=== PATIENT | male | born 1955 | race Caucasian/White ===

== ENCOUNTER 2018-08-08 17:01 | Observation (INO) | payer OTHER, SELFPAY ==
[2018-08-08] VITALS (7 sets, daily range): BP systolic 133–162; BP diastolic 75–85; PULSE 50–75; RESP 16–18; TEMP 36.5–36.9; O2SAT 93–97; BMI 33.0; BMI 33.1
--- NOTE | 2018-08-08 18:27 | EKG12_ITS ---
Test Reason : ADMIT Blood Pressure : / mmHG Vent. Rate : 061 BPM Atrial Rate : 061 BPM P-R Int : 194 ms QRS Dur : 114 ms QT Int : 412 ms P-R-T Axes : 021 -29 010 degrees QTc Int : 414 ms Normal sinus rhythm Incomplete right bundle branch block Minimal voltage criteria for LVH, may be normal variant Inferior infarct , age undetermined Abnormal ECG When compared with ECG of 10-FEB-2008 11:15, MANUAL COMPARISON REQUIRED, DATA IS UNCONFIRMED Confirmed by BENNY MADRID, MARIO ([id number]), primer expeditor and drier ANISA STREETER ([id number]) on 08/12/2018 1:18:59 PM Referred By: Confirmed By:MARIO ZAPATA MD
--- NOTE | 2018-08-08 18:43 | ECHOD_ITS ---
Reason For Study: ARRHYTHMIA Procedure This was a 2D Doppler, Color Flow transthoracic echocardiogram. Exam performed portable in patient room. Left Ventricle Moderately dilated left ventricle. The estimated ejection fraction is 45-50 %. Stage 1 diastolic dysfunction. Posterior-Basal: Akinetic. Right Ventricle Moderately dilated right ventricle. ICD or pacer leads identified within the right ventricle. Normal systolic function. Atria The left atrium is mildly enlarged. Normal right atrium. Normal atrial septum. Mitral Valve The mitral valve is structurally normal. No prolapse or stenosis seen. Tricuspid Valve Normal tricuspid valve. Trivial tricuspid valve insufficiency. Right ventricular systolic pressure estimated to be 29 mmHg. Aortic Valve Trisinus/trileaflet aortic valve. Normal aortic valve. Pulmonic Valve Normal pulmonic valve. Trivial pulmonic valve insufficiency. Great Vessels Normal aortic root. Mild atherosclerosis of the aortic arch. Normal inferior vena cava. Inferior vena cava collapse with sniff. Pericardium/Pleural No pericardial effusion. MMode/2D Measurements & Calculations LVIDd: 5.7 cm IVSd: 1.2 cm Ao root diam: 3.4 cm LVIDs: 4.1 cm LVPWd: 1.3 cm RVDd: 4.4 cm FS: 29.1 % LAV(MOD-bp): 53.7 ml LVAd ap4: 36.4 cm2 SV(MOD-sp4): 56.1 ml LAV(MOD-bp) Indexed: 23.7 ml/m2 EDV(MOD-sp4): 126.4 ml LAV(MOD-sp2): 46.3 ml EDV(sp4-el): 125.5 ml LAV(MOD-sp4): 61.7 ml LVAs ap4: 24.7 cm2 ESV(MOD-sp4): 70.3 ml ESV(sp4-el): 69.4 ml EF(MOD-sp4): 44.4 % EF(sp4-el): 44.7 % SV(sp4-el): 56.0 ml LA A4 area: 21.4 cm2 LA dimension(2D): 4.5 cm RA A4 area: 19.1 cm2 Time Measurements MV dec time: 0.20 sec Doppler Measurements & Calculations MV E max nathan: 67.9 cm/sec Lat Peak E' Nathan: 12.2 cm/sec Med Peak E' Nathan: 6.3 cm/sec MV A max nathan: 92.0 cm/sec E/E' lat: 5.6 E/E' med: 10.7 MV E/A: 0.74 Ao V2 max: 148.1 cm/sec LV V1 max: 99.9 cm/sec PA V2 max: 140.5 cm/sec Ao max P.8 mmHg LV V1 max P.0 mmHg TR max nathan: 244.6 cm/sec TR max P.9 mmHg Interpretation Summary Moderately dilated left ventricle. The estimated ejection fraction is 45-50 %. Stage 1 diastolic dysfunction. Posterior-Basal: Akinetic. Moderately dilated right ventricle. Trivial tricuspid valve insufficiency. Right ventricular systolic pressure estimated to be 29 mmHg. Compared to echo report dated 06/06/2014, LV function and RVSP has remained the same. RV is now moderately enlarged. Ordering Physician: Samson^Jeronimo^^^ Referring Physician: CHONG WARD Performed By: Summer Casas RDCS
--- NOTE | 2018-08-08 18:46 | PCM.HP.STD ---
Problem List (1) Syncope Status: Acute (2) AICD discharge Status: Acute (3) History of myocardial infarction Status: Chronic (4) Essential hypertension Status: Chronic (5) Carotid bruit Status: Chronic (6) Hyperlipemia Status: Chronic Qualifiers: (7) H/O coronary artery bypass surgery Status: Chronic Comment: CABG x3- COLLADO to LAD, SVG to Lt CX, SVG to PDA (8) Atherosclerosis of coronary artery of [place] heart without angina pectoris Status: Chronic Qualifiers: (9) Paroxysmal ventricular tachycardia Status: Chronic (10) Ischemic cardiomyopathy Status: Chronic (11) Presence of implantable cardioverter-defibrillator (ICD) Status: Chronic Comment: Implantation 02/2008; ICD gen change 07/04/16 History of Present Illness Date of Admission: 08/08/18 Chief Complaint: Syncope and collapse with AICD firing The patient is a 63 year old M with history of coronary artery disease status post CABG and AICD in 2007 after massive [place] was admitted from October the [place] [facility] for syncope and collapse. Last night patient AICD went off. After that patient felt dizzy, lightheaded confused and mild short of breath and then suddenly passed out. Then patient was life flighted to [place] [facility]. Exact duration of syncope is not clear because no one was eyewitness probably with a short duration. Patient denies chest pain. [] Work up regarding [facility] troponin normal. EKG normal sinus rhythm with old inferior infarct with no significant change from May 2014 EKG. Basic blood work CBC, CMP are within normal limit. K3.8. BNP 103. Magnesium 1.9. Patient is back to the baseline when seen in PCU. Past Medical History Past Medical History (Chronic Problems): Chronic Problems (Last Reviewed 03/18/18 @ 16:24 by Adali Smith) History of myocardial infarction (Chronic) Essential hypertension (Chronic) Carotid bruit (Chronic) Hyperlipemia (Chronic) H/O coronary artery bypass surgery (Chronic ~12/26/07) CABG x3- COLLADO to LAD, SVG to Lt CX, SVG to PDA Atherosclerosis of coronary artery of [place] heart without angina pectoris (Chronic) Paroxysmal ventricular tachycardia (Chronic) Ischemic cardiomyopathy (Chronic) Presence of implantable cardioverter-defibrillator (ICD) (Chronic) Implantation 02/2008; ICD gen change 07/04/16 Medical History: Medical History (Last Reviewed 03/18/18 @ 16:24 by Adali Smith) History of myocardial infarction (Acute) I25.2 Essential hypertension (Chronic) I10 Carotid bruit (Acute) R09.89 Hyperlipemia (Chronic) E78.5 Atherosclerosis of coronary artery of [place] heart without angina pectoris (Chronic) I25.10 Paroxysmal ventricular tachycardia (Chronic) I47.2 Ischemic cardiomyopathy (Chronic) I25.5 Allergies iodine Allergy (Verified 03/18/18 16:22) Unknown latex Allergy (Verified 03/18/18 16:22) Unknown Home Medications: Ambulatory Orders Medication Instructions Recorded Aspirin 325 mg PO QHS 07/03/16 Cetirizine HCl [Zyrtec] 10 mg PO DAILY 07/03/16 Hydrochlorothiazide [Hctz] 25 mg PO DAILY 07/03/16 Lisinopril [Zestril] 20 mg PO BID 07/03/16 Metoprolol Tartrate [Lopressor 100 mg PO BID 07/03/16 (Beta Janki)] Multivitamin [Daily Multiple 1 ea PO DAILY 07/03/16 Vitamin] Nitroglycerin [Nitrostat] 0.4 mg SUBLINGUAL Q5M PRN 07/03/16 atorvastatin 40 mg tablet 40 mg PO DAILY 03/18/18 diphenhydramine 25 mg capsule 25 mg PO QHS PRN 03/18/18 potassium chloride ER 10 mEq 10 meq PO DAILY 03/18/18 capsule,extended release Surgical History: Surgical History (Last Reviewed 03/18/18 @ 16:24 by Adali Smith) H/O coronary artery bypass surgery (Chronic) Onset Date: ~12/26/07 Z95.1 CABG x3- COLL[place] to LAD, SVG to Lt CX, SVG to PDA Presence of implantable cardioverter-defibrillator (ICD) (Chronic) Z95.810 Implantation 02/2008; ICD gen change 07/04/16 History of tonsillectomy Z90.89 Postsurgical percutaneous transluminal coronary angioplasty (PTCA) status Onset Date: ~12/2007 Z98.61 PTCA of the CFX & RCA 12/2007 Smoking Status: Never smoker - *Family History Paternal History Items: Heart Disease - [place] Review of Systems Constitutional: Denies: Chills, Fever, Weight Change HEENT: Reports: Head Aches. Denies: Sinus Congestion, Sinus Drainage Cardiovascular: Reports: Light Headedness, Syncope. Denies: Chest Pain, Palpitations Respiratory: Reports: Shortness of Breath. Denies: Cough, Shortness of breath at rest, Sputum production Gastrointestinal: Denies: Abdominal Pain, Nausea, Vomiting Genitourinary: Denies: Dysuria Musculoskeletal: Denies: Joint Pain, Joint Tenderness Skin: Denies: Rash, Wounds Neurological: Denies: Numbness, Tingling, Focal weakness Psychiatric: Denies: Anxiety, Depression, Homicidal Ideations, Suicidal Ideations Hematologic/ Lymphatic: Denies: Easy Bruising, Easy Bleeding VTE Information - Inpt Only VTE Present on Admission: No VTE Mechan Device Prophylaxis: None VTE Pharm Prophylaxis ordered?: Yes Patient Problems: Active and Suspected Problems (Last Reviewed 03/18/18 @ 16:24 by Adali Smith) Syncope (Acute) AICD discharge (Acute) - Physical Exam General: Alert, Oriented x3, Cooperative HEENT: Atraumatic, PERRLA, EOMI, Normocephalic Oral: No Gingival or Mucosal Lesions/ Ulcerations Neck: Supple, No JVD, Negative Carotid Bruits Lungs: Clear to auscultation, Normal air movement, No rhonchi, No wheeze, No rales Cardiovascular: Regular rate, Regular Rhythm, Normal S1, Normal S2, No murmurs, - - AICD present over left subclavicular region Abdomen: Bowel Sounds Present, Soft, Non Tender, Non-Distended Extremities: No edema, Capillary Refill Less than 3 Seconds Skin: No rashes, No breakdown Musculoskeletal: No Tenderness to Palpation of Joints or Extremities, Arthritic Changes Lymphatic: No Cervical, Supraclavicular, or Inguinal Adenopathy Neurological: Cranial nerves II-XII grossly intact, Deep Tendon Reflexes 2+/4 and Symmetrical, Neuro grossly intact, Motor Exam 5/5 strength throughout Psych/Mental Status: Normal Affect, Appropriate Vital Signs Temp Pulse Resp BP Pulse Ox 98.4 F 69 18 133/85 H 97 08/08/18 17:14 08/08/18 17:44 08/08/18 17:14 08/08/18 17:14 08/08/18 17:14 Oxygen Delivery Method Room Air Weight: 236 lb 15.951 oz Body Mass Index (BMI) 33.0 Intake and Output for Last 24 Hours 08/06/18 08/07/18 08/08/18 23:59 23:59 23:59 Intake Total 0 / 0 Balance 0 / 0 Assessment/Plan All Active Problems (Last Reviewed 03/18/18 @ 16:24 by Adali mSith) Syncope (Acute) AICD discharge (Acute) The patient is a 63 year old M with history of coronary artery disease status post CABG and AICD in 2007 after massive [place] was admitted from October the [place] [facility] for syncope and collapse. Last night patient AICD went off. After that patient felt dizzy, lightheaded confused and mild short of breath and then suddenly passed out. Then patient was life flighted to [place] [facility]. Exact duration of syncope is not clear because no one was eyewitness probably with a short duration. Patient denies chest pain. [] Work up regarding [facility] troponin normal. EKG normal sinus rhythm with old inferior infarct with no significant change from May 2014 EKG. Basic blood work CBC, CMP are within normal limit. K3.8. BNP 103. Magnesium 1.9. Digital Strategy Manager was consulted and patient directly transferred to PCU. Patient is back to the baseline when seen in PCU. 1. Syncope and collapse mostly secondary to arrhythmia probably A. fib: Patient is being admitted in PCU. Cycle cardiac enzymes. Dr. Camarena has been consulted. IV fluid normal saline 75 mill per hour for 1 L. Patient had last cardiac cath in [facility] in November 2014 and grafts were patent. EF 50%. Last echo in May 2014 reported as EF 40-45% with akinesis of inferior myocardium. Grade 1 diastolic dysfunction. RVSP 26 mmHg. Left atrium moderately enlarged. It was reported as difficult study secondary to patient's body habitus. Repeat 2D echo. AICD interrogation. Repeat EKG done in PCU shows normal sinus rhythm with incomplete right bundle branch block, QRS 114 ms but no significant change from previous EKG. 2. Coronary artery disease status post CABG with ischemic cardiomyopathy: Patient is on aspirin, atorvastatin, lisinopril and metoprolol and continued. 3. Chronic systolic and diastolic heart failure: Echo report as mentioned above. Patient does not have significant ankle edema or lung crepitations. Patient had a chest x-ray in ED there but report is not available. 4. Other comorbidities include hypertension, dyslipidemia, possible prediabetes: Glucose is 112 reported in BMP. DVT prophylaxis: On Lovenox 40 minutes subcu daily Code Visit OBSV E&M: 94505 Initial observation care L3
--- NOTE | 2018-08-08 18:52 | HP.PCM_ITS ---
Problem List (1) Syncope Status: Acute (2) AICD discharge Status: Acute (3) History of myocardial infarction Status: Chronic (4) Essential hypertension Status: Chronic (5) Carotid bruit Status: Chronic (6) Hyperlipemia Status: Chronic Qualifiers: (7) H/O coronary artery bypass surgery Status: Chronic Comment: CABG x3- COLLADO to LAD, SVG to Lt CX, SVG to PDA (8) Atherosclerosis of coronary artery of [place] heart without angina pectoris Status: Chronic Qualifiers: (9) Paroxysmal ventricular tachycardia Status: Chronic (10) Ischemic cardiomyopathy Status: Chronic (11) Presence of implantable cardioverter-defibrillator (ICD) Status: Chronic Comment: Implantation 02/2008; ICD gen change 07/04/16 History of Present Illness Date of Admission: 08/08/18 Chief Complaint: Syncope and collapse with AICD firing The patient is a 63 year old M with history of coronary artery disease status post CABG and AICD in 2007 after massive [place] was admitted from October the [place] ER for syncope and collapse. Last night patient AICD went off. After that patient felt dizzy, lightheaded confused and mild short of breath and then suddenly passed out. Then patient was life flighted to [place] ER. Exact duration of syncope is not clear because no one was eyewitness probably with a short duration. Patient denies chest pain. [] Work up regarding [facility] troponin normal. EKG normal sinus rhythm with old inferior infarct with no significant change from May 2014 EKG. Basic blood work CBC, CMP are within normal limit. K3.8. BNP 103. Magnesium 1.9. Patient is back to the baseline when seen in PCU. Past Medical History Past Medical History (Chronic Problems): Chronic Problems (Last Reviewed 03/18/18 @ 16:24 by Adali Smith) History of myocardial infarction (Chronic) Essential hypertension (Chronic) Carotid bruit (Chronic) Hyperlipemia (Chronic) H/O coronary artery bypass surgery (Chronic ~12/26/07) CABG x3- COLLADO to LAD, SVG to Lt CX, SVG to PDA Atherosclerosis of coronary artery of [place] heart without angina pectoris (Chronic) Paroxysmal ventricular tachycardia (Chronic) Ischemic cardiomyopathy (Chronic) Presence of implantable cardioverter-defibrillator (ICD) (Chronic) Implantation 02/2008; ICD gen change 07/04/16 Medical History: Medical History (Last Reviewed 03/18/18 @ 16:24 by Adali Smith) History of myocardial infarction (Acute) I25.2 Essential hypertension (Chronic) I10 Carotid bruit (Acute) R09.89 Hyperlipemia (Chronic) E78.5 Atherosclerosis of coronary artery of [place] heart without angina pectoris (Chronic) I25.10 Paroxysmal ventricular tachycardia (Chronic) I47.2 Ischemic cardiomyopathy (Chronic) I25.5 Allergies iodine Allergy (Verified 03/18/18 16:22) Unknown latex Allergy (Verified 03/18/18 16:22) Unknown Home Medications: Ambulatory Orders Medication Instructions Recorded Aspirin 325 mg PO QHS 07/03/16 Cetirizine HCl [Zyrtec] 10 mg PO DAILY 07/03/16 Hydrochlorothiazide [Hctz] 25 mg PO DAILY 07/03/16 Lisinopril [Zestril] 20 mg PO BID 07/03/16 Metoprolol Tartrate [Lopressor 100 mg PO BID 07/03/16 (Beta Janki)] Multivitamin [Daily Multiple 1 ea PO DAILY 07/03/16 Vitamin] Nitroglycerin [Nitrostat] 0.4 mg SUBLINGUAL Q5M PRN 07/03/16 atorvastatin 40 mg tablet 40 mg PO DAILY 03/18/18 diphenhydramine 25 mg capsule 25 mg PO QHS PRN 03/18/18 potassium chloride ER 10 mEq 10 meq PO DAILY 03/18/18 capsule,extended release Surgical History: Surgical History (Last Reviewed 03/18/18 @ 16:24 by Adali Smith) H/O coronary artery bypass surgery (Chronic) Onset Date: ~12/26/07 Z95.1 CABG x3- COLLADO to LAD, SVG to Lt CX, SVG to PDA Presence of implantable cardioverter-defibrillator (ICD) (Chronic) Z95.810 Implantation 02/2008; ICD gen change 07/04/16 History of tonsillectomy Z90.89 Postsurgical percutaneous transluminal coronary angioplasty (PTCA) status Onset Date: ~12/2007 Z98.61 PTCA of the CFX & RCA 12/2007 Smoking Status: Never smoker - *Family History Paternal History Items: Heart Disease - [place] Review of Systems Constitutional: Denies: Chills, Fever, Weight Change HEENT: Reports: Head Aches. Denies: Sinus Congestion, Sinus Drainage Cardiovascular: Reports: Light Headedness, Syncope. Denies: Chest Pain, Palpitations Respiratory: Reports: Shortness of Breath. Denies: Cough, Shortness of breath at rest, Sputum production Gastrointestinal: Denies: Abdominal Pain, Nausea, Vomiting Genitourinary: Denies: Dysuria Musculoskeletal: Denies: Joint Pain, Joint Tenderness Skin: Denies: Rash, Wounds Neurological: Denies: Numbness, Tingling, Focal weakness Psychiatric: Denies: Anxiety, Depression, Homicidal Ideations, Suicidal Ideations Hematologic/ Lymphatic: Denies: Easy Bruising, Easy Bleeding VTE Information - Inpt Only VTE Present on Admission: No VTE Mechan Device Prophylaxis: None VTE Pharm Prophylaxis ordered?: Yes Patient Problems: Active and Suspected Problems (Last Reviewed 03/18/18 @ 16:24 by Adali Smith) Syncope (Acute) AICD discharge (Acute) - Physical Exam General: Alert, Oriented x3, Cooperative HEENT: Atraumatic, PERRLA, EOMI, Normocephalic Oral: No Gingival or Mucosal Lesions/ Ulcerations Neck: Supple, No JVD, Negative Carotid Bruits Lungs: Clear to auscultation, Normal air movement, No rhonchi, No wheeze, No rales Cardiovascular: Regular rate, Regular Rhythm, Normal S1, Normal S2, No murmurs, - - AICD present over left subclavicular region Abdomen: Bowel Sounds Present, Soft, Non Tender, Non-Distended Extremities: No edema, Capillary Refill Less than 3 Seconds Skin: No rashes, No breakdown Musculoskeletal: No Tenderness to Palpation of Joints or Extremities, Arthritic Changes Lymphatic: No Cervical, Supraclavicular, or Inguinal Adenopathy Neurological: Cranial nerves II-XII grossly intact, Deep Tendon Reflexes 2+/4 and Symmetrical, Neuro grossly intact, Motor Exam 5/5 strength throughout Psych/Mental Status: Normal Affect, Appropriate Vital Signs Temp Pulse Resp BP Pulse Ox 98.4 F 69 18 133/85 H 97 08/08/18 17:14 08/08/18 17:44 08/08/18 17:14 08/08/18 17:14 08/08/18 17:14 Oxygen Delivery Method Room Air Weight: 236 lb 15.951 oz Body Mass Index (BMI) 33.0 Intake and Output for Last 24 Hours 08/06/18 08/07/18 08/08/18 23:59 23:59 23:59 Intake Total 0 / 0 Balance 0 / 0 Assessment/Plan All Active Problems (Last Reviewed 03/18/18 @ 16:24 by Adali Smith) Syncope (Acute) AICD discharge (Acute) The patient is a 63 year old M with history of coronary artery disease status post CABG and AICD in 2007 after massive [place] was admitted from October the [place] ER for syncope and collapse. Last night patient AICD went off. After that patient felt dizzy, lightheaded confused and mild short of breath and then suddenly passed out. Then patient was life flighted to [place] ER. Exact duration of syncope is not clear because no one was eyewitness probably with a short duration. Patient denies chest pain. [] Work up regarding [facility] troponin normal. EKG normal sinus rhythm with old inferior infarct with no significant change from May 2014 EKG. Basic blood work CBC, CMP are within normal limit. K3.8. BNP 103. Magnesium 1.9. Psychologist Counseling was consulted and patient directly transferred to PCU. Patient is back to the baseline when seen in PCU. 1. Syncope and collapse mostly secondary to arrhythmia probably A. fib: Patient is being admitted in PCU. Cycle cardiac enzymes. Dr. Camarena has been consulted. IV fluid normal saline 75 mill per hour for 1 L. Patient had last cardiac cath in [facility] in November 2014 and grafts were patent. EF 50%. Last echo in May 2014 reported as EF 40-45% with akinesis of inferior myocardium. Grade 1 diastolic dysfunction. RVSP 26 mmHg. Left atrium moderately enlarged. It was reported as difficult study secondary to patient's body habitus. Repeat 2D echo. AICD interrogation. Repeat EKG done in PCU shows normal sinus rhythm with incomplete right bundle branch block, QRS 114 ms but no significant change from previous EKG. 2. Coronary artery disease status post CABG with ischemic cardiomyopathy: Patient is on aspirin, atorvastatin, lisinopril and metoprolol and continued. 3. Chronic systolic and diastolic heart failure: Echo report as mentioned above. Patient does not have significant ankle edema or lung crepitations. Patient had a chest x-ray in ED there but report is not available. 4. Other comorbidities include hypertension, dyslipidemia, possible prediabetes: Glucose is 112 reported in BMP. DVT prophylaxis: On Lovenox 40 minutes subcu daily Code Visit OBSV E&M: 65859 Initial observation care L3
[2018-08-08] MEDS: 0.9% NaCl Peripheral Flush Adult/Peds IV (18:54)
[2018-08-08] MEDS: 0.9% Normal Saline 1,000 ML 75 ML IV (18:54)
[2018-08-08 19:05] LABS: Bedside Glucose 109 mg/dL (70-110)
[2018-08-08 19:52] LABS: Magnesium 1.9 mg/dL (1.6-2.6)
[2018-08-08] MEDS: Lisinopril 20 MG Tablet PO (22:00)
[2018-08-08] MEDS: Aspirin 325 MG Tablet PO (22:00)
[2018-08-08] MEDS: Famotidine 20 MG Tablet PO (22:00)
[2018-08-08] MEDS: Metoprolol Tartrate 100 MG Tablet PO (22:00)
[2018-08-08 22:51] LABS: Bedside Glucose 107 mg/dL (70-110)
[2018-08-09] VITALS (13 sets, daily range): BP systolic 122–144; BP diastolic 55–91; PULSE 52–78; RESP 14–18; TEMP 36.5–36.8; O2SAT 93–97
[2018-08-09 06:56] LABS: Bedside Glucose 123 mg/dL (70-110)
[2018-08-09 07:20] LABS: Absolute Neutrophil Count 2.7 X10^3/uL (2.0-7.7); Basophil# 0.02 X10^3/uL; Basophil% 0.4 % (0-1); Eosinophil# 0.11 X10^3/uL; Eosinophils% 2.3 % (0-5); Hematocrit 40.7 % (40-54); Hemoglobin 13.6 g/dl (13.0-16.5); Lymphocyte % 29.8 % (19-41); Mean Corp Hgb Conc 33.4 g/gl (32-36); Mean Corpuscular Hgb 31.1 pg (27.0-32.0); Mean Corpuscular Volume 93.1 fL (80-94); Mean Platelet Vol. 11.4 fl (6.2-12.0); Monocyte# 0.47 X10^3/uL; Neutrophil % 57.5 % (47-70); Platelet Count 171 K/mm3 (150-450); RBC Distribution Width CV 12.7 % (11.6-14.6); RBC Distribution Width SD 42.7 fl (35.1-43.9); Red Blood Count 4.37 M/mm3 (4.6-6.2); White Blood Count 4.7 K/mm3 (4.4-11.0)
[2018-08-09 07:24] LABS: POSITIVE COUNT NO; POSITIVE DIFFERENTIAL NO; POSITIVE MORPHOLOGY NO
[2018-08-09 07:44] LABS: Anion Gap 5 (5-15); BUN 16 mg/dL (7-18); BUN/Creat Ratio 19.1 RATIO (10-20); Calcium,Total 8.2 mg/dL (8.5-10.1); Chloride 111 mmol/L (98-107); Creatinine, Serum 0.84 mg/dL (0.70-1.30); EST Glomerular Filtration Rate 99 mL/min (>60); Est Glom Filt Rate - Afr Amer 120 mL/min (>60); Estimated Creatinine Clearance 97.11 ml/min; Glucose 131 mg/dL (74-106); Potassium 3.7 mmol/L (3.5-5.1); Sodium Level 142 mmol/L (136-145); Thyroid Stim Hormone (TSH) 0.68 uIU/mL (0.358-3.74)
[2018-08-09] MEDS: Metoprolol Tartrate 100 MG Tablet PO ×2 (09:36→22:09)
[2018-08-09] MEDS: hydroCHLOROthiazide 25 MG Tablet PO (09:36)
[2018-08-09] MEDS: Enoxaparin 40 MG/0.4 ML Syringe SC (09:36)
[2018-08-09] MEDS: Lisinopril 20 MG Tablet PO ×2 (09:37→22:09)
[2018-08-09] MEDS: Famotidine 20 MG Tablet PO ×2 (09:42→22:09)
--- NOTE | 2018-08-09 09:50 | PCM.CONS.C ---
Problem List (1) Syncope Status: Acute (2) AICD discharge Status: Acute (3) History of myocardial infarction Status: Chronic (4) Essential hypertension Status: Chronic (5) Hyperlipemia Status: Chronic Qualifiers: (6) H/O coronary artery bypass surgery Status: Chronic Comment: CABG x3- COLLADO to LAD, SVG to Lt CX, SVG to PDA (7) Atherosclerosis of coronary artery of [place] heart without angina pectoris Status: Chronic Qualifiers: (8) Paroxysmal ventricular tachycardia Status: Chronic (9) Ischemic cardiomyopathy Status: Chronic Reason for Consult Date of Consultation: 08/09/18 Reason for Consultation: AICD discharge, for V. fib, ischemic cardia myopathy, hypertension, hypercholesterolemia, coronary artery disease, LV dysfunction History of Present Illness: The patient is a 63 year old M, patient of Dr. Falcon with a history of hypertension, hypercholesterolemia, non-smoker, nondiabetic, with a history of coronary artery disease status post myocardial infarction in 2007. At that time he underwent urgent multivessel bypass surgery receiving a COLLADO to the LAD, saphenous vein graft to the PDA, and a saphenous vein graft to the obtuse marginal. His most recent catheterization took place at [facility] on 02/16/08 which showed patent grafts, EF of 50%, occluded right coronary artery and nonobstructive disease of his remaining coronaries. Apparently the patient underwent EP evaluation at [facility] and was found to require a defibrillator which was placed in 2007 and generator change in 2016. The patient has been doing very well and has had no chest pain, angina, or shortness of breath, change in his exercise capacity, or decreased energy level. Patient noted that [employer] helicopter was landing in his neighborhood and the patient went to go lend assistance and try to do up a hill to get to the landing site. Upon arrival at the top of the hill the patient became profoundly dizzy and lightheaded requiring him to stabilize himself on a stack of logs and finally turned and passed out. When the patient woke up he was on the ground, and went back to his home. He had his defibrillator interrogated remotely and was found that he went into V. fib arrest requiring a shock. He was advised to go to the emergency room and went to [facility]. [facility] ER called me yesterday and I requested transfer to [facility] for further evaluation and diagnostic coronary angiogram. Currently the patient is doing very well, denies any chest pain or 24-hour events. His telemetry is remained normal sinus rhythm. His lightheadedness episodes were similar to what he had prior to his implantation of his defibrillator and before it was discovered he had ischemia induced ventricular arrhythmias. His presenting EKG showed normal sinus rhythm with right bundle branch block, old inferior wall myocardial infarction, no acute changes. Troponins have been negative x3. Past Medical History Allergies/Adverse Reactions: Allergies iodine Allergy (Verified 03/18/18 16:22) Unknown latex Allergy (Verified 03/18/18 16:22) Unknown Home Medications: Ambulatory Orders Medication Instructions Recorded Aspirin 325 mg PO QHS 07/03/16 Cetirizine HCl [Zyrtec] 10 mg PO DAILY 07/03/16 Hydrochlorothiazide [Hctz] 25 mg PO DAILY 07/03/16 Lisinopril [Zestril] 20 mg PO BID 07/03/16 Metoprolol Tartrate [Lopressor 100 mg PO BID 07/03/16 (Beta Janki)] Multivitamin [Daily Multiple 1 ea PO DAILY 07/03/16 Vitamin] Nitroglycerin [Nitrostat] 0.4 mg SUBLINGUAL Q5M PRN 07/03/16 atorvastatin 40 mg tablet 40 mg PO DAILY 03/18/18 diphenhydramine 25 mg capsule 25 mg PO QHS PRN 03/18/18 potassium chloride ER 10 mEq 10 meq PO DAILY 03/18/18 capsule,extended release Past Medical History (Chronic Problems): Chronic Problems (Last Reviewed 03/18/18 @ 16:24 by Adali Smith) History of myocardial infarction (Chronic) Essential hypertension (Chronic) Carotid bruit (Chronic) Hyperlipemia (Chronic) H/O coronary artery bypass surgery (Chronic ~12/26/07) CABG x3- COLLADO to LAD, SVG to Lt CX, SVG to PDA Atherosclerosis of coronary artery of [place] heart without angina pectoris (Chronic) Paroxysmal ventricular tachycardia (Chronic) Ischemic cardiomyopathy (Chronic) Presence of implantable cardioverter-defibrillator (ICD) (Chronic) Implantation 02/2008; ICD gen change 07/04/16 - *Family History Paternal History Items: Heart Disease - [place] Smoking Status: Never smoker Review of Systems - Review of Systems General: Denies: Fever, Night Sweats, Fatigue Cardiovascular: Reports: Syncope. Denies: Chest Discomfort, Shortness of Breath, Orthopnea, PND, Peripheral Edema, Palpitations, Lightheadedness, Dizziness, Near Syncope Respiratory: Denies: Cough, Sputum Production, Hemoptysis Gastrointestinal: Denies: Hematemesis, Hematochezia, Melena Genitourinary: Denies: Dysuria, Hematuria Skin: Denies: Rash Subjectve: Patient laying in bed, no acute distress. Objective: Vital Signs Temp Pulse Resp BP Pulse Ox 98.2 F 62 16 144/55 H 95 08/09/18 09:32 08/09/18 09:36 08/09/18 09:32 08/09/18 09:36 08/09/18 09:32 Oxygen Delivery Method Room Air Weight: 236 lb 15.951 oz Body Mass Index (BMI) 33.0 Orthostatic Vital Signs Start: 08/08/18 22:01 Freq: q24h Status: Active Protocol: Activity Type Activity Date Activity User E-Sign Co-Sign Detail Recorded Client Recorded Date Recorded By Document 08/09/18 04:01 [facility] [id number] 08/09/18 04:02 [facility] 08/09/18 04:01 Orthostatic Vitals Standing -Blood Pressure (90/60-120/80) 141/91 H -Extremity Use Right Arm -Pulse Rate (60-100) 63 Sitting -Blood Pressure (90/60-120/80) 135/80 H -Extremity Use Right Arm -Pulse Rate (60-100) 63 Lying -Blood Pressure (90/60-120/80) 132/78 H -Extremity Use Right Arm -Pulse Rate (60-100) 60 Intake and Output for Last 24 Hours 08/07/18 08/08/18 08/09/18 23:59 23:59 23:59 Intake Total 736 / 736 366 / 366 Balance 736 / 736 366 / 366 General: Awake, Alert, Oriented x 3 HEENT: PERRL, EOMI, Sclera Non Icteric Neck: Supple, Good ROM, No Lymph Node Enlargement Lungs: Clear to auscultation Cardiovascular: Regular Rhythm, Normal S1, Normal S2, No Murmurs, No Rubs, No Gallops Vascular: No Carotid Bruits, Normal Femoral Pulses, Normal Radial Pulses, Normal Dorsalis Pedal Pulse, Normal Posterior Tibial Pulses Abdomen: Bowel Sounds Present, Soft, Non Tender, No HSM, No Organomegaly Extremities: No Cyanosis, No Clubbing, No edema Neurological: No Focal Motor or Sensory Deficit 08/08/18 19:03: Magnesium 1.9, Troponin I < 0.015 08/08/18 21:40: Troponin I < 0.015 08/09/18 00:20: Troponin I < 0.015 08/09/18 06:30: WBC 4.7, RBC 4.37 L, Hgb 13.6, Hct 40.7, MCV 93.1, MCH 31.1, MCHC 33.4, RDW 12.7, RDW Differential 42.7, Plt Count 171, MPV 11.4, Immature Gran % (Auto) 0.000, Neut % (Auto) 57.5, Lymph % (Auto) 29.8, [place] % (Auto) 10.0, Eos % (Auto) 2.3, Baso % (Auto) 0.4, Absolute Neuts (auto) 2.7, Total Counted Not Reportable 08/09/18 06:30: Sodium 142, Potassium 3.7, Chloride 111 H, Carbon Dioxide 26.0, Anion Gap 5, BUN 16, Creatinine 0.84, Est GFR (MDRD) Af Amer 120, Est GFR (MDRD) Non-Af 99, BUN/Creatinine Ratio 19.1, Glucose 131 H, Calcium 8.2 L Rhythm: EKG: ECHO: Stress Test: Cardiac Cath: PCI: CT Surgery: Holter monitor: EPS: PPM: CXR: Chest CT Scan: Assessment/Plan 1. Syncope: The patient has presented with a V. fib arrest aborted by his defibrillator. He has had no previous discharges in the 11 years since his been implanted. He has known ischemic cardiomyopathy, and most recent catheterization was in 2007. It is been about 11 years since his bypass surgery. Given the patient's presentation, V. fib arrest, and length of time since his bypass surgery, I recommended he undergo a repeat left heart catheterization with graft angiography. We will request records from [facility] to confirm where his grafts have been placed, but we do have a catheterization from 2007 after his bypass surgery which confirmed graft patency in Dr. Barajas's notes. His troponins are negative. In the meantime we will continue aspirin, Plavix, metoprolol, lisinopril, and hydrochlorothiazide. The patient may benefit from changing from metoprolol to Coreg depending upon his internal blood pressures. 2. Hyperlipidemia: Recommend obtaining a fasting lipid profile. His LDL should be less than 70. Continue Lipitor. 3. AICD: The patient had an AICD firing which was appropriate according to the report gained via remote correspondence with our pacer coordinator Michell Khan. Continue beta-janki therapy. The patient may require additional amiodarone therapy for suppression going forward depending upon the outcome of his heart catheterization. If the patient has no overt lesions that require intervention, I have a low threshold to add amiodarone to his medical regimen for ventricular arrhythmia suppression. 4. Thank you very much for the opportunity to participate in the cardiac care of your patient. Consultation time took place between 830 and 9 AM. Code Visit Inpatient E&M: [id number] Init Hosp L2
--- NOTE | 2018-08-09 09:55 | CON.PCM_ITS ---
Problem List (1) Syncope Status: Acute (2) AICD discharge Status: Acute (3) History of myocardial infarction Status: Chronic (4) Essential hypertension Status: Chronic (5) Hyperlipemia Status: Chronic Qualifiers: (6) H/O coronary artery bypass surgery Status: Chronic Comment: CABG x3- COLLADO to LAD, SVG to Lt CX, SVG to PDA (7) Atherosclerosis of coronary artery of [place] heart without angina pectoris Status: Chronic Qualifiers: (8) Paroxysmal ventricular tachycardia Status: Chronic (9) Ischemic cardiomyopathy Status: Chronic Reason for Consult Date of Consultation: 08/09/18 Reason for Consultation: AICD discharge, for V. fib, ischemic cardia myopathy, hypertension, hypercholesterolemia, coronary artery disease, LV dysfunction History of Present Illness: The patient is a 63 year old M, patient of Dr. Falcon with a history of hypertension, hypercholesterolemia, non-smoker, nondiabetic, with a history of coronary artery disease status post myocardial infarction in 2007. At that time he underwent urgent multivessel bypass surgery receiving a COLLADO to the LAD, saphenous vein graft to the PDA, and a saphenous vein graft to the obtuse marginal. His most recent catheterization took place at [facility] on 02/16/08 which showed patent grafts, EF of 50%, occluded right coronary artery and nonobstructive disease of his remaining coronaries. Apparently the patient underwent EP evaluation at [facility] and was found to require a defibrillator which was placed in 2007 and generator change in 2016. The patient has been doing very well and has had no chest pain, angina, or shortness of breath, change in his exercise capacity, or decreased energy level. Patient noted that [employer] helicopter was landing in his neighborhood and the patient went to go lend assistance and try to do up a hill to get to the landing site. Upon arrival at the top of the hill the patient became profoundly dizzy and lightheaded requiring him to stabilize himself on a stack of logs and finally turned and passed out. When the patient woke up he was on the ground, and went back to his home. He had his defibrillator interrogated remotely and was found that he went into V. fib arrest requiring a shock. He was advised to go to the emergency room and went to [facility]. [facility] ER called me yesterday and I requested transfer to [facility] for further evaluation and diagnostic coronary angiogram. Currently the patient is doing very well, denies any chest pain or 24-hour events. His telemetry is remained normal sinus rhythm. His lightheadedness episodes were similar to what he had prior to his implantation of his defibrillator and before it was discovered he had ischemia induced ventricular arrhythmias. His presenting EKG showed normal sinus rhythm with right bundle branch block, old inferior wall myocardial infarction, no acute changes. Troponins have been negative x3. Past Medical History Allergies/Adverse Reactions: Allergies iodine Allergy (Verified 03/18/18 16:22) Unknown latex Allergy (Verified 03/18/18 16:22) Unknown Home Medications: Ambulatory Orders Medication Instructions Recorded Aspirin 325 mg PO QHS 07/03/16 Cetirizine HCl [Zyrtec] 10 mg PO DAILY 07/03/16 Hydrochlorothiazide [Hctz] 25 mg PO DAILY 07/03/16 Lisinopril [Zestril] 20 mg PO BID 07/03/16 Metoprolol Tartrate [Lopressor 100 mg PO BID 07/03/16 (Beta Janki)] Multivitamin [Daily Multiple 1 ea PO DAILY 07/03/16 Vitamin] Nitroglycerin [Nitrostat] 0.4 mg SUBLINGUAL Q5M PRN 07/03/16 atorvastatin 40 mg tablet 40 mg PO DAILY 03/18/18 diphenhydramine 25 mg capsule 25 mg PO QHS PRN 03/18/18 potassium chloride ER 10 mEq 10 meq PO DAILY 03/18/18 capsule,extended release Past Medical History (Chronic Problems): Chronic Problems (Last Reviewed 03/18/18 @ 16:24 by Adali Smith) History of myocardial infarction (Chronic) Essential hypertension (Chronic) Carotid bruit (Chronic) Hyperlipemia (Chronic) H/O coronary artery bypass surgery (Chronic ~12/26/07) CABG x3- COLLADO to LAD, SVG to Lt CX, SVG to PDA Atherosclerosis of coronary artery of [place] heart without angina pectoris (Chronic) Paroxysmal ventricular tachycardia (Chronic) Ischemic cardiomyopathy (Chronic) Presence of implantable cardioverter-defibrillator (ICD) (Chronic) Implantation 02/2008; ICD gen change 07/04/16 - *Family History Paternal History Items: Heart Disease - [place] Smoking Status: Never smoker Review of Systems - Review of Systems General: Denies: Fever, Night Sweats, Fatigue Cardiovascular: Reports: Syncope. Denies: Chest Discomfort, Shortness of Breath, Orthopnea, PND, Peripheral Edema, Palpitations, Lightheadedness, Dizziness, Near Syncope Respiratory: Denies: Cough, Sputum Production, Hemoptysis Gastrointestinal: Denies: Hematemesis, Hematochezia, Melena Genitourinary: Denies: Dysuria, Hematuria Skin: Denies: Rash Subjectve: Patient laying in bed, no acute distress. Objective: Vital Signs Temp Pulse Resp BP Pulse Ox 98.2 F 62 16 144/55 H 95 08/09/18 09:32 08/09/18 09:36 08/09/18 09:32 08/09/18 09:36 08/09/18 09:32 Oxygen Delivery Method Room Air Weight: 236 lb 15.951 oz Body Mass Index (BMI) 33.0 Orthostatic Vital Signs Start: 08/08/18 22:01 Freq: q24h Status: Active Protocol: Activity Type Activity Date Activity User E-Sign Co-Sign Detail Recorded Client Recorded Date Recorded By Document 08/09/18 04:01 [facility] [id number] 08/09/18 04:02 [facility] 08/09/18 04:01 Orthostatic Vitals Standing -Blood Pressure (90/60-120/80) 141/91 H -Extremity Use Right Arm -Pulse Rate (60-100) 63 Sitting -Blood Pressure (90/60-120/80) 135/80 H -Extremity Use Right Arm -Pulse Rate (60-100) 63 Lying -Blood Pressure (90/60-120/80) 132/78 H -Extremity Use Right Arm -Pulse Rate (60-100) 60 Intake and Output for Last 24 Hours 08/07/18 08/08/18 08/09/18 23:59 23:59 23:59 Intake Total 736 / 736 366 / 366 Balance 736 / 736 366 / 366 General: Awake, Alert, Oriented x 3 HEENT: PERRL, EOMI, Sclera Non Icteric Neck: Supple, Good ROM, No Lymph Node Enlargement Lungs: Clear to auscultation Cardiovascular: Regular Rhythm, Normal S1, Normal S2, No Murmurs, No Rubs, No Gallops Vascular: No Carotid Bruits, Normal Femoral Pulses, Normal Radial Pulses, Normal Dorsalis Pedal Pulse, Normal Posterior Tibial Pulses Abdomen: Bowel Sounds Present, Soft, Non Tender, No HSM, No Organomegaly Extremities: No Cyanosis, No Clubbing, No edema Neurological: No Focal Motor or Sensory Deficit 08/08/18 19:03: Magnesium 1.9, Troponin I < 0.015 08/08/18 21:40: Troponin I < 0.015 08/09/18 00:20: Troponin I < 0.015 08/09/18 06:30: WBC 4.7, RBC 4.37 L, Hgb 13.6, Hct 40.7, MCV 93.1, MCH 31.1, MCHC 33.4, RDW 12.7, RDW Differential 42.7, Plt Count 171, MPV 11.4, Immature Gran % (Auto) 0.000, Neut % (Auto) 57.5, Lymph % (Auto) 29.8, [place] % (Auto) 1 0.0, Eos % (Auto) 2.3, Baso % (Auto) 0.4, Absolute Neuts (auto) 2.7, Total Counted Not Reportable 08/09/18 06:30: Sodium 142, Potassium 3.7, Chloride 111 H, Carbon Dioxide 26.0, Anion Gap 5, BUN 16, Creatinine 0.84, Est GFR (MDRD) Af Amer 120, Est GFR (MDRD) Non-Af 99, BUN/Creatinine Ratio 19.1, Glucose 131 H, Calcium 8.2 L Rhythm: EKG: ECHO: Stress Test: Cardiac Cath: PCI: CT Surgery: Holter monitor: EPS: PPM: CXR: Chest CT Scan: Assessment/Plan 1. Syncope: The patient has presented with a V. fib arrest aborted by his defibrillator. He has had no previous discharges in the 11 years since his been implanted. He has known ischemic cardiomyopathy, and most recent catheterization was in 2007. It is been about 11 years since his bypass surgery. Given the patient's presentation, V. fib arrest, and length of time since his bypass surgery, I recommended he undergo a repeat left heart catheterization with graft angiography. We will request records from [facility] to confirm where his grafts have been placed, but we do have a catheterization from 2007 after his bypass surgery which confirmed graft patency in Dr. Barajas's notes. His troponins are negative. In the meantime we will continue aspirin, Plavix, metoprolol, lisinopril, and hydrochlorothiazide. The patient may benefit from changing from metoprolol to Coreg depending upon his internal blood pressures. 2. Hyperlipidemia: Recommend obtaining a fasting lipid profile. His LDL should be less than 70. Continue Lipitor. 3. AICD: The patient had an AICD firing which was appropriate according to the report gained via remote correspondence with our pacer coordinator Michell Khan. Continue beta-janki therapy. The patient may require additional amiodarone therapy for suppression going forward depending upon the outcome of his heart catheterization. If the patient has no overt lesions that require intervention, I have a low threshold to add amiodarone to his medical regimen for ventricular arrhythmia suppression. 4. Thank you very much for the opportunity to participate in the cardiac care of your patient. Consultation time took place between 830 and 9 AM. Code Visit Inpatient E&M: [id number] Init Hosp L2
[2018-08-09] MEDS: Clopidogrel Bisulfate 75 MG Tablet PO (10:55)
[2018-08-09 11:07] LABS: Hemoglobin A1c 7.7 % (4.2-6.3)
[2018-08-09 11:11] LABS: Bedside Glucose 172 mg/dL (70-110)
--- NOTE | 2018-08-09 12:40 | PCM.PROGNOTE ---
Patient Problems: Active and Suspected Problems (Last Reviewed 03/18/18 @ 16:24 by Adali Smith) Syncope (Acute) AICD discharge (Acute) Subjective: The patient is a 63-year-old male with a past medical history of CAD, CABG, AICD placement, HTN, HLD and ischemic cardiomyopathy who had a syncopal episode and then had his AICD interrogated remotely and it revealed Vfib arrest requiring a shock. He was told to go to the ED and he was taken to [facility] ED where the EKG showed NSR with no suspicious ST or T wave changes. His thread trimmer is Dr. Barajas and he was transferred to [facility] where he was seen by Dr. Camarena this AM. Serial CE's have been negative. Telemetry shows NSR with no significant ectopy. Dr. Camarena recommends cardiac cath since he has not been studied since his TX in 2007. Afebrile, vital signs stable, pulse ox 95% on room air. All lab was reviewed. He denies chest pain, SOB, palpitations, lightheadedness. He was visiting with with family when I entered the room and appeared to be in no acute distress. Objective: PHYSICAL EXAM: GENERAL: alert, oriented X 3, Cooperative, NAD ORAL: moist mucosa, no mucosal lesions NECK: No JVD, supple, trachea midline, no carotid bruits LUNGS: CTA, symmetric chest expansion, no rhonchi, no rales, no wheezes HEART: RRR, Normal S1 and S2, no rub, no gallop, no murmurs ABDOMEN: soft, NT, ND, BS present, no guarding with palpation EXTREMITIES: no edema, no cyanosis, no calf tenderness SKIN: No rashes, no breakdown NEUROLOGIC: no focal neurologic deficits PSYCH: appropriate, normal affect, pleasant - Physical Exam Vital Signs Temp Pulse Resp BP Pulse Ox 98.2 F 59 L 16 144/55 H 95 08/09/18 09:32 08/09/18 11:00 08/09/18 09:32 08/09/18 09:36 08/09/18 09:32 Oxygen Delivery Method Room Air Weight: 236 lb 15.951 oz Body Mass Index (BMI) 33.0 Orthostatic Vital Signs Start: 08/08/18 22:01 Freq: q24h Status: Active Protocol: Activity Type Activity Date Activity User E-Sign Co-Sign Detail Recorded Client Recorded Date Recorded By Document 08/09/18 04:01 [facility] [id number] 08/09/18 04:02 [facility] 08/09/18 04:01 Orthostatic Vitals Standing -Blood Pressure (90/60-120/80 mm Hg) 141/91 H -Extremity Use Right Arm -Pulse Rate (60-100 beats/min) 63 Sitting -Blood Pressure (90/60-120/80 mm Hg) 135/80 H -Extremity Use Right Arm -Pulse Rate (60-100 beats/min) 63 Lying -Blood Pressure (90/60-120/80 mm Hg) 132/78 H -Extremity Use Right Arm -Pulse Rate (60-100 beats/min) 60 Intake and Output for Last 24 Hours 08/07/18 08/08/18 08/09/18 23:59 23:59 23:59 Intake Total 736 / 736 566 / 566 Balance 736 / 736 566 / 566 Laboratory Tests Past 24 Hrs 08/08/18 08/08/18 08/09/18 19:03 21:40 00:20 WBC RBC Hgb Hct MCV MCH MCHC RDW RDW Differential Plt Count MPV Immature Gran % (Auto) Neut % (Auto) Lymph % (Auto) [place] % (Auto) Eos % (Auto) Baso % (Auto) Absolute Neuts (auto) Absolute Lymphs (auto) Total Counted Sodium Potassium Chloride Carbon Dioxide Anion Gap BUN Creatinine Estim Creat Clear Calc Est GFR (MDRD) Af Amer Est GFR (MDRD) Non-Af BUN/Creatinine Ratio Glucose Hemoglobin A1c Calcium Magnesium 1.9 Troponin I < 0.015 < 0.015 < 0.015 TSH 08/09/18 08/09/18 08/09/18 06:30 06:30 06:30 WBC 4.7 RBC 4.37 L Hgb 13.6 Hct 40.7 MCV 93.1 MCH 31.1 MCHC 33.4 RDW 12.7 RDW Differential 42.7 Plt Count 171 MPV 11.4 Immature Gran % (Auto) 0.000 Neut % (Auto) 57.5 Lymph % (Auto) 29.8 [place] % (Auto) 10.0 Eos % (Auto) 2.3 Baso % (Auto) 0.4 Absolute Neuts (auto) 2.7 Absolute Lymphs (auto) 1.40 Total Counted Not Reportable Sodium 142 Potassium 3.7 Chloride 111 H Carbon Dioxide 26.0 Anion Gap 5 BUN 16 Creatinine 0.84 Estim Creat Clear Calc 97.11 Est GFR (MDRD) Af Amer 120 Est GFR (MDRD) Non-Af 99 BUN/Creatinine Ratio 19.1 Glucose 131 H Hemoglobin A1c 7.7 H Calcium 8.2 L Magnesium Troponin I TSH 0.68 POC Glucose 08/09/18 08/09/18 08/08/18 10:57 06:42 21:59 POC Glucose 172 H 123 H 107 08/08/18 18:53 POC Glucose 109 Medical Necessity - Tobacco Use Smoking Status: Never smoker Assessment/Plan All Active Problems (Last Reviewed 03/18/18 @ 16:24 by Aadli Smith) Syncope (Acute) AICD discharge (Acute) Impressions 1. Syncope secondary to V. fib arrest aborted by his defibrillator. Last cardiac cath in 2007 at [facility]. Scheduled for cardiac cath 08/10/[address] Camarena. Will order premedication for IV contrast allergy. Dr. Camarena notified. 2. Coronary artery disease with history of coronary artery bypass surgery 3. AICD present 4. Hypertension 5. Hyperlipidemia 6. Ischemic cardiomyopathy 7. DM II - new diagnosis - HGBA1C is 7.7 Prednisone and diphenhydramine ordered in prep for cath tomorrow in this pt with a contrast allergy. Potassium supplement ordered to keep the K around 4 Consult the canoe inspector final for education on carb/calorie control Lipid panel in the AM Code Visit Inpatient E&M: [id number] Subs Hosp L2
--- NOTE | 2018-08-09 13:09 | PN_ITS ---
Patient Problems: Active and Suspected Problems (Last Reviewed 03/18/18 @ 16:24 by Adali Smith) Syncope (Acute) AICD discharge (Acute) Subjective: The patient is a 63-year-old male with a past medical history of CAD, CABG, AICD placement, HTN, HLD and ischemic cardiomyopathy who had a syncopal episode and then had his AICD interrogated remotely and it revealed Vfib arrest requiring a shock. He was told to go to the ED and he was taken to [facility] ED where the EKG showed NSR with no suspicious ST or T wave changes. His adobe developer is Dr. Barajas and he was transferred to [facility] where he was seen by Dr. Camarena this AM. Serial CE's have been negative. Telemetry shows NSR with no significant ectopy. Dr. Camarena recommends cardiac cath since he has not been studied since his NV in 2007. Afebrile, vital signs stable, pulse ox 95% on room air. All lab was reviewed. He denies chest pain, SOB, palpitations, lightheadedness. He was visiting with with family when I entered the room and appeared to be in no acute distress. Objective: PHYSICAL EXAM: GENERAL: alert, oriented X 3, Cooperative, NAD ORAL: moist mucosa, no mucosal lesions NECK: No JVD, supple, trachea midline, no carotid bruits LUNGS: CTA, symmetric chest expansion, no rhonchi, no rales, no wheezes HEART: RRR, Normal S1 and S2, no rub, no gallop, no murmurs ABDOMEN: soft, NT, ND, BS present, no guarding with palpation EXTREMITIES: no edema, no cyanosis, no calf tenderness SKIN: No rashes, no breakdown NEUROLOGIC: no focal neurologic deficits PSYCH: appropriate, normal affect, pleasant - Physical Exam Vital Signs Temp Pulse Resp BP Pulse Ox 98.2 F 59 L 16 144/55 H 95 08/09/18 09:32 08/09/18 11:00 08/09/18 09:32 08/09/18 09:36 08/09/18 09:32 Oxygen Delivery Method Room Air Weight: 236 lb 15.951 oz Body Mass Index (BMI) 33.0 Orthostatic Vital Signs Start: 08/08/18 22:01 Freq: q24h Status: Active Protocol: Activity Type Activity Date Activity User E-Sign Co-Sign Detail Recorded Client Recorded Date Recorded By Document 08/09/18 04:01 [facility] [id number] 08/09/18 04:02 [facility] 08/09/18 04:01 Orthostatic Vitals Standing -Blood Pressure (90/60-120/80 mm Hg) 141/91 H -Extremity Use Right Arm -Pulse Rate (60-100 beats/min) 63 Sitting -Blood Pressure (90/60-120/80 mm Hg) 135/80 H -Extremity Use Right Arm -Pulse Rate (60-100 beats/min) 63 Lying -Blood Pressure (90/60-120/80 mm Hg) 132/78 H -Extremity Use Right Arm -Pulse Rate (60-100 beats/min) 60 Intake and Output for Last 24 Hours 08/07/18 08/08/18 08/09/18 23:59 23:59 23:59 Intake Total 736 / 736 566 / 566 Balance 736 / 736 566 / 566 Laboratory Tests Past 24 Hrs 08/08/18 08/08/18 08/09/18 19:03 21:40 00:20 WBC RBC Hgb Hct MCV MCH MCHC RDW RDW Differential Plt Count MPV Immature Gran % (Auto) Neut % (Auto) Lymph % (Auto) [place] % (Auto) Eos % (Auto) Baso % (Auto) Absolute Neuts (auto) Absolute Lymphs (auto) Total Counted Sodium Potassium Chloride Carbon Dioxide Anion Gap BUN Creatinine Estim Creat Clear Calc Est GFR (MDRD) Af Amer Est GFR (MDRD) Non-Af BUN/Creatinine Ratio Glucose Hemoglobin A1c Calcium Magnesium 1.9 Troponin I < 0.015 < 0.015 < 0.015 TSH 08/09/18 08/09/18 08/09/18 06:30 06:30 06:30 WBC 4.7 RBC 4.37 L Hgb 13.6 Hct 40.7 MCV 93.1 MCH 31.1 MCHC 33.4 RDW 12.7 RDW Differential 42.7 Plt Count 171 MPV 11.4 Immature Gran % (Auto) 0.000 Neut % (Auto) 57.5 Lymph % (Auto) 29.8 [place] % (Auto) 10.0 Eos % (Auto) 2.3 Baso % (Auto) 0.4 Absolute Neuts (auto) 2.7 Absolute Lymphs (auto) 1.40 Total Counted Not Reportable Sodium 142 Potassium 3.7 Chloride 111 H Carbon Dioxide 26.0 Anion Gap 5 BUN 16 Creatinine 0.84 Estim Creat Clear Calc 97.11 Est GFR (MDRD) Af Amer 120 Est GFR (MDRD) Non-Af 99 BUN/Creatinine Ratio 19.1 Glucose 131 H Hemoglobin A1c 7.7 H Calcium 8.2 L Magnesium Troponin I TSH 0.68 POC Glucose 08/09/18 08/09/18 08/08/18 10:57 06:42 21:59 POC Glucose 172 H 123 H 107 08/08/18 18:53 POC Glucose 109 Medical Necessity - Tobacco Use Smoking Status: Never smoker Assessment/Plan All Active Problems (Last Reviewed 03/18/18 @ 16:24 by Adali Smith) Syncope (Acute) AICD discharge (Acute) Impressions 1. Syncope secondary to V. fib arrest aborted by his defibrillator. Last cardiac cath in 2007 at [facility]. Scheduled for cardiac cath 08/10/[address] Camarena. Will order premedication for IV contrast allergy. Dr. Camarena notified. 2. Coronary artery disease with history of coronary artery bypass surgery 3. AICD present 4. Hypertension 5. Hyperlipidemia 6. Ischemic cardiomyopathy 7. DM II - new diagnosis - HGBA1C is 7.7 Prednisone and diphenhydramine ordered in prep for cath tomorrow in this pt with a contrast allergy. Potassium supplement ordered to keep the K around 4 Consult the chief controller tower for education on carb/calorie control Lipid panel in the AM Code Visit Inpatient E&M: 89653 Subs Hosp L2
[2018-08-09] MEDS: predniSONE 20 MG Tablet 50 MG PO ×2 (17:06→22:09)
[2018-08-09 17:11] LABS: Bedside Glucose 117 mg/dL (70-110)
[2018-08-09] MEDS: Acetaminophen 325 MG Tablet 650 MG PO (20:32)
[2018-08-09 21:42] LABS: Color, Urine Yellow (Yellow); Glucose, Dipstick Normal (Normal); Ketone-Dipstick Negative (Negative); Leukocyte Esterase-Dipstick Negative /ul (Negative); Nitrite-Dipstick Negative (Negative); Occult Blood-Urine Negative /ul (Negative); Protein-Dipstick Negative (Negative); Urine Bilirubin Dipstick Negative (Negative); Urine Clarity Clear (Clear); Urine Urobilinogen Normal (Normal); Urine pH 6.5 (5.0 - 8.0)
[2018-08-09] MEDS: Zolpidem Tartrate 5 MG Tablet PO (22:09)
[2018-08-09] MEDS: Atorvastatin Calcium 40 MG Tablet PO (22:09)
[2018-08-09] MEDS: Aspirin 325 MG Tablet PO (22:09)
[2018-08-10] VITALS (16 sets, daily range): BP systolic 120–144; BP diastolic 65–75; PULSE 65–94; RESP 14–18; TEMP 36.6–37.1; O2SAT 92–98
[2018-08-10 00:36] LABS: Bedside Glucose 217 mg/dL (70-110)
[2018-08-10] MEDS: Acetaminophen 325 MG Tablet 650 MG PO ×2 (04:30→11:30)
[2018-08-10] MEDS: Metoprolol Tartrate 100 MG Tablet PO (05:16)
[2018-08-10] MEDS: Clopidogrel Bisulfate 75 MG Tablet PO (05:16)
[2018-08-10] MEDS: Aspirin 325 MG Tablet PO (05:17)
[2018-08-10] MEDS: Lisinopril 20 MG Tablet PO (05:17)
--- NOTE | 2018-08-10 05:55 | EKG12_ITS ---
Test Reason : AM EKG Blood Pressure : / mmHG Vent. Rate : 075 BPM Atrial Rate : 075 BPM P-R Int : 206 ms QRS Dur : 118 ms QT Int : 406 ms P-R-T Axes : 029 -35 008 degrees QTc Int : 453 ms Normal sinus rhythm Left axis deviation Inferior infarct , age undetermined Abnormal ECG When compared with ECG of 08-AUG-2018 18:58, MANUAL COMPARISON REQUIRED, DATA IS UNCONFIRMED Confirmed by BENNY MADRID, MARIO ([id number]), online content editor IESHA REED ([id number]) on 08/17/2018 1:12:57 PM Referred By: DR DEVLIN Confirmed By:MARIO ZAPATA MD
[2018-08-10 06:06] LABS: Anion Gap 8 (5-15); BUN 19 mg/dL (7-18); BUN/Creat Ratio 18.6 RATIO (10-20); Calcium,Total 8.8 mg/dL (8.5-10.1); Chloride 104 mmol/L (98-107); Cholesterol 155 mg/dL (200); Creatinine, Serum 1.02 mg/dL (0.70-1.30); EST Glomerular Filtration Rate 79 mL/min (>60); Est Glom Filt Rate - Afr Amer 95 mL/min (>60); Estimated Creatinine Clearance 79.98 ml/min; Glucose 188 mg/dL (74-106); High Density Lipoprotein 53 mg/dL; Potassium 3.9 mmol/L (3.5-5.1); Sodium Level 139 mmol/L (136-145); Triglycerides 49 mg/dL; Very Low Density Lipoprotein 10 mg/dL (5-40)
[2018-08-10 06:11] LABS: Prothrombin Time (Protime)PT. 13.4 SECONDS (11.7-14.9)
[2018-08-10 06:12] LABS: Partial Thromboplast Time 27.1 Seconds (24.1-36.2)
[2018-08-10 06:18] LABS: Absolute Lymphocyte Count 0.72 X10^3/ul (0.83-4.51); Hematocrit 44.1 % (40-54); Hemoglobin 15.1 g/dl (13.0-16.5); Lymphocyte # 0.72 X10^3/ul (4.0); Lymphocyte % 10.6 % (19-41); Mean Corp Hgb Conc 34.2 g/gl (32-36); Mean Corpuscular Hgb 31.7 pg (27.0-32.0); Mean Corpuscular Volume 92.6 fL (80-94); Mean Platelet Vol. 11.9 fl (6.2-12.0); Monocyte# 0.09 X10^3/uL; Monocyte% 1.3 % (0-10); Neutrophil # 5.97 X10^3/uL (2.7-7.7); Neutrophil % 87.8 % (47-70); Platelet Count 201 K/mm3 (150-450); RBC Distribution Width CV 12.3 % (11.6-14.6); RBC Distribution Width SD 40.9 fl (35.1-43.9); Red Blood Count 4.76 M/mm3 (4.6-6.2); White Blood Count 6.8 K/mm3 (4.4-11.0)
[2018-08-10 06:28] LABS: POSITIVE COUNT NO; POSITIVE DIFFERENTIAL NO; POSITIVE MORPHOLOGY NO
[2018-08-10 07:15] LABS: Bedside Glucose 192 mg/dL (70-110)
[2018-08-10] MEDS: DiphenhydrAMINE 25 MG Capsule 50 MG PO (09:04)
[2018-08-10] MEDS: predniSONE 20 MG Tablet 50 MG PO (09:05)
--- NOTE | 2018-08-10 09:10 | CASEMGMT ---
According to the MMO website, the following are in-network tertiary facilities: [facility], [facility], [facility], [facility], [facility], [facility], [facility], [place], [facility], and . Aissatou CARR CM
--- NOTE | 2018-08-10 10:15 | CL.D_ITS ---
Patient Name: CASSIA PERAZA Study Date: 08/10/2018 Performing: Aakash Camarena MD Ht: 70.86 inches 180 cm : 1955 Wt: 238.1 lbs 108 kg Age: 63 Gender: male BSA: 2.27 PROCEDURE(S) PERFORMED [id number]/COR/LV/CABG CLINICAL PROFILE AND INDICATIONS Indications: Stable Known CAD, Cardiac Arrythmia, LV Dysfunction, Syncope Heart Failure: NYHA Class: 2, Newly Diagnosed: No, Heart Failure Type: Systolic Stress/Imaging Stress/Image Study Performed: No Angina Classification Anginal Classification w/in 2 Weeks: No symptoms CAD Presentations: No Sxs, no angina. Other: Syncope with AICD firing appropriately for vfib arre st. Comorbidities/Risk Factors: Hypertension Dyslipidemia Prior CHF Prior ME Prior CABG CONCLUSIONS Triple vessel CAD of the LCX, LAD and RCA. Segmented LV systolic dysfunction- Mild Widely patent COLLADO to LAD. Widely patent SVG to OM Widely patent SVG to PDA. RECOMMENDATIONS Risk factor modification Management as per referring Medical Front Desk Coordinator Start amiodarone 400mg po bid x 7 days, then 200mg daily. Would recommend baby asa/plavix for graft preservation. D/w Dr Curtis. F/u with Dr Barajas. Arrange for PFTs, EKG in 1 week. DESCRIPTION OF PROCEDURE The patient arrived to the procedure lab. The risks and benefits of the procedure as well as a full d escription of our services here and current unavailability of surgical backup were fully explained to the patient and/or their significant other prior to the catheterization. The Timeout was completed, verifying the correct patient and procedure. The patient's procedural site was prepped and draped in the usual fashion. Local anesthetic was given subcutaneously to right groin region with Lidocaine 2%. Using a modified Seldinger technique, arterial access was obtained via the right femoral artery, a 4 Fr sheath was inserted Left Coronary Artery selective angiography was performed in multiple views us ing a 4 Fr. JL5 catheter. Right Coronary Artery selective angiography was then performed in multiple views using a 4 Fr. 3DRC catheter. Saphenous Vein graft to the RPDA selective angiography was perform ed in multiple views using a 4 Fr. 3DRC catheter. Saphenous Vein graft to the Circumflex selective angiography was performed in multiple views using a 4 Fr. 3DRC catheter. Left internal mamm [place] artery graft to the LAD selective angiography was performed in multiple views using a 4 Fr. 3DRC catheter. Left Ventriculography was performed in CISSE projection using a 4 Fr. Pigtail catheter. LV to AO pullback pressures were then recorded.The arterial sheath was pulled and manual compression appli ed until hemostasis is achieved. CORONARY ANGIOGRAPHY DOMINANCE: Right Dominant LEFT HEART ASSESSMENT Left Ventricular Ejection Fraction: by LV Gram 55 % Inferior Basal Hypokinesis - Severe Depressed Left Ventricular systolic function LVEDP: 13 mmHg LEFT MAIN: Angiographically normal LEFT ANTERIOR DECENDING ARTERY: PROX LAD: Mild luminal irregularities less than 30% MID LAD: 75 % Stenosis CIRCUMFLEX ARTERY: is occluded RIGHT CORONARY ARTERY: is occluded GRAFTS: COLLADO graft to the LAD is patent Saphenous Vein graft to the 1st OM is patent Saphenous Vein graft to the RPDA is patent COMPLICATIONS No Complications PROCEDURE MEDICATIONS Oxygen: 2 L/min via nasal cannula SUMMARY OF HEMODYNAMIC DATA Time AIR REST ECG 09:32:06 AO 122/64 (89) SA 09:45:39 LV 138/-18, 16 09:55:35 LV 135/-14, 19 09:55:42 LVp 132/-16, 13 09:55:45 AOp 139/64 (95) 09:55:51 RM AIR REST 10:11:32 Signed By Aakash Camarena MD On 08/10/2018 10:14:31 Aakash Camarena MD
[2018-08-10 11:01] LABS: Bedside Glucose 144 mg/dL (70-110)
[2018-08-10] MEDS: Amiodarone 200 MG Tablet 400 MG PO (11:30)
[2018-08-10] MEDS: Aspirin 81 MG TAB.CHEW PO (11:30)
[2018-08-10] MEDS: hydroCHLOROthiazide 25 MG Tablet PO (11:30)
[2018-08-10] MEDS: Famotidine 20 MG Tablet PO (11:33)
--- NOTE | 2018-08-10 16:10 | DCINST_ITS ---
- Discharge Diagnoses Current Active Problems: Current Active and Chronic Problems (Last Updated 08/10/18 @ 11:17 by Sheila Rock) On amiodarone therapy (Chronic) History of left heart catheterization (Chronic 08/10/18) Triple vessel CAD of the LCX, LAD and RCA. Segmented LV systolic dysfunction- Mild; Widely patent COLLADO to LAD. Widely patent SVG to OM. Widely patent SVG to PDA. per [facility] 08/10/18 Dr. Camarena @ [facility] Syncope (Acute) AICD discharge (Acute) You will use the following diet at home:: Cardiac Your food should be the consistency of: Regular Your liquids should be the consistency of: Regular/Thin Discharge Activity: Return to Normal Activity, May Not Drive Call your doctor if you observe: Fever of 101 or Higher, Shortness of breath Allergies/Adverse Reactions: Allergies iodine Allergy (Verified 03/18/18 16:22) Unknown latex Allergy (Verified 03/18/18 16:22) Unknown Medications to take at Discharge Cetirizine HCl [Zyrtec] 10 mg PO DAILY 07/03/16 Hydrochlorothiazide [Hctz] 25 mg PO DAILY 07/03/16 Lisinopril [Zestril] 20 mg PO BID 07/03/16 Metoprolol Tartrate [Lopressor (beta jessica)] 100 mg PO BID 07/03/16 Multivitamin [Daily Multiple Vitamin] 1 ea PO DAILY 07/03/16 Nitroglycerin [Nitrostat] 0.4 mg SUBLINGUAL Q5M PRN 07/03/16 atorvastatin 40 mg tablet 40 mg PO DAILY 03/18/18 diphenhydramine 25 mg capsule 25 mg PO QHS PRN 03/18/18 potassium chloride ER 10 mEq capsule,extended release 10 meq PO DAILY 03/18/18 Amiodarone HCl [Cordarone] 200 mg PO DAILY #45 tablet 08/10/18 Aspirin 81 mg PO DAILY #1 tab.chew 08/10/18 Clopidogrel Bisulfate [Plavix] 75 mg PO DAILY #30 tablet 08/10/18 The following prescriptions were given: Amiodarone HCl [Cordarone] 200 mg PO DAILY #45 tablet Aspirin 81 mg PO DAILY #1 tab.chew Clopidogrel Bisulfate [Plavix] 75 mg PO DAILY #30 tablet Primary Care Physician: Magdy Alford [Primary Care Provider] - Within 1 Week Test Results: Test results from this visit will be discussed in further detail at your follow- up appointment, if applicable. Please Follow Up With: [facility] When: 2 weeks Please Follow Up With: Pulmonary function test Please Follow Up With: Tonio Zheng Proposed Discharge Date: 08/10/18
--- NOTE | 2018-08-10 16:10 | PCM.DC.SUM ---
Discharge Date and Diagnosis - Problem List Patient Problems: Active and Suspected Problems (Last Updated 08/10/18 @ 11:17 by Sheila Rock) Ventricular fibrillation (Acute) Syncope (Acute) AICD discharge (Acute) Date of Admission: 08/08/18 Date of Discharge: 08/10/18 - Primary Discharge Diagnosis Active and Suspected Problems (Last Updated 08/10/18 @ 11:17 by Sheila Rock) Syncope (Acute) AICD discharge (Acute) - Secondary Discharge Diagnosis Chronic Problems (Last Updated 08/10/18 @ 11:19 by Sheila Rock) On amiodarone therapy (Chronic) History of left heart catheterization (Chronic 08/10/18) Triple vessel CAD of the LCX, LAD and RCA. Segmented LV systolic dysfunction- Mild; Widely patent COLLADO to LAD. Widely patent SVG to OM. Widely patent SVG to PDA. per [facility] 08/10/18 Dr. Camarena @ [facility] History of myocardial infarction (Chronic) Essential hypertension (Chronic) Carotid bruit (Chronic) Hyperlipemia (Chronic) H/O coronary artery bypass surgery (Chronic 12/26/07) CABG x3- COLLADO to LAD, SVG to Lt CX, SVG to PDA Atherosclerosis of coronary artery of [place] heart without angina pectoris (Chronic) Paroxysmal ventricular tachycardia (Chronic) Ischemic cardiomyopathy (Chronic) Presence of implantable cardioverter-defibrillator (ICD) (Chronic) Implantation 02/2008; ICD gen change 07/04/16 Hospital Course and Treatment Aakash Camarena MD: cardiology. Operations: None Procedures: Cardiac catheterization Summary of Care Provided: The patient is a 63 year old M who had a syncopal episode while attempting to see was going on with a helicopter in his neighborhood. Patient was brought to the hospital and had his later interrogated. It was revealed that his defibrillator fired appropriately for ventricular fibrillation. Patient underwent a left heart catheterization that showed triple-vessel coronary disease but had widely patent grafts from his previous CABG. As recommended by cardiology for the patient be on amiodarone 40mg twice daily for 7 days and then 200 mg daily. I recommend follow-up with cardiology as outpatient. Given this episode due to ventricular fibrillation patient is advised to not drive for at least the next 2 weeks. Patient need follow-up cardiology to be released back to driving. [] Patient Problems: Active and Suspected Problems (Last Updated 08/10/18 @ 11:17 by Sheila Rock) Ventricular fibrillation (Acute) Syncope (Acute) AICD discharge (Acute) - Physical Exam General: Alert, No apparent distress HEENT: Atraumatic, Normocephalic Oral: Moist Mucosa, No Gingival or Mucosal Lesions/ Ulcerations Neck: No Nodes, Thyroid Normal Size and Texture Lungs: Clear to auscultation, Normal air movement, No rhonchi, No wheeze Cardiovascular: Regular rate, Regular Rhythm, Normal S1, Normal S2, No murmurs Abdomen: Bowel Sounds Present, Soft, Non Tender, Non-Distended Extremities: No edema, No Calf Tenderness Neurological: Gait narrow based and stable Vital Signs Temp Pulse Resp BP Pulse Ox 36.7 C 94 18 144/71 H 98 08/10/18 14:20 08/10/18 15:20 08/10/18 14:20 08/10/18 14:20 08/10/18 14:20 Oxygen Delivery Method Room Air Weight: 107.5 kg Body Mass Index (BMI) 33.0 Orthostatic Vital Signs Start: 08/08/18 22:01 Freq: q24h Status: Active Protocol: Activity Type Activity Date Activity User E-Sign Co-Sign Detail Recorded Client Recorded Date Recorded By Document 08/09/18 04:01 [facility] [id number] 08/09/18 04:02 [facility] 08/09/18 04:01 Orthostatic Vitals Standing -Blood Pressure (90/60-120/80) 141/91 H -Extremity Use Right Arm -Pulse Rate (60-100) 63 Sitting -Blood Pressure (90/60-120/80) 135/80 H -Extremity Use Right Arm -Pulse Rate (60-100) 63 Lying -Blood Pressure (90/60-120/80) 132/78 H -Extremity Use Right Arm -Pulse Rate (60-100) 60 Intake and Output for Last 24 Hours 08/08/18 08/09/18 08/10/18 23:59 23:59 23:59 Intake Total 736 / 736 1136 / 1136 40 / 40 Balance 736 / 736 1136 / 1136 40 / 40 Laboratory Tests Past 24 Hrs 08/09/18 08/10/18 08/10/18 19:41 05:10 05:10 WBC 6.8 RBC 4.76 Hgb 15.1 Hct 44.1 MCV 92.6 MCH 31.7 MCHC 34.2 RDW 12.3 RDW Differential 40.9 Plt Count 201 MPV 11.9 Immature Gran % (Auto) 0.300 Neut % (Auto) 87.8 H Lymph % (Auto) 10.6 L [place] % (Auto) 1.3 Eos % (Auto) 0.0 Baso % (Auto) 0.0 Absolute Neuts (auto) 6.0 Absolute Lymphs (auto) 0.72 L Total Counted Not Reportable PT INR APTT Sodium 139 Potassium 3.9 Chloride 104 Carbon Dioxide 27.0 Anion Gap 8 BUN 19 H Creatinine 1.02 Estim Creat Clear Calc 79.98 Est GFR (MDRD) Af Amer 95 Est GFR (MDRD) Non-Af 79 BUN/Creatinine Ratio 18.6 Glucose 188 H Calcium 8.8 Triglycerides 49 Cholesterol 155 LDL Cholesterol 92 VLDL Cholesterol 10 HDL Cholesterol 53 Urine Color Yellow Urine Clarity Clear Urine pH 6.5 Ur Specific [place] 1.010 Urine Protein Negative Urine Glucose (UA) Normal Urine Ketones Negative Urine Occult Blood Negative Urine Nitrite Negative Urine Bilirubin Negative Urine Urobilinogen Normal Ur Leukocyte Esterase Negative 08/10/18 05:10 WBC RBC Hgb Hct MCV MCH MCHC RDW RDW Differential Plt Count MPV Immature Gran % (Auto) Neut % (Auto) Lymph % (Auto) [place] % (Auto) Eos % (Auto) Baso % (Auto) Absolute Neuts (auto) Absolute Lymphs (auto) Total Counted PT 13.4 INR 1.0 APTT 27.1 Sodium Potassium Chloride Carbon Dioxide Anion Gap BUN Creatinine Estim Creat Clear Calc Est GFR (MDRD) Af Amer Est GFR (MDRD) Non-Af BUN/Creatinine Ratio Glucose Calcium Triglycerides Cholesterol LDL Cholesterol VLDL Cholesterol HDL Cholesterol Urine Color Urine Clarity Urine pH Ur Specific [place] Urine Protein Urine Glucose (UA) Urine Ketones Urine Occult Blood Urine Nitrite Urine Bilirubin Urine Urobilinogen Ur Leukocyte Esterase POC Glucose 08/10/18 08/10/18 08/09/18 10:52 06:47 22:13 POC Glucose 144 H 192 H 217 H 08/09/18 17:04 POC Glucose 117 H Discharge Diet: Low fat/ Low Cholesterol Discharge Activity: Return to Normal Activity, May Not Drive Call your doctor if you observe: Fever of 101 or Higher, Shortness of breath Home Medications: Medications to take at Discharge Cetirizine HCl [Zyrtec] 10 mg PO DAILY 07/03/16 Hydrochlorothiazide [Hctz] 25 mg PO DAILY 07/03/16 Lisinopril [Zestril] 20 mg PO BID 07/03/16 Metoprolol Tartrate [Lopressor (beta jessica)] 100 mg PO BID 07/03/16 Multivitamin [Daily Multiple Vitamin] 1 ea PO DAILY 07/03/16 Nitroglycerin [Nitrostat] 0.4 mg SUBLINGUAL Q5M PRN 07/03/16 atorvastatin 40 mg tablet 40 mg PO DAILY 03/18/18 diphenhydramine 25 mg capsule 25 mg PO QHS PRN 03/18/18 potassium chloride ER 10 mEq capsule,extended release 10 meq PO DAILY 03/18/18 Amiodarone HCl [Cordarone] 200 mg PO DAILY #45 tablet 08/10/18 Aspirin 81 mg PO DAILY #1 tab.chew 08/10/18 Clopidogrel Bisulfate [Plavix] 75 mg PO DAILY #30 tablet 08/10/18 Following Prescrptions Were Given to Patient: Amiodarone HCl [Cordarone] 200 mg PO DAILY #45 tablet Aspirin 81 mg PO DAILY #1 tab.chew Clopidogrel Bisulfate [Plavix] 75 mg PO DAILY #30 tablet Primary Care Physician: Magdy Alford [Primary Care Provider] - Within 1 Week Please Follow Up With: [facility] When: 2 weeks Please Follow Up With: Pulmonary function test Please Follow Up With: Tonio Zheng Disposition: Home Minutes spent on discharge:: 35 Patient Condition:: Fair Medical Necessity - Tobacco Use Smoking Status: Never smoker Meaningful Use Info Meaningful Use Diagnoses (Choose all that apply): None applicable Code Visit Inpatient E&M: 97603 Disch Hosp
--- NOTE | 2018-08-10 16:15 | DS.PCM_ITS ---
Discharge Date and Diagnosis - Problem List Patient Problems: Active and Suspected Problems (Last Updated 08/10/18 @ 11:17 by Sheila Rock) Ventricular fibrillation (Acute) Syncope (Acute) AICD discharge (Acute) Date of Admission: 08/08/18 Date of Discharge: 08/10/18 - Primary Discharge Diagnosis Active and Suspected Problems (Last Updated 08/10/18 @ 11:17 by Sheila Rock) Syncope (Acute) AICD discharge (Acute) - Secondary Discharge Diagnosis Chronic Problems (Last Updated 08/10/18 @ 11:19 by Sheila Rock) On amiodarone therapy (Chronic) History of left heart catheterization (Chronic 08/10/18) Triple vessel CAD of the LCX, LAD and RCA. Segmented LV systolic dysfunction- Mild; Widely patent COLLADO to LAD. Widely patent SVG to OM. Widely patent SVG to PDA. per [facility] 08/10/18 Dr. Camarena @ [facility] History of myocardial infarction (Chronic) Essential hypertension (Chronic) Carotid bruit (Chronic) Hyperlipemia (Chronic) H/O coronary artery bypass surgery (Chronic 12/26/07) CABG x3- COLLADO to LAD, SVG to Lt CX, SVG to PDA Atherosclerosis of coronary artery of [place] heart without angina pectoris (Chronic) Paroxysmal ventricular tachycardia (Chronic) Ischemic cardiomyopathy (Chronic) Presence of implantable cardioverter-defibrillator (ICD) (Chronic) Implantation 02/2008; ICD gen change 07/04/16 Hospital Course and Treatment Aakash Camarena MD: cardiology. Operations: None Procedures: Cardiac catheterization Summary of Care Provided: The patient is a 63 year old M who had a syncopal episode while attempting to see was going on with a helicopter in his neighborhood. Patient was brought to the hospital and had his later interrogated. It was revealed that his defibr illator fired appropriately for ventricular fibrillation. Patient underwent a left heart catheterization that showed triple-vessel coronary disease but had widely patent grafts from his previous CABG. As recommended by cardiology for the patient be on amiodarone 40mg twice daily for 7 days and then 200 mg daily. I recommend follow-up with cardiology as outpatient. Given this episode due to ventricular fibrillation patient is advised to not drive for at least the next 2 weeks. Patient need follow-up cardiology to be released back to driving. [] Patient Problems: Active and Suspected Problems (Last Updated 08/10/18 @ 11:17 by Sheila Rock) Ventricular fibrillation (Acute) Syncope (Acute) AICD discharge (Acute) - Physical Exam General: Alert, No apparent distress HEENT: Atraumatic, Normocephalic Oral: Moist Mucosa, No Gingival or Mucosal Lesions/ Ulcerations Neck: No Nodes, Thyroid Normal Size and Texture Lungs: Clear to auscultation, Normal air movement, No rhonchi, No wheeze Cardiovascular: Regular rate, Regular Rhythm, Normal S1, Normal S2, No murmurs Abdomen: Bowel Sounds Present, Soft, Non Tender, Non-Distended Extremities: No edema, No Calf Tenderness Neurological: Gait narrow based and stable Vital Signs Temp Pulse Resp BP Pulse Ox 36.7 C 94 18 144/71 H 98 08/10/18 14:20 08/10/18 15:20 08/10/18 14:20 08/10/18 14:20 08/10/18 14:20 Oxygen Delivery Method Room Air Weight: 107.5 kg Body Mass Index (BMI) 33.0 Orthostatic Vital Signs Start: 08/08/18 22:01 Freq: q24h Status: Active Protocol: Activity Type Activity Date Activity User E-Sign Co-Sign Detail Recorded Client Recorded Date Recorded By Document 08/09/18 04:01 [facility] [id number] 08/09/18 04:02 [facility] 08/09/18 04:01 Orthostatic Vitals Standing -Blood Pressure (90/60-120/80) 141/91 H -Extremity Use Right Arm -Pulse Rate (60-100) 63 Sitting -Blood Pressure (90/60-120/80) 135/80 H -Extremity Use Right Arm -Pulse Rate (60-100) 63 Lying -Blood Pressure (90/60-120/80) 132/78 H -Extremity Use Right Arm -Pulse Rate (60-100) 60 Intake and Output for Last 24 Hours 08/08/18 08/09/18 08/10/18 23:59 23:59 23:59 Intake Total 736 / 736 1136 / 1136 40 / 40 Balance 736 / 736 1136 / 1136 40 / 40 Laboratory Tests Past 24 Hrs 08/09/18 08/10/18 08/10/18 19:41 05:10 05:10 WBC 6.8 RBC 4.76 Hgb 15.1 Hct 44.1 MCV 92.6 MCH 31.7 MCHC 34.2 RDW 12.3 RDW Differential 40.9 Plt Count 201 MPV 11.9 Immature Gran % (Auto) 0.300 Neut % (Auto) 87.8 H Lymph % (Auto) 10.6 L [place] % (Auto) 1.3 Eos % (Auto) 0.0 Baso % (Auto) 0.0 Absolute Neuts (auto) 6.0 Absolute Lymphs (auto) 0.72 L Total Counted Not Reportable PT INR APTT Sodium 139 Potassium 3.9 Chloride 104 Carbon Dioxide 27.0 Anion Gap 8 BUN 19 H Creatinine 1.02 Estim Creat Clear Calc 79.98 Est GFR (MDRD) Af Amer 95 Est GFR (MDRD) Non-Af 79 BUN/Creatinine Ratio 18.6 Glucose 188 H Calcium 8.8 Triglycerides 49 Cholesterol 155 LDL Cholesterol 92 VLDL Cholesterol 10 HDL Cholesterol 53 Urine Color Yellow Urine Clarity Clear Urine pH 6.5 Ur Specific [place] 1.010 Urine Protein Negative Urine Glucose (UA) Normal Urine Ketones Negative Urine Occult Blood Negative Urine Nitrite Negative Urine Bilirubin Negative Urine Urobilinogen Normal Ur Leukocyte Esterase Negative 08/10/18 05:10 WBC RBC Hgb Hct MCV MCH MCHC RDW RDW Differential Plt Count MPV Immature Gran % (Auto) Neut % (Auto) Lymph % (Auto) [place] % (Auto) Eos % (Auto) Baso % (Auto) Absolute Neuts (auto) Absolute Lymphs (auto) Total Counted PT 13.4 INR 1.0 APTT 27.1 Sodium Potassium Chloride Carbon Dioxide Anion Gap BUN Creatinine Estim Creat Clear Calc Est GFR (MDRD) Af Amer Est GFR (MDRD) Non-Af BUN/Creatinine Ratio Glucose Calcium Triglycerides Cholesterol LDL Cholesterol VLDL Cholesterol HDL Cholesterol Urine Color Urine Clarity Urine pH Ur Specific [place] Urine Protein Urine Glucose (UA) Urine Ketones Urine Occult Blood Urine Nitrite Urine Bilirubin Urine Urobilinogen Ur Leukocyte Esterase POC Glucose 08/10/18 08/10/18 08/09/18 10:52 06:47 22:13 POC Glucose 144 H 192 H 217 H 08/09/18 17:04 POC Glucose 117 H Discharge Diet: Low fat/ Low Cholesterol Discharge Activity: Return to Normal Activity, May Not Drive Call your doctor if you observe: Fever of 101 or Higher, Shortness of breath Home Medications: Medications to take at Discharge Cetirizine HCl [Zyrtec] 10 mg PO DAILY 07/03/16 Hydrochlorothiazide [Hctz] 25 mg PO DAILY 07/03/16 Lisinopril [Zestril] 20 mg PO BID 07/03/16 Metoprolol Tartrate [Lopressor (beta jessica)] 100 mg PO BID 07/03/16 Multivitamin [Daily Multiple Vitamin] 1 ea PO DAILY 07/03/16 Nitroglycerin [Nitrostat] 0.4 mg SUBLINGUAL Q5M PRN 07/03/16 atorvastatin 40 mg tablet 40 mg PO DAILY 03/18/18 diphenhydramine 25 mg capsule 25 mg PO QHS PRN 03/18/18 potassium chloride ER 10 mEq capsule,extended release 10 meq PO DAILY 03/18/18 Amiodarone HCl [Cordarone] 200 mg PO DAILY #45 tablet 08/10/18 Aspirin 81 mg PO DAILY #1 tab.chew 08/10/18 Clopidogrel Bisulfate [Plavix] 75 mg PO DAILY #30 tablet 08/10/18 Following Prescrptions Were Given to Patient: Amiodarone HCl [Cordarone] 200 mg PO DAILY #45 tablet Aspirin 81 mg PO DAILY #1 tab.chew Clopidogrel Bisulfate [Plavix] 75 mg PO DAILY #30 tablet Primary Care Physician: Magdy Alford [Primary Care Provider] - Within 1 Week Please Follow Up With: [facility] When: 2 weeks Please Follow Up With: Pulmonary function test Please Follow Up With: Tonio Zheng Disposition: Home Minutes spent on discharge:: 35 Patient Condition:: Fair Medical Necessity - Tobacco Use Smoking Status: Never smoker Meaningful Use Info Meaningful Use Diagnoses (Choose all that apply): None applicable Code Visit Inpatient E&M: 98232 Disch Hosp
== END 2018-08-10 16:09 | disposition home or self-care (01) ==
PROVIDERS: Internal Medicine; Internal Medicine Cardiovascular Disease; Admitting Provider Internal Medicine; Family Provider Family Medicine; PCP Family Medicine
DX: R55 Syncope and collapse (principal); I49.01 Ventricular fibrillation; E78.5 Hyperlipidemia, unspecified; I25.10 Atherosclerotic heart disease of native coronary artery without angina pectoris; I25.2 Old myocardial infarction; I47.2 Ventricular tachycardia; I50.42 Chronic combined systolic (congestive) and diastolic (congestive) heart failure; I11.0 Hypertensive heart disease with heart failure; E11.9 Type 2 diabetes mellitus without complications; I25.5 Ischemic cardiomyopathy; Z79.899 Other long term (current) drug therapy; Z95.1 Presence of aortocoronary bypass graft
CPT/HCPCS: 36415; 80048; 80061; 81002; 82962; 83036; 83735; 84443; 84484; 85025; 85610; 85730; 93005; 93306; 93459; 96360; 96361; 96372; 99218; J7030; Q9957; Q9967; A4216; C1769; G0378

== ENCOUNTER → 2018-08-25 09:41 | Outpatient (CLI) | payer OTHER, SELFPAY ==
[2018-08-08 17:19] VITALS: BMI 33.0
--- NOTE | 2018-08-25 14:48 | PFTCOMP ---
COMPLETE PULMONARY FUNCTION TEST INTERPRETATION Brief HPI: Patient is a 63 year old male, currently under the care of Dr. Camarena, who presents to [facility] for complete pulmonary function tests secondary to diagnosis of high risk meds. Respiratory therapist reports good effort and reproducible results. Interpretation: Forced expiration spirometry shows no large airways obstructive ventilatory defect with an FEV1 of 85% predicted. There is no significant bronchodilator response by strict ATS criteria. Spirograms are of good quality and plateau normally. The respiratory flow volume loop shows a normal pattern. Lung volumes by body plethysmography show a decreased total lung capacity at 5.72 L, 83% predicted. All other lung volumes are reduced symmetrically. Diffusion capacity by carbon monoxide is normal at 71% predicted. The airway resistance is normal. No previous pulmonary function tests were available for review. Impression: Mild restrictive ventilatory defect with preserved diffusion capacity.
== END ==
PROVIDERS: Family Provider Family Medicine; PCP Family Medicine; Referring Provider Internal Medicine Cardiovascular Disease; Visit Provider Internal Medicine Cardiovascular Disease
DX: Z79.899 Other long term (current) drug therapy (principal)
CPT/HCPCS: 94060; 94726; 94729

== ENCOUNTER → 2018-10-16 16:23 | Outpatient (CLI) | payer OTHER, SELFPAY ==
[2018-10-16 15:21] VITALS: BMI 33.2
[2018-10-16 17:52] LABS: T4 Free Direct 1.13 ng/dL (0.76-1.46); Thyroid Stim Hormone (TSH) 1.15 uIU/mL (0.358-3.74)
== END ==
PROVIDERS: Family Provider Family Medicine; PCP Family Medicine; Referring Provider Internal Medicine Cardiovascular Disease; Visit Provider Internal Medicine Cardiovascular Disease
DX: Z79.899 Other long term (current) drug therapy (principal)
CPT/HCPCS: 36415; 84439; 84443

== ENCOUNTER → 2018-12-02 13:56 | Outpatient (CLI) | payer OTHER, SELFPAY ==
[2018-10-16 15:21] VITALS: BMI 33.2
== END ==
PROVIDERS: Family Provider Family Medicine; PCP Family Medicine; Referring Provider Internal Medicine Cardiovascular Disease; Visit Provider Internal Medicine Cardiovascular Disease
DX: Z79.899 Other long term (current) drug therapy (principal)
CPT/HCPCS: 93225; 93226

== ENCOUNTER → 2019-06-09 16:09 | Outpatient (CLI) | payer OTHER, SELFPAY ==
[2019-06-09 15:27] VITALS: BMI 33.2
--- NOTE | 2019-06-09 16:15 | RAD_ITS ---
STUDY: X-RAY CHEST REASON FOR EXAM: Male, 64 years old. Amiodarone therapy. Hx of Triple bypass in 2007. TECHNIQUE: PA and lateral views of the chest. COMPARISON: Prior study of 06/21/2016 FINDINGS: There is a bipolar left-sided pacemaker. The lungs are clear and expanded. There is no demonstrated pleural abnormality. The heart size is within normal limits. Status post sternotomy changes are noted. Normal mediastinum and kimberly. Normal visualized pulmonary arteries. There are calcified plaques of the aortic arch. Normal visualized thoracic spine. Normal visualized ribs, clavicles, and shoulders. There is no demonstrated abnormality of the visualized soft tissue structures of the upper abdomen. RAD/Chest PA and Lateral IMPRESSION: Status post sternotomy. Calcified plaques of the aortic arch. Bipolar left-sided pacemaker present. No acute cardiopulmonary disease process is seen. Electronically Signed: Gregory Keenan MD at 21:17 EST , Service support ,
== END ==
PROVIDERS: Family Provider Family Medicine; PCP Family Medicine; Referring Provider Internal Medicine Cardiovascular Disease; Visit Provider Internal Medicine Cardiovascular Disease
DX: I25.10 Atherosclerotic heart disease of native coronary artery without angina pectoris (principal); I25.5 Ischemic cardiomyopathy; I47.2 Ventricular tachycardia; Z95.810 Presence of automatic (implantable) cardiac defibrillator; Z95.1 Presence of aortocoronary bypass graft
CPT/HCPCS: 71046

== ENCOUNTER → 2020-08-01 06:53 | Outpatient (CLI) | payer OTHER, SELFPAY ==
[2020-07-24 15:24] VITALS: BMI 33.6
--- NOTE | 2020-08-01 12:28 | PFT ---
INTRODUCTION: The patient is a 65-year-old male that presents for pulmonary function studies secondary to a diagnosis of cardiomyopathy. Respiratory therapy reports good patient effort. Bronchodilators were used during testing. INTERPRETATION: Forced expiration spirometry demonstrates no evidence of a large airways obstructive ventilatory defect. There was no significant response to aerosolized bronchodilators. Spirograms are of good quality and plateau normally. Body plethysmography was performed and reveals lung volumes to be within normal limits. Diffusing capacity by single breath CO is also within normal limits. When compared to previous pulmonary function studies from August 2018, there has been a 22% improvement in DLCO. IMPRESSION: Grossly normal pulmonary function studies with improvement in diffusing capacity since 2019, as noted above.
== END ==
PROVIDERS: PCP Family Medicine; Referring Provider Nurse Practitioner Family; Visit Provider Nurse Practitioner Family
DX: I25.10 Atherosclerotic heart disease of native coronary artery without angina pectoris (principal); I25.5 Ischemic cardiomyopathy; I10 Essential (primary) hypertension; E78.00 Pure hypercholesterolemia, unspecified; I47.2 Ventricular tachycardia; Z79.899 Other long term (current) drug therapy; Z95.810 Presence of automatic (implantable) cardiac defibrillator; Z95.1 Presence of aortocoronary bypass graft
CPT/HCPCS: 94060; 94726; 94729

== ENCOUNTER 2021-06-21 16:22 | Outpatient (CLI) | payer OTHER, SELFPAY ==
--- NOTE | 2021-06-21 16:43 | RAD_ITS ---
EXAM: XR CHEST, 2 VIEWS : 1955 CLINICAL INDICATION: Amiodarone therapy TECHNIQUE: Frontal and lateral views of the chest. This report was created using [employer] report generation technology. COMPARISON: None. FINDINGS: LUNGS AND PLEURAL SPACES: Unremarkable. No consolidation or edema. No pneumothorax. No effusion. HEART: Unremarkable. Cardiac silhouette not enlarged. MEDIASTINUM: Surgical changes of the mediastinum. BONES/JOINTS: Unremarkable. SOFT TISSUES: Unremarkable. TUBES, LINES AND DEVICES: Left chest pacer/AICD. RAD/Chest PA and Lateral IMPRESSION: No acute findings in the chest. at 0401 Reported and signed by: Monroe Garza MD Electronically Signed: Monroe Garza MD at 4:00 EST ,
== END 2021-06-21 23:59 | disposition short-term general hospital (02) ==
LOC: RAD 16:26
PROVIDERS: PCP Family Medicine; Referring Provider Nurse Practitioner Gerontology; Visit Provider Nurse Practitioner Gerontology
DX: Z79.899 Other long term (current) drug therapy (principal)
CPT/HCPCS: 71046

== ENCOUNTER 2021-07-27 08:29 | Outpatient (CLI) | payer OTHER, SELFPAY ==
--- NOTE | 2021-07-28 05:39 | PFTCOMP_ITS ---
COMPLETE PULMONARY FUNCTION TEST INTERPRETATION Brief HPI: Patient is a 66 year old male, currently under the care of Anaya Tsang, who presents to [facility] for complete pulmonary function tests secondary to diagnosis of long-term med use. Respiratory therapist reports good effort and reproducible results. Interpretation: Forced expiration spirometry shows a mild large airways obstructive ventilatory defect with an FEV1 of 74% predicted. There is no significant bronchodilator response by strict ATS criteria. Spirograms are of good quality and plateau slowly, indicating slowly emptying areas of the lungs. The respiratory flow volume loop shows decreased expiratory flow rates at high lung volumes consistent with small airways obstruction. Lung volumes by body plethysmography show a decreased total lung capacity at 5.51 L, 81% predicted. All other lung volumes are reduced symmetrically. Diffusion capacity by carbon monoxide is normal at 95% predicted. The airway resistance is elevated. Compared to previous pulmonary function tests from 08/01/2020, there has been a significant decrease in FEV1 by 22%. Impression: Irreversible mild mixed ventilatory defect with preserved diffusion capacity
== END 2021-07-27 23:59 | disposition home or self-care (01) ==
LOC: PSN 08:30
PROVIDERS: PCP Family Medicine; Referring Provider Nurse Practitioner Gerontology; Visit Provider Nurse Practitioner Gerontology
DX: Z79.899 Other long term (current) drug therapy (principal)
CPT/HCPCS: 94060; 94726; 94729

== ENCOUNTER → 2022-08-07 | Outpatient (CLI) | payer OTHER, SELFPAY ==
--- NOTE | 2022-08-07 16:55 | RAD_ITS ---
STUDY: X-RAY CHEST REASON FOR EXAM: Male, 67 years old. Amiodarone therapy. Follow-up. TECHNIQUE: Frontal and lateral views of the chest. COMPARISON: June 21, 2021. FINDINGS: Stable mild hyperinflation. There is no demonstrated pleural abnormality. Cardiomegaly, sternotomy wires and dual lead cardiac pacer, unchanged from prior study. Normal mediastinum and kimberly. Normal visualized pulmonary arteries. Aortic tortuosity with calcification unchanged. Normal visualized thoracic spine. Normal visualized ribs, clavicles, and shoulders. There is no demonstrated abnormality of the visualized soft tissue structures of the upper abdomen. RAD/Chest PA and Lateral IMPRESSION: Stable cardiomegaly with hyperinflation and no acute or active cardiopulmonary disease. Electronically Signed: Ben Chadwick, at 11:40 EDT ,
== END | disposition home or self-care (01) ==
LOC: RAD 16:49
PROVIDERS: PCP Family Medicine; Referring Provider Internal Medicine Cardiovascular Disease; Visit Provider Internal Medicine Cardiovascular Disease
DX: E78.00 Pure hypercholesterolemia, unspecified (principal); I47.20 Ventricular tachycardia, unspecified; Z79.899 Other long term (current) drug therapy; I10 Essential (primary) hypertension; Z95.1 Presence of aortocoronary bypass graft; I25.10 Atherosclerotic heart disease of native coronary artery without angina pectoris; I25.5 Ischemic cardiomyopathy; Z95.810 Presence of automatic (implantable) cardiac defibrillator
CPT/HCPCS: 71046

== ENCOUNTER → 2024-02-03 | Outpatient (CLI) | payer OTHER, SELFPAY ==
--- NOTE | 2024-02-03 15:55 | RAD_ITS ---
STUDY: X-RAY CHEST REASON FOR EXAM: Male, 68 years old. Amiodarone therapy. Evaluate for interstitial changes. TECHNIQUE: Frontal and lateral views of the chest. COMPARISON: August 07, 2022 FINDINGS: The lungs are clear and expanded. There is no demonstrated pleural abnormality. Stable cardiomegaly with dual lead cardiac pacer and sternotomy wires. Normal mediastinum and kimberly. Normal visualized pulmonary arteries. Aortic tortuosity with calcification unchanged. Normal visualized thoracic spine. Normal visualized ribs, clavicles, and shoulders. No abnormality of the visualized soft tissue structures of the upper abdomen. RAD/Chest PA and Lateral IMPRESSION: Stable cardiomegaly with no evidence of interstitial changes. Electronically Signed: Ben Chadwick MD at 11:08 EDT ,
== END | disposition home or self-care (01) ==
LOC: RAD 15:55
PROVIDERS: PCP Family Medicine; Referring Provider Nurse Practitioner Gerontology; Visit Provider Nurse Practitioner Gerontology
DX: Z79.899 Other long term (current) drug therapy (principal)
CPT/HCPCS: 71046

== ENCOUNTER → 2024-02-12 | Outpatient (CLI) | payer OTHER, SELFPAY | END | disposition home or self-care (01) | LOC: PSN 12:51 | PROVIDERS: PCP Family Medicine; Referring Provider Nurse Practitioner Gerontology; Visit Provider Nurse Practitioner Gerontology | DX: Z79.899 Other long term (current) drug therapy (principal) | CPT/HCPCS: 94060; 94726; 94729 ==

== ENCOUNTER → 2024-02-13 | Outpatient (CLI) | payer OTHER, SELFPAY ==
--- NOTE | 2024-02-13 06:02 | ECHOCS_ITS ---
Reason For Study: S/P CABG Procedure This was a 2D Doppler, Color Flow transthoracic echocardiogram. Exam performed in department. Left Ventricle Normal LV size. The estimated ejection fraction is 45-50 %. Diastolic function is indeterminate. Posterior-Basal: Hypokinetic. Right Ventricle Normal RV size. Normal systolic function. Atria The left and right atria are normal. No doppler evidence for ASD. Bubble contrast study negative for right to left interatrial shunt. Mitral Valve There is no mitral valve stenosis. Trivial mitral valve insufficiency. Tricuspid Valve There is no tricuspid stenosis. Unable to estimate RV systolic pressure due to insufficient tricuspid regurgitant envelope. Trivial tricuspid valve insufficiency. Aortic Valve Trisinus/trileaflet aortic valve. There is no aortic stenosis. No aortic valve insufficiency. Pulmonic Valve There is no pulmonic valvular stenosis. No pulmonic valve insufficiency. Great Vessels Normal aortic root. Pericardium/Pleural No pericardial effusion. Medication Diluted definity 2.0ml given slow IV push to enhance endocardial definition. Performed a rapid injection of agitated mix of 9 cc saline and 1cc air to assess for atrial septal defect. MMode/2D Measurements & Calculations LVIDd: 6.1 cm IVSd: 1.3 cm Ao root diam: 4.0 cm LVIDs: 4.9 cm LVPWd: 1.2 cm RVDd: 3.5 cm FS: 19.3 % LAV(MOD-bp): 70.8 ml LVAd ap4: 42.1 cm2 LVAd ap2: 31.1 cm2 LAV(MOD-bp) Indexed: 31.0 ml/m2 LVLd ap4: 9.4 cm LVLd ap2: 8.4 cm LAV(MOD-sp2): 62.5 ml EDV(MOD-sp4): 155.9 ml EDV(MOD-sp2): 97.5 ml LAV(MOD-sp4): 76.2 ml EDV(sp4-el): 159.5 ml EDV(sp2-el): 98.2 ml LVAs ap4: 30.1 cm2 LVAs ap2: 21.6 cm2 LVLs ap4: 8.8 cm LVLs ap2: 7.9 cm ESV(MOD-sp4): 89.9 ml ESV(MOD-sp2): 49.5 ml ESV(sp4-el): 87.1 ml ESV(sp2-el): 50.0 ml EF(MOD-sp4): 42.3 % EF(MOD-sp2): 49.2 % EF(sp4-el): 45.4 % SV(MOD-sp4): 66.0 ml SV(MOD-sp2): 47.9 ml SV(sp4-el): 72.5 ml LA A4 area: 23.8 cm2 LA dimension(2D): 5.1 cm TAPSE: 2.1 cm Time Measurements MV dec time: 0.21 sec Doppler Measurements & Calculations MV E max nathan: 53.7 cm/sec Lat Peak E' Nathan: 7.2 cm/sec MV V2 max: 74.0 cm/sec MV A max nathan: 59.4 cm/sec E/E' lat: 7.5 MV max P.2 mmHg MV E/A: 0.90 MV V2 mean: 36.9 cm/sec MV mean P.63 mmHg MV V2 VTI: 20.5 cm Ao V2 max: 114.6 cm/sec LV V1 max: 73.8 cm/sec MV dec slope: 177.4 cm/sec2 Ao max P.3 mmHg LV V1 max P.2 mmHg Ao V2 mean: 81.3 cm/sec LV V1 mean P.3 mmHg Ao mean P.0 mmHg LV V1 mean: 54.9 cm/sec Ao V2 VTI: 28.8 cm LV V1 VTI: 18.9 cm AV (velocity ratio): 0.66 PA V2 max: 106.7 cm/sec TR max nathan: 231.0 cm/sec PA V2 mean: 74.3 cm/sec TR max P.4 mmHg ECHO/Echo Complete W/ Contrast Interpretation Summary The estimated ejection fraction is 45-50 %. Diastolic function is indeterminate. Posterior-Basal: Hypokinetic Trivial mitral valve insufficiency. Ordering Physician: Anaya Tsang Referring Physician: Magdy Alford Performed By: Maria Antonia Hobson RDCS, RVT
--- NOTE | 2024-02-16 11:09 | STRESSREP ---
Stress Test Report Date: 02/13/2024 Procedure: Pharmacologic stress nuclear imaging study Indications: CABG Consent: Per the patient Procedure: The patient underwent pharmacologic (Regadenoson) evaluation with a peak heart rate of 71 beats per minute (46%predicted maximal heart rate) and a peak blood pressure of 152/82 mmHg. The baseline ECG demonstrated normal sinus rhythm. EKG during lexiscan infusion revealed no significant ischemic changes. EKG post infusion revealed no significant ischemic changes [There were no cardiac dysrhythmias pretest, during pharmacologic infusion, or recovery]. [There was no complaint of chest discomfort during pharmacologic infusion or recovery]. The examination was discontinued secondary to completion of protocol. Impression: 1. Lexiscan stress test test is negative for Lexiscan infusion induced EKG changes of ischemia. 2. Lexiscan stress test test is negative for Lexiscan infusion induced chest pain. 3. Results of the nuclear portion of the test is as below Myocardial perfusion imaging study: Technique: The patient was injected with 14.8 millicuries of technetium 99m Cardiolite and subsequently rest SPECT Cardiolite nuclear imaging was obtained in the horizontal long, vertical long, and short axis views. The patient underwent pharmacologic [Regadenoson 0.4mg] evaluation. Please see above for details. The patient was injected with 44.7 millicuries of technetium 99m Cardiolite and subsequently stress SPECT Cardiolite nuclear imaging was obtained in the horizontal long, vertical long, and short axis views. A gated Cardiolite study at peak stress was obtained. Interpretation: Rest and stress SPECT Cardiolite nuclear imaging status post realignment, normalization, and attenuation correction demonstrate fixed defect involving the inferior wall. There is no significant reversibility suggestive of significant ischemia. Gated images reveal hypokinesis of the septum and basal inferior wall. The reported LVEF is 44%. These findings are suggestive of prior inferior myocardial infarction with no evidence of ischemia. Impression: 1. There is no evidence of ischemia. Prior inferior myocardial infarction. 2. Estimated ejection fraction is 44% with wall motion abnormalities as described. This note was generated with [employer] software. It may contain incorrect words, spelling, and punctuation that were not noted in checking the note before signing.
== END | disposition home or self-care (01) ==
PROVIDERS: PCP Family Medicine; Referring Provider Nurse Practitioner Gerontology; Visit Provider Nurse Practitioner Gerontology
DX: I25.5 Ischemic cardiomyopathy (principal); I47.20 Ventricular tachycardia, unspecified; Z95.1 Presence of aortocoronary bypass graft
CPT/HCPCS: 78452; 93017; 93306; A9500; Q9957; A4216; C8929; J2785

== ENCOUNTER → 2024-03-22 | Outpatient (CLI) | payer OTHER, SELFPAY ==
[2024-03-22 17:16] LABS: Hematocrit 40.7 % (40-54); Hemoglobin 13.9 g/dL (13.0-16.5); Mean Corp Hgb Conc 34.2 g/dL (32-36); Mean Corpuscular Volume 93.6 fL (80-94); Mean Platelet Vol. 12.1 fl (6.2-12.0); Platelet Count 206 K/mm3 (150-450); RBC Distribution Width CV 11.9 % (11.6-14.6); RBC Distribution Width SD 40.7 fl (35.1-43.9); Red Blood Count 4.35 M/mm3 (4.6-6.2); White Blood Count 6.2 K/mm3 (4.4-11.0)
[2024-03-22 17:49] LABS: Anion Gap 3 (5-15); BUN 20 mg/dL (7-18); BUN/Creat Ratio 17.4 RATIO (10-20); Calcium,Total 9.2 mg/dL (8.5-10.1); Chloride 102 mmol/L (98-107); Creatinine, Serum 1.15 mg/dL (0.70-1.30); EST Glomerular Filtration Rate 67 mL/min (>60); Est Glom Filt Rate - Afr Amer 81 mL/min (>60); Glucose 203 mg/dL (74-106); Potassium 4.1 mmol/L (3.5-5.1); Sodium Level 136 mmol/L (136-145); Thyroid Stim Hormone (TSH) 0.797 uIU/mL (0.358-3.740)
--- OUTSIDE RECORDS SUMMARY | 2024-03-22 19:36 | XMS RPT_ITS | CCD ---
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 Abnormal 4.6 - 7.1 % [facility]; [facility] Laboratory - Hematology and Cell countson 01-22-2021 HbA1c (Bld) [Mass fraction] 7.2 % Abnormal 4.6 - 7.1 % [facility]; [facility] Laboratory - Chemistry and C hemistry - challengeon 01-08-2021 Albumin [Mass/Vol] 4.5 g/dL Normal 3.6 - 5.1 g/dL [facility]; [facility] Albumin/Globulin [Mass ratio] 1.6 {ratio} Normal 1.0 - 2.5 [facility]; [facility] ALP [Catalytic activity/Vol] 70 U/L Normal 35 - 144 U/L [facility]; [facility], [facility] ALT [Catalytic activity/Vol] 20 U/L Normal 9 - 46 U/L [facility]; [facility]. AST [Catalytic activity/Vol] 16 U/L Normal 10 - 35 U/L [facility]; [facility] Bilirubin [Mass/Vol] 0.4 mg/dL Normal 0.2 - 1 .2 mg/dL [facility]; [facility] Calcium [Mass/Vol] 9.5 mg/dL Normal 8.6 - 10. 3 mg/dL [facility]; [facility] Chloride [Moles/Vol] 103 mmol/L Normal 98 - 11 0 mmol/L [facility]; [facility], [facility] Cholesterol [Mass/Vol] 160 mg/dL Normal [facility]; [facility], [facility] Cholesterol in HDL [Mass/Vol] 54 mg/dL Normal [facility]; [facility] Cholesterol in LDL [Mass/Vol] 86 mg/dL Normal [facility]; [facility], [facility] CO2 [Moles/Vol] 28 mmol/L Normal 20 - 32 mmol/L [facility]; [facility], [facility] Creatinine [Mass/Vol] 1.07 mg/dL Normal 0.70 - 1.25 mg/dL [facility].; [facility], [facility] GFR/1.73 sq M.predicted among blacks MDRD (S/P/Bld) [Vol rate/Area] 85 mL/min/{1.73_m2} Normal [facility]; [facility], [facility] Glucose [Mass/Vol] 142 mg/dL Abnormal 65 - 99 mg/dL [facility]; [facility], [facility] Potassium [Moles/Vol] 3.9 mmol/L Normal 3.5 - 5.3 mmol/L [facility]; [facility], [facility] Protein [Mass/Vol] 7.3 g/dL Normal 6.1 - 8.1 g/dL [facility]; [facility], [facility] Sodium [Moles/Vol] 140 mmol/L Normal 135 - 146 mmol/L [facility]; [facility], [facility] Triglyceride [Mass/Vol] 102 mg/dL Normal [facility]; [facility], [facility] Urea nitrogen [Mass/Vol] 20 mg/dL Normal 7 - 25 mg/dL [facility]; [facility], [facility] No Panel Informationon 01-08 BUN/CREATININE RATIO NOT APPLICABLE Normal 6 - 22 [facility]; [place] [employer] [facility], [facility] CHOL/HDLC RATIO 3.0 Normal [facility].; [facility], [facility] eGFR NON-AFR. GERMAN 73 Normal [facility]; [facility], [facility] GLOBULIN 2.8 Normal 1.9 - 3.7 [facility].; [facility], [facility] NON HDL CHOLESTEROL 106 Normal [facility], [facility].; [place] [employer] [facility], [facility] Laboratory - Chemistry and C hemistry - challengeon 02-09-2021 Albumin/Creatinine DL <= 20 mg/L (U) [Mass ratio] mg/g Normal [facility].; [facility] Creatinine (U) [Mass/Vol] 200 mg/dL Normal [facility].; [facility]. Laboratory - Hematology and Cell countson 07-04-2020 HbA1c (Bld) [Mass fraction] 6.8 % Normal 4.6 - 7.1 % [facility].; [facility] Laboratory - Urinalysison Protein Ql (U) Negative Normal [facility].; [facility]. Coronavirus 2019on 0 COVID 19 Result [place] [place] Abnormal Negative for COVID19 (SARS CoV2) by PCR. [facility] Comment on above: Result Comment: Posi tive for This test was developed and its performance characteristics determined by [facility]'s [facility]ology and [facility] Medicine [place]. This test has been authorized by [facility] under an Emergency Use Authorization (EUA). This test has been validated in accordance with the FDA's Guidance Document Policy for Diagnostics Testing in Laboratories Certified to Perform High Complexity Testing under CLIA prior to Emergency use Authorization for Coronavirus Disease 2019 during the Public Health Emergency issued on July 24, 2019. COVID19 (SARS This test was developed and its performance characteristics determined by [facility]'s [facility] [place]. This test has been authorized by FDA under an Emergency Use Authorization (EUA). This test has been validated in accordance with the FDA's Guidance Document Policy for Diagnostics Testing in Laboratories Certified to Perform High Complexity Testing under CLIA prior to Emergency use Authorization for Coronavirus Disease 2019 during the Public Health Emergency issued on July 24, 2019. CoV2) by This test was developed and its performance characteristics determined by [facility]'s [facility] and Laboratory Medicine [place]. This test has been authorized by FDA under an Emergency Use Authorization (EUA). This test has been validated in accordance with the FDA's Guidance Document Policy for Diagnostics Testing in Laboratories Certified to Perform High Complexity Testing under CLIA prior to Emergency use Authorization for Coronavirus Disease 2019 during the Public Health Emergency issued on July 24, 2019. PCR.(*) This test was developed and its performance characteristics determined by [facility]'s [facility] [place]. This test has been authorized by FDA under an Emergency Use Authorization (EUA). This test has been validated in accordance with the FDA's Guidance Document Policy for Diagnostics Testing in Laboratories Certified to Perform High Complexity Testing under CLIA prior to Emergency use Authorization for Coronavirus Disease 2019 during the Public Health Emergency issued on July 24, 2019. Performed By: #### C OVID #### [facility] Routine Lab [address], [place] [address] COVID 19 Source [place] [place] Normal [facility] Comment on above: Result Comment: Naso pharyngeal Corrected on 05/18 AT 0028: Previously reported as NASOPHARYNGEAL Swab Corrected on 05/18 AT 0028: Previously reported as NASOPHARYNGEAL Performed By: #### C OVID #### [facility] Routine Lab [address], [place] [address] Laboratory - Chemistry and C hemistry - challengeon 12-06-2019 Albumin [Mass/Vol] 4.4 g/dL Normal 3.6 - 5.1 g/dL [facility], [facility].; [place] [employer] [facility], [facility]. Albumin/Globulin [Mass ratio] 2.0 {ratio} Normal 1.0 - 2.5 [facility], [facility].; [employer] ALP [Catalytic activity/Vol] 69 U/L Normal 35 - 144 U/L [facility], [facility].; [place] [employer] [facility], [employer] ALT [Catalytic activity/Vol] 22 U/L Normal 9 - 46 U/L [place] [employer] [facility], [facility].; [employer]. AST [Catalytic activity/Vol] 19 U/L Normal 10 - 35 U/L [place] [employer] [facility], [facility].; [employer]. Bilirubin [Mass/Vol] 0.4 mg/dL Normal 0.2 - 1 .2 mg/dL [place] [employer] [facility], [facility].; [employer] Calcium [Mass/Vol] 9.7 mg/dL Normal 8.6 - 10. 3 mg/dL [facility], [facility].; [employer]. Chloride [Moles/Vol] 102 mmol/L Normal 98 - 11 0 mmol/L [facility], [facility].; [facility], [facility]. Cholesterol [Mass/Vol] 152 mg/dL Normal [facility].; [facility], [facility] Cholesterol in HDL [Mass/Vol] 48 mg/dL Normal [facility].; [facility], [facility]. Cholesterol in LDL [Mass/Vol] 83 mg/dL Normal [facility], [facility].; [facility], [facility] CO2 [Moles/Vol] 27 mmol/L Normal 20 - 32 mmol/L [facility].; [facility], [facility] Creatinine [Mass/Vol] 1.15 mg/dL Normal 0.70 - 1.25 mg/dL [facility].; [facility], [facility]. GFR/1.73 sq M.predicted among blacks MDRD (S/P/Bld) [Vol rate/Area] 78 mL/min/{1.73_m2} Normal [facility], [facility].; [facility], [facility]. Glucose [Mass/Vol] 136 mg/dL Abnormal 65 - 99 mg/dL [facility].; [facility], [facility]. Potassium [Moles/Vol] 3.9 mmol/L Normal 3.5 - 5.3 mmol/L [facility].; [facility], [facility]. Protein [Mass/Vol] 6.6 g/dL Normal 6.1 - 8.1 g/dL [facility].; [facility], [facility] Sodium [Moles/Vol] 139 mmol/L Normal 135 - 146 mmol/L [facility], [facility].; [facility], [employer] Triglyceride [Mass/Vol] 118 mg/dL Normal [facility], [facility].; [facility], [facility]. Urea nitrogen [Mass/Vol] 17 mg/dL Normal 7 - 25 mg/dL [facility], [facility].; [facility], [facility]. Laboratory - Hematology and Cell countson 12-06-2019 HbA1c (Bld) [Mass fraction] 7.4 % Abnormal [facility], [facility].; [place] [employer] [facility], [facility]. No Panel Informationon 12-05 BUN/CREATININE RATIO NOT APPLICABLE Normal 6 - 22 [facility].; [facility], [facility]. CHOL/HDLC RATIO 3.2 Normal [facility]; [facility] eGFR NON-AFR. GERMAN 67 Normal [facility]; [facility], [facility]. GLOBULIN 2.2 Normal 1.9 - 3.7 [facility]; [facility] NON HDL CHOLESTEROL 104 Normal [facility]; [facility] PSA, TOTAL 1.7 ng/mL Normal [facility]; [facility] Laboratory - Hematology and Cell countson 02-12-2019 HbA1c (Bld) [Mass fraction] 6.8 % Normal 4.6 - 7.1 % [facility]; [facility] Laboratory - Chemistry and C hemistry - challengeon 08-07-2018 Prostate specific Ag [Mass/Vol] 4.5 ng/mL Abnormal [facility]; [facility] Laboratory - Hematology and Cell countson 08-07-2018 HbA1c (Bld) [Mass fraction] 7.5 % Abnormal 0 - 5.6 % [facility]; [facility]. Laboratory - Chemistry and C hemistry - challengeon 01-05-2018 Albumin [Mass/Vol] 4.4 g/dL Normal 3.4 - 4.8 g/dL [facility]; [facility], [facility] Albumin [Mass/Vol] 1.6 g/dL Normal 0.9 - 1.6 [facility]; [facility]. ALP [Catalytic activity/Vol] 64 U/L Normal 38 - 126 U/L [facility]; [facility], [facility]. ALT [Catalytic activity/Vol] 20 U/L Normal 10 - 40 U/L [facility].; [facility], [facility]. ALT No additional P-5'-P [Catalytic activity/Vol] 20 U/L Normal 10 - 40 U/L [facility].; [place] [employer] [facility], [facility] Anion gap [Moles/Vol] 12 mmol/L Normal 10 - 20 mmol/L [facility].; [facility]. AST [Catalytic activity/Vol] 17 U/L Normal 13 - 39 U/L [facility].; [facility] Bilirubin [Mass/Vol] 0.6 mg/dL Normal 0.0 - 1 .5 mg/dL [facility].; [facility], [facility] Calcium [Mass/Vol] 9.5 mg/dL Normal 8.6 - 10. 2 mg/dL [facility]; [facility] Chloride [Moles/Vol] 102 mmol/L Normal 98 - 10 7 mmol/L [facility]; [facility], [facility] Cholesterol [Mass/Vol] 126 mg/dL Normal 0 - 200 mg/dL [facility]; [facility], [facility]. Cholesterol in HDL [Mass or moles/Vol] 37 mg/dL Abnormal 40 - 60 mg/dL [facility].; [facility], [facility] Cholesterol in LDL [Mass/Vol] 72 mg/dL Normal 0 - 129 mg/dL [facility].; [facility], [facility]. Cholesterol.total/Cho lesterol in HDL [Mass ratio] 3.4 {ratio} Normal 0.0 - 5.0 [facility]; [facility], [facility]. CO2 [Moles/Vol] 28.4 mmol/L Normal 21.0 - 31.0 mmol/L [facility].; [facility], [facility] Comprehensive metabolic 2000 panel CMP with eGFR Normal [facility].; [facility], [facility] Creatinine [Mass/Vol] 1.0 mg/dL Normal 0.7 - 1.3 mg/dL [facility].; [facility], [facility]. GFR/1.73 sq M.predicted among blacks MDRD (S/P/Bld) [Vol rate/Area] mL/min/{1.73_m2} Normal 60 - 999 {ML/MINUTE} [facility], [facility].; [facility], [facility]. GFR/1.73 sq M.predicted MDRD (S/P/Bld) [Vol rate/Area] mL/min/{1.73_m2} Normal 60 - 999 {ML/MINUTE} [facility].; [place] [employer] [facility]. Globulin (S) [Mass/Vol] 2.7 g/dL Normal 1.5 - 3.8 g/dL [facility].; [place] [employer] [facility], [employer]. Glucose [Mass/Vol] 118 mg/dL Abnormal 74 - 106 mg/dL [facility].; [place] [employer] Lipid 1996 panel LIPID PROFILE Normal [facility].; [place] [employer] Potassium [Moles/Vol] 3.6 mmol/L Normal 3.5 - 5.1 mmol/L [facility].; [place] [employer]. Protein [Mass/Vol] 7.1 g/dL Normal 6.4 - 8.3 g/dL [facility].; [place] [employer]. Sodium [Moles/Vol] 139 mmol/L Normal 136 - 145 mmol/L [facility].; [place] [employer]. Triglyceride [Mass/Vol] 87 mg/dL Normal 0 - 150 mg/dL [facility].; [place] [employer] Urea nitrogen [Mass/Vol] 18 mg/dL Normal 6 - 20 mg/dL [facility].; [place] [employer] Urea nitrogen/Creatinine [Mass ratio] 18 {ratio} Normal 0 - 30 {ratio} [facility].; [employer] No Panel Informationon 01-05 AGE 62 {years} Normal [facility].; [place] [employer] Laboratory - Hematology and Cell countson 06-20-2017 HbA1c (Bld) [Mass fraction] 7.5 % Abnormal 4.6 - 7.1 % [place] [employer] [facility].; [employer]. Laboratory - Chemistry and C hemistry - challengeon 12-10-2016 Albumin/Creatinine DL <= 20 mg/L (U) [Mass ratio] mg/g Normal [place] [employer]. Creatinine (U) [Mass/Vol] 50 mg/dL Normal [place] [employer]. Laboratory - Hematology and Cell countson 12-10-2016 HbA1c (Bld) [Mass fraction] 7.5 % Abnormal 4.6 - 7.1 % [facility].; [facility] Laboratory - Urinalysison Protein Ql (U) 10 mg/dL Normal [facility].; [place] [employer] [facility] Laboratory - Hematology and Cell countson 08-20-2016 HbA1c (Bld) [Mass fraction] 8.4 % Abnormal 4.6 - 7.1 % [facility] [facility].; [facility] Laboratory - Chemistry and C hemistry - challengeon 05-21-2016 Albumin [Mass/Vol] 4.0 g/dL Normal 3.6 - 5.1 g/dL [facility]; [facility], [facility] Albumin/Globulin [Mass ratio] 1.7 {ratio} Normal 1.0 - 2.5 [facility]; [facility] ALP [Catalytic activity/Vol] 88 U/L Normal 40 - 115 U/L [facility].; [place] [employer] [facility], [employer]. ALT [Catalytic activity/Vol] 48 U/L Abnormal 9 - 46 U/L [facility].; [place] [employer] [facility], [employer]. AST [Catalytic activity/Vol] 27 U/L Normal 10 - 35 U/L [facility].; [place] [employer] [facility], [employer]. Bilirubin [Mass/Vol] 0.5 mg/dL Normal 0.2 - 1 .2 mg/dL [facility], [facility].; [facility], [facility] Calcium [Mass/Vol] 9.1 mg/dL Normal 8.6 - 10. 3 mg/dL [facility].; [place] [employer] [facility], [facility]. Chloride [Moles/Vol] 101 mmol/L Normal 98 - 11 0 mmol/L [facility].; [place] [employer], [employer]. Cholesterol [Mass/Vol] 162 mg/dL Normal 125 - 200 mg/dL [facility], [facility].; [place] [employer], [facility]. Cholesterol in HDL [Mass/Vol] 38 mg/dL Abnormal [facility].; [facility], [facility]. Cholesterol in LDL [Mass/Vol] 86 mg/dL Normal [facility], [facility].; [facility], [facility]. Cholesterol non HDL [Mass/Vol] 123 mg/dL Normal [facility]; [facility], [facility] Cholesterol.total/Cho lesterol in HDL [Mass ratio] 4.3 {ratio} Normal [facility]; [facility], [facility] CO2 [Moles/Vol] 26 mmol/L Normal 20 - 31 mmol/L [facility]; [facility] Creatinine [Mass/Vol] 0.99 mg/dL Normal 0.70 - 1.33 mg/dL [facility]; [facility], [facility]. GFR/1.73 sq M.predicted among blacks MDRD (S/P/Bld) [Vol rate/Area] 96 {ML/MIN/1.73M2} Normal [facility]; [facility], [facility] GFR/1.73 sq M.predicted MDRD (S/P/Bld) [Vol rate/Area] 83 {ML/MIN/1.73M2} Normal [facility].; [facility], [facility] Globulin (S) [Mass/Vol] 2.3 g/dL Normal 1.9 - 3.7 g/dL [facility].; [facility], [facility]. Glucose [Mass/Vol] 302 mg/dL Abnormal 65 - 99 mg/dL [facility].; [facility], [facility]. Potassium [Moles/Vol] 3.7 mmol/L Normal 3.5 - 5.3 mmol/L [facility]; [facility], [facility] Protein [Mass/Vol] 6.3 g/dL Normal 6.1 - 8.1 g/dL [facility]; [facility], [facility] Sodium [Moles/Vol] 137 mmol/L Normal 135 - 146 mmol/L [facility].; [facility], [facility]. Triglyceride [Mass/Vol] 189 mg/dL Abnormal [facility].; [facility], [facility] Urea nitrogen [Mass/Vol] 18 mg/dL Normal 7 - 25 mg/dL [facility].; [facility], [facility] Urea nitrogen/Creatinine [Mass ratio] 18.3 mg/mg Normal 6 - 22 [facility].; [place] [employer] [facility]. Laboratory - Chemistry and C hemistry - challengeon 05-02-2015 Albumin [Mass/Vol] 4.5 g/dL Normal 3.6 - 5.1 g/dL [facility].; [facility], [facility] Albumin/Globulin [Mass ratio] 1.9 {ratio} Normal 1.0 - 2.5 [facility].; [facility]. ALP [Catalytic activity/Vol] 94 U/L Normal 40 - 115 U/L [facility].; [facility], [facility]. ALT [Catalytic activity/Vol] 44 U/L Normal 9 - 46 U/L [facility].; [facility], [facility]. AST [Catalytic activity/Vol] 27 U/L Normal 10 - 35 U/L [facility], [facility].; [place] [employer] [facility], [facility] Bilirubin [Mass/Vol] 0.4 mg/dL Normal 0.2 - 1 .2 mg/dL [facility].; [place] [employer] [facility], [facility]. Calcium [Mass/Vol] 9.2 mg/dL Normal 8.6 - 10. 3 mg/dL [facility].; [place] [employer] [facility]. Chloride [Moles/Vol] 102 mmol/L Normal 98 - 11 0 mmol/L [facility].; [facility], [facility]. Cholesterol [Mass/Vol] 164 mg/dL Normal 125 - 200 mg/dL [facility].; [place] [employer] [facility], [facility]. Cholesterol in HDL [Mass/Vol] 40 mg/dL Normal [facility].; [place] [employer] [facility], [facility]. Cholesterol in LDL [Mass/Vol] 84 mg/dL Normal [facility].; [place] [employer] [facility], [employer]. Cholesterol non HDL [Mass/Vol] 124 mg/dL Normal [facility].; [facility], [facility]. Cholesterol.total/Cho lesterol in HDL [Mass ratio] 4.1 {ratio} Normal [facility], [facility].; [place] [employer], [employer]. CO2 [Moles/Vol] 24 mmol/L Normal 19 - 30 mmol/L [facility].; [facility], [facility] Creatinine [Mass/Vol] 1.01 mg/dL Normal 0.70 - 1.33 mg/dL [facility].; [facility], [facility] GFR/1.73 sq M.predicted among blacks MDRD (S/P/Bld) [Vol rate/Area] 95 {ML/MIN/1.73M2} Normal [facility].; [facility] GFR/1.73 sq M.predicted MDRD (S/P/Bld) [Vol rate/Area] 82 {ML/MIN/1.73M2} Normal [facility].; [facility], [facility] Globulin (S) [Mass/Vol] 2.4 g/dL Normal 1.9 - 3.7 g/dL [facility].; [facility], [facility]. Glucose [Mass/Vol] 249 mg/dL Abnormal 65 - 99 mg/dL [facility]; [facility], [facility] Potassium [Moles/Vol] 3.6 mmol/L Normal 3.5 - 5.3 mmol/L [facility]; [facility], [facility] Protein [Mass/Vol] 6.9 g/dL Normal 6.1 - 8.1 g/dL [facility]; [facility], [facility] Sodium [Moles/Vol] 139 mmol/L Normal 135 - 146 mmol/L [facility]; [facility], [facility] Triglyceride [Mass/Vol] 199 mg/dL Abnormal [facility]; [facility], [facility] Urea nitrogen [Mass/Vol] 19 mg/dL Normal 7 - 25 mg/dL [facility]; [facility], [facility] Urea nitrogen/Creatinine [Mass ratio] 18.7 mg/mg Normal 6 - 22 [facility]; [facility], [facility] Laboratory - Chemistry and C hemistry - challengeon 09-16-2013 ALT [Catalytic activity/Vol] 30 U/L Normal 9 - 46 U/L [facility]; [facility], [facility] Cholesterol [Mass/Vol] 163 mg/dL Normal 125 - 200 mg/dL [facility]; [facility]. Cholesterol in HDL [Mass/Vol] 49 mg/dL Normal [facility].; [facility]. Cholesterol in LDL [Mass/Vol] 85 mg/dL Normal [facility].; [facility], [facility]. Cholesterol non HDL [Mass/Vol] 114 mg/dL Normal [facility].; [facility] Cholesterol.total/Cho lesterol in HDL [Mass ratio] 3.3 {ratio} Normal [facility].; [facility]. Triglyceride [Mass/Vol] 144 mg/dL Normal [facility].; [facility], [facility]. Laboratory - Chemistry and C hemistry - challengeon 02-18-2012 Albumin [Mass/Vol] 4.4 g/dL Normal 3.6 - 5.1 g/dL [facility].; [facility], [facility] Albumin/Globulin [Mass ratio] 1.7 {ratio} Normal 1.0 - 2.1 [facility].; [facility]. ALP [Catalytic activity/Vol] 74 U/L Normal 40 - 115 U/L [facility].; [facility], [facility]. ALT [Catalytic activity/Vol] 24 U/L Normal 9 - 60 U/L [facility].; [facility], [facility]. AST [Catalytic activity/Vol] 20 U/L Normal 10 - 35 U/L [facility].; [facility]. Bilirubin [Mass/Vol] 0.3 mg/dL Normal 0.2 - 1 .2 mg/dL [facility].; [facility]. Calcium [Mass/Vol] 9.5 mg/dL Normal 8.6 - 10. 3 mg/dL [facility].; [facility]. Chloride [Moles/Vol] 106 mmol/L Normal 98 - 11 0 mmol/L [facility].; [facility], [facility]. Cholesterol [Mass/Vol] 206 mg/dL Abnormal 125 - 200 mg/dL [facility].; [facility]. Cholesterol in HDL [Mass/Vol] 41 mg/dL Normal [facility].; [facility], [facility]. Cholesterol in LDL [Mass/Vol] 131 mg/dL Abnormal [facility].; [facility], [facility]. Cholesterol non HDL [Mass/Vol] 165 mg/dL Normal [facility].; [facility], [facility]. Cholesterol.total/Cho lesterol in HDL [Mass ratio] 5.0 {ratio} Normal [facility].; [facility], [facility] CO2 [Moles/Vol] 24 mmol/L Normal 21 - 33 mmol/L [facility].; [facility], [facility]. Creatinine [Mass/Vol] 0.92 mg/dL Normal 0.70 - 1.33 mg/dL [facility].; [facility], [facility]. GFR/1.73 sq M.predicted among blacks MDRD (S/P/Bld) [Vol rate/Area] 108 {ML/MIN/1.73M2} Normal [facility].; [facility], [facility]. GFR/1.73 sq M.predicted MDRD (S/P/Bld) [Vol rate/Area] 93 {ML/MIN/1.73M2} Normal [facility], [facility].; [facility], [facility]. Globulin (S) [Mass/Vol] 2.5 g/dL Normal 2.1 - 3.7 g/dL [facility], [facility].; [facility], [facility]. Glucose [Mass/Vol] 136 mg/dL Abnormal 65 - 99 mg/dL [facility].; [facility], [facility]. Potassium [Moles/Vol] 4.1 mmol/L Normal 3.5 - 5.3 mmol/L [facility], [facility].; [facility], [facility]. Protein [Mass/Vol] 6.9 g/dL Normal 6.2 - 8.3 g/dL [facility].; [facility], [facility]. Sodium [Moles/Vol] 141 mmol/L Normal 135 - 146 mmol/L [facility], [facility].; [facility], [facility]. Triglyceride [Mass/Vol] 171 mg/dL Abnormal [facility].; [facility], [facility]. Urea nitrogen [Mass/Vol] 14 mg/dL Normal 7 - 25 mg/dL [facility], [facility].; [place] [employer] [facility], [facility]. Urea nitrogen/Creatinine [Mass ratio] 14.9 mg/mg Normal 6 - 22 [facility], [facility].; [place] [employer] [facility], [employer]. Vital Signs Date Time Vital Sign Value Performing Clinician Facility 02-10-2024 11:14-0400 Body height 180.34 cm Claire Rice [facility], [facility].; [place] [employer] [facility], [facility]. 02-10-2024 11:14-0400 Body mass index (BMI) [Ratio] 33.61 kg/m2 [facility] Dwayne [facility], [facility].; [facility], [facility]. 02-10-2024 11:14-0400 Body surface area Derived from formula 2.28 m2 [facility], [facility].; [place] [employer] [facility], [facility]. 02-10-2024 11:14-0400 Body weight 109.32 kg Mandy Dwayne [facility], [facility].; [employer] 02-10-2024 11:14-0400 Diastolic blood pressure 75 mm[Hg] [facility], [facility].; [place] [employer] [facility], [employer]. Comment on above: Patient Position: Sitting; Cuff Location : Left Arm; Cuff Size: Large 02-10-2024 11:14-0400 Heart rate 64 /min [facility], [facility].; [employer]. Comment on above: Pattern: Regular 02-10-2024 11:14-0400 Systolic blood pressure 136 mm[Hg] [facility], [facility].; [employer], [employer]. Comment on above: Patient Position: Sitting; Cuff Location : Left Arm; Cuff Size: Large 07-29-2023 15:40-0500 Body height 180.34 cm Magdy Alford MD Work Phone: [facility], [facility].; [employer] 07-29-2023 15:40-0500 Body mass index (BMI) [Ratio] 33.47 kg/m2 Magdy Alford MD Work Phone: [employer] 07-29-2023 15:40-0500 Body surface area Derived from formula 2.28 m2 Magdy Alford MD Work Phone: [employer].; [employer] 07-29-2023 15:40-0500 Body weight 108.86 kg Magdy Alford MD Work Phone: [employer].; [employer] 07-29-2023 15:40-0500 Diastolic blood pressure 76 mm[Hg] Magdy Alford MD Work Phone: [employer].; [employer]. Comment on above: Patient Position: Sitting; Cuff Location : Left Arm; Cuff Size: Large 07-29-2023 15:40-0500 Heart rate 73 /min Magdy Alford MD Work Phone: [employer].; [employer] Comment on above: Pattern: Regular 07-29-2023 15:40-0500 Systolic blood pressure 126 mm[Hg] Magdy Alford MD Work Phone: [employer].; [employer]. Comment on above: Patient Position: Sitting; Cuff Location : Left Arm; Cuff Size: Large 01-21-2023 15:14-0400 Body height 180.34 cm Magdy Alford MD Work Phone: [employer].; [employer] 01-21-2023 15:14-0400 Body mass index (BMI) [Ratio] 34.17 kg/m2 Magdy Alford MD Work Phone: [employer] 01-21-2023 15:14-0400 Body surface area Derived from formula 2.3 m2 Magdy Alford MD Work Phone: [employer] 01-21-2023 15:14-0400 Body weight 111.13 kg Magdy Alford MD Work Phone: [facility].; [place] [employer] [facility] 01-21-2023 15:14-0400 Diastolic blood pressure 68 mm[Hg] Magdy Alford MD Work Phone: [facility].; [place] [employer]. Comment on above: Patient Position: Sitting; Cuff Location : Left Arm; Cuff Size: Large 01-21-2023 15:14-0400 Heart rate 61 /min Magdy Alford MD Work Phone: [facility] [employer]. Comment on above: Pattern: Regular 01-21-2023 15:14-0400 Systolic blood pressure 132 mm[Hg] Magdy Alford MD Work Phone: [facility].; [employer]. Comment on above: Patient Position: Sitting; Cuff Location : Left Arm; Cuff Size: Large 11-25-2022 09:49-0400 Body height 180.34 cm [facility].; [place] [employer] [facility] 11-25-2022 09:49-0400 Body mass index (BMI) [Ratio] 33.61 kg/m2 [facility], [facility].; [place] [employer] [facility], [facility]. 11-25-2022 09:49-0400 Body surface area Derived from formula 2.28 m2 [facility], [facility].; [place] [employer] [facility], [facility]. 11-25-2022 09:49-0400 Body temperature 97.2 [degF] [facility] [employer]. Comment on above: Method: Tympanic 11-25-2022 09:49-0400 Body weight 109.32 kg [facility], [facility].; [place] [employer] 11-25-2022 09:49-0400 Diastolic blood pressure 72 mm[Hg] [facility].; [employer]. Comment on above: Patient Position: Sitting; Cuff Location : Left Arm; Cuff Size: Large 11-25-2022 09:49-0400 Heart rate 67 /min [facility] [place] [employer] [facility], [employer]. Comment on above: Pattern: Regular 11-25-2022 09:49-0400 Inhaled oxygen concentration 20 % Claire [facility].; [place] [employer] [facility] Comment on above: Room air 11-25-2022 09:49-0400 Inhaled oxygen concentration 21 % [facility] [place] [employer] [facility], [employer]. Comment on above: Room air 11-25-2022 09:49-0400 SaO2% (BldA) [Mass fraction] 90 % [facility].; [place] [employer] [facility], [employer]. 11-25-2022 09:49-0400 Systolic blood pressure 143 mm[Hg] Mandy D[facility].; [place] [employer] [facility], [employer]. Comment on above: Patient Position: Sitting; Cuff Location : Left Arm; Cuff Size: Large 07-23-2022 15:55-0500 Body height 180.34 cm Adali Gates MA [facility], [facility].; [facility], [facility]. 07-23-2022 15:55-0500 Body mass index (BMI) [Ratio] 34.03 kg/m2 Adali Gates MA [facility], [facility]. 07-23-2022 15:55-0500 Body surface area Derived from formula 2.3 m2 Adali Gates MA [facility], [facility].; [place] [employer] [facility], [facility]. 07-23-2022 15:55-0500 Body weight 110.68 kg Adali Gates MA [facility], [facility].; [place] [employer] [facility], [employer]. 07-23-2022 15:55-0500 Diastolic blood pressure 73 mm[Hg] Adali Gates MA [facility], [facility].; [place] [employer] [facility], [employer]. Comment on above: Patient Position: Sitting; Cuff Location : Left Arm; Cuff Size: Standard 07-23-2022 15:55-0500 Heart rate 61 /min Adali Gates MA [facility].; [employer]. Comment on above: Pattern: Regular 07-23-2022 15:55-0500 Systolic blood pressure 128 mm[Hg] Adali Gates MA [facility].; [employer]. Comment on above: Patient Position: Sitting; Cuff Location : Left Arm; Cuff Size: Standard 05-03-2022 15:29-0500 Body height 180.34 cm Adali Quinones LPN [facility], [facility].; [employer]. 05-03-2022 15:29-0500 Body mass index (BMI) [Ratio] 35.01 kg/m2 Adali Quinones LPN [facility].; [employer] [facility]. 05-03-2022 15:290500 Body surface area Derived from formula 2.32 m2 Adali Quinones LPN [facility], [facility].; [employer]. 05-03-2022 15:29050 Body weight 113.85 kg Adali Quinones LPN [facility].; [employer]. 05-03-2022 15:29-0500 Diastolic blood pressure 62 mm[Hg] Adali Quinones LPN [facility].; [employer]. Comment on above: Patient Position: Sitting; Cuff Location : Left Arm; Cuff Size: Standard 05-03-2022 15:29-0500 Heart rate 64 /min Adali Quinones LPN [facility].; [employer]. Comment on above: Pattern: Regular 05-03-2022 15:29-0500 Inhaled oxygen concentration 20 % Adali Quinones LPN [facility].; [employer]. Comment on above: Room air 05-03-2022 15:29-0500 Inhaled oxygen concentration 21 % Adali Quinones LPN [facility].; [employer]. Comment on above: Room air 05-03-2022 15:29-0500 SaO2% (BldA) [Mass fraction] 93 % Adali [facility]ones LPN [facility].; [employer] 05-03-2022 15:29-0500 Systolic blood pressure 123 mm[Hg] Adali Quinones [facility] [facility] [place] [employer] [facility] Comment on above: Patient Position: Sitting; Cuff Location : Left Arm; Cuff Size: Standard 02-01-2022 10:45-0400 Body height 180.34 cm [facility]. 02-01-2022 10:45-0400 Body mass index (BMI) [Ratio] 33.61 kg/m2 Ashly Saunders [employer] [facility].; [facility]. 02-01-2022 10:45-0400 Body surface area Derived from formula 2.28 m2 Ashly [facility]unders [facility], [facility].; [facility]. 02-01-2022 10:45-0400 Body weight 109.32 kg Ashly [facility]unders [facility], [facility].; [facility]. 02-01-2022 10:45-0400 Diastolic blood pressure 80 mm[Hg] Ashly Macdonaldach [facility], [facility].; [place] [employer] [facility] Comment on above: Patient Position: Sitting; Cuff Location : Left Arm; Cuff Size: Standard 02-01-2022 10:45-0400 Heart rate 49 /min Ashly Leung [facility], [facility].; [employer]. Comment on above: Pattern: Regular 02-01-2022 10:45-0400 Systolic blood pressure 147 mm[Hg] Ashly Leung [facility].; [employer]. Comment on above: Patient Position: Sitting; Cuff Location : Left Arm; Cuff Size: Standard 01-08-2022 15:04-0400 Body height 180.34 cm Magdy Alford MD Work Phone: [facility].; [place] [employer]. 01-08-2022 15:04-0400 Body mass index (BMI) [Ratio] 33.33 kg/m2 Magdy Alford MD Work Phone: [facility].; [facility]. 01-08-2022 15:04-0400 Body surface area Derived from formula 2.27 m2 Magdy Alford MD Work Phone: [facility] [employer].; [employer]. 01-08-2022 15:04-0400 Body weight 108.41 kg Magdy Alford MD Work Phone: [facility].; [employer]. 01-08-2022 15:04-0400 Diastolic blood pressure 78 mm[Hg] Magdy Alford MD Work Phone: [facility].; [employer]. Comment on above: Patient Position: Sitting; Cuff Location : Left Arm; Cuff Size: Large 01-08-2022 15:04-0400 Heart rate 64 /min Magdy Alford MD Work Phone: [facility].; [employer]. Comment on above: Pattern: Regular 01-08-2022 15:04-0400 Systolic blood pressure 138 mm[Hg] Magdy Alford MD Work Phone: [facility].; [employer]. Comment on above: Patient Position: Sitting; Cuff Location : Left Arm; Cuff Size: Large 12-17-2021 11:35-0400 Body height 180.34 cm Adali Quinones LPN [facility].; [facility] [employer] [facility]. 12-17-2021 11:35-0400 Body mass index (BMI) [Ratio] 32.36 kg/m2 Adali Quinones LPN [facility].; [employer] [facility]. 12-17-2021 11:35-0400 Body surface area Derived from formula 2.25 m2 Adali Quinones LPN [facility].; [place] [employer] [facility]. 12-17-2021 11:35-0400 Body temperature 96.8 [degF] Adali [facility]ones LPN [facility].; [employer]. Comment on above: Method: Tympanic 12-17-2021 11:35-0400 Body weight 105.24 kg Adali Quinones LPN [facility].; [place] [employer] [facility]. 12-17-2021 11:35-0400 Diastolic blood pressure 67 mm[Hg] Adali Quinones LPN [facility], [facility].; [place] [employer] [facility], [employer]. Comment on above: Patient Position: Sitting; Cuff Location : Left Arm; Cuff Size: Standard 12-17-2021 11:35-0400 Heart rate 63 /min Adali Quinones LPN [facility], [facility].; [place] [employer] [facility], [employer]. Comment on above: Pattern: Regular 12-17-2021 11:35-0400 Inhaled oxygen concentration 20 % Adali Quinones LPN [facility], [facility].; [place] [employer] [facility], [employer]. Comment on above: Room air 12-17-2021 11:35-0400 Inhaled oxygen concentration 21 % Adali Quinones LPN [facility], [facility].; [employer], [employer]. Comment on above: Room air 12-17-2021 11:35-0400 SaO2% (BldA) [Mass fraction] 97 % Adali Quinones [employer]END[employer] [facility], [facility].; [place] [employer] [facility], [employer]. 12-17-2021 11:35-0400 Systolic blood pressure 134 mm[Hg] Adali Quinones LPN [facility], [facility].; [place] [employer] [facility], [employer]. Comment on above: Patient Position: Sitting; Cuff Location : Left Arm; Cuff Size: Standard 09-03-2021 15:22-0400 Body height 180.34 cm Claire Rice RACE BOARD ATTENDANT [facility], [facility].; [place] [employer] [facility], [employer]. 09-03-2021 15:22-0400 Body mass index (BMI) [Ratio] 33.47 kg/m2 Mandy Dwayne [facility], [facility].; [place] [employer] [facility], [employer]. 09-03-2021 15:22-0400 Body surface area Derived from formula 2.28 m2 [facility] Dwayne RACE [employer]ARD ATTENDANT [facility], [facility].; [place] [employer] [facility] 09-03-2021 15:22-0400 Body temperature 97.2 [degF] [facility] Dwayne [facility], [facility].; [employer], [employer]. Comment on above: Method: Tympanic 09-03-2021 15:22-0400 Body weight 108.86 kg Claire Rice RACE [employer]ARD ATTENDANT [facility] [employer] [facility] 09-03-2021 15:22-0400 Diastolic blood pressure 80 mm[Hg] Claire Rice LPN [facility] [place], [employer]. Comment on above: Patient Position: Sitting; Cuff Location : Left Arm; Cuff Size: Large 09-03-2021 15:22-0400 Heart rate 56 /min Claire Rice [facility].; [place], [employer]. Comment on above: Pattern: Regular 09-03-2021 15:22-0400 Inhaled oxygen concentration 20 % Claire Rice [facility].; [employer] Comment on above: Room air 09-03-2021 15:22-0400 Inhaled oxygen concentration 21 % Claire Rice [facility].; [place], [employer]. Comment on above: Room air 09-03-2021 15:22-0400 SaO2% (BldA) [Mass fraction] 95 % Claire Rice [facility].; [employer] [facility] 09-03-2021 15:22-0400 Systolic blood pressure 150 mm[Hg] Claire Rice [facility].; [place], [employer]. Comment on above: Patient Position: Sitting; Cuff Location : Left Arm; Cuff Size: Large 07-16-2021 13:24-0500 Body height 180.34 cm Magdy Alford MD Work Phone: [facility], [employer] 07-16-2021 13:24-0500 Body mass index (BMI) [Ratio] 33.61 kg/m2 Magdy Alford MD Work Phone: [facility], [employer] 07-16-2021 13:24-0500 Body surface area Derived from formula 2.28 m2 Magdy Alford MD Work Phone: [facility].; [employer]. 07-16-2021 13:24-0500 Body weight 109.32 kg Magdy Alford MD Work Phone: [facility].; [employer]. 07-16-2021 13:24-0500 Diastolic blood pressure 76 mm[Hg] Magdy Alford MD Work Phone: [facility].; [employer]. Comment on above: Patient Position: Sitting; Cuff Location : Left Arm; Cuff Size: Large 07-16-2021 13:24-0500 Heart rate 56 /min Magdy Alford MD Work Phone: [facility].; [employer]. Comment on above: Pattern: Regular 07-16-2021 13:24-0500 Systolic blood pressure 132 mm[Hg] Magdy Alford MD Work Phone: [facility].; [employer]. Comment on above: Patient Position: Sitting; Cuff Location : Left Arm; Cuff Size: Large 06-12-2021 16:19-0500 Body height 180.34 cm Mandy Dwayne [facility], [facility].; [employer]. 06-12-2021 16:19-0500 Body mass index (BMI) [Ratio] 32.78 kg/m2 [facility] Dwayne [facility].; [employer]. 06-12-2021 16:19-0500 Body surface area Derived from formula 2.26 m2 [facility] Dwayne R[employer]ARD ATTENDANT [facility], [facility].; [employer]. 06-12-2021 16:19-0500 Body temperature 97 [degF] [facility] Dwayne [facility], [employer].; [employer]. Comment on above: Method: Tympanic 06-12-2021 16:19-0500 Body weight 106.6 kg Claire Rice RACE [employer]ARD ATTENDANT [facility].; [employer]. 06-12-2021 16:19-0500 Diastolic blood pressure 78 mm[Hg] Claire Rice [facility].; [facility], [facility]. Comment on above: Patient Position: Sitting; Cuff Location : Left Arm; Cuff Size: Large 06-12-2021 16:19-0500 Heart rate 64 /min MandyTalisha Rice [facility].; [facility], [employer]. Comment on above: Pattern: Regular 06-12-2021 16:19-0500 Inhaled oxygen concentration 20 % Mandy Stuckey [facility], [facility].; [facility], [employer]. Comment on above: Room air 06-12-2021 16:19-0500 Inhaled oxygen concentration 21 % [facility] Dwayne [facility], [facility].; [facility], [employer]. Comment on above: Room air 06-12-2021 16:19-0500 SaO2% (BldA) [Mass fraction] 93 % [facility], [employer]. 06-12-2021 16:19-0500 Systolic blood pressure 162 mm[Hg] Claire Rice [facility], [facility].; [facility], [employer]. Comment on above: Patient Position: Sitting; Cuff Location : Left Arm; Cuff Size: Large 04-14-2021 10:30-0500 Body temperature 98.42 [degF] HAYES CARTER MD [facility] 04-14-2021 10:30-0500 Diastolic blood pressure 75 mm[Hg] HAYES CARTER MD [facility] 04-14-2021 10:30-0500 Heart rate 55 /min HAYES CARTER MD [facility] 04-14-2021 10:30-0500 Respiratory rate 18 /min HAYES CARTER MD [facility] 04-14-2021 10:30-0500 Systolic blood pressure 145 mm[Hg] HAYES CARTER MD [facility] 03-12-2021 10:18-0400 Body height 180.34 cm Magdy Alford MD Work Phone: [employer]; [employer]. 03-12-2021 10:18-0400 Body mass index (BMI) [Ratio] 33.89 kg/m2 Magdy Alford MD Work Phone: [employer]; [employer]. 03-12-2021 10:18-0400 Body surface area Derived from formula 2.29 m2 Magdy Alford MD Work Phone: [employer]; [employer]. 03-12-2021 10:18-0400 Body temperature 97.1 [degF] Magdy Alford MD Work Phone: [employer]; [employer]. Comment on above: Method: Tympanic 03-12-2021 10:18-0400 Body weight 110.22 kg Magdy Alford MD Work Phone: [employer]; [employer]. 03-12-2021 10:18-0400 Diastolic blood pressure 70 mm[Hg] Magdy Alford MD Work Phone: [employer]; [employer]. Comment on above: Patient Position: Sitting; Cuff Location : Left Arm; Cuff Size: Standard 03-12-2021 10:18-0400 Heart rate 51 /min Magdy Alford MD Work Phone: [employer]; [employer]. Comment on above: Pattern: Regular 03-12-2021 10:18-0400 Inhaled oxygen concentration 20 % Magdy Alford MD Work Phone: [facility]; [employer] Comment on above: Room air 03-12-2021 10:18-0400 Inhaled oxygen concentration 21 % Magdy Alford MD Work Phone: [facility].; [employer]. Comment on above: Room air 03-12-2021 10:18040 SaO2% (BldA) [Mass fraction] 95 % Magdy Alford MD Work Phone: [facility].; [employer]. 03-12-2021 10:18040 Systolic blood pressure 140 mm[Hg] Magdy Alford MD Work Phone: [facility].; [employer]. Comment on above: Patient Position: Sitting; Cuff Location : Left Arm; Cuff Size: Standard 02-14-2021 14:30-0400 Body height 180.34 cm Adali Quinones LPN [facility].; [place] [employer]. 02-14-2021 14:30-0400 Body mass index (BMI) [Ratio] 33.61 kg/m2 Adali Quinones LPN [facility].; [employer]. 02-14-2021 14:30-0400 Body surface area Derived from formula 2.28 m2 Adali Quinones LPN [facility].; [employer]. 02-14-2021 14:30-0400 Body temperature 97.1 [degF] Adali Quinones LPN [facility].; [employer]. Comment on above: Method: Tympanic 02-14-2021 14:30-0400 Body weight 109.32 kg Adali Quinones LPN [facility].; [employer]. 02-14-2021 14:30-0400 Diastolic blood pressure 71 mm[Hg] Adali Quinones LPN [facility].; [employer]. Comment on above: Patient Position: Sitting; Cuff Location : Left Arm; Cuff Size: Standard 02-14-2021 14:30-0400 Heart rate 61 /min Adali Quinones LPN [facility].; [employer]. Comment on above: Pattern: Regular 02-14-2021 14:30-0400 Inhaled oxygen concentration 20 % Adali Joni WILLIAM [facility] [place] [employer] [facility], [employer]. Comment on above: Room air 02-14-2021 14:30-0400 Inhaled oxygen concentration 21 % Adali Joni RACE [employer]ARD ATTENDANT [facility].; [place] [employer] [facility] Comment on above: Room air 02-14-2021 14:30-0400 SaO2% (BldA) [Mass fraction] 96 % Adali Joni [facility].; [place] [employer] [facility] 02-14-2021 14:30-0400 Systolic blood pressure 119 mm[Hg] Adali Joni [facility], [facility].; [place] [employer] [facility], [employer]. Comment on above: Patient Position: Sitting; Cuff Location : Left Arm; Cuff Size: Standard 01-22-2021 15:54-0400 Body height 180.34 cm Mandy Dwayne [facility].; [facility] 01-22-2021 15:54-0400 Body mass index (BMI) [Ratio] 33.19 kg/m2 [facility] Dwayne [facility], [facility].; [place] [employer] [facility] 01-22-2021 15:54-0400 Body surface area Derived from formula 2.27 m2 [facility], [facility].; [place] [employer] [facility] 01-22-2021 15:54-0400 Body weight 107.96 kg [facility] Dwayne [facility].; [employer] [facility] 01-22-2021 15:54-0400 Diastolic blood pressure 75 mm[Hg] Mandy Stuckey [facility], [facility].; [employer] [facility], [employer]. Comment on above: Patient Position: Sitting; Cuff Location : Left Arm; Cuff Size: Large 01-22-2021 15:54-0400 Heart rate 61 /min [facility] Dwayne [facility], [facility].; [employer], [employer]. Comment on above: Pattern: Regular 01-22-2021 15:54-0400 Systolic blood pressure 139 mm[Hg] MandyTalisha Rice [facility], [facility].; [employer]. Comment on above: Patient Position: Sitting; Cuff Location : Left Arm; Cuff Size: Large 07-04-2020 11:41-0500 Body height 180.34 cm Magdy Alford MD Work Phone: [place] [employer] 07-04-2020 11:41-0500 Body mass index (BMI) [Ratio] 33.05 kg/m2 Magdy Alford MD Work Phone: [place] [employer]. 07-04-2020 11:41-0500 Body surface area Derived from formula 2.27 m2 Magdy Alford MD Work Phone: [employer].; [employer]. 07-04-2020 11:41-0500 Body weight 107.5 kg Magdy Alford MD Work Phone: [employer].; [employer] 07-04-2020 11:41-0500 Diastolic blood pressure 74 mm[Hg] Magdy Alford MD Work Phone: [employer].; [employer]. Comment on above: Patient Position: Sitting; Cuff Location : Left Arm; Cuff Size: Large 07-04-2020 11:41-0500 Heart rate 60 /min Magdy Alford MD Work Phone: [employer].; [employer]. Comment on above: Pattern: Regular 07-04-2020 11:41-0500 Systolic blood pressure 130 mm[Hg] Magdy Alford MD Work Phone: [employer].; [employer]. Comment on above: Patient Position: Sitting; Cuff Location : Left Arm; Cuff Size: Large 12-13-2019 12:11-0400 Body height 180.34 cm Mecca Melton RN [employer].; [employer]. 12-13-2019 12:11-0400 Body mass index (BMI) [Ratio] 33.19 kg/m2 Mecca Melton RN [facility] [employer]. 12-13-2019 12:11-0400 Body surface area Derived from formula 2.27 m2 Mecca Melton RN [employer].; [employer]. 12-13-2019 12:110400 Body weight 107.96 kg Mecca Melton RN [employer].; [employer]. 12-13-2019 12:11-0400 Diastolic blood pressure 54 mm[Hg] Mecca Melton RN [employer].; [employer]. Comment on above: Patient Position: Sitting; Cuff Location : Left Arm; Cuff Size: Large 12-13-2019 12:110400 Heart rate 54 /min Mecca Melton RN [employer].; [employer]. Comment on above: Pattern: Regular 12-13-2019 12:11-0400 Systolic blood pressure 111 mm[Hg] Mecca Melton RN [employer].; [employer]. Comment on above: Patient Position: Sitting; Cuff Location : Left Arm; Cuff Size: Large 05-06-2019 14:34-0500 Body height 180.34 cm Mecca Melton RN [employer].; [employer] 05-06-2019 14:34-0500 Body mass index (BMI) [Ratio] 32.78 kg/m2 Mecca Melton RN [employer].; [employer]. 05-06-2019 14:34-0500 Body surface area Derived from formula 2.26 m2 Mecca Melton RN [employer].; [employer]. 05-06-2019 14:34-0500 Body temperature 98.1 [degF] Mecca Melton RN [employer]. Comment on above: Method: Tympanic 05-06-2019 14:34-0500 Body weight 106.6 kg Mecca Melton RN [employer].; [employer]. 05-06-2019 14:34-0500 Diastolic blood pressure 66 mm[Hg] Mecca Melton RN [employer] Comment on above: Patient Position: Sitting; Cuff Location : Left Arm; Cuff Size: Standard 05-06-2019 14:34-0500 Heart rate 58 /min Mecca Melton RN [employer]. Comment on above: Pattern: Regular 05-06-2019 14:34-0500 Systolic blood pressure 130 mm[Hg] Mecca Melton RN [employer]. Comment on above: Patient Position: Sitting; Cuff Location : Left Arm; Cuff Size: Standard 02-12-2019 14:17-0400 Body height 180.34 cm Mecca Melton RN [employer] 02-12-2019 14:17-0400 Body mass index (BMI) [Ratio] 33.19 kg/m2 Mecca Melton RN [employer] 02-12-2019 14:17-0400 Body surface area Derived from formula 2.27 m2 Mecca Melton RN [employer] 02-12-2019 14:17-0400 Body temperature 98.9 [degF] Mecca Melton RN [employer]. Comment on above: Method: Tympanic 02-12-2019 14:17-0400 Body weight 107.96 kg Mecca Melton RN [employer] 02-12-2019 14:17-0400 Diastolic blood pressure 57 mm[Hg] Mecca Melton RN [employer]. Comment on above: Patient Position: Sitting; Cuff Location : Right Arm; Cuff Size: Standard 02-12-2019 14:17-0400 Heart rate 62 /min Mecca Melton RN [employer]. Comment on above: Pattern: Regular 02-12-2019 14:17-0400 Inhaled oxygen concentration 20 % Mecca Melton RN [employer]. Comment on above: Room air 02-12-2019 14:17-0400 Inhaled oxygen concentration 21 % Mecca Melton RN [place] [employer]. Comment on above: Room air 02-12-2019 14:17-0400 SaO2% (BldA) [Mass fraction] 95 % Mecca Melton RN [place] [employer]. 02-12-2019 14:17-0400 Systolic blood pressure 108 mm[Hg] Mecca Melton RN [employer].; [employer]. Comment on above: Patient Position: Sitting; Cuff Location : Right Arm; Cuff Size: Standard 11-02-2018 08:10-0400 Body height [facility].34 [facility] Work Phone: [employer].; [employer] 11-02-2018 08:10-0400 Body mass index (BMI) [Ratio] 33.19 kg/m2 [facility] Work Phone: [employer] 11-02-2018 08:10-0400 Body surface area Derived from formula 2.27 m2 [facility] Work Phone: [employer] 11-02-2018 08:10-0400 Body temperature 98.3 [degF] [facility] Work Phone: [employer]. Comment on above: Method: Tympanic 11-02-2018 08:10-0400 Body weight 107.96 kg Argenis Vivian [facility] Work Phone: [employer] 11-02-2018 08:10-0400 Diastolic blood pressure 61 mm[Hg] [facility] Work Phone: [employer].; [employer]. Comment on above: Patient Position: Sitting; Cuff Location : Left Arm; Cuff Size: Standard 11-02-2018 08:10-0400 Heart rate 58 /min Argenis Park LPN Work Phone: [facility] [employer]. Comment on above: Pattern: Regular 11-02-2018 08:10-0400 Systolic blood pressure 130 mm[Hg] Argenis Park LPN Work Phone: [facility].; [employer]. Comment on above: Patient Position: Sitting; Cuff Location : Left Arm; Cuff Size: Standard 09-24-2018 08:29-0400 Body height 180.34 cm Sandy Hull LPN [facility], [employer]. 09-24-2018 08:29-0400 Body mass index (BMI) [Ratio] 33.19 kg/m2 [facility] [employer] [facility] [employer], [employer]. 09-24-2018 08:29-0400 Body surface area Derived from formula 2.27 m2 Sandy Hull [facility] [employer] [facility], [employer].; [employer], [employer]. 09-24-2018 08:29-0400 Body temperature 97.8 [degF] Sandy Hull [facility] [employer] [facility] [employer]. Comment on above: Method: Tympanic 09-24-2018 08:290400 Body weight 107.96 kg Sandy Hull LPN [place] [employer] [facility] [employer]. 09-24-2018 08:29-0400 Diastolic blood pressure 82 mm[Hg] Sandy [facility] [employer], [employer]. Comment on above: Patient Position: Sitting; Cuff Location : Left Arm; Cuff Size: Standard 09-24-2018 08:29-0400 Heart rate 53 /min Sandy Hull LPN [place] [employer] [facility], [employer]. Comment on above: Pattern: Regular 09-24-2018 08:29-0400 Inhaled oxygen concentration 20 % Sandy Hull NATALIIA [employer].; [employer]. Comment on above: Room air 09-24-2018 08:29-0400 Inhaled oxygen concentration 21 % Sandy Hull NATALIIA [employer] [employer]. Comment on above: Room air 09-24-2018 08:29-0400 SaO2% (BldA) [Mass fraction] 96 % Sandy Pollockbill [facility], [employer] 09-24-2018 08:29-0400 Systolic blood pressure 152 mm[Hg] Sandy Pollockbill [facility] CenterBioSante Pharmaceuticals.; [employer]. Comment on above: Patient Position: Sitting; Cuff Location : Left Arm; Cuff Size: Standard 08-14-2018 16:10-0400 Body height 180.34 cm Magdy Alford MD Work Phone: [employer]. 08-14-2018 16:10-0400 Body mass index (BMI) [Ratio] 32.36 kg/m2 Magdy Alford MD Work Phone: [employer].; [employer]. 08-14-2018 16:10-0400 Body surface area Derived from formula 2.25 m2 Magdy Alford MD Work Phone: [employer] 08-14-2018 16:10-0400 Body weight 105.24 kg Magdy Alford MD Work Phone: [employer]. 08-14-2018 16:10-0400 Diastolic blood pressure 76 mm[Hg] Magdy Alford MD Work Phone: [employer]. Comment on above: Patient Position: Sitting; Cuff Location : Left Arm; Cuff Size: Standard 08-14-2018 16:10-0400 Heart rate 54 /min Magdy Alford MD Work Phone: [employer]. Comment on above: Pattern: Regular 08-14-2018 16:10-0400 Systolic blood pressure 136 mm[Hg] Magdy Alford MD Work Phone: [employer]; [employer]. Comment on above: Patient Position: Sitting; Cuff Location : Left Arm; Cuff Size: Standard 07-03-2018 15:23-0500 Body height 180.34 cm Argenis Mitchelly RACE BOARD ATTENDANT Work Phone: [employer]; [employer]. 07-03-2018 15:23-0500 Body mass index (BMI) [Ratio] 33.47 kg/m2 Argenis Vivian R[employer]ARD ATTENDANT Work Phone: [employer]; [employer]. 07-03-2018 15:23-0500 Body surface area Derived from formula 2.28 m2 Argenis Vivian R[employer]ARD ATTENDANT Work Phone: [employer]; [employer]. 07-03-2018 15:23-0500 Body temperature 98.5 [degF] Argenis Vivian R[employer] BOARD ATTENDANT Work Phone: [employer]; [employer]. Comment on above: Method: Tympanic 07-03-2018 15:23-0500 Body weight 108.86 kg Argenis Vivian [employer]ARD ATTENDANT Work Phone: [employer]; [employer]. 07-03-2018 15:23-0500 Diastolic blood pressure 66 mm[Hg] Argenis Vivian R[employer] BOARD ATTENDANT Work Phone: [employer]; [employer]. Comment on above: Patient Position: Sitting; Cuff Location : Left Arm; Cuff Size: Large 07-03-2018 15:23-0500 Heart rate 65 /min Argenis Vivian R[employer]ARD ATTENDANT Work Phone: [employer]; [employer]. Comment on above: Pattern: Regular 07-03-2018 15:23-0500 Systolic blood pressure 131 mm[Hg] Argenis Vivian [employer]ARD ATTENDANT Work Phone: [employer]. Comment on above: Patient Position: Sitting; Cuff Location : Left Arm; Cuff Size: Large 01-16-2018 15:36-0400 Body height 180.34 cm Mecca Melton RN [employer]. 01-16-2018 15:36-0400 Body mass index (BMI) [Ratio] 31.66 kg/m2 Mecca Melton RN [employer].; [employer]. 01-16-2018 15:36-0400 Body surface area Derived from formula 2.23 m2 Mecca Melton RN [employer]. 01-16-2018 15:36-0400 Body weight 102.97 kg Mecca Melton RN [employer]. 01-16-2018 15:36-0400 Diastolic blood pressure 66 mm[Hg] Mecca Melton RN [employer]. Comment on above: Patient Position: Sitting; Cuff Location : Left Arm; Cuff Size: Standard 01-16-2018 15:36-0400 Heart rate 59 /min Mecca Melton RN [employer]. Comment on above: Pattern: Regular 01-16-2018 15:36-0400 Systolic blood pressure 109 mm[Hg] Mecca Melton RN [employer]. Comment on above: Patient Position: Sitting; Cuff Location : Left Arm; Cuff Size: Standard 06-20-2017 16:06-0500 Body height 180.34 cm Evita Kruse LPN [employer] 06-20-2017 16:06-0500 Body mass index (BMI) [Ratio] 33.19 kg/m2 Evita Kruse LPN [employer]. 06-20-2017 16:06-0500 Body surface area Derived from formula 2.27 m2 Evita Kruse LPN [facility], Inc.; [employer] 06-20-2017 16:06-0500 Body weight 107.96 kg Evita Kruse [facility], Inc.; [employer] 06-20-2017 16:06-0500 Diastolic blood pressure 57 mm[Hg] Evita Kruse [facility], Inc.; [employer] Comment on above: Patient Position: Sitting; Cuff Location : Left Arm; Cuff Size: Standard 06-20-2017 16:06-0500 Heart rate 62 /min Evita Kruse [facility], Inc.; [employer] Comment on above: Pattern: Regular 06-20-2017 16:06-0500 Systolic blood pressure 104 mm[Hg] Evita Kruse [facility] [employer] [facility], Inc.; [employer] Comment on above: Patient Position: Sitting; Cuff Location : Left Arm; Cuff Size: Standard 06-11-2017 16:24-0500 Body height 180.34 [facility] Work Phone: [employer] 06-11-2017 16:24-0500 Body mass index (BMI) [Ratio] 33.75 kg/m2 Argenis Vivian [facility] Work Phone: [employer] 06-11-2017 16:24-0500 Body surface area Derived from formula 2.29 m2 Argenis Vivian [facility] Work Phone: [employer].; [employer] 06-11-2017 16:24-0500 Body weight 109.77 kg [facility] Work Phone: [employer].; [employer], [employer] 06-11-2017 16:24-0500 Diastolic blood pressure 69 mm[Hg] [facility] RACE BOARD ATTENDANT Work Phone: [employer]. Comment on above: Patient Position: Sitting; Cuff Location : Left Arm; Cuff Size: Standard 06-11-2017 16:24-0500 Heart rate 58 /min Argenis Park LPN Work Phone: [facility], [employer]. Comment on above: Pattern: Regular 06-11-2017 16:24-0500 Systolic blood pressure 130 mm[Hg] Argenis Park LPN Work Phone: [facility], Inc.; [employer]. Comment on above: Patient Position: Sitting; Cuff Location : Left Arm; Cuff Size: Standard 05-13-2017 15:16-0500 Body height 180.34 cm Claire Rice [facility] [employer] [facility], Inc.; [employer] 05-13-2017 15:16-0500 Body mass index (BMI) [Ratio] 33.75 kg/m2 Claire Rice [facility] [employer] [facility], Inc.; [employer] 05-13-2017 15:16-0500 Body surface area Derived from formula 2.29 m2 [facility] Dwayne [facility] [employer] [facility], Inc.; [employer] 05-13-2017 15:16-0500 Body weight 109.77 kg Mandy Stuckey [facility] [employer] [facility], Inc.; [employer] 05-13-2017 15:16-0500 Diastolic blood pressure 70 mm[Hg] Claire Rice [facility] [employer] [facility], Inc.; [employer] Comment on above: Patient Position: Sitting; Cuff Location : Left Arm; Cuff Size: Large 05-13-2017 15:16-0500 Heart rate 74 /min MandyTalisha Rice [facility] [employer] [facility], Inc.; [employer]. Comment on above: Pattern: Regular 05-13-2017 15:16-0500 Systolic blood pressure 160 mm[Hg] MandyTalisha Rice [facility] [employer] [facility], Inc.; [employer] Comment on above: Patient Position: Sitting; Cuff Location : Left Arm; Cuff Size: Large 12-10-2016 16:07-0400 Body height 180.34 cm Evita Kruse [facility] [employer] [facility], Inc.; [employer] 12-10-2016 16:07-0400 Body mass index (BMI) [Ratio] 33.19 kg/m2 Evita Kruse LPN [place] [employer] [facility], Inc.; [employer]. 12-10-2016 16:07-0400 Body surface area Derived from formula 2.27 m2 Evita Kruse LPN [place] [employer] [facility], Inc.; [employer], [employer] 12-10-2016 16:07-0400 Body weight 107.96 kg Evita Kruse LPN [place] [employer] [facility], [facility].; [employer]. 12-10-2016 16:07-0400 Diastolic blood pressure 66 mm[Hg] Evita Victoria Kruse LPN [facility], [employer]. Comment on above: Patient Position: Sitting; Cuff Location : Left Arm; Cuff Size: Standard 12-10-2016 16:07-0400 Heart rate 69 /min Evita Kruse LPN [place] [employer] [facility], Inc.; [employer]. Comment on above: Pattern: Regular 12-10-2016 16:07-0400 Systolic blood pressure 120 mm[Hg] Evita Kruse LPN Neil [employer] [facility], Inc.; [employer]. Comment on above: Patient Position: Sitting; Cuff Location : Left Arm; Cuff Size: Standard 09-20-2016 08:23-0400 Body height 180.34 cm Mecca Melton RN [place] [employer] [facility], [employer]. 09-20-2016 08:23-0400 Body mass index (BMI) [Ratio] 32.78 kg/m2 Mecca Melton RN [place] [employer] [facility], [employer]. 09-20-2016 08:23-0400 Body surface area Derived from formula 2.26 m2 Mecca Melton RN [employer]. 09-20-2016 08:23-0400 Body temperature 97.9 [degF] Mecca Melton RN [employer], [employer].; [employer]. Comment on above: Method: Tympanic 09-20-2016 08:23-0400 Body weight 106.6 kg Mecca Melton RN [place] [employer]. 09-20-2016 08:23-0400 Diastolic blood pressure 64 mm[Hg] Mecca Melton RN [facility].; [employer]. Comment on above: Patient Position: Sitting; Cuff Location : Left Arm; Cuff Size: Standard 09-20-2016 08:23-0400 Heart rate 56 /min Mecca Melton RN [facility], [employer]. Comment on above: Pattern: Regular 09-20-2016 08:23-0400 Inhaled oxygen concentration 20 % Mecca Melton RN [facility], [employer]. Comment on above: Room air 09-20-2016 08:23-0400 Inhaled oxygen concentration 21 % Mecca Melton RN [facility], [employer]. Comment on above: Room air 09-20-2016 08:23-0400 SaO2% (BldA) [Mass fraction] 94 % Mecca Melton RN [facility], [employer]. 09-20-2016 08:23-0400 Systolic blood pressure 111 mm[Hg] Mecca Melton RN [place] [employer] [facility].; [employer]. Comment on above: Patient Position: Sitting; Cuff Location : Left Arm; Cuff Size: Standard 08-20-2016 15:53-0400 Body height 180.34 cm Claire Rice LPN [facility], Inc.; [employer]. 08-20-2016 15:53-0400 Body mass index (BMI) [Ratio] 32.5 kg/m2 Claire Rice LPN [place] [employer] [facility], Inc.; [employer], [employer] 08-20-2016 15:53-0400 Body surface area Derived from formula 2.25 m2 Claire Rice LPN [place] [employer] [facility], Inc.; [employer], [employer]. 08-20-2016 15:53-0400 Body weight 105.69 kg Claire Rice LPN [place] [employer] [facility], Inc.; [employer]. 08-20-2016 15:53-0400 Diastolic blood pressure 76 mm[Hg] Claire Rice RACE BOARD ATTENDANT [employer], [employer]. Comment on above: Patient Position: Sitting; Cuff Location : Left Arm; Cuff Size: Large 08-20-2016 15:53-0400 Heart rate 63 /min Claire Rice R[employer]ARD ATTENDANT [employer] Comment on above: Pattern: Regular 08-20-2016 15:53-0400 Systolic blood pressure 118 mm[Hg] Claire Rice R[employer]ARD ATTENDANT [employer] Comment on above: Patient Position: Sitting; Cuff Location : Left Arm; Cuff Size: Large 05-24-2016 09:03-0500 Body weight 110.68 kg Evita Kruse LPN [employer] 05-24-2016 09:03-0500 Diastolic blood pressure 64 mm[Hg] Evita Kruse LPN [employer] Comment on above: Patient Position: Sitting; Cuff Location : Left Arm; Cuff Size: Standard 05-24-2016 09:03-0500 Heart rate 65 /min Evita Kruse LPN [employer], [employer]. Comment on above: Pattern: Regular 05-24-2016 09:03-0500 Systolic blood pressure 108 mm[Hg] Evita Kruse LPN [employer] Comment on above: Patient Position: Sitting; Cuff Location : Left Arm; Cuff Size: Standard 11-20-2015 15:26-0400 Body weight 114.31 kg Evita Kruse LPN [employer] 11-20-2015 15:26-0400 Diastolic blood pressure 67 mm[Hg] Evita Kruse LPN [employer] Comment on above: Patient Position: Sitting; Cuff Location : Left Arm; Cuff Size: Standard 11-20-2015 15:26-0400 Heart rate 76 /min Evita Kruse LPN [employer]. Comment on above: Pattern: Regular 11-20-2015 15:26-0400 Systolic blood pressure 117 mm[Hg] Evita Kruse LPN [employer]. Comment on above: Patient Position: Sitting; Cuff Location : Left Arm; Cuff Size: Standard 11-04-2015 10:37-0400 Body height 180.34 cm Viky Aiken RN [employer] 11-04-2015 10:37-0400 Body mass index (BMI) [Ratio] 35.4 kg/m2 Viky Aiken RN [employer].; [employer]. 11-04-2015 10:37-0400 Body surface area Derived from formula 2.33 m2 Viky Aiken RN [employer].; [employer]. 11-04-2015 10:37-0400 Body temperature 98 [degF] Viky Aiken RN [employer].; [employer]. Comment on above: Method: Tympanic 11-04-2015 10:37-0400 Body weight 115.12 kg Viky Aiken RN [employer].; [employer]. 11-04-2015 10:37-0400 Diastolic blood pressure 72 mm[Hg] Viky Aiken RN [employer].; [employer]. Comment on above: Patient Position: Sitting; Cuff Location : Left Arm; Cuff Size: Standard 11-04-2015 10:37-0400 Heart rate 53 /min Viky Aiken RN [employer]. Comment on above: Pattern: Regular 11-04-2015 10:37-0400 Inhaled oxygen concentration 20 % Viky Aiken RN [employer]. Comment on above: Room air 11-04-2015 10:37-0400 Inhaled oxygen concentration 21 % Viky Aiken RN [employer]. Comment on above: Room air 11-04-2015 10:37-0400 SaO2% (BldA) [Mass fraction] 93 % Viky Aiken RN [employer]. 11-04-2015 10:37-0400 Systolic blood pressure 106 mm[Hg] Viky Aiken RN [employer]. Comment on above: Patient Position: Sitting; Cuff Location : Left Arm; Cuff Size: Standard 07-31-2015 08:10-0500 Body height 180.34 cm Viky Aiken RN [employer]. 07-31-2015 08:10-0500 Body mass index (BMI) [Ratio] 36.12 kg/m2 Viky Aiken RN [employer].; [employer]. 07-31-2015 08:10-0500 Body surface area Derived from formula 2.35 m2 Viky Aiken RN [employer]. 07-31-2015 08:10-0500 Body temperature 98.2 [degF] Viky Aiken RN [employer].; [employer]. Comment on above: Method: Tympanic 07-31-2015 08:10-0500 Body weight 117.48 kg Viky Aiken RN [employer].; [employer] 07-31-2015 08:10-0500 Diastolic blood pressure 72 mm[Hg] Viky Aiken RN [employer]. Comment on above: Patient Position: Sitting; Cuff Location : Left Arm; Cuff Size: Standard 07-31-2015 08:10-0500 Heart rate 65 /min Viky Aiken RN [employer]. Comment on above: Pattern: Regular 07-31-2015 08:10-0500 Systolic blood pressure 126 mm[Hg] Viky Aiken RN [employer].; [employer] Comment on above: Patient Position: Sitting; Cuff Location : Left Arm; Cuff Size: Standard 05-02-2015 15:28-0500 Body height 180.34 cm Magdy Alford MD Work Phone: [employer]; [employer]. 05-02-2015 15:28-0500 Body mass index (BMI) [Ratio] 35.15 kg/m2 Magdy Alford MD Work Phone: [employer] 05-02-2015 15:28-0500 Body surface area Derived from formula 2.33 m2 Magdy Alford MD Work Phone: [employer].; [employer] 05-02-2015 15:28-0500 Body weight 114.31 kg Magdy Alford MD Work Phone: [employer].; [employer] 05-02-2015 15:28-0500 Diastolic blood pressure 84 mm[Hg] Magdy Alford MD Work Phone: [employer].; [employer] Comment on above: Patient Position: Sitting; Cuff Location : Left Arm; Cuff Size: Large 05-02-2015 15:28-0500 Heart rate 92 /min Magdy Alford MD Work Phone: [employer]; [employer]. Comment on above: Pattern: Regular 05-02-2015 15:28-0500 Systolic blood pressure 132 mm[Hg] Magdy Alford MD Work Phone: [employer] Comment on above: Patient Position: Sitting; Cuff Location : Left Arm; Cuff Size: Large 10-31-2014 15:31-0400 Body weight 115.21 kg Magdy Alford MD Work Phone: [employer].; [employer] 10-31-2014 15:31-0400 Diastolic blood pressure 65 mm[Hg] Magdy Alford MD Work Phone: [employer] Comment on above: Patient Position: Sitting; Cuff Location : Right Arm; Cuff Size: Standard 10-31-2014 15:31-0400 Heart rate 70 /min Magdy Alford MD Work Phone: [employer]; [employer]. Comment on above: Pattern: Regular 10-31-2014 15:31-0400 Systolic blood pressure 130 mm[Hg] Magdy Alford MD Work Phone: [facility] Neil [employer] [facility] Comment on above: Patient Position: Sitting; Cuff Location : Right Arm; Cuff Size: Standard 07-09-2014 09:03-0500 Body height 180.34 cm Claire Rice [facility], Inc.; [employer] 07-09-2014 09:03-0500 Body mass index (BMI) [Ratio] 34.31 kg/m2 Claire Rice [facility], Inc.; [employer], [employer]. 07-09-2014 09:03-0500 Body surface area Derived from formula 2.3 m2 Mandy Dwayne [facility], Inc.; [employer], [employer]. 07-09-2014 09:03-0500 Body temperature 98.8 [degF] MandyTalisha Rice [facility], [employer]. Comment on above: Method: Tympanic 07-09-2014 09:03-0500 Body weight 111.59 kg Claire Rice [facility], Inc.; [employer], [employer]. 07-09-2014 09:03-0500 Diastolic blood pressure 74 mm[Hg] Claire Rice [facility], Inc.; [employer], [employer]. Comment on above: Patient Position: Sitting; Cuff Location : Left Arm; Cuff Size: Large 07-09-2014 09:03-0500 Heart rate 77 /min MandyTalisha Rice [facility], Inc.; [employer]. Comment on above: Pattern: Regular 07-09-2014 09:03-0500 Inhaled oxygen concentration 20 % MandyTalisha Rice [facility], Inc.; [employer]. Comment on above: Room air 07-09-2014 09:03-0500 Inhaled oxygen concentration 21 % MandyTalisha Rice [facility], [employer]. Comment on above: Room air 07-09-2014 09:03-0500 SaO2% (BldA) [Mass fraction] 93 % Claire Rice [facility] [employer] [facility], Inc.; [employer]. 07-09-2014 09:03-0500 Systolic blood pressure 139 mm[Hg] Claire Rice [facility], Inc.; [employer]. Comment on above: Patient Position: Sitting; Cuff Location : Left Arm; Cuff Size: Large 05-02-2014 15:45-0500 Body temperature 97.3 [degF] [facility] [employer] [facility], Inc.; [employer] 05-02-2014 15:45-0500 Body weight 111.59 kg Evita Kruse [facility] [employer] [facility], [employer]. 05-02-2014 15:45-0500 Diastolic blood pressure 67 mm[Hg] Evita Kruse [facility] [employer] [facility], Inc[employer]. Comment on above: Patient Position: Sitting; Cuff Location : Left Arm; Cuff Size: Standard 05-02-2014 15:45-0500 Heart rate 65 /min Evita Kruse LPN [place] [employer] [facility], Inc[facility] [employer]. Comment on above: Pattern: Regular 05-02-2014 15:45-0500 Inhaled oxygen concentration 20 % [facility] [employer] [facility], Inc.; [employer]. Comment on above: Room air 05-02-2014 15:45-0500 Inhaled oxygen concentration 21 % Evita Kruse [facility] [employer] [facility], Inc[facility] [employer]. Comment on above: Room air 05-02-2014 15:45-0500 SaO2% (BldA) [Mass fraction] 93 % Evita Kruse LPN [place] [employer] [facility], Inc[employer]. 05-02-2014 15:45-0500 Systolic blood pressure 122 mm[Hg] Evita Kruse LPN [place] [employer] [facility], [employer]. Comment on above: Patient Position: Sitting; Cuff Location : Left Arm; Cuff Size: Standard 10-04-2013 08:14-0400 Body height 180.34 cm Ashly Leung [facility] [employer] [facility], [employer]. 10-04-2013 08:14-0400 Body mass index (BMI) [Ratio] 34.03 kg/m2 Ashly Macdonaldach [facility], Inc.; [employer] 10-04-2013 08:14-0400 Body surface area Derived from formula 2.3 m2 Ashly Saunders Xochitl [facility] [employer] [facility], Inc.; [employer] 10-04-2013 08:14-0400 Body temperature 98.3 [degF] Ashly Leung [facility] [employer] [facility].; [employer]. Comment on above: Method: Tympanic 10-04-2013 08:140400 Body weight 110.68 kg Ashly Macdonaldach [facility] [employer] [facility], Inc[facility] [employer]. 10-04-2013 08:14-0400 Diastolic blood pressure 87 mm[Hg] Ashly Saunders [employer] [facility] [employer] [facility]. Comment on above: Patient Position: Sitting; Cuff Location : Left Arm; Cuff Size: Standard 10-04-2013 08:14-0400 Heart rate 71 /min Ashly Leung [facility] [employer] [facility], [facility].; [employer]. Comment on above: Pattern: Regular 10-04-2013 08:14-0400 Systolic blood pressure 144 mm[Hg] Ashly Leung [facility] [employer] [facility], Inc.; [employer]. Comment on above: Patient Position: Sitting; Cuff Location : Left Arm; Cuff Size: Standard 09-24-2013 07:18-0400 Body height 180.34 cm Mandy Dwayne R[employer]ARD ATTENDANT [place] [employer] [facility], Inc.; [employer]. 09-24-2013 07:18-0400 Body mass index (BMI) [Ratio] 33.19 kg/m2 [facility] [employer] [facility], Inc.; [employer] 09-24-2013 07:18-0400 Body surface area Derived from formula 2.27 m2 [facility] [employer] [facility] [employer] 09-24-2013 07:18-0400 Body weight 107.96 kg Claire Rice LPN [facility], Inc.; Neil [employer] [facility], [employer] 09-24-2013 07:18-0400 Diastolic blood pressure 74 mm[Hg] Claire [facility].; Neil [employer] [facility], [employer]. Comment on above: Patient Position: Sitting; Cuff Location : Left Arm; Cuff Size: Large 09-24-2013 07:18-0400 Heart rate 65 /min Claire Rice [facility], Inc.; [employer], [employer]. Comment on above: Pattern: Regular 09-24-2013 07:18-0400 Systolic blood pressure 134 mm[Hg] Claire [facility].; Neil [employer] [facility], [employer]. Comment on above: Patient Position: Sitting; Cuff Location : Left Arm; Cuff Size: Large 08-10-2013 15:38-0400 Body height 180.34 cm Claire Rice [facility], Inc.; [place] [employer] [facility], Inc[facility] 08-10-2013 15:38-0400 Body mass index (BMI) [Ratio] 33.33 kg/m2 Claire Rice [facility], Inc.; [place] [employer] [facility], Inc[facility] 08-10-2013 15:38-0400 Body surface area Derived from formula 2.27 m2 Claire Rice R[employer]ARD ATTENDANT [facility] [facility] Neil [employer] [facility] 08-10-2013 15:38-0400 Body temperature 98.6 [degF] Claire Rice [facility].; Neil [employer], [employer]. Comment on above: Method: Tympanic 08-10-2013 15:38-0400 Body weight 108.41 kg Claire Rice [facility].; Neil [employer] [facility], [employer]. 08-10-2013 15:38-0400 Diastolic blood pressure 80 mm[Hg] Claire Rice LPN [facility].; [employer], [employer]. Comment on above: Patient Position: Sitting; Cuff Location : Left Arm; Cuff Size: Large 08-10-2013 15:38-0400 Heart rate 62 /min Claire Rice RACE BOARD ATTENDANT [facility] [employer]. Comment on above: Pattern: Regular 08-10-2013 15:38-0400 Systolic blood pressure 139 mm[Hg] Claire Rice [facility].; [employer], [employer]. Comment on above: Patient Position: Sitting; Cuff Location : Left Arm; Cuff Size: Large 07-29-2013 08:13-0500 Body height 180.34 cm Sandypratik Hull [facility] [employer]. 07-29-2013 08:13-0500 Body mass index (BMI) [Ratio] 33.4 kg/m2 Sandypratik Hull [facility] [employer] 07-29-2013 08:13-0500 Body surface area Derived from formula 2.28 m2 Sandypratik Hull [facility] [employer] [facility] [employer], [employer]. 07-29-2013 08:13-0500 Body temperature 97.6 [degF] Sandy Wedonnie [facility] [employer] [facility] [employer], [employer]. Comment on above: Method: Tympanic 07-29-2013 08:13-0500 Body weight 108.64 kg Sandy Ridgedonnie WILLIAM [place] [employer] [facility] [employer] 07-29-2013 08:13-0500 Diastolic blood pressure 72 mm[Hg] Sandypratik Hull [facility] [employer] [facility] [employer], [employer]. Comment on above: Patient Position: Sitting; Cuff Location : Left Arm; Cuff Size: Standard 07-29-2013 08:13-0500 Heart rate 55 /min Sandy Ridgedonnie WILLIAM [place] [employer] [facility] [employer]. Comment on above: Pattern: Regular 07-29-2013 08:13-0500 Systolic blood pressure 127 mm[Hg] Sandy Wedonnie WILLIAM [place] [employer] [facility] [employer]. Comment on above: Patient Position: Sitting; Cuff Location : Left Arm; Cuff Size: Standard 02-24-2013 08:17-0400 Body height 180.34 cm Ashly Leung [facility], [facility].; [place] [employer] [facility] 02-24-2013 08:17-0400 Body mass index (BMI) [Ratio] 33.61 kg/m2 Ashly Leung [facility], [facility].; [place] [employer] [facility] 02-24-2013 08:17-0400 Body surface area Derived from formula 2.28 m2 Ashly Macdonaldach [facility].; [place] [employer] [facility] 02-24-2013 08:17-0400 Body temperature 97.2 [degF] Ashly Saunders [facility].; [employer]. Comment on above: Method: Tympanic 02-24-2013 08:170400 Body weight 109.32 kg Ashly Saunders X[employer] [facility].; [place] [employer] [facility] 02-24-2013 08:17-0400 Diastolic blood pressure 77 mm[Hg] Ashly Leung [facility].; [employer]. Comment on above: Patient Position: Sitting; Cuff Location : Left Arm; Cuff Size: Standard 02-24-2013 08:17-0400 Heart rate 71 /min Ashly Saunders Xoch[employer] [facility].; [employer]. Comment on above: Pattern: Regular 02-24-2013 08:17-0400 Systolic blood pressure 144 mm[Hg] Ashly Leung [facility].; [employer]. Comment on above: Patient Position: Sitting; Cuff Location : Left Arm; Cuff Size: Standard 02-08-2013 17:19-0400 Body weight 108.41 kg Magdy Alford MD Work Phone: [place] [employer] [facility].; [employer]. 02-08-2013 17:19-0400 Diastolic blood pressure 76 mm[Hg] Magdy Alford MD Work Phone: [facility].; [employer]. Comment on above: Patient Position: Sitting; Cuff Location : Left Arm; Cuff Size: Standard 02-08-2013 17:19-0400 Heart rate 58 /min Magdy Alford MD Work Phone: [employer]. Comment on above: Pattern: Regular 02-08-2013 17:19-0400 Systolic blood pressure 144 mm[Hg] Magdy Alford MD Work Phone: [employer].; [employer]. Comment on above: Patient Position: Sitting; Cuff Location : Left Arm; Cuff Size: Standard 06-22-2012 08:20-0500 Body height 180.34 cm Viky Aiken RN [employer]. 06-22-2012 08:20-0500 Body mass index (BMI) [Ratio] 35.12 kg/m2 Viky Aiken RN [employer].; [employer]. 06-22-2012 08:20-0500 Body surface area Derived from formula 2.33 m2 Viky Aiken RN [employer].; [employer]. 06-22-2012 08:20-0500 Body temperature 98 [degF] Viky Aiken RN [employer].; [employer]. Comment on above: Method: Tympanic 06-22-2012 08:20-0500 Body weight 114.22 kg Viky Aiken RN [employer].; [employer]. 06-22-2012 08:20-0500 Diastolic blood pressure 84 mm[Hg] Viky Aiken RN [employer].; [employer]. Comment on above: Patient Position: Sitting; Cuff Location : Left Arm; Cuff Size: Standard 06-22-2012 08:20-0500 Heart rate 63 /min Viky Aiken RN [employer].; [employer]. Comment on above: Pattern: Regular 06-22-2012 08:20-0500 Inhaled oxygen concentration 20 % Viky Aiken RN [employer].; [employer]. Comment on above: Room air 06-22-2012 08:20-0500 Inhaled oxygen concentration 21 % Viky Aiken RN [employer]. Comment on above: Room air 06-22-2012 08:20-0500 SaO2% (BldA) [Mass fraction] 97 % Viky Aiken RN [place] [employer]. 06-22-2012 08:20-0500 Systolic blood pressure 142 mm[Hg] Viky Aiken RN [place] [employer].; [employer]. Comment on above: Patient Position: Sitting; Cuff Location : Left Arm; Cuff Size: Standard 02-18-2012 08:32-0400 Body height 180.34 cm Magdy Alford MD Work Phone: [employer]; [employer]. 02-18-2012 08:32-0400 Body mass index (BMI) [Ratio] 34.03 kg/m2 Magdy Alford MD Work Phone: [employer].; [employer]. 02-18-2012 08:32-0400 Body surface area Derived from formula 2.3 m2 Magdy Alford MD Work Phone: [employer].; [employer]. 02-18-2012 08:32-0400 Body weight 110.68 kg Magdy Alford MD Work Phone: [employer].; [employer]. 02-18-2012 08:32-0400 Diastolic blood pressure 88 mm[Hg] Magdy Alford MD Work Phone: [employer].; [employer]. Comment on above: Patient Position: Sitting; Cuff Location : Left Arm; Cuff Size: Large 02-18-2012 08:32-0400 Heart rate 56 /min Magdy Alford MD Work Phone: [employer].; [employer]. Comment on above: Pattern: Regular 02-18-2012 08:32-0400 Systolic blood pressure 142 mm[Hg] Magdy Alford MD Work Phone: [employer].; [employer]. Comment on above: Patient Position: Sitting; Cuff Location : Left Arm; Cuff Size: Large Encounters Encounter Date Encounter Type Care Provider Facility Start: 02-10-2024 End: 02-10-2024 Office outpatient visit 15 minutes Magdy Alford MD Work Phone: [facility] Start: 02-10-2024 Follow-up encounter Magdy good MD Work Phone: [facility] Start: 09-03-2023 ambulatory [facility] Start: 07-29-2023 End: 07-29-2023 Patient encounter status Magdy Alford MD Work Phone: [facility]; [employer]. Start: 07-29-2023 End: 07-29-2023 Periodic preventive med est patient 65yrs& older Magdy Alford MD Work Phone: [facility] Start: 07-16-2023 End: 07-16-2023 Orders Magdy Alford MD Work Phone: [facility] Start: 01-21-2023 End: 01-21-2023 Office outpatient visit 25 minutes Magdy Alford MD Work Phone: [employer]. Start: 11-25-2022 End: 11-25-2022 Office outpatient visit 15 minutes Magdy Alford MD Work Phone: [facility] Start: 07-23-2022 End: 07-23-2022 Patient encounter status Adali Gates MA [employer].; [employer] Start: 07-23-2022 End: 07-23-2022 Periodic preventive med est patient 65yrs& older Magdy Alford MD Work Phone: [employer]. Start: 07-15-2022 End: 07-22-2022 Orders Magdy Alford MD Work Phone: [facility] Start: 06-24-2022 End: 06-24-2022 Orders Magdy Alford MD Work Phone: [facility] Start: 05-03-2022 End: 05-03-2022 Office outpatient visit 15 minutes Magdy Alford MD Work Phone: [facility] Start: 02-01-2022 End: 02-01-2022 Patient encounter procedure Magdy Alford MD Work Phone: [facility] Start: 01-08-2022 End: 01-08-2022 Office outpatient visit 15 minutes Magdy Alford MD Work Phone: [facility] Start: 12-17-2021 End: 12-17-2021 Office outpatient visit 15 minutes Magdy Alford MD Work Phone: [facility] Start: 09-03-2021 End: 09-03-2021 Office outpatient visit 15 minutes Magdy Alford MD Work Phone: [facility] Start: 07-26-2021 End: 07-26-2021 Historical Summary Magdy Alford MD Work Phone: [facility] Start: 07-16-2021 End: 07-16-2021 Office outpatient visit 25 minutes Magdy Alford MD Work Phone: [facility] Start: 06-12-2021 End: 06-12-2021 Office outpatient visit 15 minutes Magdy Alford MD Work Phone: [facility] Start: 04-20-2021 End: 04-20-2021 Telephone follow-up Magdy Alford MD Work Phone: [facility] Start: 04-14-2021 End: 04-14-2021 Emergency department patient visit HAYES CARTER MD [facility] Start: 03-12-2021 End: 03-12-2021 Patient encounter procedure Magdy Alford MD Work Phone: [facility] Start: 02-14-2021 End: 02-14-2021 Office outpatient visit 15 minutes Magdy Alford MD Work Phone: [facility] Start: 01-22-2021 End: 01-22-2021 Patient encounter status Magdy Alford MD Work Phone: [employer] Start: 01-22-2021 End: 01-22-2021 Periodic preventive med est patient 40-64yrs Magdy Alford MD Work Phone: [employer]. Start: 01-08-2021 End: 01-15-2021 Orders Magdy Alford MD Work Phone: [employer]. Start: 11-30-2020 End: 11-30-2020 Patient encounter procedure Magdy Alford MD Work Phone: [employer]. Start: 07-04-2020 End: 07-04-2020 Office outpatient visit 25 minutes Magdy Alford MD Work Phone: [employer]. Start: 01-01-2020 End: 01-01-2020 Historical Summary Magdy Alford MD Work Phone: [employer]. Start: 12-31-2019 End: 01-10-2020 Orders Magdy Alford MD Work Phone: [employer]. Start: 12-13-2019 End: 12-13-2019 Patient encounter status Magdy Alford MD Work Phone: [employer] Start: 12-13-2019 End: 12-13-2019 Periodic preventive med est patient 40-64yrs Magdy Alford MD Work Phone: [employer]. Start: 12-06-2019 End: 12-06-2019 Orders Magdy Alford MD Work Phone: [employer]. Start: 06-21-2019 End: 06-21-2019 Orders Magdy Alford MD Work Phone: [employer]. Start: 06-01-2019 End: 06-01-2019 Telephone follow-up Magdy Alford MD Work Phone: [facility] Start: 05-06-2019 End: 05-09-2019 Office outpatient visit 15 minutes Magdy Alford MD Work Phone: [employer]. Start: 04-27-2019 End: 04-29-2019 Medication Magdy Alford MD Work Phone: [employer]. Start: 02-12-2019 End: 02-12-2019 Office outpatient visit 25 minutes Magdy Alford MD Work Phone: [employer]. Start: 11-02-2018 End: 11-02-2018 Patient encounter procedure Magdy Alford MD Work Phone: [employer]. Start: 10-26-2018 End: 10-26-2018 Follow-up encounter Magdy Alford MD Work Phone: [employer]. Start: 09-24-2018 End: 09-24-2018 Office outpatient visit 15 minutes Magdy Alford MD Work Phone: [employer]. Start: 08-14-2018 End: 08-14-2018 Office outpatient visit 25 minutes Magdy Alford MD Work Phone: [employer]. Start: 08-07-2018 End: 08-07-2018 Orders Magdy Alford MD Work Phone: [employer]. Start: 07-03-2018 End: 07-03-2018 Patient encounter procedure Magdy Alford MD Work Phone: [employer]. Start: 01-30-2018 End: 01-30-2018 Medication Magdy Alford MD Work Phone: [employer]. Start: 01-16-2018 End: 01-16-2018 Office outpatient visit 25 minutes Magdy Alford MD Work Phone: [employer]. Start: 12-17-2017 End: 12-17-2017 Historical Summary Magdy Alford MD Work Phone: [employer]. Start: 06-20-2017 End: 06-20-2017 Office outpatient visit 25 minutes Magdy Alford MD Work Phone: [employer]. Start: 06-11-2017 End: 06-24-2017 Patient encounter procedure Magdy Alford MD Work Phone: [employer]. Start: 05-13-2017 End: 05-13-2017 Office outpatient visit 15 minutes Magdy Alford MD Work Phone: [employer] Start: 12-10-2016 End: 12-10-2016 Patient encounter procedure Magdy Alford MD Work Phone: [employer]. Start: 12-09-2016 End: 12-09-2016 Historical Summary Magdy Alford MD Work Phone: [employer]. Start: 09-20-2016 End: 09-20-2016 Office outpatient visit 15 minutes Magdy Alford MD Work Phone: [employer]. Start: 08-20-2016 End: 08-20-2016 Office outpatient visit 15 minutes Magdy Alford MD Work Phone: [employer]. Start: 05-24-2016 End: 05-24-2016 Patient encounter procedure Magdy Alford MD Work Phone: [employer] Start: 05-21-2016 End: 05-21-2016 Orders Magdy Alford MD Work Phone: [employer]. Start: 11-20-2015 End: 11-20-2015 Office outpatient visit 15 minutes Magdy Alford MD Work Phone: [employer] Start: 11-04-2015 End: 11-04-2015 Office outpatient visit 15 minutes Magdy Alford MD Work Phone: [employer]. Start: 07-31-2015 End: 07-31-2015 Medication Magdy Alford MD Work Phone: [employer]. Start: 07-31-2015 End: 07-31-2015 Patient encounter procedure Magdy Alford MD Work Phone: [employer]. Start: 05-02-2015 End: 05-02-2015 Office outpatient visit 25 minutes Magdy Alford MD Work Phone: [employer]. Start: 10-31-2014 End: 10-31-2014 Office outpatient visit 15 minutes Magdy Alford MD Work Phone: [employer]. Start: 07-09-2014 End: 07-09-2014 Office outpatient visit 15 minutes Magdy Alford MD Work Phone: [employer]. Start: 05-02-2014 End: 05-02-2014 Patient encounter procedure Magdy Alford MD Work Phone: [employer]. Start: 02-22-2014 End: 02-22-2014 Medication Magdy Alford MD Work Phone: [employer]. Start: 10-04-2013 End: 10-04-2013 Patient encounter procedure Magdy Alford MD Work Phone: [employer]. Start: 09-24-2013 End: 09-24-2013 Patient encounter procedure Magdy Alford MD Work Phone: [employer]. Start: 09-20-2013 End: 09-20-2013 Historical Summary Magdy Alford MD Work Phone: [employer]. Start: 09-20-2013 End: 09-20-2013 Medication Magdy Alford MD Work Phone: [employer]. Start: 09-16-2013 End: 09-17-2013 Orders Magdy Alford MD Work Phone: [employer]. Start: 08-30-2013 End: 08-30-2013 Medication Magdy Alford MD Work Phone: [employer]. Start: 08-20-2013 End: 08-20-2013 Medication Magdy Alford MD Work Phone: [employer]. Start: 08-10-2013 End: 08-10-2013 Patient encounter procedure Magdy Alford MD Work Phone: [employer]. Start: 07-29-2013 End: 07-29-2013 Patient encounter procedure Magdy Alford MD Work Phone: [employer]. Start: 02-24-2013 End: 02-24-2013 Patient encounter procedure Magdy Alford MD Work Phone: [employer]. Start: 02-08-2013 End: 02-08-2013 Patient encounter procedure Magdy Alford MD Work Phone: [employer]. Start: 01-20-2013 End: 01-20-2013 Medication Magdy Alford MD Work Phone: [employer]. Start: 01-05-2013 End: 01-05-2013 Medication Magdy Alford MD Work Phone: [employer]. Start: 12-18-2012 End: 12-18-2012 Medication Magdy Alford MD Work Phone: [employer]. Start: 07-02-2012 End: 07-02-2012 Medication Magdy Alford MD Work Phone: [employer]. Start: 06-22-2012 End: 06-22-2012 Patient encounter procedure Magdy Alford MD Work Phone: [facility] Start: 05-05-2012 End: 05-05-2012 Nursing evaluation of patient and report Magdy Alford MD Work Phone: [employer]. Start: 02-18-2012 End: 02-18-2012 Patient encounter procedure Magdy Alford MD Work Phone: [facility] Patient encounter status Claire Chavez shyann WILLIAM [employer]. Patient encounter status Claire Quezada NATALIIA [employer]. Patient encounter status Claire Quezada RACE BOARD ATTENDANT [employer]. Procedures Date Procedure Procedure Detail Performing Clinician Start: 02-10-2024 End: 02-10-2024 Flu imm no admin doc maria elena Magdy Knight Work Phone: Start: 02-10-2024 End: 02-10-2024 Hemoglobin A1c/Hemoglobin.total in Blood Claire Rice NATALIIA Comment on above: 8.6 Start: 07-29-2023 End: 07-29-2023 Depression screening Magdy Alford MD Work Phone: Start: 07-29-2023 End: 07-29-2023 Scr dep neg, no plan reqd Magdy Alford MD Work Phone: Start: 07-22-2023 End: 07-22-2023 Hemoglobin A1c/Hemoglobin.total in Blood Claire Rice RACE BOARD ATTENDANT Comment on above: 8.5 Start: 07-22-2023 End: 07-22-2023 Lipid panel results documented & reviewed Claire Rice RACE BOARD ATTENDANT Start: 07-22-2023 End: 07-22-2023 Prostate specific antigen measurement Claire Rice RACE BOARD ATTENDANT Comment on above: Results:. 1.35 Start: 07-23-2022 End: 07-23-2022 Depression screening Magdy Alford MD Work Phone: Start: 07-23-2022 End: 07-23-2022 Scr dep neg, no plan reqd Magdy Alford MD Work Phone: Start: 07-15-2022 End: 07-15-2022 Hemoglobin A1c/Hemoglobin.total in Blood Claire Rice RACE BOARD ATTENDANT Comment on above: 8.4 Start: 07-15-2022 End: 07-15-2022 Lab findings surveillance Claire riddle RACE BOARD ATTENDANT Comment on above: 177 Start: 07-15-2022 End: 07-15-2022 Lipid panel results documented & reviewed Claire Rice RACE BOARD ATTENDANT Comment on above: TC 174, HDL 58, LDL 95, Trig 117 Start: 07-15-2022 End: 07-15-2022 Prostate specific antigen measurement Claire Rice RACE BOARD ATTENDANT Comment on above: Results:. 1.8 Start: 03-12-2021 End: 07-22-2023 Pressurized/nonpressurized inhalation treatment Levi Hoffmann PA-C Work Phone: Start: 01-22-2021 End: 01-22-2021 Depression screening Magdy Alford MD Work Phone: Start: 01-22-2021 End: 01-22-2021 Scr dep neg, no plan reqd Magdy Alford MD Work Phone: Start: 01-02-2021 End: 01-02-2021 Examination of retina Claire Rice RACE BOARD ATTENDANT Comment on above: No diabetic retinopa thy, has mild cataracts. Connor Donis O.D. Start: 07-04-2020 End: 07-04-2020 UA P:C Ratio Claire Rice LP N Comment on above: Normal. Start: 01-01-2020 End: 01-01-2020 FIT DNA test Claire Rice LP N Comment on above: Negative Finding. Co loguard Start: 12-31-2019 End: 01-01-2020 Oncology colorectal screening kelsea 10 dna markrs Magdy Alford MD Work Phone: Start: 12-30-2019 End: 12-30-2019 Cologuard Claire Rice LP N Comment on above: Normal Start: 12-13-2019 End: 12-13-2019 Depression screening Magdy Alford MD Work Phone: Start: 12-13-2019 End: 12-13-2019 Most recent hg a1c>equal to 7.0%&<8.0% Magdy Alford MD Work Phone: Start: 12-13-2019 End: 12-13-2019 Scr dep neg, no plan reqd Magdy Alford MD Work Phone: Start: 02-12-2019 End: 02-12-2019 Flu immunize order/admin Magdy Knight Work Phone: Start: 02-12-2019 End: 02-12-2019 Most recent hemoglobin a1c level < 7.0% Magdy Alford MD Work Phone: Start: 01-16-2018 End: 01-16-2018 Depression screen annual Magdy Knight Work Phone: Start: 01-16-2018 End: 01-16-2018 Most recent hemoglobin a1c level gt 7.0-9.0 % Magdy Alford MD Work Phone: Start: 01-16-2018 End: 01-16-2018 Scr dep neg, no plan reqd Magdy Alford MD Work Phone: Start: 06-20-2017 End: 06-20-2017 Most recent diastolic blood pressure < 80 mm hg Magdy Alford MD Work Phone: Start: 06-20-2017 End: 06-20-2017 Most recent hemoglobin a1c level gt 7.0-9.0 % Magdy Alford MD Work Phone: Start: 06-20-2017 End: 06-20-2017 Most recent systolic blood pressure <130 mm hg Magdy Alford MD Work Phone: Start: 06-11-2017 End: 06-11-2017 Body mass index documented Tonio byrne MD Work Phone: Start: 05-13-2017 End: 05-13-2017 Body mass index documented Magdy Alford MD Work Phone: Start: 06-26-2016 End: 06-26-2016 ICD placement Claire Rice LP N Start: 05-26-2007 Automatic defibrilla tor procedure HAYES CARTER MD Start: 05-26-2007 Cardiac pacemaker, d evice (physical object) HAYES CARTER MD Start: 05-26-2007 Coronary artery bypa ss graft HAYES CARTER MD Aortocoronary bypass of three coronary arteries Claire Rice RACE BOARD ATTENDANT Comment on above: 2007 Plan of Treatment Date Care Activity Detail Author Start: 08-03-2024 Patient encounter procedure Medical; PHYSICAL - physical [facility]. Start: 03-Aug-2024 15:50-04:00 MD Magdy Alford Appointment Request [facility]. Start: 07-27-2024 Nursing evaluation o f patient and report Medical; Nurse visit - fasting labs- SFB [facility]. Start: 27-Jul-2024 08:00-05:00 NURSE, FLOAT Appointment Request [facility]. Start: 02-10-2024 Patient encounter procedure Medical; RTN OFFICE VISIT - 6 mo rtn [facility]. Start: 10-Feb-2024 15:50-04:00 MD Magdy Alford Appointment Request [facility]. Start: 02-10-2024 Hemoglobin glycosyla alissa a1c Hgb A1c (fingerstick)([id number]) Start: 10-Feb-2024 11:14-04:00 Request [facility].; [employer]. Start: 07-29-2023 Patient encounter procedure Medical; PHYSICAL - PHYSICAL [facility]. Start: 29-Jul-2023 15:50 MD Magdy Alford Appointment Request [facility]. Start: 07-29-2023 Oncology colorectal screening kelsea 10 dna markrs COLOGUARD COLON CANCER SCREENING USING STOOL DNA AT POINT OF CARE ([id number]) Start: 29-Jul-2023 Intent [facility]; [facility]. Start: 07-22-2023 Nursing evaluation o f patient and report Medical; Nurse visit - fasting labs-SFB [facility]. Start: 22-Jul-2023 8:00 ROOM, PROCEDURE (DRAW) Appointment Request [facility]. Start: 07-16-2023 Assay of prostate sp ecific antigen total PSA TOTAL (PROSTATE SPECIFIC ANTIGEN) ([id number]) Start: 16-Jul-2023 14:49 Request [facility].; [facility]. Start: 07-16-2023 Lipid panel LIPID PANEL ([id number]) Start: 16-Jul-2023 14:49 Request [facility].; [facility]. Start: 07-16-2023 Hemoglobin glycosyla alissa a1c HEMOGLOBIN A1C* ([id number]) Start: 16-Jul-2023 14:49 Request [facility].; [facility]. Start: 07-16-2023 Comprehensive metabo lic panel CMP w/ GFR* ([id number]) Start: 16-Jul-2023 14:49 Request [facility].; [employer]. Start: 01-21-2023 End: 01-22-2023 Polysom 6/>yrs sleep 4/> addl julia attnd Sleep Study ([id number]) Date: 21-Jan-2023 [facility] [employer], [employer]. Start: 03-12-2021 Pressurized/nonpress urized inhalation treatment Aerosol Treatment ([id number]) Start: 12-Mar-2021 [facility] Work Phone: Immunizations Immunization Date Immunization Notes Care Provider Bertha fernandez 02-06-2024 zoster vaccine recombinant Magdy Alford MD Work Phone: [facility]; [place] [employer] Comment on above: [facility] 11-13-2023 zoster vaccine recombinant Magyd Alford MD Work Phone: [facility] [employer]. Comment on above: [place] 07-23-2022 pneumococcal conjuga te vaccine, 13 valent Magdy Alford MD Work Phone: [facility]; [place] [employer]. Comment on above: Site: Left DeltoidVI S Given: * PCV13 (12/29/20) 04-14-2021 tetanus toxoid, redu abe diphtheria toxoid, and acellular pertussis vaccine, adsorbed; Translations: [Boostrix (Tdap)] HAYES CARTER MD [facility] 02-24-2021 COVID-Pfizer (30 MCG /0.3 ML) Magdy Alford MD Work Phone: [facility]; [place] [employer] [facility] 02-03-2021 COVID-Pfizer (30 MCG /0.3 ML) Magdy Alford MD Work Phone: [facility] [employer]; [place] [employer] [facility] 12-13-2019 Shingrix 50 MCG/0.5M L Intramuscular Suspension Reconstituted Magdy Alford MD Work Phone: [facility]; [place] [employer] Comment on above: Repeat in 2-6 months 12-13-2019 tetanus toxoid, redu abe diphtheria toxoid, and acellular pertussis vaccine, adsorbed Magdy Alford MD Work Phone: [facility]; [employer] Comment on above: Site: Left DeltoidVI S Given: * Tdap (Tetanus, Diphtheria, Pertussis) (07/19/14) 02-12-2019 influenza, injectabl e, quadrivalent, contains preservative Magdy Alford MD Work Phone: [facility] [employer]; [facility] Comment on above: Site: Right ArmVIS G iven: * Influenza - Inactivated (12/30/14) 03-26-2017 influenza, injectabl e, quadrivalent, contains preservative Magdy Alford MD Work Phone: [employer]; [place] Comment on above: receoived vaccine at work. 08-20-2016 pneumococcal polysaccharide vaccine, 23 valent Magdy Alford MD Work Phone: [employer]; [place] Comment on above: Site: Deltoid (Left) VIS Given: * Pneumococcal Polysaccharide (PPSV23) (09/16/14) 08-20-2016 pneumococcal Conjuga te, unspecified formulation Magdy Alford MD Work Phone: [employer]; [place] 04-17-2016 influenza, seasonal, injectable Magdy Alford MD Work Phone: [employer]; [place] Comment on above: Received at work 05-05-2012 influenza, seasonal, injectable Magdy Alford MD Work Phone: [employer]; [place] Comment on above: Site: Deltoid (Left) VIS Given: * Inactivated Influenza Vaccine (01/03/09) * Inactivated Influenza Vaccine (12/18/10) * Influenza vaccine [id number], inactivated (11/25/2011) * VIS Given (Unspecified) 05-05-2012 IMMUNIZATION ADMIN ([id number]) Magdy Alford MD Work Phone: [employer]; [place] Payers Date Payer Category Payer Unknown [id number] Unknown Unknown [id number] Social History Date Type Detail Facility Never smoked tob acco (finding) [facility] Sex Assigned At [facility] Caffeine Use Caffeine Use [employer]; [place] Current Work/Study Status: [employer] Work/Study Status: ; Full-time. [employer]; [place] Tobacco Use: Tobacco Use: ; N ever smoker. [facility]; [place] Male [employer]; [place] Work Phone: Full-time [employer]; [place] Work Phone: Hospital Discharge instructions 04-14-2021 Note Date & Type Note Facility 04-14-2021 Hospital Discharg e instructions Patient Education 04/14/2021 10:46:57 LACERATION, All Laceration (All Closures) A laceration is a cut through the skin. This will usually require stitches (sutures) or luis alberto if it is deep. Minor cuts may be treated with a surgical tape closure or skin glue. Home care The following guidelines will help you care for your laceration at home: Extremity, face, or trunk wounds Keep the wound clean and dry. If a bandage was applied and it becomes wet or dirty, replace it. Otherwise, leave it in place for the first 24 hours. If stitches or luis alberto were used, clean the wound daily. After removing the bandage, wash the area with soap and water. Use a wet cotton swab to loosen and remove any blood or crust that forms. The doctor may prescribe an antibiotic cream or ointment to prevent infection. Do not stop taking this medication until you have finished the prescribed course or the doctor tells you to stop. The doctor may also prescribe medications for pain. Follow the doctor s instructions for taking these medications. You may remove the bandage to shower as usual after the first 24 hours, but do not soak the area in water (no swimming) until the stitches or luis alberto are removed. If surgical tape was used, keep the area clean and dry. If it becomes wet, blot it dry with a towel. If skin glue was used, do not scratch, rub, or pick at the adhesive film. Do not place tape directly over the film. Do not apply liquid, ointment, or creams to the wound while the film is in place. Do not clean the wound with peroxide and do not apply ointments. Avoid activities that cause heavy sweating until the film has fallen off. Protect the wound from prolonged exposure to sunlight or tanning lamps. You may shower as usual but do not soak the wound in water (no baths or swimming). The film will fall off by itself in 5 10 days. Scalp wounds During the first two days, you may carefully rinse your hair in the shower to remove blood, glass or dirt particles. After two days, you may shower and shampoo your hair normally. Do not soak your scalp in the tub or go swimming until the stitches or luis alberto have been removed. Talk with your doctor before applying any antibiotic ointment to the wound. Mouth wounds Eat soft foods to reduce pain. If the cut is inside of your mouth, clean by rinsing after each meal and at bedtime with a mixture of equal parts water and hydrogen peroxide (do not swallow!). Or, you can use a cotton swab to directly apply hydrogen peroxide onto the cut. Mouth wounds can be painful when eating. You may use an [id number] local numbing solution for pain relief. If this is not available, you may use any numbing solution for teething babies. You may apply this directly to the sores with a cotton-tip swab or with your finger. Follow-up care Follow up with your health care provider. Most skin wounds heal within ten days. Mouth and facial wounds heal within five days. However, even with proper treatment, a wound infection may sometimes occur. Therefore, you should check the wound daily for signs of infection listed below. Stitches should be removed from the face within five days; stitches and luis alberto should be removed from other parts of the body within 7 14 days. If dissolving stitches were used in the mouth, these will fall out or dissolve without the need for removal. If tape closures were used, remove them yourself if they have not fallen off after 7 days. If skin glue was used, the film will fall off by itself in 5 10 days. When to seek medical advice Call your health care provider right away if any of these occur: Bleeding not controlled by direct pressure Signs of infection, including increasing pain in the wound, increasing wound redness or swelling, or pus coming from the wound Fever of 100.4 F (38 C) or higher, or as directed by your health care provider Stitches or luis alberto come apart or fall out or surgical tape falls off before 7 days Wound edges re-open [id number] [employer]. [address] [place] [address]. All rights reserved. This information is not intended as a substitute for professional medical care. Always follow your healthcare professional's instructions. Follow Up Care 04/14/2021 10:19:17 With:PERRY AMADOR Address: When: Unknown Comments:10 days for suture removal. [facility] Evaluation + Plan note Note Date & Type Note Facility Evaluation + Plan note No data available for this section [facility] Summary Purpose Family History Coronary Artery Disease Status:Active Comments :Mother. Father. Sister. Diabetes Mellitus Status:Active Comments:Siste r. Brother. Maternal Grandmother. Hypertension Status:Active Comments:Mother. Sister. Brother. Osteoarthritis Status:Active Comments:Mother. grandparents Coronary Artery Disease Status:Active Comments :Mother. Father. Sister. Diabetes Mellitus Status:Active Comments:Siste r. Brother. Maternal Grandmother. Hypertension Status:Active Comments:Mother. Sister. Brother. Osteoarthritis Status:Active Comments:Mother. grandparents Coronary Artery Disease Status:Active Comments :Mother. Father. Sister. Diabetes Mellitus Status:Active Comments:Siste r. Brother. Maternal Grandmother. Hypertension Status:Active Comments:Mother. Sister. Brother. Osteoarthritis Status:Active Comments:Mother. grandparents Coronary Artery Disease Status:Active Comments :Mother. Father. Sister. Diabetes Mellitus Status:Active Comments:Siste r. Brother. Maternal Grandmother. Hypertension Status:Active Comments:Mother. Sister. Brother. Osteoarthritis Status:Active Comments:Mother. grandparents Coronary Artery Disease Status:Active Comments :Mother. Father. Sister. Diabetes Mellitus Status:Active Comments:Siste r. Brother. Maternal Grandmother. Hypertension Status:Active Comments:Mother. Sister. Brother. Osteoarthritis Status:Active Comments:Mother. grandparents Coronary Artery Disease Status:Active Comments :Mother. Father. Sister. Diabetes Mellitus Status:Active Comments:Siste r. Brother. Maternal Grandmother. Hypertension Status:Active Comments:Mother. Sister. Brother. Osteoarthritis Status:Active Comments:Mother. grandparents Coronary Artery Disease Status:Active Comments :Mother. Father. Sister. Diabetes Mellitus Status:Active Comments:Siste r. Brother. Maternal Grandmother. Hypertension Status:Active Comments:Mother. Sister. Brother. Osteoarthritis Status:Active Comments:Mother. grandparents Coronary Artery Disease Status:Active Comments :Mother. Father. Sister. Diabetes Mellitus Status:Active Comments:Siste r. Brother. Maternal Grandmother. Hypertension Status:Active Comments:Mother. Sister. Brother. Osteoarthritis Status:Active Comments:Mother. grandparents Coronary Artery Disease Status:Active Comments :Mother. Father. Sister. Diabetes Mellitus Status:Active Comments:Siste r. Brother. Maternal Grandmother. Hypertension Status:Active Comments:Mother. Sister. Brother. Osteoarthritis Status:Active Comments:Mother. grandparents Coronary Artery Disease Status:Active Comments :Mother. Father. Sister. Diabetes Mellitus Status:Active Comments:Siste r. Brother. Maternal Grandmother. Hypertension Status:Active Comments:Mother. Sister. Brother. Osteoarthritis Status:Active Comments:Mother. grandparents Coronary Artery Disease Status:Active Comments :Mother. Father. Sister. Diabetes Mellitus Status:Active Comments:Siste r. Brother. Maternal Grandmother. Hypertension Status:Active Comments:Mother. Sister. Brother. Osteoarthritis Status:Active Comments:Mother. grandparents Coronary Artery Disease Status:Active Comments :Mother. Father. Sister. Diabetes Mellitus Status:Active Comments:Siste r. Brother. Maternal Grandmother. Hypertension Status:Active Comments:Mother. Sister. Brother. Osteoarthritis Status:Active Comments:Mother. grandparents Coronary Artery Disease Status:Active Comments :Mother. Father. Sister. Diabetes Mellitus Status:Active Comments:Siste r. Brother. Maternal Grandmother. Hypertension Status:Active Comments:Mother. Sister. Brother. Osteoarthritis Status:Active Comments:Mother. grandparents Coronary Artery Disease Status:Active Comments :Mother. Father. Sister. Diabetes Mellitus Status:Active Comments:Siste r. Brother. Maternal Grandmother. Hypertension Status:Active Comments:Mother. Sister. Brother. Osteoarthritis Status:Active Comments:Mother. grandparents Coronary Artery Disease Status:Active Comments :Mother. Father. Sister. Diabetes Mellitus Status:Active Comments:Siste r. Brother. Maternal Grandmother. Hypertension Status:Active Comments:Mother. Sister. Brother. Osteoarthritis Status:Active Comments:Mother. grandparents Coronary Artery Disease Status:Active Comments :Mother. Father. Sister. Diabetes Mellitus Status:Active Comments:Siste r. Brother. Maternal Grandmother. Hypertension Status:Active Comments:Mother. Sister. Brother. Osteoarthritis Status:Active Comments:Mother. grandparents Coronary Artery Disease Status:Active Comments :Mother. Father. Sister. Diabetes Mellitus Status:Active Comments:Siste r. Brother. Maternal Grandmother. Hypertension Status:Active Comments:Mother. Sister. Brother. Osteoarthritis Status:Active Comments:Mother. grandparents Coronary Artery Disease Status:Active Comments :Mother. Father. Sister. Diabetes Mellitus Status:Active Comments:Siste r. Brother. Maternal Grandmother. Hypertension Status:Active Comments:Mother. Sister. Brother. Osteoarthritis Status:Active Comments:Mother. grandparents Advance Directives No Advanced Directives Records FoundNo Advanced Directives Records FoundNo Advanced Directives Records Found Additional Source Comments (unrecognized sect ion and content) No Status Records FoundNo Status Records FoundNo Status Records Found INFORMATION SOURCE (unrecogn ized section and content) DATE CREATED AUTHOR 05/18/2020 [facility] DATE CREATED AUTHOR AUTHOR'S ORGANIZ ATION 02/02/2022 [facility] DATE CREATED AUTHOR AUTHOR'S ORGANIZ ATION 09/04/2023 [facility] FOR RECORDS PERTAINING TO PATIENTS WHO ARE OR HAVE BEEN ENROLLED IN A CHEMICAL DEPENDENCY/SUBSTANCEABUSE PROGRAM, SOME INFORMATION MAY BE OMITTED. This clinical summary was aggregated from multiple sources. Caution should be exercised in using it in the provision of clinical care. This summary normalizes information from multiple sources, and as a consequence, information in this document may materially change the coding, format and clinical context of patient data. In addition, data may be omitted in some cases. CLINICAL DECISIONS SHOULD BE BASED ON THE PRIMARY CLINICAL RECORDS. [facility] [employer] [facility]. provides no warranty or guarantee of the accuracy or completeness of information in this document.
== END | disposition home or self-care (01) ==
LOC: LABSPEC 15:31
PROVIDERS: PCP Family Medicine; Referring Provider Nurse Practitioner Family; Visit Provider Nurse Practitioner Family
DX: R55 Syncope and collapse (principal); I47.20 Ventricular tachycardia, unspecified; I25.5 Ischemic cardiomyopathy; Z95.810 Presence of automatic (implantable) cardiac defibrillator; Z79.899 Other long term (current) drug therapy
CPT/HCPCS: 36415; 80048; 83735; 84443; 85027

== ENCOUNTER → 2024-11-05 | Outpatient (CLI) | payer OTHER, SELFPAY ==
--- OUTSIDE RECORDS SUMMARY | 2024-11-05 06:20 | XMS RPT_ITS | CCD ---
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 07/03/16 10/28/24 Hi story atorvastatin 40 mg tablet 40 mg PO DAILY 03/18/18 10/28/24 H istory diphenhydramine HCl 25 mg capsule 25 mg PO QHS PRN Congestion 03/1810/28/24 History (Benadryl) potassium chloride 10 mEq 10 meq PO DAILY 03/18/18 10/28/24 History capsule,extended release aspirin 81 mg chewable tablet 81 mg PO DAILY ##1 08/10/18 Rx metoprolol tartrate 100 mg tablet 100 mg PO BID 06/21/21 10/28/24 H istory nitroglycerin 0.4 mg sublingual 0.4 mg sublingual Q5-15M PRN Chest 08/07/22 10/28/24 Rx tablet Pain #25 tabs clopidogrel 75 mg tablet 75 mg PO DAILY #90 TABLETS 4 10/28/24 Rx amiodarone 200 mg tablet (Pacerone) 200 mg PO BID #90 tabs 03/23/24 10/28/24 Rx tamsulosin 0.4 mg capsule 0.4 mg PO QDAY 10/28/24 10/28/24 H istory Ejection fraction %: 45 Have you fallen in the past year?: No PFSH Medical History (Updated 10/28/24 @ 13:[address] Caleb Martel MD) Hypercholesteremia Sinus bradycardia Ventricular fibrillation On amiodarone therapy AICD discharge Syncope History of myocardial infarction Essential hypertension Carotid bruit Hyperlipemia Atherosclerosis of coronary artery of [place] heart without angina pectoris Paroxysmal ventricular tachycardia Ischemic cardiomyopathy Surgical History History of left heart catheterization (08/10/18) Postsurgical percutaneous transluminal coronary angioplasty (PTCA) status ( 12/2007) History of tonsillectomy H/O coronary artery bypass surgery (12/26/07) Presence of implantable cardioverter-defibri llator (ICD) Social History alcohol intake: never substance use type: does not use ROS Const Const: Negative for fatigue, weakness, headache(s) or weight gain ENT ENT: Positive for dizziness; Negative for headache(s), Nosebleed/epistaxis or balance problems Cardio Chest Pain: Yes Frequency: other (with stress) Character: tightness Onset: at rest and other (stress) Location: mid sternal Duration: minutes (10-15mins) Exacerbation: other (stress) Relieving: other (relaxation) Palpitations: Yes (unchanged) Edema: Bilateral (wears compression stockings) Muscle aches with walking: None Resp Respiratory: Negative for SOB with activity, SOB at rest or SOB orthopnea SOB lying down GI GI: Negative nausea, vomiting or heartburn Musc Musc: Negative for muscle aches/ myalgia, muscle weakness, joint pain or balance problems Neuro Neuro: Positive for dizziness; Negative for lightheadedness, near syncope, syncope, headache(s) or weakness Endo Endo: Negative for fatigue Psych Psych: Positive for anxiety Cardiology Exam Const Appearance: comfortable and no acute distress Nutritional Appearance: well nourished Neck Neck: no JVD Carotids: (more content not included)... Normal [facility] COMPREHENSIVE METABOLIC PANE [place] 07-28-2024 Albumin [Mass/Vol] 4.6 g/dL Normal 3.6-5.1 [facility] Comment on above: Performed By: #### 4 96, 5363, 7600, 74189 #### [facility] of [place] [address] Can Filler: Kennedy Garcia MD Albumin/Globulin [Mass ratio] 2.0 {ratio} Normal 1.0-2.5 [facility] Comment on above: Performed By: #### 4 96, 5363, 7600, 76438 #### [facility] of [address], [address] [place] [address] Can Filler: Kennedy Garcia MD ALP [Catalytic activity/Vol] 70 U/L Normal 35-144 [facility] Comment on above: Performed By: #### 4 96, 5363, 7600, 36943 #### [facility] [place] [address] Can Filler: Kennedy Garcia MD ALT [Catalytic activity/Vol] 27 U/L Normal 9-46 [facility] Comment on above: Performed By: #### 4 96, 5363, 7600, 82899 #### [facility] of [place] [address] Can Filler: Kennedy Garcia MD AST [Catalytic activity/Vol] 21 U/L Normal 10-35 [facility] Comment on above: Performed By: #### 4 96, 5363, 7600, 20262 #### [facility] [place] [address] Can Filler: Kennedy Garcia MD Bilirubin [Mass/Vol] 0.5 mg/dL Normal 0.2-1.2 [facility] Comment on above: Performed By: #### 4 96, 5363, 7600, 62105 #### [facility] [place] [address] Can Filler: Kennedy Garcia MD BUN/CREATININE RATIO SEE NOTE: Normal 6-22 [facility] Comment on above: Result Comment: Not Reported: BUN and Creatinine are within reference range. Performed By: #### 4 96, 5363, 7600, 37472 #### [facility] of [place] [address] Can Filler: Kennedy Garcia MD Calcium [Mass/Vol] 9.3 mg/dL Normal 8.6-10.3 [facility] Comment on above: Performed By: #### 4 96, 5363, 7600, 22797 #### [facility] [place] [address] Can Filler: Kennedy Garcia MD Chloride [Moles/Vol] 103 mmol/L Normal 98-110 [facility] Comment on above: Performed By: #### 4 96, 5363, 7600, 65611 #### [facility] [place] [address] Can Filler: Kennedy Garcia MD CO2 [Moles/Vol] 29 mmol/L Normal 20-32 [facility] Comment on above: Performed By: #### 4 96, 5363, 7600, 29121 #### [facility] [place] [address] Can Filler: Kennedy Garcia MD Creatinine [Mass/Vol] 1.01 mg/dL Normal 0.70-1.[address] [facility] Comment on above: Performed By: #### 4 96, 5363, 7600, 47024 #### [facility] [place] [address] Can Filler: Kennedy Garcia MD GFR/1.73 sq M.predicted among non-blacks MDRD (S/P/Bld) [Vol rate/Area] 81 mL/min/{1.73_m2} Normal > OR = 60 [facility] Comment on above: Performed By: #### 4 96, 5363, 7600, 26821 #### [facility] of [place] [address] Can Filler: Kennedy Garcia MD Globulin (S) [Mass/Vol] 2.3 g/dL Normal 1.9-3.7 [facility] Comment on above: Performed By: #### 4 96, 5363, 7600, 22044 #### [facility] [place] [address] Can Filler: Kennedy Garcia MD Glucose [Mass/Vol] 179 mg/dL High 65-99 [facility] Comment on above: Result Comment: Fasting reference interval For someone without known diabetes, a glucose value >125 mg/dL indicates that they may have diabetes and this should be confirmed with a follow-up test. Performed By: #### 4 96, 5363, 7600, 86394 #### [facility] [place] [address] Can Filler: Kennedy Garcia MD Potassium [Moles/Vol] 4.0 mmol/L Normal 3.5-5.[address] [facility] [address] [facility] Comment on above: Performed By: #### 4 96, 5363, 7600, 09579 #### [facility] [place] [address] Can Filler: Kennedy Garcia MD Protein [Mass/Vol] 6.9 g/dL Normal 6.1-8.1 [facility] Comment on above: Performed By: #### 4 96, 5363, 7600, 14408 #### [facility] [place] [address] Can Filler: Kennedy Garcia MD Sodium [Moles/Vol] 141 mmol/L Normal 135-146 [facility] Comment on above: Performed By: #### 4 96, 5363, 7600, 85168 #### [facility] of [place] [address] Can Filler: Kennedy Garcia MD Urea nitrogen [Mass/Vol] 21 mg/dL Normal 7-25 [facility] Comment on above: Performed By: #### 4 96, 5363, 7600, 13042 #### [facility] [place] [address] Can Filler: Kennedy Garcia MD HEMOGLOBIN A1con 03-05-2025 HEMOGLOBIN A1c 9.6 % of total Hgb High <5.7 [facility] Comment on above: Result Comment: For someone without known diabetes, a hemoglobin A1c value of 6.5% or greater indicates that they may have diabetes and this should be confirmed with a follow-up test. For someone with known diabetes, a value <7% indicates that their diabetes is well controlled and a value greater than or equal to 7% indicates suboptimal control. A1c targets should be individualized based on duration of diabetes, age, comorbid conditions, and other considerations. Currently, no consensus exists regarding use of hemoglobin A1c for diagnosis of diabetes for children. Performed By: #### 4 96, 5363, 7600, 03884 #### [facility] [place] [address] Can Filler: Kennedy Garcia MD LIPID PANEL, STANDARDon Cholesterol [Mass/Vol] 163 mg/dL Normal <200 [facility] Comment on above: Performed By: #### 4 96, 5363, 7600, 48755 #### [facility] [place] [address] Can Filler: Kennedy Garcia MD Cholesterol in HDL [Mass/Vol] 54 mg/dL Normal > OR = 40 [facility] Comment on above: Performed By: #### 4 96, 5363, 7600, 05930 #### [facility] [place] [address] Can Filler: Kennedy Garcia MD Cholesterol in LDL [Mass/Vol] 90 mg/dL Normal [facility] Comment on above: Result Comment: Refe rence range: <100 Desirable range <100 mg/dL for primary prevention; <70 mg/dL for patients with CHD or diabetic patients with > or = 2 CHD risk factors. LDL-C is now calculated using the Marita calculation, which is a validated novel method providing better accuracy than the Friedewald equation in the estimation of LDL-C. Heber ORTEGA et al. DYLAN. 2013;310(19): 9955-0243 (http://education.[employer].Sy[employer] Hub/faq/DDD621) Performed By: #### 4 96, 5363, 7600, 26275 #### [facility] [place] [address] Can Filler: Kennedy Garcia MD Cholesterol.total/Cho lesterol in HDL [Mass ratio] 3.0 {ratio} Normal <5.0 [facility] Comment on above: Performed By: #### 4 96, 5363, 7600, 00965 #### [facility] [place] [address] Can Filler: Kennedy Garcia MD NON HDL CHOLESTEROL 109 mg/dL (calc) Normal <130 [facility] Comment on above: Result Comment: For patients with diabetes plus 1 major ASCVD risk factor, treating to a non-HDL-C goal of <100 mg/dL (LDL-C of <70 mg/dL) is considered a therapeutic option. Performed By: #### 4 96, 5363, 7600, 48528 #### [facility] [place] [address] Can Filler: Kennedy Garcia MD Triglyceride [Mass/Vol] 94 mg/dL Normal <150 [facility] Comment on above: Performed By: #### 4 96, 5363, 7600, 24924 #### [facility] [place] [address] Can Filler: Kennedy Garcia MD PSA, TOTALon 07-28-2024 PSA, TOTAL 1.36 ng/mL Normal < OR = 4.00 [facility] Comment on above: Result Comment: The total PSA value from this assay system is standardized against the WHO standard. The test result will be approximately 20% lower when compared to the equimolar-standardized total PSA ([place]). Comparison of serial PSA results should be interpreted with this fact in mind. This test was performed using the Siemens chemiluminescent method. Values obtained from different assay methods cannot be used interchangeably. PSA levels, regardless of value, should not be interpreted as absolute evidence of the presence or absence of disease. Performed By: #### 4 96, 5363, 7600, 93737 #### [facility] [place] [address] [place] [address] Can Filler: Kennedy Garcia MD Laboratory - Chemistry and C hemistry - challengeon 07-27-2024 Albumin [Mass/Vol] 4.6 g/dL Normal 3.6 - 5.1 g/dL [facility], [facility].; [facility] Albumin/Globulin [Mass ratio] 2.0 {ratio} Normal 1.0 - 2.5 [facility], [facility].; [facility] ALP [Catalytic activity/Vol] 70 U/L Normal 35 - 144 U/L [facility], [facility].; [facility] ALT [Catalytic activity/Vol] 27 U/L Normal 9 - 46 U/L [facility], [facility].; [facility] AST [Catalytic activity/Vol] 21 U/L Normal 10 - 35 U/L [facility], [facility].; [employer] Bilirubin [Mass/Vol] 0.5 mg/dL Normal 0.2 - 1 .2 mg/dL [facility], [facility].; [employer] Calcium [Mass/Vol] 9.3 mg/dL Normal 8.6 - 10. 3 mg/dL [facility], [facility].; [employer] Chloride [Moles/Vol] 103 mmol/L Normal 98 - 11 0 mmol/L [facility], [facility].; [employer] Cholesterol [Mass/Vol] 163 mg/dL Normal [facility], [facility].; [employer] Cholesterol in HDL [Mass/Vol] 54 mg/dL Normal [facility] [employer] Cholesterol in LDL [Mass/Vol] 90 mg/dL Normal [facility] CO2 [Moles/Vol] 29 mmol/L Normal 20 - 32 mmol/L [facility], [facility].; [employer] Creatinine [Mass/Vol] 1.01 mg/dL Normal 0.70 - 1.35 mg/dL [facility], [facility].; [employer] GFR/1.73 sq M.predicted among non-blacks MDRD (S/P/Bld) [Vol rate/Area] 81 mL/min/{1.73_m2} Normal [facility], [facility].; [facility], [facility] Glucose [Mass/Vol] 179 mg/dL Abnormal 65 - 99 mg/dL [facility].; [facility], [facility]. Potassium [Moles/Vol] 4.0 mmol/L Normal 3.5 - 5.3 mmol/L [facility]; [facility], [facility] Protein [Mass/Vol] 6.9 g/dL Normal 6.1 - 8.1 g/dL [facility]; [facility], [facility] Sodium [Moles/Vol] 141 mmol/L Normal 135 - 146 mmol/L [facility]; [facility], [facility] Triglyceride [Mass/Vol] 94 mg/dL Normal [facility], [facility]; [facility], [facility] Urea nitrogen [Mass/Vol] 21 mg/dL Normal 7 - 25 mg/dL [facility]; [facility], [facility] Laboratory - Hematology and Cell countson 07-27-2024 HbA1c (Bld) [Mass fraction] 9.6 % Abnormal [facility].; [facility], [facility] No Panel Informationon 07-27 BUN/CREATININE RATIO SEE NOTE: Normal - [facility], [facility]. CHOL/HDLC RATIO 3.[address] [facility]; [facility], [facility] GLOBULIN 2.3 Normal 1.9 - 3.7 [facility]; [facility], [facility] NON HDL CHOLESTEROL 109 Normal [facility] [place], [facility] PSA, TOTAL 1.36 ng/mL Normal [facility].; [facility], [facility] Basic Metabolic Profile (BMP )on 03-22-2024 BUN/CRE 17.4 RATIO Normal 03-14 [facility] Comment on above: Order Comment: Reaso n for Exam: MVT with ICD tx Comments: MVT with ICD tx MVT with ICD tx Performed By: #### L 500.2500, L100.0500, L501.5200, L501.2427 #### [facility] [address] [place], [address] CA,Total 9.2 mg/dL Normal 8.5-10.1 [facility] Comment on above: Order Comment: Reaso n for Exam: MVT with ICD tx Comments: MVT with ICD tx MVT with ICD tx Performed By: #### L 500.2500, L100.0500, L501.5200, L501.9520 #### [facility] [address] [place], [address] Chloride [Moles/Vol] 102 mmol/L Normal 98-107 [facility] Comment on above: Order Comment: Reaso n for Exam: MVT with ICD tx Comments: MVT with ICD tx MVT with ICD tx Performed By: #### L 500.2500, L100.0500, L501.5200, L501.9520 #### [facility] [address] [place], [address] CO2 [Moles/Vol] 30.0 mmol/L Normal 21.0-32.0 [facility] Comment on above: Order Comment: Reaso n for Exam: MVT with ICD tx Comments: MVT with ICD tx MVT with ICD tx Performed By: #### L 500.2500, L100.0500, L501.5200, L501.9520 #### [facility] [address] [place], [address] Creatinine [Mass/Vol] 1.15 mg/dL Normal 0.70-1.30 [facility] Comment on above: Order Comment: Reaso n for Exam: MVT with ICD tx Comments: MVT with ICD tx MVT with ICD tx Result Comment: The validity of the calculated GFR GFRAA in patients over 70 years has not been determined. Clinical correlation is essential. Performed By: #### L 500.2500, L100.0500, L501.5200, L501.9520 #### [facility] [address] [place], [address] EST GFR - AA 81 mL/min Normal >60 [facility] Comment on above: Order Comment: Susanneo n for Exam: MVT with ICD tx Comments: MVT with ICD tx MVT with ICD tx Result Comment: Afri can [place] GFR Calc Performed By: #### L 500.2500, L100.0500, L501.5200, L501.9520 #### [facility] [address] [place], [address] GAP 3 Low 5-15 [facility] Comment on above: Order Comment: Reaso n for Exam: MVT with ICD tx Comments: MVT with ICD tx MVT with ICD tx Performed By: #### L 500.2500, L100.0500, L501.5200, L501.9520 #### [facility] [address] [place], [address] GFR/1.73 sq M.predicted among non-blacks MDRD (S/P/Bld) [Vol rate/Area] 67 mL/min/{1.73_m2} Normal >60 [facility] Comment on above: Order Comment: Susanneo n for Exam: MVT with ICD tx Comments: MVT with ICD tx MVT with ICD tx Result Comment: Non- GFR Calc Performed By: #### L 500.2500, L100.0500, L501.5200, L501.9520 #### [facility] [address] [place], [address] Glucose [Mass/Vol] 203 mg/dL High 74-106 [facility] Comment on above: Order Comment: Reaso n for Exam: MVT with ICD tx Comments: MVT with ICD tx MVT with ICD tx Result Comment: Gluc ose result greater than or equal to 200 mg/dL suggests DIABETES MELLITUS per A.D.A. criteria. Performed By: #### L 500.2500, L100.0500, L501.5200, L501.9520 #### [facility] [address] [place], [address] Potassium [Moles/Vol] 4.1 mmol/L Normal 3.5-5.1 [facility] Comment on above: Order Comment: Susanneo n for Exam: MVT with ICD tx Comments: MVT with ICD tx MVT with ICD tx Performed By: #### L 500.2500, L100.0500, L501.5200, L501.9520 #### [facility] [address] [place], [address] Sodium [Moles/Vol] 136 mmol/L Normal 136-145 [facility] Comment on above: Order Comment: Susanneo n for Exam: MVT with ICD tx Comments: MVT with ICD tx MVT with ICD tx Performed By: #### L 500.2500, L100.0500, L501.5200, L501.9520 #### [facility] [address] [place], [address] Urea nitrogen [Mass/Vol] 20 mg/dL High 7-18 [facility] Comment on above: Order Comment: Susanneo n for Exam: MVT with ICD tx Comments: MVT with ICD tx MVT with ICD tx Performed By: #### L 500.2500, L100.0500, L501.5200, L501.9520 #### [facility] [address] [place], [address] CBC-Complete Blood Cnt No Di ffon 03-22-2024 Erythrocyte distribution width (RBC) [Ratio] 11.9 % Normal 11.6-14.6 [facility] Comment on above: Order Comment: Comme nts: MVT with ICD tx Performed By: #### L 500.2500, L100.0500, L501.5200, L501.9520 #### [facility] [address] [place], [address] Hematocrit (Bld) [Volume fraction] 40.7 % Normal 40-54 [facility] Comment on above: Order Comment: Comme nts: MVT with ICD tx Performed By: #### L 500.2500, L100.0500, L501.5200, L501.9520 #### [facility] [address] [place], [address] Hemoglobin (Bld) [Mass/Vol] 13.9 g/dL Normal 13.0-16.5 [facility] Comment on above: Order Comment: Comme nts: MVT with ICD tx Performed By: #### L 500.2500, L100.0500, L501.5200, L501.9520 #### [facility] [address] [place], [address] MCH (RBC) [Entitic mass] 32.0 pg Normal 27.0-32.0 [facility] Comment on above: Order Comment: Comme nts: MVT with ICD tx Performed By: #### L 500.2500, L100.0500, L501.5200, L501.9520 #### [facility] [address] [place], [address] MCHC (RBC) [Mass/Vol] 34.2 g/dL Normal 32-36 [facility] Comment on above: Order Comment: Comme nts: MVT with ICD tx Performed By: #### L 500.2500, L100.0500, L501.5200, L501.9520 #### [facility] [address] [place], [address] MCV (RBC) [Entitic vol] 93.6 fL Normal 80-94 [facility] Comment on above: Order Comment: Comme nts: MVT with ICD tx Performed By: #### L 500.2500, L100.0500, L501.5200, L501.9520 #### [facility] [address] [place], [address] Platelet mean volume (Bld) [Entitic vol] 12.1 fL High 6.2-12.0 [facility] Comment on above: Order Comment: Comme nts: MVT with ICD tx Performed By: #### L 500.2500, L100.0500, L501.5200, L501.9520 #### [facility] [address] [place], [address] Platelets (Bld) [#/Vol] 206 10*3/uL Normal 150-450 [facility] Comment on above: Order Comment: Comme nts: MVT with ICD tx Performed By: #### L 500.2500, L100.0500, L501.5200, L501.9520 #### [facility] [address] [place], [address] RBC (Bld) [#/Vol] 4.35 10*6/uL Low 4.6-6.2 [facility] Comment on above: Order Comment: Comme nts: MVT with ICD tx Performed By: #### L 500.2500, L100.0500, L501.5200, L501.9520 #### [facility] [address] [place], [address] RDW SD 40.7 fl Normal 35.1-43.9 [facility] Comment on above: Order Comment: Comme nts: MVT with ICD tx Performed By: #### L 500.2500, L100.0500, L501.5200, L501.9520 #### [facility] [address] [place], [address] WBC (Bld) [#/Vol] 6.2 10*3/uL Normal 4.4-11.0 [facility] Comment on above: Order Comment: Comme nts: MVT with ICD tx Performed By: #### L 500.2500, L100.0500, L501.5200, L501.9520 #### [facility] [address] [place], [address] Magnesiumon 03-22-2024 Magnesium [Mass/Vol] 2.0 mg/dL Normal 1.6-2.6 [facility] Comment on above: Order Comment: Reaso n for Exam: MVT with ICD tx Comments: MVT with ICD tx MVT with ICD tx Performed By: #### L 500.2500, L100.0500, L501.5200, L501.9520 #### [facility] [address] [place], [address] Thyroid Stim Hormone (TSH)on 03-22-2024 TSH 0.797 uIU/mL Normal 0.358-3.740 [facility] Comment on above: Order Comment: Reaso n for Exam: MVT with ICD tx Comments: MVT with ICD tx MVT with ICD tx Performed By: #### L 500.2500, L100.0500, L501.5200, L501.9520 #### [facility] [address] [place], [place], [id number] Stress Reporton 02-16-2024 Stress Report [facility] [address] [place] [address] MR#: [id number] Acct: [id number] Name: CASSIA PERAZA Rep #: [id number] : [id number] From: Madelaine Chen MD Primary Care: Dr. Magdy Alford MD Status: REG CLI Referring Dr: Anaya Tsang NATUROPATHIC PHYSICIAN NATUROPATHIC PHYSICIAN-C Sex: M C Stress Test Report Date: 02/13/2024 Procedure: Pharmacologic stress nuclear imaging study Indications: CABG Consent: Per the patient Procedure: The patient underwent pharmacologic (Regadenoson) evaluation with a peak heart rate of 71 beats per minute (46%predicted maximal heart rate) and a peak blood pressure of 152/82 mmHg. The baseline ECG demonstrated normal sinus rhythm. EKG during lexiscan infusion revealed no significant ischemic changes. EKG post infusion revealed no significant ischemic changes [There were no cardiac dysrhythmias pretest, during pharmacologic infusion, or recovery]. [There was no complaint of chest discomfort during pharmacologic infusion or recovery]. The examination was discontinued secondary to completion of protocol. Impression: 1. Lexiscan stress test test is negative for Lexiscan infusion induced EKG changes of ischemia. 2. Lexiscan stress test test is negative for Lexiscan infusion induced chest pain. 3. Results of the nuclear portion of the test is as below Myocardial perfusion imaging study: Technique: The patient was injected with 14.8 millicuries of technetium 99m Cardiolite and subsequently rest SPECT Cardiolite nuclear imaging was obtained in the horizontal long, vertical long, and short axis views. The patient underwent pharmacologic [Regadenoson 0.4mg] evaluation. Please see above for details. The patient was injected with 44.7 millicuries of technetium 99m Cardiolite and subsequently stress SPECT Cardiolite nuclear imaging was obtained in the horizontal long, vertical long, and short axis views. A gated Cardiolite study at peak stress was obtained. Interpretation: Rest and stress SPECT Cardiolite nuclear imaging status post realignment, normalization, and attenuation correction demonstrate fixed defect involving the inferior wall. There is no significa nt reversibility suggestive of significant ischemia. Gated images reveal hypokinesis of the septum and basal inferior wall. The reported LVEF is 44%. These findings are suggestive of prior inferior myocardial infarction with no evidence of ischemia. Impression: 1. There is no evidence of ischemia. Prior inferior myocardial infarction. 2. Estimated ejection fraction is 44% with wall motion abnormalities as described. This note was generated with [id number] dictation software. It may contain incorrect words, spelling, and punctuation that were not noted in checking the note before signing. 02/16/24 1113 Date Madelaine Chen MD CC: NATUROPATHIC PHYSICIANNico Tsang; Dr. Magdy Alford MD Date Dictated: 02/16/24 110 Date Transcribed: 02/16/241108 Nickel Plater: NN Signed Normal [facility] Echo Complete W/ Contraston 02-13-2024 Echo Complete W/ Contrast [facility] [address] [place] [address] Echo Complete W/ Contrast 02/13/24 0739 MR#: [id number] Acct: [id number] Name: STUCASSIA Luana Rep #: [id number] : 1955 68 From: Madelaine Chen MD Attending Dr: Anaya Tsang NP-C Status: REG C LI Ordering Dr: Anaya Tsang NP NATUROPATHIC PHYSICIAN-C Date: 02/13/24 Location: [facility] Sex: M C Admitted: Reason For Study: S/P CABG Procedure This was a 2D Doppler, Color Flow transthoracic echocardiogram. Exam performed in department. Left Ventricle Normal LV size. The estimated ejection fraction is 45-50 %. Diastolic function is indeterminate. Posterior-Basal: Hypokinetic. Right Ventricle Normal RV size. Normal systolic function. Atria The left and right atria are normal. No doppler evidence for ASD. Bubble contrast study negative for right to left interatrial shunt. Mitral Valve There is no mitral valve stenosis. Trivial mitral valve insufficiency. Tricuspid Valve There is no tricuspid stenosis. Unable to estimate RV systolic pressure due to insufficient tricuspid regurgitant envelope. Trivial tricuspid valve insufficiency. Aortic Valve Trisinus/trileaflet aortic valve. There is no aortic stenosis. No aortic valve insufficiency. Pulmonic Valve There is no pulmonic valvular stenosis. No pulmonic valve insufficiency. Great Vessels Normal aortic root. Pericardium/Pleural No pericardial effusion. Medication Diluted definity 2.0ml given slow IV push to enhance endocardial definition. Performed a rapid injection of agitated mix of 9 cc saline and 1cc air to assess for atrial septal defect. MMode/2D Measurements Calculations LVIDd: 6.1 cm IVSd: 1.3 cm Ao root diam: 4.0 cm LVIDs: 4.9 cm LVPWd: 1.2 cm RVDd: 3.5 cm FS: 19.3 % _ LAV(MOD-bp): 70.8 ml LVAd ap4: 42.1 cm2 LVAd ap2: 31.1 cm2 LAV(MOD-bp) Indexed: 31.0 ml/m2 LVLd ap4: 9.4 cm LVLd ap2: 8.4 cm LAV(MOD-sp2): 62.5 ml EDV(MOD-sp4): 155.9 ml EDV(MOD-sp2): 97.5 ml LAV(MOD-sp4): 76.2 ml EDV(sp4-el): 159.5 ml EDV(sp2-el): 98.2 ml LVAs ap4: 30.1 cm2 LVAs ap2: 21.6 cm2 LVLs ap4: 8.8 cm LVLs ap2: 7.9 cm ESV(MOD-sp4): 89.9 ml ESV(MOD-sp2): 49.5 ml ESV(sp4-el): 87.1 ml ESV(sp2-el): 50.0 ml EF(MOD-sp4): 42.3 % EF(MOD-sp2): 49.2 % EF(sp4-el): 45.4 % _ SV(MOD-sp4): 66.0 ml SV(MOD-sp2): 47.9 ml SV(sp4-el): 72.5 ml _ LA A4 area: 23.8 cm2 LA dimension(2D): 5.1 cm TAPSE: 2.1 cm Time Measurements MV dec time: 0.21 sec Doppler Measurements Calculations MV E max mode: 53.7 cm/sec Lat Peak E' Mode: 7.2 cm/sec MV V2 max: 74.0 cm/sec MV A max mode: 59.4 cm/sec E/E' lat: 7.5 MV max P.2 mmHg MV E/A: 0.90 MV V2 mean: 36.9 cm/sec MV mean P.63 mmHg MV V2 VTI: 20.5 cm _ Ao V2 max: 114.6 cm/sec LV V1 max: 73.8 cm/sec MV dec slope: 177.4 cm/sec2 Ao max P.3 mmHg LV V1 max P.2 mmHg Ao V2 mean: 81.3 cm/sec LV V1 mean P.3 mmHg Ao mean P.0 mmHg LV V1 mean: 54.9 cm/sec Ao V2 VTI: 28.8 cm LV V1 VTI: 18.9 cm AV (velocity ratio): 0.66 _ PA V2 max: 106.7 cm/sec TR max mode: 231.0 cm/sec PA V2 mean: 74.3 cm/sec TR max P.4 mmHg ECHO/Echo Complete W/ Contrast Interpretation Summary The estimated ejection fraction is 45-50 %. Diastolic function is indeterminate. Posterior-Basal: Hypokinetic Trivial mitral valve insufficiency. Ordering Physician: Anaya Tsang Referring Physician: Magdy Alford Performed By: Maria Antonia Hobson, [place], RVT 02/16/24 1230 Date Madelaine Chen MD CC: NATUROPATHIC PHYSICIAN-C Anaya Tsang; Dr. Magdy Alford MD Date Dictated: 02/13/2439 Date Transcribed: 02/16/241229 Nickel Plater: Signed Normal [facility] Laboratory - Hematology and Cell countson 02-10-2024 HbA1c (Bld) [Mass fraction] 8.6 % Abnormal 4.6 - 7.1 % [facility], [facility].; [facility], [facility]. 12 Lead EKG performed by [facility] on 02-03-2024 12 Lead EKG performed by [address] [address] 12 Lead EKG performed by [facility] 02/03/24808 MR#: [id number] Acct: [id number] Name: CASSIA PERAZA Rep #: [id number] : 1955 68 From: Anaya Tsang NP NATUROPATHIC PHYSICIAN-C Attending Dr: Anaya Tsang NATUROPATHIC PHYSICIAN-C Status: DEP A MB Ordering Dr: Anaya Tsang NATUROPATHIC PHYSICIAN NATUROPATHIC PHYSICIAN-C Date: 02/03/24 Location: [facility] Sex: M C Admitted: BMS/12 Lead EKG performed by [facility] ECG Report Interpretation ------Sinus Rhythm -Nonspecific QRS widening. -Old inferior infarct. ABNORMAL Electronically signed on 02/05/2024 at 15:54 by Renato Jacques Software Version [id number] 02/05/24 1557 Date Anaya Tsang NP NATUROPATHIC PHYSICIAN-C CC: Dr. Magdy Alford MD Date Dictated: 02/03/24808 Date Transcribed: 02/03/24808 Nickel Plater: KR Signed Normal [facility] Cardiology Visit Reporton Cardiology Visit Report [facility] [address] [place] [address] OFFICE VISIT Date of Service: 02/03/24 MR#: [id number] Acct: [id number] Name: CASSIA PERAZA Rep #: [id number] : 1955 Provider: GLORIA hendrix Age/Sex: 68/M Location: [facility] Status: Signed HPI HPI History of Present Illness Details: CASSIA PERAZA, is a 68 year old white male who presents to the office today for outpatient cardiovascular visit. He has a history of coronary artery disease status post bypass surgery with COLLADO to LAD, SVG to circumflex, and SVG to PDA, ischemic cardiomyopathy, paroxysmal ventricular tachycardia, status post ICD in February 2008 with generator change in June 2016, hypertension, and hyperlipidemia and now status post a V. fib event with subsequent ICD discharge with subsequent cardiovascular evaluation including diagnostic cardiac catheterization and adjustment of medications. He states diagnosed with COVID-19 in April 2020. From a cardiac standpoint, the patient is doing well. He does acknowledge occasional palpitations. He denies any chest pain, pressure or heaviness. He does have SOB with exertion-climbing stairs. This is nothing new or worsening. He denies Orthopnea, and PND. He does not have bleeding issues; no blood in urine, stool or nosebleeds. He does acknowledge a slight decrease in energy level. He denies myalgias, or claudication. He does have bilateral lower extremity edema-he does wear compression stockings. He denies sudden weight gain. He does have occasional lightheadedness with quick positional changes. He denies dizziness, syncopal or near syncopal episodes, and headaches. Intake Vital Signs 02/10/23 15:23 02/03/24 15:21 02/03/24 15:26 Height 5 ft 11 in 5 ft 11 in 5 ft 11 in Weight: 245 lb BMI 34.2 BP 128/78 H Blood Pressure Location Lt brachial Position Sitting Respiration 18 Pulse 66 Pulse Source Monitor Pulse Oximetry (%) 92 Intake Visit Reasons: OVERDUE FOR OV/LAST SEEN 02/15 Matting Press Tender Required: No Is patient in pain?: No Allergies iodine Allergy (Verified 02/03/24 15:28) Unknown latex Allergy (Verified 02/03/24 15:28) Unknown Medications ???Medication ???Instructions ???Recorded ???Confirmed ???Type cetirizine 10 mg capsule 10 mg PO DAILY 07/03/16 02/03/24 History hydrochlorothiazide 25 mg tablet 25 mg PO DAILY 07/03/16 02/03/24 History lisinopril 20 mg tablet 20 mg PO BID 07/03/16 02/03/24 History multivitamin 1 ea PO DAILY 07/03/16 02/03/24 History atorvastatin 40 mg tablet 40 mg PO DAILY 03/18/18 02/03/24 History diphenhydramine HCl 25 mg capsule 25 mg PO QHS PRN Congestion 03/18/18 02/03/24 History (Benadryl) potassium chloride 10 mEq 10 meq PO DAILY 03/18/18 02/03/24 History capsule,extended release aspirin 81 mg chewable tablet 81 mg PO DAILY ##1 08/10/18 02/03/24 Rx metoprolol tartrate 100 mg tablet 100 mg PO BID 06/21/21 02/03/24 History nitroglycerin 0.4 mg sublingual 0.4 mg sublingual Q5-15M PRN Chest 08/07/22 02/03/24 Rx tablet Pain #25 tabs clopidogrel 75 mg tablet 75 mg PO DAILY #90 tabs 12/30/22 02/03/24 Rx amiodarone 200 mg tablet (Pacerone) 200 mg PO DAILY #90 tabs 01/20/23 02/03/24 Rx Have you fallen in the past year?: No PFSH Medical History Hypercholesteremia Sinus bradycardia Ventricular fibrillation On amiodarone therapy AICD discharge Syncope History of myocardial infarction Essential hypertension Carotid bruit Hyperlipemia Atherosclerosis of coronary artery of [place] heart without angina pectoris Paroxysmal ventricular tachycardia Ischemic cardiomyopathy Surgical History History of left heart catheterization (08/10/18) Postsurgical percutaneous transluminal coronary angioplasty (PTCA) status ( 12/2007) History of tonsillectomy H/O coronary artery bypass surgery (12/26/07) Presence of implantable cardioverter-defibri llator (ICD) Social History alcohol intake: never substance use type: does not use ROS Const Const: Positive for fatigue; Negative for weakness, fever(s), headache(s), chills, frequent falls, weight gain or weight loss Eyes Eyes: Negative for blind spots, loss of peripheral vision, transient loss of vision, blurry vision, change in vision, double vision, floaters or tunnel vision ENT ENT: Negative for headache(s), dizziness, Nosebleed/epistaxis, balance problems or neck pain Cardio Chest Pain: No Palpitations: Yes (occasional) Edema: Bilateral (wears compression stockings) Muscle aches with walking: None Resp Respiratory: Positive for SOB with activity (climbing stairs-nothing new or worsening); (more content not included)... Normal [facility] Chest PA and Lateralon 02-02 Chest PA and Lateral [facility] Imaging Services [address] [place] [address] [id number] Chest PA and Lateral MR#: [id number] Acct: [id number] Name: CASSIA PERAZA Rep #: [id number] : 1955 M 68 From: Ben Chadwick MD PCP: Dr. Magdy Alford MD Status: [facility] Study: Chest PA and Lateral Date of Exam: 02/03/24 Exam# [id number] Ordering Dr: Anaya Tsang NP NATUROPATHIC PHYSICIAN- C [id number] STUDY: X-RAY CHEST REASON FOR EXAM: Male, 68 years old. Amiodarone therapy. Evaluate for interstitial changes. TECHNIQUE: Frontal and lateral views of the chest. COMPARISON: August 07, 2022 FINDINGS: The lungs are clear and expanded. There is no demonstrated pleural abnormality. Stable cardiomegaly with dual lead cardiac pacer and sternotomy wires. Normal mediastinum and kimberly. Normal visualized pulmonary arteries. Aortic tortuosity with calcification unchanged. Normal visualized thoracic spine. Normal visualized ribs, clavicles, and shoulders. No abnormality of the visualized soft tissue structures of the upper abdomen. RAD/Chest PA and Lateral IMPRESSION: Stable cardiomegaly with no evidence of interstitial changes. Electronically Signed: Ben Chadwick MD at 11:08 EDT Reading Location ID and State: [facility] / [place] , Service support , CC: GLORIA Tsang; Dr. Magdy Alford MD Nickel Plater: Signed Normal [facility] Pacemaker Checkon 12-30-2023 Pacemaker Check [facility] [address] [place], [place] [address]. [address] [place] [address] Pacemaker Check Date of Service: 12/30/23 171 MR#: [id number] Acct: [id number] Name: CASSIA PERAZA Rep #: [id number] : 1955 From: Danelle Khan Age/Sex: 68/M Location: [facility] Status: Signed Billing Codes ICD Device Billing: ICD Dev Prog Eval, Dual Assessment and Plan Assessment and Plan (1) Sinus bradycardia: Status: Acute (2) Ventricular fibrillation: Status: Resolved (3) Paroxysmal ventricular tachycardia: Status: Chronic (4) Ischemic cardiomyopathy: Status: Chronic (5) Presence of implantable cardioverter-defibri llator (ICD): Status: Chronic Comment: Implantation 02/2008; ICD gen change 07/04/16 12/30/23 171 Date Danelle Khan Ericignglo Signature: Date (if applicable) CC: Normal [facility] Laboratory - Chemistry and C hemistry - challengeon 07-22-2023 Albumin [Mass/Vol] 4.7 g/dL Normal 3.6 - 5.1 g/dL [facility]; [facility], [facility] Albumin/Globulin [Mass ratio] 2.0 {ratio} Normal 1.0 - 2.5 [facility]; [facility], [facility] ALP [Catalytic activity/Vol] 74 U/L Normal 35 - 144 U/L [facility].; [facility], [facility] ALT [Catalytic activity/Vol] 25 U/L Normal 9 - 46 U/L [facility].; [facility], [facility] AST [Catalytic activity/Vol] 16 U/L Normal 10 - 35 U/L [facility], [facility] Bilirubin [Mass/Vol] 0.6 mg/dL Normal 0.2 - 1 .2 mg/dL [facility].; [facility], [facility] Calcium [Mass/Vol] 9.6 mg/dL Normal 8.6 - 10. 3 mg/dL [facility].; [facility], [facility] Chloride [Moles/Vol] 101 mmol/L Normal 98 - 11 0 mmol/L [facility].; [facility], [facility]. Cholesterol [Mass/Vol] 168 mg/dL Normal [facility].; [facility], [facility]. Cholesterol in HDL [Mass/Vol] 52 mg/dL Normal [facility].; [facility], [facility]. Cholesterol in LDL [Mass/Vol] 91 mg/dL Normal [facility].; [facility], [facility]. CO2 [Moles/Vol] 28 mmol/L Normal 20 - 32 mmol/L [facility].; [facility], [facility]. Creatinine [Mass/Vol] 1.04 mg/dL Normal 0.70 - 1.35 mg/dL [facility].; [facility], [facility]. GFR/1.73 sq M.predicted among non-blacks MDRD (S/P/Bld) [Vol rate/Area] 79 mL/min/{1.73_m2} Normal [facility].; [facility] Glucose [Mass/Vol] 180 mg/dL Abnormal 65 - 99 mg/dL [facility]; [facility], [facility] Potassium [Moles/Vol] 4.2 mmol/L Normal 3.5 - 5.3 mmol/L [facility]; [facility], [facility] Protein [Mass/Vol] 7.1 g/dL Normal 6.1 - 8.1 g/dL [facility]; [facility] Sodium [Moles/Vol] 141 mmol/L Normal 135 - 146 mmol/L [facility]; [facility] Triglyceride [Mass/Vol] 155 mg/dL Abnormal [facility]; [facility] Urea nitrogen [Mass/Vol] 19 mg/dL Normal 7 - 25 mg/dL [facility]; [facility] Laboratory - Hematology and Cell countson 07-22-2023 HbA1c (Bld) [Mass fraction] 8.5 % Abnormal [facility]; [facility], [facility] No Panel Informationon 07-22 BUN/CREATININE RATIO SEE NOTE: Normal 6 - 22 [facility]; [facility], [facility] CHOL/HDLC RATIO 3.[address] [facility]; [facility], [facility] GLOBULIN 2.4 Normal 1.9 - 3.7 [facility]; [facility], [facility] NON HDL CHOLESTEROL 116 Normal [facility]; [facility] PSA, TOTAL 1.35 ng/mL Normal [facility]; [facility], [facility] Laboratory - Hematology and Cell countson 01-21-2023 HbA1c (Bld) [Mass fraction] 8.2 % Abnormal 4.6 - 7.1 % [facility]; [facility] Laboratory - Chemistry and C hemistry - challengeon 07-15-2022 Albumin [Mass/Vol] 4.4 g/dL Normal 3.6 - 5.1 g/dL [facility]; [facility], [facility] Albumin/Globulin [Mass ratio] 1.7 {ratio} Normal 1.0 - 2.5 [facility].; [facility], [facility]. ALP [Catalytic activity/Vol] 70 U/L Normal 35 - 144 U/L [facility].; [facility], [facility]. ALT [Catalytic activity/Vol] 24 U/L Normal 9 - 46 U/L [facility], [facility].; [facility], [facility]. AST [Catalytic activity/Vol] 18 U/L Normal 10 - 35 U/L [facility].; [facility], [facility]. Bilirubin [Mass/Vol] 0.4 mg/dL Normal 0.2 - 1 .2 mg/dL [facility], [facility].; [facility], [facility]. Calcium [Mass/Vol] 9.4 mg/dL Normal 8.6 - 10. 3 mg/dL [facility].; [facility], [facility]. Chloride [Moles/Vol] 102 mmol/L Normal 98 - 11 0 mmol/L [facility].; [facility], [facility]. Cholesterol [Mass/Vol] 174 mg/dL Normal [facility].; [facility], [facility]. Cholesterol in HDL [Mass/Vol] 58 mg/dL Normal [facility], [facility].; [facility], [facility]. Cholesterol in LDL [Mass/Vol] 95 mg/dL Normal [facility], [facility].; [facility], [facility]. CO2 [Moles/Vol] 26 mmol/L Normal 20 - 32 mmol/L [facility].; [facility], [facility]. Creatinine [Mass/Vol] 0.96 mg/dL Normal 0.70 - 1.35 mg/dL [facility], [facility].; [facility], [facility]. GFR/1.73 sq M.predicted among non-blacks MDRD (S/P/Bld) [Vol rate/Area] 87 mL/min/{1.73_m2} Normal [facility], [facility].; [facility] Glucose [Mass/Vol] 177 mg/dL Abnormal 65 - 99 mg/dL [facility].; [facility], [facility] Potassium [Moles/Vol] 4.0 mmol/L Normal 3.5 - 5.3 mmol/L [facility].; [facility] Protein [Mass/Vol] 7.0 g/dL Normal 6.1 - 8.1 g/dL [facility]; [facility] Sodium [Moles/Vol] 142 mmol/L Normal 135 - 146 mmol/L [facility]; [facility] Triglyceride [Mass/Vol] 117 mg/dL Normal [facility]; [facility] Urea nitrogen [Mass/Vol] 20 mg/dL Normal 7 - 25 mg/dL [facility]; [facility] Laboratory - Hematology and Cell countson 07-15-2022 HbA1c (Bld) [Mass fraction] 8.4 % Abnormal [facility]; [facility] No Panel Informationon 07-15 BUN/CREATININE RATIO NOT APPLICABLE Normal 6 - [facility]; [facility] CHOL/HDLC RATIO 3.[address] [facility]; [facility] GLOBULIN 2.6 Normal 1.9 - 3.7 [facility]; [facility] NON HDL CHOLESTEROL 116 Normal [facility]; [facility] PSA, TOTAL 1.80 ng/mL Normal [facility]; [facility] Laboratory - Hematology and Cell countson 02-01-2022 Basophils (Bld) [#/Vol] 0.079 10*3/uL Normal 0 - 200 {cells/uL} [facility]; [facility] Basophils/100 WBC (Bld) 1.2 % Normal [facility]; [facility] Eosinophils (Bld) [#/Vol] 0.238 10*3/uL Normal 15 - 500 {cells/uL} [facility].; [facility], [facility] Eosinophils/100 WBC (Bld) 3.6 % Normal [facility]; [facility] Erythrocyte distribution width (RBC) [Ratio] 11.9 % Normal 11.0 - 15.0 % [facility]; [facility], [facility]. Hematocrit (Bld) [Volume fraction] 41.4 % Normal 38.5 - 50.0 % [facility], [facility].; [facility], [facility]. Hemoglobin (Bld) [Mass/Vol] 14.2 g/dL Normal 13.2 - 17.1 g/dL [facility], [facility].; [facility], [facility]. Lymphocytes (Bld) [#/Vol] 1.683 10*3/uL Normal 850 - 3900 {cells/uL} [facility], [facility].; [facility] Lymphocytes/100 WBC (Bld) 25.5 % Normal [facility], [facility].; [facility], [facility]. MCH (RBC) [Entitic mass] 31.1 pg Normal 27.0 - 33.0 pg [facility] [facility], [facility]. MCHC (RBC) [Mass/Vol] 34.3 g/dL Normal 32.0 - 36.0 g/dL [facility], [facility].; [facility] [employer] MCV (RBC) [Entitic vol] 90.6 fL Normal 80.0 - 100.0 fL [facility], [facility].; [facility], [facility]. Monocytes (Bld) [#/Vol] 0.759 10*3/uL Normal 200 - 950 {cells/uL} [facility] [employer] Monocytes/100 WBC (Bld) 11.5 % Normal [facility], [facility].; [facility] Neutrophils (Bld) [#/Vol] 3.841 10*3/uL Normal 1500 - 7800 {cells/uL} [facility], [facility].; [employer] Neutrophils/100 WBC (Bld) 58.2 % Normal [facility], [facility].; [employer] Platelet mean volume (Bld) [Entitic vol] 11.5 fL Normal 7.5 - 12.5 fL [facility], [facility].; [employer] Platelets (Bld) [#/Vol] 224 10*3/uL Normal 140 - 400 [facility].; [facility] RBC (Bld) [#/Vol] 4.57 10*6/uL Normal 4.20 - 5.8 0 {Million/uL} [facility]; [facility] WBC (Bld) [#/Vol] 6.6 10*3/uL Normal 3.8 - 10.8 [facility]; [facility] Laboratory - Hematology and Cell countson 01-08-2022 HbA1c (Bld) [Mass fraction] 6.7 % Normal 4.6 - 7.1 % [facility]; [facility] Laboratory - Microbiology an d Antimicrobial susceptibilityon 12-17-2021 SARS-CoV-2 (COVID-19) RNA ARVIND+probe Ql (Unsp spec) Detected Abnormal [facility]; [facility] Laboratory - Hematology and Cell countson 07-16-2021 HbA1c (Bld) [Mass fraction] 7.4 % Abnormal 4.6 - 7.1 % [facility]; [facility] Laboratory - Hematology and Cell countson 01-22-2021 HbA1c (Bld) [Mass fraction] 7.2 % Abnormal 4.6 - 7.1 % [facility]; [facility] Laboratory - Chemistry and C hemistry - challengeon 01-08-2021 Albumin [Mass/Vol] 4.5 g/dL Normal 3.6 - 5.1 g/dL [facility]; [facility] Albumin/Globulin [Mass ratio] 1.6 {ratio} Normal 1.0 - 2.5 [facility]; [facility] ALP [Catalytic activity/Vol] 70 U/L Normal 35 - 144 U/L [facility]; [facility] ALT [Catalytic activity/Vol] 20 U/L Normal 9 - 46 U/L [facility]; [facility] AST [Catalytic activity/Vol] 16 U/L Normal 10 - 35 U/L [facility]; [facility] Bilirubin [Mass/Vol] 0.4 mg/dL Normal 0.2 - 1 .2 mg/dL [facility], [facility].; [facility], [facility]. Calcium [Mass/Vol] 9.5 mg/dL Normal 8.6 - 10. 3 mg/dL [facility], [facility].; [facility], [facility]. Chloride [Moles/Vol] 103 mmol/L Normal 98 - 11 0 mmol/L [facility], [facility].; [facility], [facility]. Cholesterol [Mass/Vol] 160 mg/dL Normal [facility], [facility].; [facility], [facility]. Cholesterol in HDL [Mass/Vol] 54 mg/dL Normal [facility], [facility].; [facility], [facility]. Cholesterol in LDL [Mass/Vol] 86 mg/dL Normal [facility], [facility].; [facility], [facility]. CO2 [Moles/Vol] 28 mmol/L Normal 20 - 32 mmol/L [facility], [facility].; [facility], [facility]. Creatinine [Mass/Vol] 1.07 mg/dL Normal 0.70 - 1.25 mg/dL [facility], [facility].; [facility], [facility]. GFR/1.73 sq M.predicted among blacks MDRD (S/P/Bld) [Vol rate/Area] 85 mL/min/{1.73_m2} Normal [facility], [facility].; [facility], [facility]. Glucose [Mass/Vol] 142 mg/dL Abnormal 65 - 99 mg/dL [facility].; [facility], [facility]. Potassium [Moles/Vol] 3.9 mmol/L Normal 3.5 - 5.3 mmol/L [facility], [facility].; [facility], [facility]. Protein [Mass/Vol] 7.3 g/dL Normal 6.1 - 8.1 g/dL [facility], [facility].; [facility], [facility]. Sodium [Moles/Vol] 140 mmol/L Normal 135 - 146 mmol/L [facility], [facility].; [facility] Triglyceride [Mass/Vol] 102 mg/dL Normal [facility], [facility].; [facility] Urea nitrogen [Mass/Vol] 20 mg/dL Normal 7 - 25 mg/dL [facility], [facility].; [employer] [employer] No Panel Informationon 01-08 BUN/CREATININE RATIO NOT APPLICABLE Normal 6 - 22 [facility]; [facility] CHOL/HDLC RATIO 3.[address] [facility]; [facility] eGFR NON-AFR. NAMIBIAN [address] [facility]; [facility] GLOBULIN 2.8 Normal 1.9 - 3.7 [facility]; [facility] NON HDL CHOLESTEROL 106 Normal [facility]; [facility] Laboratory - Chemistry and C hemistry - challengeon 07-04-2020 Albumin/Creatinine DL <= 20 mg/L (U) [Mass ratio] mg/g Normal [facility]; [facility] Creatinine (U) [Mass/Vol] 200 mg/dL Normal [facility]; [facility] Laboratory - Hematology and Cell countson 07-04-2020 HbA1c (Bld) [Mass fraction] 6.8 % Normal 4.6 - 7.1 % [facility]; [facility] Laboratory - Urinalysison Protein Ql (U) Negative Normal [facility]; [facility] Coronavirus 2019on 0 COVID 19 Result NATUROPATHIC PHYSICIAN Abnormal Negative for COVID19 (SARS CoV2) by PCR. [facility] Comment on above: Result Comment: Posi tive for This test was developed and its performance characteristics determined by [facility] [place]. This test has been authorized by FDA [...] developed and its performance characteristics determined by [facility] [place]. This test has been authorized by FDA [...] developed and its performance characteristics determined by [facility] [place]. This test has been authorized by FDA [...] developed and its performance characteristics determined by [facility] [place]. This test has been authorized by FDA [...] 2019. Performed By: #### C OVID #### [facility] Routine Lab [address] [id number] COVID 19 Source NATUROPATHIC PHYSICIAN Normal [facility] Comment on above: Result Comment: Naso pharyngeal Corrected on 05/18 AT 0028: Previously reported as NASOPHARYNGEAL Swab Corrected on 05/18 AT 0028: Previously reported as NASOPHARYNGEAL Performed By: #### C OVID #### [facility] Routine Lab [address] [id number] Laboratory - Chemistry and C hemistry - challengeon 12-06-2019 Albumin [Mass/Vol] 4.4 g/dL Normal 3.6 - 5.1 g/dL [facility], [facility].; [facility], [facility] Albumin/Globulin [Mass ratio] 2.0 {ratio} Normal 1.0 - 2.5 [facility], [facility]; [facility], [facility]. ALP [Catalytic activity/Vol] 69 U/L Normal 35 - 144 U/L [facility].; [facility] ALT [Catalytic activity/Vol] 22 U/L Normal 9 - 46 U/L [facility], [facility].; [facility], [facility]. AST [Catalytic activity/Vol] 19 U/L Normal 10 - 35 U/L [facility].; [facility], [facility]. Bilirubin [Mass/Vol] 0.4 mg/dL Normal 0.2 - 1 .2 mg/dL [facility].; [facility], [facility]. Calcium [Mass/Vol] 9.7 mg/dL Normal 8.6 - 10. 3 mg/dL [facility].; [facility], [facility]. Chloride [Moles/Vol] 102 mmol/L Normal 98 - 11 0 mmol/L [facility].; [facility], [facility]. Cholesterol [Mass/Vol] 152 mg/dL Normal [facility], [facility].; [facility], [facility] Cholesterol in HDL [Mass/Vol] 48 mg/dL Normal [facility].; [facility], [facility]. Cholesterol in LDL [Mass/Vol] 83 mg/dL Normal [facility].; [facility], [facility]. CO2 [Moles/Vol] 27 mmol/L Normal 20 - 32 mmol/L [facility].; [facility], [facility]. Creatinine [Mass/Vol] 1.15 mg/dL Normal 0.70 - 1.25 mg/dL [facility], [facility].; [facility], [facility]. GFR/1.73 sq M.predicted among blacks MDRD (S/P/Bld) [Vol rate/Area] 78 mL/min/{1.73_m2} Normal [facility], [facility].; [facility], [facility]. Glucose [Mass/Vol] 136 mg/dL Abnormal 65 - 99 mg/dL [facility].; [facility], [facility]. Potassium [Moles/Vol] 3.9 mmol/L Normal 3.5 - 5.3 mmol/L [facility], [facility].; [facility], [facility]. Protein [Mass/Vol] 6.6 g/dL Normal 6.1 - 8.1 g/dL [facility].; [facility] Sodium [Moles/Vol] 139 mmol/L Normal 135 - 146 mmol/L [facility]; [facility] Triglyceride [Mass/Vol] 118 mg/dL Normal [facility]; [facility] Urea nitrogen [Mass/Vol] 17 mg/dL Normal 7 - 25 mg/dL [facility]; [facility] Laboratory - Hematology and Cell countson 12-06-2019 HbA1c (Bld) [Mass fraction] 7.4 % Abnormal [facility]; [facility] No Panel Informationon 12-05 BUN/CREATININE RATIO NOT APPLICABLE Normal 6 - 22 [facility]; [facility] CHOL/HDLC RATIO 3.[address] [facility]; [facility] eGFR NON-AFR. NAMIBIAN [address] [facility]; [facility] GLOBULIN 2.2 Normal 1.9 - 3.7 [facility]; [facility] NON HDL CHOLESTEROL 104 Normal [facility]; [facility] PSA, TOTAL 1.7 ng/mL Normal [facility]; [facility] Laboratory - Hematology and Cell countson 02-12-2019 HbA1c (Bld) [Mass fraction] 6.8 % Normal 4.6 - 7.1 % [facility]; [facility] Laboratory - Chemistry and C hemistry - challengeon 08-07-2018 Prostate specific Ag [Mass/Vol] 4.5 ng/mL Abnormal [facility]; [facility] [employer] [address] [address] [facility]. Laboratory - Hematology and Cell countson 08-07-2018 HbA1c (Bld) [Mass fraction] 7.5 % Abnormal 0 - 5.6 % [facility]; [facility]. Laboratory - Chemistry and C hemistry - challengeon 01-05-2018 Albumin [Mass/Vol] 4.4 g/dL Normal 3.4 - 4.8 g/dL [facility]; [employer] [employer], [facility] Albumin [Mass/Vol] 1.6 g/dL Normal 0.9 - 1.6 [facility]; [facility]. ALP [Catalytic activity/Vol] 64 U/L Normal 38 - 126 U/L [facility]; [facility]. ALT [Catalytic activity/Vol] 20 U/L Normal 10 - 40 U/L [facility].; [facility] ALT No additional P-5'-P [Catalytic activity/Vol] 20 U/L Normal 10 - 40 U/L [facility]; [facility]. Anion gap [Moles/Vol] 12 mmol/L Normal 10 - 20 mmol/L [facility]; [facility]. AST [Catalytic activity/Vol] 17 U/L Normal 13 - 39 U/L [facility]; [facility]. Bilirubin [Mass/Vol] 0.6 mg/dL Normal 0.0 - 1 .5 mg/dL [facility]; [facility], [facility]. Calcium [Mass/Vol] 9.5 mg/dL Normal 8.6 - 10. 2 mg/dL [facility]; [facility], [facility]. Chloride [Moles/Vol] 102 mmol/L Normal 98 - 10 7 mmol/L [facility]; [facility], [facility]. Cholesterol [Mass/Vol] 126 mg/dL Normal 0 - 200 mg/dL [facility]; [facility], [facility]. Cholesterol in HDL [Mass or moles/Vol] 37 mg/dL Abnormal 40 - 60 mg/dL [facility]; [facility]. Cholesterol in LDL [Mass/Vol] 72 mg/dL Normal 0 - 129 mg/dL [facility].; [facility], [facility] Cholesterol.total/Cho lesterol in HDL [Mass ratio] 3.4 {ratio} Normal 0.0 - 5.0 [facility]; [facility], [facility]. CO2 [Moles/Vol] 28.4 mmol/L Normal 21.0 - 31.0 mmol/L [facility]; [facility], [facility] Comprehensive metabolic 2000 panel CMP with eGFR Normal [facility]; [facility], [facility] Creatinine [Mass/Vol] 1.0 mg/dL Normal 0.7 - 1.3 mg/dL [facility].; [facility], [facility]. GFR/1.73 sq M.predicted among blacks MDRD (S/P/Bld) [Vol rate/Area] mL/min/{1.73_m2} Normal 60 - 999 {ML/MINUTE} [facility], [facility].; [facility], [facility]. GFR/1.73 sq M.predicted MDRD (S/P/Bld) [Vol rate/Area] mL/min/{1.73_m2} Normal 60 - 999 {ML/MINUTE} [facility], [facility].; [facility], [facility]. Globulin (S) [Mass/Vol] 2.7 g/dL Normal 1.5 - 3.8 g/dL [facility], [facility].; [facility], [facility] Glucose [Mass/Vol] 118 mg/dL Abnormal 74 - 106 mg/dL [facility].; [facility], [facility]. Lipid 1996 panel LIPID PROFILE Normal [facility]; [facility], [facility] Potassium [Moles/Vol] 3.6 mmol/L Normal 3.5 - 5.1 mmol/L [facility].; [facility], [facility]. Protein [Mass/Vol] 7.1 g/dL Normal 6.4 - 8.3 g/dL [facility].; [facility], [facility] Sodium [Moles/Vol] 139 mmol/L Normal 136 - 145 mmol/L [facility], [facility].; [facility] [employer] [place], [facility]. Triglyceride [Mass/Vol] 87 mg/dL Normal 0 - 150 mg/dL [facility], [facility].; [employer], [facility]. Urea nitrogen [Mass/Vol] 18 mg/dL Normal 6 - 20 mg/dL [facility], [facility].; [facility], [facility]. Urea nitrogen/Creatinine [Mass ratio] 18 {ratio} Normal 0 - 30 {ratio} [facility], [facility].; [employer], [facility]. Laboratory - Hematology and Cell countson 01-05-2018 HbA1c (Bld) [Mass fraction] 7.0 % Abnormal 4.4 - 6.4 % [email or web address]. Work Phone: No Panel Informationon 01-05 AGE 62 {years} Normal [email or web address]. Laboratory - Hematology and Cell countson 06-20-2017 HbA1c (Bld) [Mass fraction] 7.5 % Abnormal 4.6 - 7.1 % [employer] Laboratory - Chemistry and C hemistry - challengeon 12-10-2016 Albumin/Creatinine DL <= 20 mg/L (U) [Mass ratio] mg/g Normal [employer] Creatinine (U) [Mass/Vol] 50 mg/dL Normal [employer].; [employer]. Laboratory - Hematology and Cell countson 12-10-2016 HbA1c (Bld) [Mass fraction] 7.5 % Abnormal 4.6 - 7.1 % [email or web address]. Laboratory - Urinalysison Protein Ql (U) 10 mg/dL [facility] [email or web address]. Laboratory - Hematology and Cell countson 08-20-2016 HbA1c (Bld) [Mass fraction] 8.4 % Abnormal 4.6 - 7.1 % [employer] Laboratory - Chemistry and C hemistry - challengeon 05-21-2016 Albumin [Mass/Vol] 4.0 g/dL Normal 3.6 - 5.1 g/dL [facility].; [employer], [employer]. Albumin/Globulin [Mass ratio] 1.7 {ratio} Normal 1.0 - 2.5 [employer]. ALP [Catalytic activity/Vol] 88 U/L Normal 40 - 115 U/L [facility] [address] [facility].; [employer], [employer]. ALT [Catalytic activity/Vol] 48 U/L Abnormal 9 - 46 U/L [employer]. AST [Catalytic activity/Vol] 27 U/L Normal 10 - 35 U/L [facility].; [facility], [facility]. Bilirubin [Mass/Vol] 0.5 mg/dL Normal 0.2 - 1 .2 mg/dL [facility].; [facility], [facility] Calcium [Mass/Vol] 9.1 mg/dL Normal 8.6 - 10. 3 mg/dL [facility].; [facility], [facility] Chloride [Moles/Vol] 101 mmol/L Normal 98 - 11 0 mmol/L [facility].; [facility], [facility]. Cholesterol [Mass/Vol] 162 mg/dL Normal 125 - 200 mg/dL [facility]; [facility], [facility] Cholesterol in HDL [Mass/Vol] 38 mg/dL Abnormal [facility]; [facility], [facility]. Cholesterol in LDL [Mass/Vol] 86 mg/dL Normal [facility]; [facility], [facility] Cholesterol non HDL [Mass/Vol] 123 mg/dL Normal [facility].; [facility], [facility] Cholesterol.total/Cho lesterol in HDL [Mass ratio] 4.3 {ratio} Normal [facility]; [facility] CO2 [Moles/Vol] 26 mmol/L Normal 20 - 31 mmol/L [facility]; [facility], [facility]. Creatinine [Mass/Vol] 0.99 mg/dL Normal 0.70 - 1.33 mg/dL [facility], [facility].; [facility], [facility]. GFR/1.73 sq M.predicted among blacks MDRD (S/P/Bld) [Vol rate/Area] 96 {ML/MIN/1.73M2} Normal [facility].; [facility], [facility]. GFR/1.73 sq M.predicted MDRD (S/P/Bld) [Vol rate/Area] 83 {ML/MIN/1.73M2} Normal [facility], [facility].; [facility], [facility] Globulin (S) [Mass/Vol] 2.3 g/dL Normal 1.9 - 3.7 g/dL [facility].; [facility] [employer] Glucose [Mass/Vol] 302 mg/dL Abnormal 65 - 99 mg/dL [facility].; [facility], [facility] Potassium [Moles/Vol] 3.7 mmol/L Normal 3.5 - 5.3 mmol/L [facility].; [facility], [facility] Protein [Mass/Vol] 6.3 g/dL Normal 6.1 - 8.1 g/dL [facility]; [facility], [facility] Sodium [Moles/Vol] 137 mmol/L Normal 135 - 146 mmol/L [facility]; [facility], [facility] Triglyceride [Mass/Vol] 189 mg/dL Abnormal [facility]; [facility], [facility] Urea nitrogen [Mass/Vol] 18 mg/dL Normal 7 - 25 mg/dL [facility]; [facility], [facility] Urea nitrogen/Creatinine [Mass ratio] 18.3 mg/mg Normal 6 - 22 [facility]; [facility], [facility] Laboratory - Chemistry and C hemistry - challengeon 05-02-2015 Albumin [Mass/Vol] 4.5 g/dL Normal 3.6 - 5.1 g/dL [facility]; [facility], [facility] Albumin/Globulin [Mass ratio] 1.9 {ratio} Normal 1.0 - 2.5 [facility]; [facility], [facility] ALP [Catalytic activity/Vol] 94 U/L Normal 40 - 115 U/L [facility].; [facility], [facility]. ALT [Catalytic activity/Vol] 44 U/L Normal 9 - 46 U/L [facility].; [facility], [facility]. AST [Catalytic activity/Vol] 27 U/L Normal 10 - 35 U/L [facility], [facility].; [facility], [facility]. Bilirubin [Mass/Vol] 0.4 mg/dL Normal 0.2 - 1 .2 mg/dL [facility], [facility].; [facility], [facility] Calcium [Mass/Vol] 9.2 mg/dL Normal 8.6 - 10. 3 mg/dL [facility].; [facility], [facility]. Chloride [Moles/Vol] 102 mmol/L Normal 98 - 11 0 mmol/L [facility].; [facility], [facility]. Cholesterol [Mass/Vol] 164 mg/dL Normal 125 - 200 mg/dL [facility], [facility].; [facility], [facility]. Cholesterol in HDL [Mass/Vol] 40 mg/dL Normal [facility].; [facility], [facility] Cholesterol in LDL [Mass/Vol] 84 mg/dL Normal [facility].; [facility], [facility]. Cholesterol non HDL [Mass/Vol] 124 mg/dL Normal [facility], [facility].; [facility], [facility]. Cholesterol.total/Cho lesterol in HDL [Mass ratio] 4.1 {ratio} Normal [facility]; [facility], [facility] CO2 [Moles/Vol] 24 mmol/L Normal 19 - 30 mmol/L [facility], [facility].; [facility], [facility]. Creatinine [Mass/Vol] 1.01 mg/dL Normal 0.70 - 1.33 mg/dL [facility], [facility].; [facility], [facility]. GFR/1.73 sq M.predicted among blacks MDRD (S/P/Bld) [Vol rate/Area] 95 {ML/MIN/1.73M2} Normal [facility], [facility].; [facility], [facility]. GFR/1.73 sq M.predicted MDRD (S/P/Bld) [Vol rate/Area] 82 {ML/MIN/1.73M2} Normal [facility], [facility].; [facility], [facility] Globulin (S) [Mass/Vol] 2.4 g/dL Normal 1.9 - 3.7 g/dL [facility], [facility].; [facility], [facility]. Glucose [Mass/Vol] 249 mg/dL Abnormal 65 - 99 mg/dL [facility].; [facility], [facility]. Potassium [Moles/Vol] 3.6 mmol/L Normal 3.5 - 5.3 mmol/L [facility], [facility].; [facility], [facility] Protein [Mass/Vol] 6.9 g/dL Normal 6.1 - 8.1 g/dL [facility].; [facility], [facility]. Sodium [Moles/Vol] 139 mmol/L Normal 135 - 146 mmol/L [facility].; [facility], [facility]. Triglyceride [Mass/Vol] 199 mg/dL Abnormal [facility].; [facility], [facility]. Urea nitrogen [Mass/Vol] 19 mg/dL Normal 7 - 25 mg/dL [facility].; [facility], [facility] Urea nitrogen/Creatinine [Mass ratio] 18.7 mg/mg Normal 6 - 22 [facility].; [facility], [facility] Laboratory - Chemistry and C hemistry - challengeon 09-16-2013 ALT [Catalytic activity/Vol] 30 U/L Normal 9 - 46 U/L [facility].; [facility], [facility]. Cholesterol [Mass/Vol] 163 mg/dL Normal 125 - 200 mg/dL [facility].; [facility], [facility]. Cholesterol in HDL [Mass/Vol] 49 mg/dL Normal [facility].; [facility], [facility]. Cholesterol in LDL [Mass/Vol] 85 mg/dL Normal [facility].; [facility]. Cholesterol non HDL [Mass/Vol] 114 mg/dL Normal [facility].; [facility]. Cholesterol.total/Cho lesterol in HDL [Mass ratio] 3.3 {ratio} Normal [facility].; [facility]. Triglyceride [Mass/Vol] 144 mg/dL Normal [facility].; [facility], [facility]. Laboratory - Chemistry and C hemistry - challengeon 02-18-2012 Albumin [Mass/Vol] 4.4 g/dL Normal 3.6 - 5.1 g/dL [facility].; [facility], [facility]. Albumin/Globulin [Mass ratio] 1.7 {ratio} Normal 1.0 - 2.1 [facility].; [facility], [facility]. ALP [Catalytic activity/Vol] 74 U/L Normal 40 - 115 U/L [facility].; [facility], [facility]. ALT [Catalytic activity/Vol] 24 U/L Normal 9 - 60 U/L [facility].; [facility], [facility]. AST [Catalytic activity/Vol] 20 U/L Normal 10 - 35 U/L [facility].; [facility], [facility]. Bilirubin [Mass/Vol] 0.3 mg/dL Normal 0.2 - 1 .2 mg/dL [facility].; [facility] [place] [facility] Calcium [Mass/Vol] 9.5 mg/dL Normal 8.6 - 10. 3 mg/dL [facility].; [facility], [facility]. Chloride [Moles/Vol] 106 mmol/L Normal 98 - 11 0 mmol/L [facility].; [facility]. Cholesterol [Mass/Vol] 206 mg/dL Abnormal 125 - 200 mg/dL [facility].; [facility], [facility]. Cholesterol in HDL [Mass/Vol] 41 mg/dL Normal [facility].; [facility]. Cholesterol in LDL [Mass/Vol] 131 mg/dL Abnormal [facility].; [facility] Cholesterol non HDL [Mass/Vol] 165 mg/dL Normal [facility].; [facility]. Cholesterol.total/Cho lesterol in HDL [Mass ratio] 5.0 {ratio} Normal [facility].; [facility]. CO2 [Moles/Vol] 24 mmol/L Normal 21 - 33 mmol/L [facility].; [facility]. Creatinine [Mass/Vol] 0.92 mg/dL Normal 0.70 - 1.33 mg/dL [facility].; [facility], [facility]. GFR/1.73 sq M.predicted among blacks MDRD (S/P/Bld) [Vol rate/Area] 108 {ML/MIN/1.73M2} Normal [facility], [facility].; [facility], [facility]. GFR/1.73 sq M.predicted MDRD (S/P/Bld) [Vol rate/Area] 93 {ML/MIN/1.73M2} Normal [facility].; [facility] [employer] Globulin (S) [Mass/Vol] 2.5 g/dL Normal 2.1 - 3.7 g/dL [facility]; [facility], [facility] Glucose [Mass/Vol] 136 mg/dL Abnormal 65 - 99 mg/dL [facility].; [facility], [facility]. Potassium [Moles/Vol] 4.1 mmol/L Normal 3.5 - 5.3 mmol/L [facility]; [facility], [facility] Protein [Mass/Vol] 6.9 g/dL Normal 6.2 - 8.3 g/dL [facility]; [facility], [facility] Sodium [Moles/Vol] 141 mmol/L Normal 135 - 146 mmol/L [facility]; [facility], [facility] Triglyceride [Mass/Vol] 171 mg/dL Abnormal [facility]; [facility], [facility] Urea nitrogen [Mass/Vol] 14 mg/dL Normal 7 - 25 mg/dL [facility]; [facility], [facility] Urea nitrogen/Creatinine [Mass ratio] 14.9 mg/mg Normal 6 - 22 [facility]; [facility], [facility] Vital Signs Date Time Vital Sign Value Performing Clinician Facility 11-02-2024 15:48-0400 Body height 180.34 cm Adali Quinones LPN [facility].; [facility], [facility] 11-02-2024 15:48-0400 Body mass index (BMI) [Ratio] 34.03 kg/m2 Adali Quinones LPN [facility].; [facility], [facility] 11-02-2024 15:48-0400 Body surface area Derived from formula 2.3 m2 Adali Quinones LPN [facility].; [facility], [facility] 11-02-2024 15:48-0400 Body weight 110.68 kg Adali Quinones LPN [facility].; [facility], [facility] 11-02-2024 15:48-0400 Diastolic blood pressure 74 mm[Hg] Adali Quinones LPN [facility].; [facility], [facility]. Comment on above: Patient Position: Sitting; Cuff Location : Left Arm; Cuff Size: Standard 11-02-2024 15:48-0400 Heart rate 63 /min Adali Quinones LPN [facility], [facility].; [facility], [facility]. Comment on above: Pattern: Regular 11-02-2024 15:48-0400 Systolic blood pressure 136 mm[Hg] Adali Quinones LPN [facility], [facility].; [facility], [facility]. Comment on above: Patient Position: Sitting; Cuff Location : Left Arm; Cuff Size: Standard 10-28-2024 11:57-0400 Body height 180.[address] Magdy Alford MD Work Phone: [phone] [place] [address] 10-28-2024 11:57-0400 Body mass index (BMI) [Ratio] 34.2 kg/m2 Dr. Magdy Alford MD Work Phone: [phone] [place] [address] 10-28-2024 11:57-0400 Body weight 111.[address] Magdy Alford MD Work Phone: [facility] 10-28-2024 11:57-0400 Diastolic blood pressure 68 mm[Hg] Dr. Magdy Alford MD Work Phone: [facility] 10-28-2024 11:57-0400 Heart rate 59 /min Dr. Magdy Alford MD Work Phone: [facility] 10-28-2024 11:57-0400 Respiratory rate 16 /min Dr. Magdy Alford MD Work Phone: [facility] 10-28-2024 11:57-0400 Systolic blood pressure 117 mm[Hg] Dr. Magdy Alford MD Work Phone: [facility] 08-03-2024 16:05-0400 Body height 180.34 cm Magdy Alford MD Work Phone: [facility], [facility].; [facility]. 08-03-2024 16:05-0400 Body mass index (BMI) [Ratio] 34.45 kg/m2 Magdy Alford MD Work Phone: [facility], [facility].; [email or web address]. 08-03-2024 16:05-0400 Body surface area Derived from formula 2.31 m2 Magdy Alford MD Work Phone: [employer].; [employer] 08-03-2024 16:05-0400 Body weight 112.04 kg Magdy Alford MD Work Phone: [employer].; [email or web address]. 08-03-2024 16:05-0400 Diastolic blood pressure 66 mm[Hg] Magdy Alford MD Work Phone: [employer].; [email or web address]. Comment on above: Patient Position: Sitting; Cuff Location : Left Arm; Cuff Size: Standard 08-03-2024 16:05-0400 Diastolic blood pressure 73 mm[Hg] Adali Quinones LPN [employer].; [email or web address]. Comment on above: Patient Position: Sitting; Cuff Location : Left Arm; Cuff Size: Standard 08-03-2024 16:05-0400 Heart rate 59 /min Magdy Alford MD Work Phone: [employer].; [email or web address]. Comment on above: Pattern: Regular 08-03-2024 16:05-0400 Systolic blood pressure 126 mm[Hg] Magdy Alford MD Work Phone: [employer].; [email or web address]. Comment on above: Patient Position: Sitting; Cuff Location : Left Arm; Cuff Size: Standard 08-03-2024 16:05-0400 Systolic blood pressure 146 mm[Hg] Adali Quinones LPN [employer].; [email or web address]. Comment on above: Patient Position: Sitting; Cuff Location : Left Arm; Cuff Size: Standard 06-14-2024 08:54-0500 Body height 180.34 cm Mecca Melton RN [employer].; [email or web address]. 06-14-2024 08:54-0500 Body mass index (BMI) [Ratio] 34.17 kg/m2 Magdy Alford MD Work Phone: [employer]; [email or web address]. 06-14-2024 08:54-0500 Body surface area Derived from formula 2.3 m2 Magdy Alford MD Work Phone: [employer]; [email or web address]. 06-14-2024 08:54-0500 Body temperature 97.3 [degF] Magdy Alford MD Work Phone: [employer]; [email or web address]. Comment on above: Method: Tympanic 06-14-2024 08:54-0500 Body weight 111.13 kg Magdy Alford MD Work Phone: [employer]; [email or web address]. 06-14-2024 08:54-0500 Diastolic blood pressure 71 mm[Hg] Magdy Alford MD Work Phone: [employer]; [email or web address]. Comment on above: Patient Position: Sitting; Cuff Location : Left Arm; Cuff Size: Standard 06-14-2024 08:54-0500 Heart rate 50 /min Magdy Alford MD Work Phone: [email or web address]; [email or web address]. Comment on above: Pattern: Regular 06-14-2024 08:54-0500 Inhaled oxygen concentration 21 % Magdy Alford MD Work Phone: [email or web address]; [email or web address]. Comment on above: Room air 06-14-2024 08:54-0500 SaO2% (BldA) [Mass fraction] 96 % Magdy Alford MD Work Phone: [employer]; [email or web address]. 06-14-2024 08:54-0500 Systolic blood pressure 137 mm[Hg] Magdy Alford MD Work Phone: [employer].; [email or web address]. Comment on above: Patient Position: Sitting; Cuff Location : Left Arm; Cuff Size: Standard 02-10-2024 11:14-0400 Body height 180.34 cm [facility]; [employer] 02-10-2024 11:14-0400 Body mass index (BMI) [Ratio] 33.61 kg/m2 [facility], [facility].; [employer] 02-10-2024 11:14-0400 Body surface area Derived from formula 2.28 m2 Mandy Dwayne [facility].; [employer], [employer]. 02-10-2024 11:14-0400 Body weight 109.32 kg [facility], [facility].; [employer], [employer]. 02-10-2024 11:14-0400 Diastolic blood pressure 75 mm[Hg] [facility], [facility].; [employer], [employer]. Comment on above: Patient Position: Sitting; Cuff Location : Left Arm; Cuff Size: Large 02-10-2024 11:14-0400 Heart rate 64 /min [facility], [facility].; [employer], [employer]. Comment on above: Pattern: Regular 02-10-2024 11:14-0400 Systolic blood pressure 136 mm[Hg] [facility], [facility].; [employer], [employer]. Comment on above: Patient Position: Sitting; Cuff Location : Left Arm; Cuff Size: Large 07-29-2023 15:40-0500 Body height 180.34 cm Magdy Alford MD Work Phone: [facility].; [email or web address]. 07-29-2023 15:40-0500 Body mass index (BMI) [Ratio] 33.47 kg/m2 Magdy Alford MD Work Phone: [employer], [employer].; [employer], [employer]. 07-29-2023 15:40-0500 Body surface area Derived from formula 2.28 m2 Madgy Alford MD Work Phone: [employer], [employer].; [email or web address]. 07-29-2023 15:40-0500 Body weight 108.86 kg Magyd Alford MD Work Phone: [facility] [employer]. 07-29-2023 15:40-0500 Diastolic blood pressure 76 mm[Hg] Magdy Alford MD Work Phone: [facility] [employer].; [employer]. Comment on above: Patient Position: Sitting; Cuff Location : Left Arm; Cuff Size: Large 07-29-2023 15:40-0500 Heart rate 73 /min Magdy Alford MD Work Phone: [email or web address]. Comment on above: Pattern: Regular 07-29-2023 15:40-0500 Systolic blood pressure 126 mm[Hg] Magdy Alford MD Work Phone: [employer].; [email or web address]. Comment on above: Patient Position: Sitting; Cuff Location : Left Arm; Cuff Size: Large 01-21-2023 15:14-0400 Body height 180.34 cm Magdy Alford MD Work Phone: [employer].; [email or web address]. 01-21-2023 15:14-0400 Body mass index (BMI) [Ratio] 34.17 kg/m2 Magdy Alford MD Work Phone: [employer].; [employer]. 01-21-2023 15:14-0400 Body surface area Derived from formula 2.3 m2 Magdy Alford MD Work Phone: [employer].; [employer] 01-21-2023 15:14-0400 Body weight 111.13 kg Magdy Alford MD Work Phone: [employer].; [employer] 01-21-2023 15:14-0400 Diastolic blood pressure 68 mm[Hg] Magdy Alford MD Work Phone: [employer].; [email or web address]. Comment on above: Patient Position: Sitting; Cuff Location : Left Arm; Cuff Size: Large 01-21-2023 15:14-0400 Heart rate 61 /min Magdy Alford MD Work Phone: [facility].; [facility]. Comment on above: Pattern: Regular 01-21-2023 15:14-0400 Systolic blood pressure 132 mm[Hg] Magdy Alford MD Work Phone: [facility].; [email or web address]. Comment on above: Patient Position: Sitting; Cuff Location : Left Arm; Cuff Size: Large 11-25-2022 09:49-0400 Body height 180.34 cm [facility], [facility].; [facility]. 11-25-2022 09:49-0400 Body mass index (BMI) [Ratio] 33.61 kg/m2 [facility], [facility].; [facility]. 11-25-2022 09:49-0400 Body surface area Derived from formula 2.28 m2 [facility], [facility].; [facility]. 11-25-2022 09:49-0400 Body temperature 97.2 [degF] MandyTalisha [facility], [facility].; [employer]. Comment on above: Method: Tympanic 11-25-2022 09:49-0400 Body weight 109.32 kg [facility] [employer]. 11-25-2022 09:49-0400 Diastolic blood pressure 72 mm[Hg] [facility], [facility].; [employer]. Comment on above: Patient Position: Sitting; Cuff Location : Left Arm; Cuff Size: Large 11-25-2022 09:49-0400 Heart rate 67 /min [facility], [facility].; [employer]. Comment on above: Pattern: Regular 11-25-2022 09:49-0400 Inhaled oxygen concentration 20 % MandyTalisha Rice [facility], [employer].; [email or web address]. Comment on above: Room air 11-25-2022 09:49-0400 Inhaled oxygen concentration 21 % [facility], [facility].; [facility], [facility]. Comment on above: Room air 11-25-2022 09:49-0400 SaO2% (BldA) [Mass fraction] 90 % [facility], [facility].; [facility], [facility]. 11-25-2022 09:49-0400 Systolic blood pressure 143 mm[Hg] [facility], [facility].; [facility], [facility]. Comment on above: Patient Position: Sitting; Cuff Location : Left Arm; Cuff Size: Large 08-07-2022 15:39-0400 Body height 180.[address] Magdy Alford Work Phone: [phone] [place] [address] 08-07-2022 15:39-0400 Body mass index (BMI) [Ratio] 34 kg/m2 Dr. Magdy Alford Work Phone: 3(044)[phone] [place] [address] 08-07-2022 15:39-0400 Body weight 110.[address] Magdy Alford Work Phone: 8(007)[phone] [place] [address] 08-07-2022 15:39-0400 Diastolic blood pressure 80 mm[Hg] Dr. Magdy Alford Work Phone: [phone])[phone] [place] [address] 08-07-2022 15:39-0400 Heart rate 64 /min Dr. Magdy Alford Work Phone: [phone])[phone] [place] [address] 08-07-2022 15:39-0400 Respiratory rate 16 /min Dr. Magdy Alford Work Phone: [facility] 08-07-2022 15:39-0400 Systolic blood pressure 126 mm[Hg] Dr. Magdy Alford Work Phone: [facility] 07-23-2022 15:55-0500 Body height 180.34 cm Adali Gates MA [facility], [facility].; [facility], [facility]. 07-23-2022 15:55-0500 Body mass index (BMI) [Ratio] 34.03 kg/m2 Adali Gates MA [facility], [facility].; [facility] 07-23-2022 15:55-0500 Body surface area Derived from formula 2.3 m2 Adali Gates MA [facility], [facility].; [facility]. 07-23-2022 15:55-0500 Body weight 110.68 kg Adali Gates MA [facility], [facility].; [facility] 07-23-2022 15:55-0500 Diastolic blood pressure 73 mm[Hg] Adali Gates MA [facility].; [employer], [employer]. Comment on above: Patient Position: Sitting; Cuff Location : Left Arm; Cuff Size: Standard 07-23-2022 15:55-0500 Heart rate 61 /min Adali Gates MA [facility].; [employer], [employer]. Comment on above: Pattern: Regular 07-23-2022 15:55-0500 Systolic blood pressure 128 mm[Hg] Adali Gates MA [facility], [facility].; [employer], [employer]. Comment on above: Patient Position: Sitting; Cuff Location : Left Arm; Cuff Size: Standard 05-03-2022 15:29-0500 Body height 180.34 cm Adali Quinones LPN [facility].; [facility], [facility]. 05-03-2022 15:29-0500 Body mass index (BMI) [Ratio] 35.01 kg/m2 Adali Quinones LPN [facility].; [facility] 05-03-2022 15:29-0500 Body surface area Derived from formula 2.32 m2 Adali Quinones LPN [facility].; [facility], [facility]. 05-03-2022 15:29-0500 Body weight 113.85 kg Adali Quinones LPN [facility].; [employer], [employer]. 05-03-2022 15:29-0500 Diastolic blood pressure 62 mm[Hg] Adali Quinones LPN [facility].; [employer], [employer]. Comment on above: Patient Position: Sitting; Cuff Location : Left Arm; Cuff Size: Standard 05-03-2022 15:29-0500 Heart rate 64 /min Adali Quinones LPN [facility].; [facility]. Comment on above: Pattern: Regular 05-03-2022 15:29-0500 Inhaled oxygen concentration 20 % Adali Quinones LPN [facility].; [facility]. Comment on above: Room air 05-03-2022 15:29-0500 Inhaled oxygen concentration 21 % Adali Quinones LPN [facility].; [employer]. Comment on above: Room air 05-03-2022 15:29-0500 SaO2% (BldA) [Mass fraction] 93 % Adali Quinones LPN [facility].; [employer]. 05-03-2022 15:29-0500 Systolic blood pressure 123 mm[Hg] Adali Quinones LPN [facility].; [employer]. Comment on above: Patient Position: Sitting; Cuff Location : Left Arm; Cuff Size: Standard 02-01-2022 10:45-0400 Body height 180.34 cm Ashly Leung [facility].; [employer]. 02-01-2022 10:45-0400 Body mass index (BMI) [Ratio] 33.61 kg/m2 [facility].; [facility]. 02-01-2022 10:45-0400 Body surface area Derived from formula 2.28 m2 [facility] [facility] 02-01-2022 10:45-0400 Body weight 109.32 kg [facility].; [employer]. 02-01-2022 10:45-0400 Diastolic blood pressure 80 mm[Hg] [facility].; [employer]. Comment on above: Patient Position: Sitting; Cuff Location : Left Arm; Cuff Size: Standard 02-01-2022 10:45-0400 Heart rate 49 /min Ashly Leung [employer] [facility].; [employer]. Comment on above: Pattern: Regular 02-01-2022 10:45-0400 Systolic blood pressure 147 mm[Hg] [facility] [employer]. Comment on above: Patient Position: Sitting; Cuff Location : Left Arm; Cuff Size: Standard 01-08-2022 15:04-0400 Body height 180.34 cm Magdy Alford MD Work Phone: [employer].; [email or web address]. 01-08-2022 15:04-0400 Body mass index (BMI) [Ratio] 33.33 kg/m2 Magdy Alford MD Work Phone: [employer].; [employer]. 01-08-2022 15:04-0400 Body surface area Derived from formula 2.27 m2 Magdy Alford MD Work Phone: [employer].; [email or web address]. 01-08-2022 15:04-0400 Body weight 108.41 kg Magdy Alford MD Work Phone: [employer].; [email or web address]. 01-08-2022 15:04-0400 Diastolic blood pressure 78 mm[Hg] Magdy Alford MD Work Phone: [employer].; [email or web address]. Comment on above: Patient Position: Sitting; Cuff Location : Left Arm; Cuff Size: Large 01-08-2022 15:04-0400 Heart rate 64 /min Magdy Alford MD Work Phone: [employer].; [email or web address]. Comment on above: Pattern: Regular 01-08-2022 15:04-0400 Systolic blood pressure 138 mm[Hg] Magdy Alford MD Work Phone: [employer].; [email or web address]. Comment on above: Patient Position: Sitting; Cuff Location : Left Arm; Cuff Size: Large 12-17-2021 11:35-0400 Body height 180.34 cm Adali Quinones LPN [employer].; [email or web address]. 12-17-2021 11:35-0400 Body mass index (BMI) [Ratio] 32.36 kg/m2 Adali Quinones LPN [facility], [facility].; [facility], [facility]. 12-17-2021 11:35-0400 Body surface area Derived from formula 2.25 m2 Adali Quinones LPN [facility], [facility].; [facility] [employer] 12-17-2021 11:35-0400 Body temperature 96.8 [degF] Adali Quinones LPN [facility], [facility].; [facility], [facility]. Comment on above: Method: Tympanic 12-17-2021 11:35-0400 Body weight 105.24 kg Adali Quinones LPN [facility], [facility].; [facility], [facility]. 12-17-2021 11:35-0400 Diastolic blood pressure 67 mm[Hg] Adali Quinones LPN [facility], [facility].; [facility], [employer]. Comment on above: Patient Position: Sitting; Cuff Location : Left Arm; Cuff Size: Standard 12-17-2021 11:35-0400 Heart rate 63 /min Adali Quinones LPN [facility], [facility].; [facility], [employer]. Comment on above: Pattern: Regular 12-17-2021 11:35-0400 Inhaled oxygen concentration 20 % Adali Quinones [employer] [facility], [facility].; [employer] Comment on above: Room air 12-17-2021 11:35-0400 Inhaled oxygen concentration 21 % Adali Quinones LPN [facility], [facility].; [employer], [employer]. Comment on above: Room air 12-17-2021 11:35-0400 SaO2% (BldA) [Mass fraction] 97 % Adali Quinones [employer] [facility], [facility].; [facility], [facility]. 12-17-2021 11:35-0400 Systolic blood pressure 134 mm[Hg] Adali Quinones LPN [facility], [facility].; [employer], [employer]. Comment on above: Patient Position: Sitting; Cuff Location : Left Arm; Cuff Size: Standard 09-03-2021 15:22-0400 Body height 180.34 cm [facility], [facility].; [facility], [employer]. 09-03-2021 15:22-0400 Body mass index (BMI) [Ratio] 33.47 kg/m2 Claire Rice [facility], [facility].; [facility] [employer] 09-03-2021 15:22-0400 Body surface area Derived from formula 2.28 m2 Claire Rice [employer] [facility], [facility].; [facility], [employer]. 09-03-2021 15:22-0400 Body temperature 97.2 [degF] Claire Rice [facility], [facility].; [employer], [employer]. Comment on above: Method: Tympanic 09-03-2021 15:22-0400 Body weight 108.86 kg Claire Rice LPN [facility], [facility].; [facility], [employer]. 09-03-2021 15:22-0400 Diastolic blood pressure 80 mm[Hg] Claire Rice LPN [facility], [facility].; [employer], [employer]. Comment on above: Patient Position: Sitting; Cuff Location : Left Arm; Cuff Size: Large 09-03-2021 15:22-0400 Heart rate 56 /min Claire Rice [employer] [facility], [facility].; [facility], [employer]. Comment on above: Pattern: Regular 09-03-2021 15:22-0400 Inhaled oxygen concentration 20 % Claire Rice [facility], [facility].; [employer], [employer]. Comment on above: Room air 09-03-2021 15:22-0400 Inhaled oxygen concentration 21 % Claire Rice [employer] [facility], [facility].; [employer]. Comment on above: Room air 09-03-2021 15:22-0400 SaO2% (BldA) [Mass fraction] 95 % MandyTalisha Rice [facility], [facility].; [employer] 09-03-2021 15:22-0400 Systolic blood pressure 150 mm[Hg] Claire Rice [facility], [facility].; [employer]. Comment on above: Patient Position: Sitting; Cuff Location : Left Arm; Cuff Size: Large 07-16-2021 13:24-0500 Body height 180.34 cm Magdy Alford MD Work Phone: [employer].; [email or web address]. 07-16-2021 13:24-0500 Body mass index (BMI) [Ratio] 33.61 kg/m2 Magdy Alford MD Work Phone: [employer].; [email or web address]. 07-16-2021 13:24-0500 Body surface area Derived from formula 2.28 m2 Magdy Alford MD Work Phone: [employer].; [email or web address]. 07-16-2021 13:24-0500 Body weight 109.32 kg Magdy Alford MD Work Phone: [employer].; [email or web address]. 07-16-2021 13:24-0500 Diastolic blood pressure 76 mm[Hg] Magdy Alford MD Work Phone: [employer].; [email or web address]. Comment on above: Patient Position: Sitting; Cuff Location : Left Arm; Cuff Size: Large 07-16-2021 13:24-0500 Heart rate 56 /min Magdy Alford MD Work Phone: [employer].; [email or web address]. Comment on above: Pattern: Regular 07-16-2021 13:24-0500 Systolic blood pressure 132 mm[Hg] Magdy Alford MD Work Phone: [employer].; [email or web address]. Comment on above: Patient Position: Sitting; Cuff Location : Left Arm; Cuff Size: Large 06-12-2021 16:19-0500 Body height 180.34 cm [facility].; [email or web address]. 06-12-2021 16:19-0500 Body mass index (BMI) [Ratio] 32.78 kg/m2 [facility].; [email or web address]. 06-12-2021 16:19-0500 Body surface area Derived from formula 2.26 m2 Claire Rice [employer] [facility], [facility].; [facility], [employer]. 06-12-2021 16:19-0500 Body temperature 97 [degF] Claire Rice [facility], [facility].; [employer], [employer]. Comment on above: Method: Tympanic 06-12-2021 16:19-0500 Body weight 106.6 kg Claire Rice [facility], [facility].; [facility] 06-12-2021 16:19-0500 Diastolic blood pressure 78 mm[Hg] Claire Rice [facility], [facility].; [facility], [employer]. Comment on above: Patient Position: Sitting; Cuff Location : Left Arm; Cuff Size: Large 06-12-2021 16:19-0500 Heart rate 64 /min Claire Rice [facility], [facility].; [facility], [employer]. Comment on above: Pattern: Regular 06-12-2021 16:19-0500 Inhaled oxygen concentration 20 % MandyTalisha Rice [facility], [facility].; [facility], [employer]. Comment on above: Room air 06-12-2021 16:19-0500 Inhaled oxygen concentration 21 % Claire Rice [facility], [facility].; [employer], [employer]. Comment on above: Room air 06-12-2021 16:19-0500 SaO2% (BldA) [Mass fraction] 93 % MandyTalisha Rice [facility], [facility].; [employer] 06-12-2021 16:19-0500 Systolic blood pressure 162 mm[Hg] Claire Rice [facility], [employer].; [employer], [employer]. Comment on above: Patient Position: Sitting; Cuff Location : Left Arm; Cuff Size: Large 04-14-2021 10:30-0500 Body temperature 98.42 [degF] HAYES CARTER MD [facility] 04-14-2021 10:30-0500 Diastolic blood pressure 75 mm[Hg] HAYES CARTER MD [facility] 04-14-2021 10:30-0500 Heart rate 55 /min HAYES CARTER MD [facility] 04-14-2021 10:30-0500 Respiratory rate 18 /min HAYES CARTER MD [facility] 04-14-2021 10:30-0500 Systolic blood pressure 145 mm[Hg] HAYES CARTER MD [facility] 03-12-2021 10:18-0400 Body height 180.34 cm Magdy Alford MD Work Phone: [employer]; [employer] 03-12-2021 10:18-0400 Body mass index (BMI) [Ratio] 33.89 kg/m2 Magdy Alford MD Work Phone: [employer]; [employer]. 03-12-2021 10:18-0400 Body surface area Derived from formula 2.29 m2 Magdy Alford MD Work Phone: [employer]; [email or web address]. 03-12-2021 10:18-0400 Body temperature 97.1 [degF] Magdy Alford MD Work Phone: [employer]; [email or web address]. Comment on above: Method: Tympanic 03-12-2021 10:18-0400 Body weight 110.22 kg Magdy Alford MD Work Phone: [email or web address]; [email or web address]. 03-12-2021 10:18-0400 Diastolic blood pressure 70 mm[Hg] Magdy Alford MD Work Phone: [facility].; [employer]. Comment on above: Patient Position: Sitting; Cuff Location : Left Arm; Cuff Size: Standard 03-12-2021 10:18-0400 Heart rate 51 /min Magdy Alford MD Work Phone: [facility].; [email or web address]. Comment on above: Pattern: Regular 03-12-2021 10:18-0400 Inhaled oxygen concentration 20 % Magdy Alford MD Work Phone: [facility].; [employer]. Comment on above: Room air 03-12-2021 10:18-0400 Inhaled oxygen concentration 21 % Magdy Alford MD Work Phone: [facility].; [employer]. Comment on above: Room air 03-12-2021 10:18-0400 SaO2% (BldA) [Mass fraction] 95 % Magdy Alford MD Work Phone: [facility]; [employer]. 03-12-2021 10:18-0400 Systolic blood pressure 140 mm[Hg] Magdy Alford MD Work Phone: [facility]; [employer]. Comment on above: Patient Position: Sitting; Cuff Location : Left Arm; Cuff Size: Standard 02-14-2021 14:30-0400 Body height 180.34 cm Adali Quinones LPN [facility].; [facility]. 02-14-2021 14:30-0400 Body mass index (BMI) [Ratio] 33.61 kg/m2 Adali Quinones LPN [facility].; [facility]. 02-14-2021 14:30-0400 Body surface area Derived from formula 2.28 m2 Adali Quinones LPN [facility].; [employer]. 02-14-2021 14:30-0400 Body temperature 97.1 [degF] Adali Quinones LPN [facility].; [employer]. Comment on above: Method: Tympanic 02-14-2021 14:30-0400 Body weight 109.32 kg Adali Quinones LPN [facility], [facility].; [facility], [facility]. 02-14-2021 14:30-0400 Diastolic blood pressure 71 mm[Hg] Adali Quinones LPN [facility], [facility].; [facility] Comment on above: Patient Position: Sitting; Cuff Location : Left Arm; Cuff Size: Standard 02-14-2021 14:30-0400 Heart rate 61 /min Adali Quinones LPN [facility], [facility].; [facility] Comment on above: Pattern: Regular 02-14-2021 14:30-0400 Inhaled oxygen concentration 20 % Adali Quinones LPN [facility], [facility].; [facility] [employer] Comment on above: Room air 02-14-2021 14:30-0400 Inhaled oxygen concentration 21 % Adali Quinones LPN [facility], [facility].; [facility], [employer]. Comment on above: Room air 02-14-2021 14:30-0400 SaO2% (BldA) [Mass fraction] 96 % Adali Quinones LPN [facility], [facility].; [facility] 02-14-2021 14:30-0400 Systolic blood pressure 119 mm[Hg] Adali Quinones LPN [facility], [facility].; [facility], [employer]. Comment on above: Patient Position: Sitting; Cuff Location : Left Arm; Cuff Size: Standard 01-22-2021 15:54-0400 Body height 180.34 cm Mandy Dwayne [facility], [facility].; [facility], [facility]. 01-22-2021 15:54-0400 Body mass index (BMI) [Ratio] 33.19 kg/m2 [facility], [facility].; [facility], [facility]. 01-22-2021 15:54-0400 Body surface area Derived from formula 2.27 m2 [facility], [facility].; [facility], [employer]. 01-22-2021 15:54-0400 Body weight 107.96 kg Claire Rice [facility], [facility].; [employer], [employer]. 01-22-2021 15:54-0400 Diastolic blood pressure 75 mm[Hg] Claire Rice [facility], [facility].; [email or web address]. Comment on above: Patient Position: Sitting; Cuff Location : Left Arm; Cuff Size: Large 01-22-2021 15:54-0400 Heart rate 61 /min Claire Rice [facility], [facility].; [employer], [employer]. Comment on above: Pattern: Regular 01-22-2021 15:54-0400 Systolic blood pressure 139 mm[Hg] [facility], [employer].; [employer], [employer]. Comment on above: Patient Position: Sitting; Cuff Location : Left Arm; Cuff Size: Large 07-04-2020 11:41-0500 Body height 180.34 cm Magdy Alford MD Work Phone: [employer], [employer].; [email or web address]. 07-04-2020 11:41-0500 Body mass index (BMI) [Ratio] 33.05 kg/m2 Magdy Alford MD Work Phone: [employer].; [email or web address]. 07-04-2020 11:41-0500 Body surface area Derived from formula 2.27 m2 Magdy Alford MD Work Phone: [employer], [employer].; [email or web address]. 07-04-2020 11:41-0500 Body weight 107.5 kg Magdy Alford MD Work Phone: [employer].; [email or web address]. 07-04-2020 11:41-0500 Diastolic blood pressure 74 mm[Hg] Magdy Alford MD Work Phone: [employer].; [email or web address]. Comment on above: Patient Position: Sitting; Cuff Location : Left Arm; Cuff Size: Large 07-04-2020 11:41-0500 Heart rate 60 /min Magdy Alford MD Work Phone: [email or web address].; [email or web address]. Comment on above: Pattern: Regular 07-04-2020 11:41-0500 Systolic blood pressure 130 mm[Hg] Magdy Alford MD Work Phone: [employer].; [email or web address]. Comment on above: Patient Position: Sitting; Cuff Location : Left Arm; Cuff Size: Large 12-13-2019 12:11-0400 Body height 180.34 cm Mecca Melton RN [employer].; [email or web address]. 12-13-2019 12:11-0400 Body mass index (BMI) [Ratio] 33.19 kg/m2 Mecca Melton RN [email or web address].; [email or web address] 12-13-2019 12:11-0400 Body surface area Derived from formula 2.27 m2 Mecca Melton RN [email or web address].; [email or web address]. 12-13-2019 12:11-0400 Body weight 107.96 kg Mecca Melton RN [email or web address].; [email or web address]. 12-13-2019 12:11-0400 Diastolic blood pressure 54 mm[Hg] Mecca Melton RN [email or web address].; [email or web address]. Comment on above: Patient Position: Sitting; Cuff Location : Left Arm; Cuff Size: Large 12-13-2019 12:11-0400 Heart rate 54 /min Mecca Melton RN [email or web address].; [email or web address]. Comment on above: Pattern: Regular 12-13-2019 12:11-0400 Systolic blood pressure 111 mm[Hg] Mecca Melton RN [email or web address].; [email or web address]. Comment on above: Patient Position: Sitting; Cuff Location : Left Arm; Cuff Size: Large 05-06-2019 14:34-0500 Body height 180.34 cm Mecca Melton RN [email or web address].; [email or web address] 05-06-2019 14:34-0500 Body mass index (BMI) [Ratio] 32.78 kg/m2 Mecca Melton RN [email or web address].; [email or web address]. 05-06-2019 14:34-0500 Body surface area Derived from formula 2.26 m2 Mecca Melton RN [employer].; [email or web address]. 05-06-2019 14:34-0500 Body temperature 98.1 [degF] Mecca Melton RN [email or web address].; [email or web address]. Comment on above: Method: Tympanic 05-06-2019 14:34-0500 Body weight 106.6 kg Mecca Melton RN [email or web address].; [email or web address]. 05-06-2019 14:34-0500 Diastolic blood pressure 66 mm[Hg] Mecca Melton RN [email or web address].; [email or web address]. Comment on above: Patient Position: Sitting; Cuff Location : Left Arm; Cuff Size: Standard 05-06-2019 14:34-0500 Heart rate 58 /min Mecca Melton RN [email or web address].; [email or web address]. Comment on above: Pattern: Regular 05-06-2019 14:34-0500 Systolic blood pressure 130 mm[Hg] Mecca Melton RN [email or web address].; [email or web address]. Comment on above: Patient Position: Sitting; Cuff Location : Left Arm; Cuff Size: Standard 02-12-2019 14:17-0400 Body height 180.34 cm Mecca Melton RN [employer].; [email or web address]. 02-12-2019 14:17-0400 Body mass index (BMI) [Ratio] 33.19 kg/m2 Mecca Melton RN [email or web address].; [email or web address] 02-12-2019 14:17-0400 Body surface area Derived from formula 2.27 m2 Mecca Melton RN [email or web address].; [email or web address]. 02-12-2019 14:17-0400 Body temperature 98.9 [degF] Mecca Melton RN [email or web address].; [email or web address]. Comment on above: Method: Tympanic 02-12-2019 14:17-0400 Body weight 107.96 kg Mecca Melton RN [email or web address]. 02-12-2019 14:17-0400 Diastolic blood pressure 57 mm[Hg] Mecca Melton RN [email or web address]. Comment on above: Patient Position: Sitting; Cuff Location : Right Arm; Cuff Size: Standard 02-12-2019 14:17-0400 Heart rate 62 /min Mecca Melton RN [email or web address]. Comment on above: Pattern: Regular 02-12-2019 14:17-0400 Inhaled oxygen concentration 20 % Mecca Melton RN [email or web address]. Comment on above: Room air 02-12-2019 14:170400 Inhaled oxygen concentration 21 % Mecca Melton RN [employer].; [email or web address]. Comment on above: Room air 02-12-2019 14:17-0400 SaO2% (BldA) [Mass fraction] 95 % Mecca Melton RN [employer].; [email or web address]. 02-12-2019 14:17-0400 Systolic blood pressure 108 mm[Hg] Mecca Melton RN [employer].; [email or web address]. Comment on above: Patient Position: Sitting; Cuff Location : Right Arm; Cuff Size: Standard 11-02-2018 [id number] Body height 180.34 cm [facility] Work Phone: [employer].; [email or web address]. 11-02-2018 08:10-0400 Body mass index (BMI) [Ratio] 33.19 kg/m2 [facility] Work Phone: [email or web address].; [email or web address]. 11-02-2018 [id number] Body surface area Derived from formula 2.27 m2 [facility] Work Phone: [employer].; [email or web address]. 11-02-2018 08:10-0400 Body temperature 98.3 [degF] Argenis Park LPN Work Phone: [employer].; [email or web address]. Comment on above: Method: Tympanic 11-02-2018 08:10-0400 Body weight 107.96 kg Argenis Park LPN Work Phone: [employer].; [email or web address]. 11-02-2018 08:10-0400 Diastolic blood pressure 61 mm[Hg] Argenis Park LPN Work Phone: [employer].; [email or web address]. Comment on above: Patient Position: Sitting; Cuff Location : Left Arm; Cuff Size: Standard 11-02-2018 08:10-0400 Heart rate 58 /min Argenis Park LPN Work Phone: [employer].; [email or web address]. Comment on above: Pattern: Regular 11-02-2018 08:10-0400 Systolic blood pressure 130 mm[Hg] Argenis Park LPN Work Phone: [employer].; [email or web address]. Comment on above: Patient Position: Sitting; Cuff Location : Left Arm; Cuff Size: Standard 09-24-2018 08:29-0400 Body height 180.34 cm Sandy Hull LPN [email or web address]. 09-24-2018 08:29-0400 Body mass index (BMI) [Ratio] 33.19 kg/m2 Sandy Hull LPN [email or web address]. 09-24-2018 08:29-0400 Body surface area Derived from formula 2.27 m2 Sandy Hull LPN [email or web address]. 09-24-2018 08:29-0400 Body temperature 97.8 [degF] Sandy Hull LPN [employer].; [email or web address]. Comment on above: Method: Tympanic 09-24-2018 08:29-0400 Body weight 107.96 kg Sandy Bhaktalou WILLIAM [employer] 09-24-2018 08:29-0400 Diastolic blood pressure 82 mm[Hg] Sandy Sabillondonnie WILLIAM [employer], [employer] Comment on above: Patient Position: Sitting; Cuff Location : Left Arm; Cuff Size: Standard 09-24-2018 08:29-0400 Heart rate 53 /min Sandy Wedonnie WILLIAM [employer] Comment on above: Pattern: Regular 09-24-2018 08:29-0400 Inhaled oxygen concentration 20 % Sandy Wedonnie WILLIAM [employer] Comment on above: Room air 09-24-2018 08:29-0400 Inhaled oxygen concentration 21 % Sandy Wedonnie [employer] Comment on above: Room air 09-24-2018 08:29-0400 SaO2% (BldA) [Mass fraction] 96 % Sandy Pollockbill [employer] 09-24-2018 08:29-0400 Systolic blood pressure 152 mm[Hg] Sandy Sabillondonnie WILLIAM [employer] Comment on above: Patient Position: Sitting; Cuff Location : Left Arm; Cuff Size: Standard 08-14-2018 16:10-0400 Body height 180.34 cm Magdy Alford MD Work Phone: [employer].; [email or web address]. 08-14-2018 16:10-0400 Body mass index (BMI) [Ratio] 32.36 kg/m2 Magdy Alford MD Work Phone: [email or web address].; [employer] 08-14-2018 16:10-0400 Body surface area Derived from formula 2.25 m2 Magdy Alford MD Work Phone: [employer].; [email or web address]. 08-14-2018 16:10-0400 Body weight 105.24 kg Magdy Alford MD Work Phone: [email or web address].; [email or web address] 08-14-2018 16:10-0400 Diastolic blood pressure 76 mm[Hg] Magdy Alford MD Work Phone: [email or web address].; [email or web address]. Comment on above: Patient Position: Sitting; Cuff Location : Left Arm; Cuff Size: Standard 08-14-2018 16:10-0400 Heart rate 54 /min Magdy Alford MD Work Phone: [email or web address].; [email or web address]. Comment on above: Pattern: Regular 08-14-2018 16:10-0400 Systolic blood pressure 136 mm[Hg] Magdy Alford MD Work Phone: [email or web address].; [email or web address]. Comment on above: Patient Position: Sitting; Cuff Location : Left Arm; Cuff Size: Standard 07-03-2018 15:23-0500 Body height 180.34 cm [facility] [facility] Work Phone: [email or web address].; [email or web address] 07-03-2018 15:23-0500 Body mass index (BMI) [Ratio] 33.47 kg/m2 [facility] [facility] Work Phone: [email or web address].; [email or web address]. 07-03-2018 15:23-0500 Body surface area Derived from formula 2.28 m2 [facility] [facility] Work Phone: [email or web address].; [email or web address]. 07-03-2018 15:23-0500 Body temperature 98.5 [degF] [facility] [facility] Work Phone: [email or web address].; [email or web address]. Comment on above: Method: Tympanic 07-03-2018 15:23-0500 Body weight 108.86 kg [facility] [facility] Work Phone: [email or web address] 07-03-2018 15:23-0500 Diastolic blood pressure 66 mm[Hg] Argenis Park [employer] Work Phone: [email or web address] Comment on above: Patient Position: Sitting; Cuff Location : Left Arm; Cuff Size: Large 07-03-2018 15:23-0500 Heart rate 65 /min Argenis Park LPN Work Phone: [email or web address] Comment on above: Pattern: Regular 07-03-2018 15:23-0500 Systolic blood pressure 131 mm[Hg] Argenis Park [employer] Work Phone: [email or web address]. Comment on above: Patient Position: Sitting; Cuff Location : Left Arm; Cuff Size: Large 01-16-2018 15:36-0400 Body height 180.34 cm Mecca Melton RN [email or web address] 01-16-2018 15:36-0400 Body mass index (BMI) [Ratio] 31.66 kg/m2 Mecca Melton RN [email or web address] 01-16-2018 15:36-0400 Body surface area Derived from formula 2.23 m2 Mecca Melton RN [email or web address] 01-16-2018 15:36-0400 Body weight 102.97 kg Mecca Melton RN [email or web address]. 01-16-2018 15:36-0400 Diastolic blood pressure 66 mm[Hg] Mecca Melton RN [email or web address]. Comment on above: Patient Position: Sitting; Cuff Location : Left Arm; Cuff Size: Standard 01-16-2018 15:36-0400 Heart rate 59 /min Mecca Melton RN [email or web address]. Comment on above: Pattern: Regular 01-16-2018 15:36-0400 Systolic blood pressure 109 mm[Hg] Mecca Melton RN [facility], [employer], [employer]. Comment on above: Patient Position: Sitting; Cuff Location : Left Arm; Cuff Size: Standard 06-20-2017 16:06-0500 Body height 180.34 cm Evita Kruse LPN [facility], [facility] [employer], [employer] 06-20-2017 16:06-0500 Body mass index (BMI) [Ratio] 33.19 kg/m2 Evita Kruse LPN [facility], [facility] [employer], [employer] 06-20-2017 16:06-0500 Body surface area Derived from formula 2.27 m2 Evita Kruse [employer] [facility], [facility] [employer], [employer] 06-20-2017 16:06-0500 Body weight 107.96 kg Evita Kruse [employer] [facility], [facility] [employer] 06-20-2017 16:06-0500 Diastolic blood pressure 57 mm[Hg] Evita Kruse LPN [facility], [facility] [employer], [employer] Comment on above: Patient Position: Sitting; Cuff Location : Left Arm; Cuff Size: Standard 06-20-2017 16:06-0500 Heart rate 62 /min Evita Kruse LPN [facility], [facility] [employer], [employer] Comment on above: Pattern: Regular 06-20-2017 16:06-0500 Systolic blood pressure 104 mm[Hg] Evita Kruse [employer] [facility], [facility] [employer], [employer] Comment on above: Patient Position: Sitting; Cuff Location : Left Arm; Cuff Size: Standard 06-11-2017 16:24-0500 Body height 180.34 cm [facility] Work Phone: [facility], [facility].; [employer], [employer] 06-11-2017 16:24-0500 Body mass index (BMI) [Ratio] 33.75 kg/m2 [facility] Work Phone: [facility], [employer] 06-11-2017 16:24-0500 Body surface area Derived from formula 2.29 m2 Argenis Park LPN Work Phone: [facility] [email or web address] 06-11-2017 16:24-0500 Body weight 109.77 kg Argenis Park LPN Work Phone: [facility].; [email or web address]. 06-11-2017 16:24-0500 Diastolic blood pressure 69 mm[Hg] Argenis Park LPN Work Phone: [facility] [email or web address]. Comment on above: Patient Position: Sitting; Cuff Location : Left Arm; Cuff Size: Standard 06-11-2017 16:24-0500 Heart rate 58 /min Argenis Park LPN Work Phone: [facility] [email or web address]. Comment on above: Pattern: Regular 06-11-2017 16:24-0500 Systolic blood pressure 130 mm[Hg] Argenis Park LPN Work Phone: [facility].; [email or web address]. Comment on above: Patient Position: Sitting; Cuff Location : Left Arm; Cuff Size: Standard 05-13-2017 15:16-0500 Body height 180.34 cm Claire Rice [facility], [email or web address] 05-13-2017 15:16-0500 Body mass index (BMI) [Ratio] 33.75 kg/m2 Claire Rice [facility], [facility].; [email or web address] 05-13-2017 15:16-0500 Body surface area Derived from formula 2.29 m2 Claire Rice [facility] [email or web address]. 05-13-2017 15:16-0500 Body weight 109.77 kg Claire Rice [facility], [email or web address]. 05-13-2017 15:16-0500 Diastolic blood pressure 70 mm[Hg] Claire Rice [facility] [email or web address]. Comment on above: Patient Position: Sitting; Cuff Location : Left Arm; Cuff Size: Large 05-13-2017 15:16-0500 Heart rate 74 /min Claire Rice NATALIIA [facility], [facility] [employer], [employer] Comment on above: Pattern: Regular 05-13-2017 15:16-0500 Systolic blood pressure 160 mm[Hg] Claire Rice NATALIIA [facility], [facility].; [employer], [employer] Comment on above: Patient Position: Sitting; Cuff Location : Left Arm; Cuff Size: Large 12-10-2016 16:07-0400 Body height 180.34 cm Evita Kruse LPN [facility], [facility] [employer], [employer] 12-10-2016 16:07-0400 Body mass index (BMI) [Ratio] 33.19 kg/m2 Evita Kruse LPN [facility], [facility] [employer], [employer] 12-10-2016 16:07-0400 Body surface area Derived from formula 2.27 m2 Evita Kruse LPN [facility], [facility] [employer], [employer] 12-10-2016 16:07-0400 Body weight 107.96 kg Evita Kruse LPN [facility], [facility] [employer], [employer] 12-10-2016 16:07-0400 Diastolic blood pressure 66 mm[Hg] Evita Kruse LPN [facility], [facility] [employer], [employer]. Comment on above: Patient Position: Sitting; Cuff Location : Left Arm; Cuff Size: Standard 12-10-2016 16:07-0400 Heart rate 69 /min Evita Kruse LPN [facility], [facility] [employer], [employer]. Comment on above: Pattern: Regular 12-10-2016 16:07-0400 Systolic blood pressure 120 mm[Hg] Evita Kruse LPN [facility] [email or web address]. Comment on above: Patient Position: Sitting; Cuff Location : Left Arm; Cuff Size: Standard 09-20-2016 08:23-0400 Body height 180.34 cm Mecca Melton RN [facility], [employer], [employer] 09-20-2016 08:23-0400 Body mass index (BMI) [Ratio] 32.78 kg/m2 Mecca Melton [facility] [email or web address] 09-20-2016 08:23-0400 Body surface area Derived from formula 2.26 m2 Mecca Melton RN [facility].; [employer] 09-20-2016 08:23-0400 Body temperature 97.9 [degF] Mecca Melton RN [email or web address]. Comment on above: Method: Tympanic 09-20-2016 08:23-0400 Body weight 106.6 kg Mecca Melton RN [email or web address]. 09-20-2016 08:23-0400 Diastolic blood pressure 64 mm[Hg] Mecca Melton RN [email or web address]. Comment on above: Patient Position: Sitting; Cuff Location : Left Arm; Cuff Size: Standard 09-20-2016 08:23-0400 Heart rate 56 /min Mecca Melton RN [email or web address]. Comment on above: Pattern: Regular 09-20-2016 08:23-0400 Inhaled oxygen concentration 20 % Mecca Melton RN [email or web address]. Comment on above: Room air 09-20-2016 08:23-0400 Inhaled oxygen concentration 21 % Mecca Melton RN [email or web address]. Comment on above: Room air 09-20-2016 08:23-0400 SaO2% (BldA) [Mass fraction] 94 % Mecca Melton RN [email or web address] 09-20-2016 08:23-0400 Systolic blood pressure 111 mm[Hg] Mecca Melton RN [email or web address]. Comment on above: Patient Position: Sitting; Cuff Location : Left Arm; Cuff Size: Standard 08-20-2016 15:53-0400 Body height 180.34 cm [facility], [facility] [employer], [employer]. 08-20-2016 15:53-0400 Body mass index (BMI) [Ratio] 32.5 kg/m2 Claire Rice [facility], [facility].; [employer], [employer] 08-20-2016 15:53-0400 Body surface area Derived from formula 2.25 m2 Claire Rice [employer] [facility] [employer] 08-20-2016 15:53-0400 Body weight 105.69 kg Claire Rice [facility], [facility] [employer], [employer] 08-20-2016 15:53-0400 Diastolic blood pressure 76 mm[Hg] Claire Rice [facility], [facility] [employer], [employer]. Comment on above: Patient Position: Sitting; Cuff Location : Left Arm; Cuff Size: Large 08-20-2016 15:53-0400 Heart rate 63 /min Claire Rice [facility], [facility] [employer], [employer]. Comment on above: Pattern: Regular 08-20-2016 15:53-0400 Systolic blood pressure 118 mm[Hg] Claire Rice [facility] [employer], [employer]. Comment on above: Patient Position: Sitting; Cuff Location : Left Arm; Cuff Size: Large 05-24-2016 09:03-0500 Body weight 110.68 kg Evita Kruse LPN [facility], [facility] [employer] 05-24-2016 09:03-0500 Diastolic blood pressure 64 mm[Hg] Evita Kruse LPN [facility], [facility].; [email or web address]. Comment on above: Patient Position: Sitting; Cuff Location : Left Arm; Cuff Size: Standard 05-24-2016 09:03-0500 Heart rate 65 /min Evita Kruse LPN [facility], [employer], [employer]. Comment on above: Pattern: Regular 05-24-2016 09:03-0500 Systolic blood pressure 108 mm[Hg] Evita Kruse LPN [facility], [facility] [email or web address]. Comment on above: Patient Position: Sitting; Cuff Location : Left Arm; Cuff Size: Standard 11-20-2015 15:26-0400 Body weight 114.31 kg Evitabetsy Kruse NATALIIA [facility], [facility].; [email or web address] 11-20-2015 15:26-0400 Diastolic blood pressure 67 mm[Hg] Evita Victoria Uriah WILLIAM [facility], [facility].; [email or web address]. Comment on above: Patient Position: Sitting; Cuff Location : Left Arm; Cuff Size: Standard 11-20-2015 15:26-0400 Heart rate 76 /min Evita Kruse LPN [facility], [facility] [email or web address]. Comment on above: Pattern: Regular 11-20-2015 15:26-0400 Systolic blood pressure 117 mm[Hg] Evita Victoria Uriah [facility], [email or web address]. Comment on above: Patient Position: Sitting; Cuff Location : Left Arm; Cuff Size: Standard 11-04-2015 10:37-0400 Body height 180.34 cm Viky Aiken RN [facility], [email or web address]. 11-04-2015 10:37-0400 Body mass index (BMI) [Ratio] 35.4 kg/m2 Viky Aiken RN [facility] [email or web address] 11-04-2015 10:37-0400 Body surface area Derived from formula 2.33 m2 Viky Aiken RN [facility], [email or web address]. 11-04-2015 10:37-0400 Body temperature 98 [degF] Viky Aiken RN [facility] [email or web address]. Comment on above: Method: Tympanic 11-04-2015 10:37-0400 Body weight 115.12 kg Viky Aiken RN [facility] [email or web address] 11-04-2015 10:37-0400 Diastolic blood pressure 72 mm[Hg] Viky Aiken RN [facility] [email or web address]. Comment on above: Patient Position: Sitting; Cuff Location : Left Arm; Cuff Size: Standard 11-04-2015 10:37-0400 Heart rate 53 /min Viky Aiken RN [facility] [email or web address]. Comment on above: Pattern: Regular 11-04-2015 10:37-0400 Inhaled oxygen concentration 20 % Viky [facility]iken RN [facility] [employer] Comment on above: Room air 11-04-2015 10:37-0400 Inhaled oxygen concentration 21 % Viky Aiken RN [facility].; [employer]. Comment on above: Room air 11-04-2015 10:37-0400 SaO2% (BldA) [Mass fraction] 93 % Viky Aiken RN [facility].; [email or web address]. 11-04-2015 10:37-0400 Systolic blood pressure 106 mm[Hg] Viky Aiken RN [facility].; [email or web address]. Comment on above: Patient Position: Sitting; Cuff Location : Left Arm; Cuff Size: Standard 07-31-2015 08:10-0500 Body height 180.34 cm Viky Aiken RN [facility].; [email or web address] 07-31-2015 08:10-0500 Body mass index (BMI) [Ratio] 36.12 kg/m2 Viky Aiken RN [facility].; [employer] 07-31-2015 08:10-0500 Body surface area Derived from formula 2.35 m2 Viky Aiken RN [facility].; [employer] 07-31-2015 08:10-0500 Body temperature 98.2 [degF] Viky Aiken RN [facility] [email or web address]. Comment on above: Method: Tympanic 07-31-2015 08:10-0500 Body weight 117.48 kg Viky Aiken RN [facility] [email or web address]. 07-31-2015 08:10-0500 Diastolic blood pressure 72 mm[Hg] Viky Aiken RN [facility] [email or web address]. Comment on above: Patient Position: Sitting; Cuff Location : Left Arm; Cuff Size: Standard 07-31-2015 08:10-0500 Heart rate 65 /min Viky Aiken RN [email or web address]. Comment on above: Pattern: Regular 07-31-2015 08:10-0500 Systolic blood pressure 126 mm[Hg] Viky Aiken RN [email or web address]. Comment on above: Patient Position: Sitting; Cuff Location : Left Arm; Cuff Size: Standard 05-02-2015 15:28-0500 Body height 180.34 cm Magdy Alford MD Work Phone: [email or web address] 05-02-2015 15:28-0500 Body mass index (BMI) [Ratio] 35.15 kg/m2 Magdy Alford MD Work Phone: [email or web address] 05-02-2015 15:28-0500 Body surface area Derived from formula 2.33 m2 Magdy Alford MD Work Phone: [email or web address] 05-02-2015 15:28-0500 Body weight 114.31 kg Magdy Alford MD Work Phone: [email or web address] 05-02-2015 15:28-0500 Diastolic blood pressure 84 mm[Hg] Magdy Alford MD Work Phone: [email or web address] Comment on above: Patient Position: Sitting; Cuff Location : Left Arm; Cuff Size: Large 05-02-2015 15:28-0500 Heart rate 92 /min Magdy Alford MD Work Phone: [email or web address] Comment on above: Pattern: Regular 05-02-2015 15:28-0500 Systolic blood pressure 132 mm[Hg] Magdy Alford MD Work Phone: [email or web address] Comment on above: Patient Position: Sitting; Cuff Location : Left Arm; Cuff Size: Large 10-31-2014 15:31-0400 Body weight 115.21 kg Magdy Alford MD Work Phone: [facility] [email or web address] 10-31-2014 15:31-0400 Diastolic blood pressure 65 mm[Hg] Magdy Alford MD Work Phone: [facility] [email or web address]. Comment on above: Patient Position: Sitting; Cuff Location : Right Arm; Cuff Size: Standard 10-31-2014 15:31-0400 Heart rate 70 /min Magdy Alford MD Work Phone: [facility] [email or web address]. Comment on above: Pattern: Regular 10-31-2014 15:31-0400 Systolic blood pressure 130 mm[Hg] Magdy Alford MD Work Phone: [facility] [email or web address]. Comment on above: Patient Position: Sitting; Cuff Location : Right Arm; Cuff Size: Standard 07-09-2014 09:03-0500 Body height 180.34 cm Claire Rice [facility], [email or web address] 07-09-2014 09:03-0500 Body mass index (BMI) [Ratio] 34.31 kg/m2 [facility] Dwayne [facility], [facility] [employer] 07-09-2014 09:03-0500 Body surface area Derived from formula 2.3 m2 [facility].; [email or web address] 07-09-2014 09:03-0500 Body temperature 98.8 [degF] [facility] Dwayne [facility] [email or web address]. Comment on above: Method: Tympanic 07-09-2014 09:03-0500 Body weight 111.59 kg Mandy Dwayne [facility], [facility].; [employer] 07-09-2014 09:03-0500 Diastolic blood pressure 74 mm[Hg] [facility] Tarrant [facility], [email or web address]. Comment on above: Patient Position: Sitting; Cuff Location : Left Arm; Cuff Size: Large 07-09-2014 09:03-0500 Heart rate 77 /min Claire Rice [facility], [email or web address]. Comment on above: Pattern: Regular 07-09-2014 09:03-0500 Inhaled oxygen concentration 20 % Claire Rice [employer] [facility] [email or web address]. Comment on above: Room air 07-09-2014 09:03-0500 Inhaled oxygen concentration 21 % Claire Rice [facility], [email or web address]. Comment on above: Room air 07-09-2014 09:03-0500 SaO2% (BldA) [Mass fraction] 93 % Claire Rice [facility], [employer], [employer]. 07-09-2014 09:03-0500 Systolic blood pressure 139 mm[Hg] Claire Rice [facility], [email or web address]. Comment on above: Patient Position: Sitting; Cuff Location : Left Arm; Cuff Size: Large 05-02-2014 15:45-0500 Body temperature 97.3 [degF] Evita Kruse [facility], [employer], [employer] 05-02-2014 15:45-0500 Body weight 111.59 kg Evita Kruse LPN [facility], [facility] [email or web address] 05-02-2014 15:45-0500 Diastolic blood pressure 67 mm[Hg] Evita Kruse LPN [facility], [email or web address]. Comment on above: Patient Position: Sitting; Cuff Location : Left Arm; Cuff Size: Standard 05-02-2014 15:45-0500 Heart rate 65 /min Evita Kruse LPN [facility], [email or web address]. Comment on above: Pattern: Regular 05-02-2014 15:45-0500 Inhaled oxygen concentration 20 % Evita Kruse LPN [facility], [email or web address]. Comment on above: Room air 05-02-2014 15:45-0500 Inhaled oxygen concentration 21 % Evita Kruse LPN [facility], [email or web address]. Comment on above: Room air 05-02-2014 15:45-0500 SaO2% (BldA) [Mass fraction] 93 % Evita Kruse [facility], [facility].; [employer] 05-02-2014 15:45-0500 Systolic blood pressure 122 mm[Hg] Evita [facility]use [facility] [email or web address] Comment on above: Patient Position: Sitting; Cuff Location : Left Arm; Cuff Size: Standard 10-04-2013 08:14-0400 Body height 180.34 cm [facility] [employer] [employer] 10-04-2013 08:14-0400 Body mass index (BMI) [Ratio] 34.03 kg/m2 Ashly Saunders Xoch[facility]l [facility], Inc.; [employer] 10-04-2013 08:14-0400 Body surface area Derived from formula 2.3 m2 Aslhy [facility]ung [facility].; [email or web address] 10-04-2013 08:14-0400 Body temperature 98.3 [degF] Ashly Saunders Xochitl [facility] [email or web address]. Comment on above: Method: Tympanic 10-04-2013 08:14-0400 Body weight 110.68 kg Ashly Leung [facility], [facility].; [employer] 10-04-2013 08:14-0400 Diastolic blood pressure 87 mm[Hg] Ashly [facility]ung [facility] [email or web address] Comment on above: Patient Position: Sitting; Cuff Location : Left Arm; Cuff Size: Standard 10-04-2013 08:14-0400 Heart rate 71 /min Ashly Leung [facility], [email or web address]. Comment on above: Pattern: Regular 10-04-2013 08:14-0400 Systolic blood pressure 144 mm[Hg] Ashly Leung [facility] [email or web address]. Comment on above: Patient Position: Sitting; Cuff Location : Left Arm; Cuff Size: Standard 09-24-2013 07:18-0400 Body height 180.34 cm Claire Rice [employer] [facility] [employer] 09-24-2013 07:18-0400 Body mass index (BMI) [Ratio] 33.19 kg/m2 Claire Rice [facility], [facility].; [employer] 09-24-2013 07:18-0400 Body surface area Derived from formula 2.27 m2 Claire Rice [employer] [facility], [facility] [employer], [employer] 09-24-2013 07:18-0400 Body weight 107.96 kg Claire Rice [employer] [facility], [facility] [employer], [employer] 09-24-2013 07:18-0400 Diastolic blood pressure 74 mm[Hg] Claire Rice [facility], [facility].; [email or web address]. Comment on above: Patient Position: Sitting; Cuff Location : Left Arm; Cuff Size: Large 09-24-2013 07:18-0400 Heart rate 65 /min Claire Rice [facility], [facility] [email or web address]. Comment on above: Pattern: Regular 09-24-2013 07:18-0400 Systolic blood pressure 134 mm[Hg] Claire Rice [employer] [facility], [facility] [email or web address]. Comment on above: Patient Position: Sitting; Cuff Location : Left Arm; Cuff Size: Large 08-10-2013 15:38-0400 Body height 180.34 cm Claire Rice [employer] [facility], [facility] [employer], [employer] 08-10-2013 15:38-0400 Body mass index (BMI) [Ratio] 33.33 kg/m2 Claire Rice [facility] [employer] 08-10-2013 15:38-0400 Body surface area Derived from formula 2.27 m2 Mandy wDayne [employer] [facility], [facility].; [email or web address] 08-10-2013 15:38-0400 Body temperature 98.6 [degF] Claire Rice LPN [facility], [facility] [employer], [employer] Comment on above: Method: Tympanic 08-10-2013 15:38-0400 Body weight 108.41 kg Claire Rice LPN [facility] [employer] 08-10-2013 15:38-0400 Diastolic blood pressure 80 mm[Hg] Claire Rice [facility] [employer] Comment on above: Patient Position: Sitting; Cuff Location : Left Arm; Cuff Size: Large 08-10-2013 15:38-0400 Heart rate 62 /min Claire Rice [facility], [facility] [employer] Comment on above: Pattern: Regular 08-10-2013 15:38-0400 Systolic blood pressure 139 mm[Hg] Claire Rice [employer] [facility], [facility] [employer] Comment on above: Patient Position: Sitting; Cuff Location : Left Arm; Cuff Size: Large 07-29-2013 08:13-0500 Body height 180.34 cm Sandy Hull LPN [facility], Inc.; [employer] 07-29-2013 08:13-0500 Body mass index (BMI) [Ratio] 33.4 kg/m2 Sandy Hull LPN [facility], [facility].; [employer] 07-29-2013 08:13-0500 Body surface area Derived from formula 2.28 m2 Sandy Hull LPN [facility], [facility].; [employer] 07-29-2013 08:13-0500 Body temperature 97.6 [degF] [facility] [employer], [employer]. Comment on above: Method: Tympanic 07-29-2013 08:13-0500 Body weight 108.64 kg Sandy Hull LPN [facility], [facility].; [employer] 07-29-2013 08:13-0500 Diastolic blood pressure 72 mm[Hg] Sandy Hull LPN [facility] [employer] Comment on above: Patient Position: Sitting; Cuff Location : Left Arm; Cuff Size: Standard 07-29-2013 08:13-0500 Heart rate 55 /min Sandy Kurtis WILLIAM [facility], [facility].; [employer] Comment on above: Pattern: Regular 07-29-2013 08:13-0500 Systolic blood pressure 127 mm[Hg] Sandy Kurtis [facility].; [employer]. Comment on above: Patient Position: Sitting; Cuff Location : Left Arm; Cuff Size: Standard 02-24-2013 08:17-0400 Body height 180.34 cm Ashlymarco Leung [facility], [facility].; [employer] 02-24-2013 08:17-0400 Body mass index (BMI) [Ratio] 33.61 kg/m2 [facility] [employer] 02-24-2013 08:17-0400 Body surface area Derived from formula 2.28 m2 Ashly Leung [facility], [facility].; [employer] 02-24-2013 08:17-0400 Body temperature 97.2 [degF] Ashlymarco Leung [facility], [facility].; [employer]. Comment on above: Method: Tympanic 02-24-2013 08:170400 Body weight 109.32 kg Ashly Leung [facility], [facility].; [employer]. 02-24-2013 08:17-0400 Diastolic blood pressure 77 mm[Hg] [facility]marco [facility].; [employer]. Comment on above: Patient Position: Sitting; Cuff Location : Left Arm; Cuff Size: Standard 02-24-2013 08:17-0400 Heart rate 71 /min Ashlymarco Leung [employer] [facility] [employer]. Comment on above: Pattern: Regular 02-24-2013 08:17-0400 Systolic blood pressure 144 mm[Hg] Ashly Leung LPN [email or web address]. Comment on above: Patient Position: Sitting; Cuff Location : Left Arm; Cuff Size: Standard 02-08-2013 17:19-0400 Body weight 108.41 kg Magdy Alford MD Work Phone: [email or web address]. 02-08-2013 17:19-0400 Diastolic blood pressure 76 mm[Hg] Magdy Alford MD Work Phone: [email or web address]. Comment on above: Patient Position: Sitting; Cuff Location : Left Arm; Cuff Size: Standard 02-08-2013 17:19-0400 Heart rate 58 /min Magdy Alford MD Work Phone: [email or web address]. Comment on above: Pattern: Regular 02-08-2013 17:19-0400 Systolic blood pressure 144 mm[Hg] Magdy Alford MD Work Phone: [email or web address]. Comment on above: Patient Position: Sitting; Cuff Location : Left Arm; Cuff Size: Standard 06-22-2012 08:20-0500 Body height 180.34 cm Viky Aiken RN [employer].; [email or web address]. 06-22-2012 08:20-0500 Body mass index (BMI) [Ratio] 35.12 kg/m2 Viky Aiken RN [employer].; [email or web address]. 06-22-2012 08:20-0500 Body surface area Derived from formula 2.33 m2 Viky Aiken RN [employer].; [email or web address]. 06-22-2012 08:20-0500 Body temperature 98 [degF] Viky Aiken RN [employer].; [email or web address]. Comment on above: Method: Tympanic 06-22-2012 08:20-0500 Body weight 114.22 kg Viky Aiken RN [employer].; [email or web address]. 06-22-2012 08:20-0500 Diastolic blood pressure 84 mm[Hg] Viky Aiken RN [email or web address]. Comment on above: Patient Position: Sitting; Cuff Location : Left Arm; Cuff Size: Standard 06-22-2012 08:20-0500 Heart rate 63 /min Viky Aiken RN [email or web address]. Comment on above: Pattern: Regular 06-22-2012 08:20-0500 Inhaled oxygen concentration 20 % Viky Aiken RN [employer]. Comment on above: Room air 06-22-2012 08:20-0500 Inhaled oxygen concentration 21 % Viky Aiken RN [employer]. Comment on above: Room air 06-22-2012 08:20-0500 SaO2% (BldA) [Mass fraction] 97 % Viky Aiken RN [email or web address]. 06-22-2012 08:20-0500 Systolic blood pressure 142 mm[Hg] Viky Aiken RN [email or web address]. Comment on above: Patient Position: Sitting; Cuff Location : Left Arm; Cuff Size: Standard 02-18-2012 08:32-0400 Body height 180.34 cm Magdy Alford MD Work Phone: [email or web address]. 02-18-2012 08:32-0400 Body mass index (BMI) [Ratio] 34.03 kg/m2 Magdy Alford MD Work Phone: [email or web address] 02-18-2012 08:32-0400 Body surface area Derived from formula 2.3 m2 Magdy Alford MD Work Phone: [email or web address] 02-18-2012 08:32-0400 Body weight 110.68 kg Magdy Alford MD Work Phone: [email or web address]. 02-18-2012 08:32-0400 Diastolic blood pressure 88 mm[Hg] Magdy Alford MD Work Phone: [email or web address]; [email or web address]. Comment on above: Patient Position: Sitting; Cuff Location : Left Arm; Cuff Size: Large 02-18-2012 08:32-0400 Heart rate 56 /min Magdy Alford MD Work Phone: [email or web address]; [email or web address]. Comment on above: Pattern: Regular 02-18-2012 08:32-0400 Systolic blood pressure 142 mm[Hg] Magdy Alford MD Work Phone: [email or web address]; [email or web address]. Comment on above: Patient Position: Sitting; Cuff Location : Left Arm; Cuff Size: Large Encounters Encounter Date Encounter Type Care Provider Facility Start: 11-03-2024 Review Magdy Alford MD Work Phone: [email or web address] Start: 11-03-2024 End: 11-03-2024 Orders Magdy Alford MD Work Phone: [email or web address] Start: 11-02-2024 End: 11-02-2024 Office outpatient visit 25 minutes Magdy Alford MD Work Phone: [email or web address] Start: 10-28-2024 End: 10-28-[address] Caleb Martel MD -[facility] Work Phone: Start: 10-28-2024 End: 10-28-2024 ambulatory Magdy Alford [facility] Start: 10-22-2024 End: 10-22-2024 Historical Summary Magdy Alford MD Work Phone: [email or web address] Start: 10-21-2024 End: 10-21-2024 Historical Summary Magdy Alford MD Work Phone: [email or web address] Start: 09-29-2024 End: 09-29-[address] Magdy Alford MD Work Phone: [facility] Work Phone: Start: 09-29-2024 End: 09-29-[address] Renato Jacques MD -[facility] Work Phone: Start: 08-03-2024 End: 08-03-2024 Patient encounter procedure Magdy Alford MD Work Phone: [facility]; [facility] Start: 08-03-2024 End: 08-03-2024 Periodic preventive med est patient 65yrs& older Magdy Alford MD Work Phone: [facility] Start: 08-03-2024 Patient encounter procedure Adali Quinones LPN [facility] Start: 07-27-2024 End: 07-27-2024 Mickie Alford MD Work Phone: [facility] Start: 06-30-2024 End: 06-30-2024 ambulatory [facility] Facility:[facility] Start: 06-30-2024 End: 06-30-[address] Renato Jacques MD -[facility] Work Phone: Start: 06-14-2024 End: 06-14-2024 Office outpatient visit 15 minutes Magdy Alford MD Work Phone: [facility] Start: 06-14-2024 Review Magdy Alford MD Work Phone: [facility] Start: 03-31-2024 End: 03-31-2024 ambulatory Magdy Brown Facility:[facility] Start: 03-22-2024 End: 03-22-2024 ambulatory [facility] Facility:[facility] Start: 03-20-2024 End: 03-20-2024 ambulatory Magdy Brown Facility:[facility] Start: 02-16-2024 ambulatory Magdy Brown [facility] Start: 02-16-2024 ambulatory Magdy Brown [facility] Start: 02-13-2024 ambulatory Magdy Brown [facility] Start: 02-13-2024 End: 02-13-2024 ambulatory [facility] Facility:[facility] Start: 02-12-2024 End: 02-12-2024 ambulatory [facility] Facility:[facility] Start: 02-10-2024 End: 02-10-2024 Office outpatient visit 15 minutes Magdy Alford MD Work Phone: [email or web address]. Start: 02-10-2024 Follow-up encounter Magdy good MD Work Phone: [email or web address]. Start: 02-03-2024 End: 02-03-2024 ambulatory Magdy Alford Facility:[facility] Start: 02-03-2024 End: 02-03-2024 ambulatory Magdy Alford Facility:[facility] Start: 12-30-2023 End: 12-30-2023 ambulatory Magdy Alford Facility:[facility] Start: 09-03-2023 ambulatory [facility] Start: 07-29-2023 End: 07-29-2023 Patient encounter status Magdy Alford MD Work Phone: [email or web address] Start: 07-29-2023 End: 07-29-2023 Periodic preventive med est patient 65yrs& older Magdy Alford MD Work Phone: [email or web address]. Start: 07-16-2023 End: 07-16-2023 Orders Magdy Alford MD Work Phone: [email or web address]. Start: 01-21-2023 End: 01-21-2023 Office outpatient visit 25 minutes Magdy Alford MD Work Phone: [email or web address]. Start: 11-25-2022 End: 11-25-2022 Office outpatient visit 15 minutes Magdy Alford MD Work Phone: [email or web address]. Start: 08-07-2022 End: 08-07-[address] Magdy Alford Work Phone: [facility] Work Phone: Start: 08-07-2022 End: 08-07-[address] Magdy Alford Work Phone: [facility]-Radiology, [facility] Start: 08-07-2022 End: 08-07-[address] Magdy Alford Work Phone: [facility] Start: 07-23-2022 End: 07-23-2022 Patient encounter status Adali Gates MA [email or web address] Start: 07-23-2022 End: 07-23-2022 Periodic preventive med est patient 65yrs& older Magdy Alford MD Work Phone: [email or web address]. Start: 07-15-2022 End: 07-22-2022 Orders Magdy Aflord MD Work Phone: [email or web address]. Start: 06-24-2022 End: 06-24-2022 Orders Magdy Alford MD Work Phone: [email or web address]. Start: 05-29-2022 End: 05-29-[address] Magdy Alford Work Phone: [facility] Start: 05-03-2022 End: 05-03-2022 Office outpatient visit 15 minutes Magdy Alford MD Work Phone: [email or web address]. Start: 02-01-2022 End: 02-01-2022 Patient encounter procedure Magdy Alford MD Work Phone: [email or web address]. Start: 01-08-2022 End: 01-08-2022 Office outpatient visit 15 minutes Magdy Alford MD Work Phone: [email or web address]. Start: 12-17-2021 End: 12-17-2021 Office outpatient visit 15 minutes Magdy Alford MD Work Phone: [email or web address]. Start: 09-03-2021 End: 09-03-2021 Office outpatient visit 15 minutes Magdy Alford MD Work Phone: [email or web address]. Start: 07-26-2021 End: 07-26-2021 Historical Summary Magdy Alford MD Work Phone: [email or web address] Start: 07-16-2021 End: 07-16-2021 Office outpatient visit 25 minutes Magdy Alford MD Work Phone: [email or web address]. Start: 06-12-2021 End: 06-12-2021 Office outpatient visit 15 minutes Magdy Alford MD Work Phone: [email or web address] Start: 04-20-2021 End: 04-20-2021 Telephone follow-up Magdy Alford MD Work Phone: [email or web address] Start: 04-14-2021 End: 04-14-2021 Emergency department patient visit HAYES CARTER MD [facility] Start: 03-12-2021 End: 03-12-2021 Patient encounter procedure Magdy Alford MD Work Phone: [email or web address]. Start: 02-14-2021 End: 02-14-2021 Office outpatient visit 15 minutes Magdy Alford MD Work Phone: [email or web address] Start: 01-22-2021 End: 01-22-2021 Patient encounter status Magdy Alford MD Work Phone: [email or web address] Start: 01-22-2021 End: 01-22-2021 Periodic preventive med est patient 40-64yrs Magdy Alford MD Work Phone: [email or web address]. Start: 01-08-2021 End: 01-15-2021 Orders Magdy Alford MD Work Phone: [email or web address]. Start: 11-30-2020 End: 11-30-2020 Patient encounter procedure Magdy Alford MD Work Phone: [email or web address] Start: 07-04-2020 End: 07-04-2020 Office outpatient visit 25 minutes Magdy Alford MD Work Phone: [email or web address]. Start: 01-01-2020 End: 01-01-2020 Historical Summary Magdy Alford MD Work Phone: [email or web address] Start: 12-31-2019 End: 01-10-2020 Orders Magdy Alford MD Work Phone: [email or web address] Start: 12-13-2019 End: 12-13-2019 Patient encounter status Magdy Alford MD Work Phone: [email or web address] Start: 12-13-2019 End: 12-13-2019 Periodic preventive med est patient 40-64yrs Magdy Alford MD Work Phone: [email or web address]. Start: 12-06-2019 End: 12-06-2019 Orders Magdy Alford MD Work Phone: [email or web address]. Start: 06-21-2019 End: 06-21-2019 Orders Magdy Alford MD Work Phone: [email or web address]. Start: 06-01-2019 End: 06-01-2019 Telephone follow-up Magdy Alford MD Work Phone: [email or web address]. Start: 05-06-2019 End: 05-09-2019 Office outpatient visit 15 minutes Magdy Alford MD Work Phone: [email or web address]. Start: 04-27-2019 End: 04-29-2019 Medication Magdy Alford MD Work Phone: [email or web address]. Start: 02-12-2019 End: 02-12-2019 Office outpatient visit 25 minutes Magdy Alford MD Work Phone: [email or web address]. Start: 11-02-2018 End: 11-02-2018 Patient encounter procedure Magdy Alford MD Work Phone: [email or web address]. Start: 10-26-2018 End: 10-26-2018 Follow-up encounter Magdy Alford MD Work Phone: [email or web address]. Start: 09-24-2018 End: 09-24-2018 Office outpatient visit 15 minutes Magdy Alford MD Work Phone: [email or web address]. Start: 08-14-2018 End: 08-14-2018 Office outpatient visit 25 minutes Magdy Alford MD Work Phone: [email or web address]. Start: 08-07-2018 End: 08-07-2018 Orders Magdy Alford MD Work Phone: [email or web address]. Start: 07-03-2018 End: 07-03-2018 Patient encounter procedure Magdy Alford MD Work Phone: [email or web address]. Start: 01-30-2018 End: 01-30-2018 Medication Magdy Alford MD Work Phone: [email or web address]. Start: 01-16-2018 End: 01-16-2018 Office outpatient visit 25 minutes Magdy Alford MD Work Phone: [email or web address]. Start: 12-17-2017 End: 12-17-2017 Historical Summary Magdy Alford MD Work Phone: [email or web address]. Start: 06-20-2017 End: 06-20-2017 Office outpatient visit 25 minutes Magdy Alford MD Work Phone: [email or web address]. Start: 06-11-2017 End: 06-24-2017 Patient encounter procedure Magdy lAford MD Work Phone: [email or web address]. Start: 05-13-2017 End: 05-13-2017 Office outpatient visit 15 minutes Magdy Alford MD Work Phone: [email or web address]. Start: 12-10-2016 End: 12-10-2016 Patient encounter procedure Magdy Alford MD Work Phone: [email or web address]. Start: 12-09-2016 End: 12-09-2016 Historical Summary Magdy Alford MD Work Phone: [email or web address]. Start: 09-20-2016 End: 09-20-2016 Office outpatient visit 15 minutes Magdy Alford MD Work Phone: [email or web address]. Start: 08-20-2016 End: 08-20-2016 Office outpatient visit 15 minutes Magdy Alford MD Work Phone: [email or web address]. Start: 05-24-2016 End: 05-24-2016 Patient encounter procedure Magdy Alford MD Work Phone: [email or web address]. Start: 05-21-2016 End: 05-21-2016 Orders Magdy Alford MD Work Phone: [email or web address] Start: 11-20-2015 End: 11-20-2015 Office outpatient visit 15 minutes Magdy Alford MD Work Phone: [email or web address]. Start: 11-04-2015 End: 11-04-2015 Office outpatient visit 15 minutes Magdy Alford MD Work Phone: [email or web address]. Start: 07-31-2015 End: 07-31-2015 Medication Magdy Alford MD Work Phone: [email or web address]. Start: 07-31-2015 End: 07-31-2015 Patient encounter procedure Magdy Alford MD Work Phone: [email or web address]. Start: 05-02-2015 End: 05-02-2015 Office outpatient visit 25 minutes Magdy Alford MD Work Phone: [email or web address]. Start: 10-31-2014 End: 10-31-2014 Office outpatient visit 15 minutes Magdy Alford MD Work Phone: [email or web address]. Start: 07-09-2014 End: 07-09-2014 Office outpatient visit 15 minutes Magdy Alford MD Work Phone: [email or web address]. Start: 05-02-2014 End: 05-02-2014 Patient encounter procedure Magdy Alford MD Work Phone: [email or web address]. Start: 02-22-2014 End: 02-22-2014 Medication Magdy Alford MD Work Phone: [email or web address]. Start: 10-04-2013 End: 10-04-2013 Patient encounter procedure Magdy Alford MD Work Phone: [email or web address]. Start: 09-24-2013 End: 09-24-2013 Patient encounter procedure Magdy Alford MD Work Phone: [email or web address]. Start: 09-20-2013 End: 09-20-2013 Historical Summary Magdy Alford MD Work Phone: [email or web address]. Start: 09-20-2013 End: 09-20-2013 Medication Magdy Alford MD Work Phone: [email or web address]. Start: 09-16-2013 End: 09-17-2013 Orders Magdy Alford MD Work Phone: [email or web address]. Start: 08-30-2013 End: 08-30-2013 Medication Magdy Alford MD Work Phone: [email or web address]. Start: 08-20-2013 End: 08-20-2013 Medication Magdy Alford MD Work Phone: [email or web address]. Start: 08-10-2013 End: 08-10-2013 Patient encounter procedure Magdy Alford MD Work Phone: [email or web address]. Start: 07-29-2013 End: 07-29-2013 Patient encounter procedure Magdy Alford MD Work Phone: [email or web address]. Start: 02-24-2013 End: 02-24-2013 Patient encounter procedure Magdy Alford MD Work Phone: [email or web address]. Start: 02-08-2013 End: 02-08-2013 Patient encounter procedure Magdy Alford MD Work Phone: [email or web address]. Start: 01-20-2013 End: 01-20-2013 Medication Magdy Alford MD Work Phone: [email or web address]. Start: 01-05-2013 End: 01-05-2013 Medication Magdy Alford MD Work Phone: [email or web address]. Start: 12-18-2012 End: 12-18-2012 Medication Magdy Alford MD Work Phone: [email or web address]. Start: 07-02-2012 End: 07-02-2012 Medication Magdy Alford MD Work Phone: [email or web address]. Start: 06-22-2012 End: 06-22-2012 Patient encounter procedure Magdy Alford MD Work Phone: [email or web address]. Start: 05-05-2012 End: 05-05-2012 Nursing evaluation of patient and report Magdy Alford MD Work Phone: [email or web address]. Start: 02-18-2012 End: 02-18-2012 Patient encounter procedure Magdy Alford MD Work Phone: [facility] Patient encounter status Claire Rice [employer] [facility] Patient encounter status Claire Rice [employer] [facility].; [facility] Patient encounter status Claire Rice NATALIIA [facility].; [facility] Patient encounter status Mecca Melton RN [facility]; [facility] Procedures Date Procedure Procedure Detail Performing Clinician Start: 10-28-2024 End: 10-28-2024 Most Recent Cardio Report Adali Quinones LPN Start: 10-21-2024 End: 10-21-2024 Most Recent Endo Report Adali LAURA Comment on above: no records Start: 08-03-2024 End: 08-03-2024 Adv care pln/ no alt dcsn mkr docd or refusal Magdy Alford MD Work Phone: Start: 08-03-2024 End: 08-03-2024 Depression screening Magdy Alford MD Work Phone: Start: 08-03-2024 End: 08-03-2024 Falls risk assessment documented Magdy Alford MD Work Phone: Start: 08-03-2024 End: 08-03-2024 Pos clin depres scrn f/u doc Magdy Alford MD Work Phone: Start: 08-03-2024 End: 08-03-2024 PPPS, subseq visit Magdy Alford MD Work Phone: Start: 08-03-2024 End: 08-03-2024 Pt falls assess docd w/o fall/injury past year Magdy Alford MD Work Phone: Start: 08-03-2024 End: 08-03-2024 Scr dep neg, no plan reqd Magdy Alford MD Work Phone: Start: 07-27-2024 End: 07-27-2024 Hemoglobin A1c/Hemoglobin.total in Blood Adali Quinones NATALIIA Comment on above: 9.6 Start: 07-27-2024 End: 07-27-2024 Lab findings surveillance Adali Joni WILLIAM Comment on above: 179 Start: 07-27-2024 End: 07-27-2024 Lipid panel results documented & reviewed Adali Joni WILLIAM Comment on above: TC 163 HDL 54 LDL 90 TRI 94 Start: 07-27-2024 End: 07-27-2024 Prostate specific antigen measurement Adali Quinones NATALIIA Comment on above: Results:. 1.36 Start: 03-22-2024 End: 03-22-2024 Most Recent Cardio Labs Adali Hollowayith L PN Start: 02-10-2024 End: 02-10-2024 Flu imm no admin doc maria elena Magdy Knight Work Phone: Start: 02-10-2024 End: 02-10-2024 Hemoglobin A1c/Hemoglobin.total in Blood Claire Rice NATALIIA Comment on above: 8.6 Start: 02-03-2024 End: 02-03-2024 Most Recent Cardio Report Magdy Alford MD Work Phone: Start: 07-29-2023 End: 07-29-2023 Depression screening Magdy Alford MD Work Phone: Start: 07-29-2023 End: 07-29-2023 Scr dep neg, no plan reqd Magdy Alford MD Work Phone: Start: 07-22-2023 End: 07-22-2023 Hemoglobin A1c/Hemoglobin.total in Blood Claire Rice NATALIIA Comment on above: 8.5 Start: 07-22-2023 End: 07-22-2023 Lipid panel results documented & reviewed Claire Rice NATALIIA Start: 07-22-2023 End: 07-22-2023 Prostate specific antigen measurement Claire Rice NATALIIA Comment on above: Results:. 1.35 Start: 08-07-2022 Plain chest X-ray Dr. Luana Alford Work Phone: Start: 07-23-2022 End: 07-23-2022 Depression screening Magdy Alford MD Work Phone: Start: 07-23-2022 End: 07-23-2022 Scr dep neg, no plan reqd Magdy lAford MD Work Phone: Start: 07-15-2022 End: 07-15-2022 Hemoglobin A1c/Hemoglobin.total in Blood Claire Rice LPN Comment on above: 8.4 Start: 07-15-2022 End: 07-15-2022 Lab findings surveillance Claire riddle [employer] Comment on above: 177 Start: 07-15-2022 End: 07-15-2022 Lipid panel results documented & reviewed Claire Rice [employer] Comment on above: TC 174, HDL 58, LDL 95, Trig 117 Start: 07-15-2022 End: 07-15-2022 Prostate specific antigen measurement Cliare Rice [employer] Comment on above: Results:. 1.8 Start: 03-12-2021 End: 07-22-2023 Pressurized/nonpressurize d inhalation treatment Levi Hoffmann PA-C Work Phone: Start: 01-22-2021 End: 01-22-2021 Depression screening Magdy Alford MD Work Phone: Start: 01-22-2021 End: 01-22-2021 Scr dep neg, no plan reqd Magdy Alford MD Work Phone: Start: 01-02-2021 End: 01-02-2021 Examination of retina Claire Rice LPN Comment on above: No diabetic retinopa thy, [...] Start: 12-30-2019 End: 12-30-2019 Cologuard Claire Rice HELEN N Comment on above: Normal Start: 12-13-2019 [...] End: 06-11-2017 Body mass index documented Tonio Posadas MD Work Phone: Start: 05-13-2017 End: 05-13-2017 Body mass index documented Magdy Alford MD Work Phone: Start: 06-26-2016 End: 06-26-2016 ICD placement Claire Rice LP N Start: 12-26-2007 History of coronary artery bypass grafting H/O coronary artery bypass surgery Dr. Caleb Martel MD Comment on above: CABG x3- COLLADO to LAD , SVG to Lt CX, SVG to PDA Start: 05-26-2007 Automatic defibrilla tor procedure HAYES CARTER MD Start: 05-26-2007 Cardiac pacemaker, d evice (physical object) HAYES CARTER MD Start: 05-26-2007 Coronary artery bypa ss graft HAYES CARTER MD Aortocoronary bypass of three coronary arteries Claire Rice [employer] Comment on above: 2007 Aortocoronary bypass of three coronary arteries Mecca Melton RN Comment on above: 2007 Plan of Treatment Date Care Activity Detail Author Start: 03-29-2025 Patient encounter procedure Medical; RTN OFFICE VISIT - 6 MO RTN [email or web address]. Start: 29-Mar-2025 15:50-05:00 MD Magdy Alford Appointment Request [email or web address]. Start: 11-02-2024 Patient encounter procedure Medical; RTN OFFICE VISIT - 4 mo rtn [employer], [employer]. Start: 02-Nov-2024 15:50-04:00 MD Magdy Alford Appointment Request [email or web address]. Start: 11-02-2024 Oncology colorectal screening kelsea 10 dna markrs COLOGUARD COLON CANCER SCREENING USING STOOL DNA AT POINT OF CARE (70104) Start: 02-Nov-2024 Intent [email or web address] Start: 11-02-2024 End: 11-03-2024 Polysom 6/>yrs sleep 4/> addl julia attnd [email or web address] Start: 10-28-2024 Evaluation of diagnostic study results [facility] Start: 08-03-2024 Patient encounter procedure Medical; PHYSICAL - physical [email or web address]. Start: 03-Aug-2024 15:50-04:00 MD Magdy Alford Appointment Request [email or web address]. Start: 08-03-2024 Oncology colorectal screening kelsea 10 dna markrs COLOGUARD COLON CANCER SCREENING USING STOOL DNA AT POINT OF CARE (11506) Start: 03-Aug-2024 Intent [email or web address] Start: 07-27-2024 Comprehensive metabolic panel CMP w/ GFR* (60064) Start: 27-Jul-2024 Request [email or web address] Start: 07-27-2024 Hemoglobin glycosylated a1c HEMOGLOBIN A1C* (42827) Start: 27-Jul-2024 Request [email or web address].; [employer], [employer]. Start: 07-27-2024 Assay of prostate specific antigen total [email or web address], [employer]. Start: 07-27-2024 Lipid panel [employer] Start: 07-27-2024 Nursing evaluation of patient and report [email or web address] Start: 02-10-2024 Patient encounter procedure Medical; RTN OFFICE VISIT - 6 mo rtn [email or web address]. Start: 10-Feb-2024 15:50-04:00 MD Magdy Alford Appointment Request [email or web address]. Start: 02-10-2024 Hemoglobin glycosylated a1c Hgb A1c (fingerstick)(03131) Start: 10-Feb-2024 11:14-04:00 Request [email or web address] Start: 07-29-2023 Patient encounter procedure Medical; PHYSICAL - PHYSICAL [email or web address]. Start: 29-Jul-2023 15:50 MD Magdy Alford Appointment Request [email or web address]. Start: 07-29-2023 Oncology colorectal screening kelsea 10 dna markrs COLOGUARD COLON CANCER SCREENING USING STOOL DNA AT POINT OF CARE ([id number]) Start: 29-Jul-2023 Intent [email or web address] Start: 07-22-2023 Nursing evaluation of patient and report Medical; Nurse visit - fasting labs-SFB [email or web address]. Start: 22-Jul-2023 8:00 ROOM, PROCEDURE (DRAW) Appointment Request [email or web address]. Start: 07-16-2023 Assay of prostate specific antigen total PSA TOTAL (PROSTATE SPECIFIC ANTIGEN) ([id number]) Start: 16-Jul-2023 14:49 Request [employer]. Start: 07-16-2023 Lipid panel LIPID PANEL (29489) Start: 16-Jul-2023 14:49 Request [email or web address]. Start: 07-16-2023 Hemoglobin glycosylated a1c HEMOGLOBIN A1C* (79544) Start: 16-Jul-2023 14:49 Request [email or web address]. Start: 07-16-2023 Comprehensive metabolic panel CMP w/ GFR* (00142) Start: 16-Jul-2023 14:49 Request [email or web address]. Start: 01-21-2023 End: 01-22-2023 Polysom 6/>yrs sleep 4/> addl julia attnd Sleep Study (93740) Date: 21-Jan-2023 [facility] [employer]; [email or web address]. Start: 03-12-2021 Pressurized/nonpressurize d inhalation treatment Aerosol Treatment (21049) Start: 12-Mar-2021 Intent [employer] Work Phone: Immunizations Immunization Date Immunization Notes Care Provider Fa cilielia 02-06-2024 zoster vaccine recombinant Magdy Alford MD Work Phone: [facility] [employer]; [employer]. Comment on above: Chevy 11-13-2023 zoster vaccine recombinant Magdy Alford MD Work Phone: [employer]; [employer]. Comment on above: Chevy 07-23-2022 pneumococcal conjuga te vaccine, 13 valent Magdy Alford MD Work Phone: [facility] [employer]; [employer]. Comment on above: Site: Left DeltoidVI S Given: * PCV13 (12/29/20) 04-14-2021 tetanus toxoid, redu abe diphtheria toxoid, and acellular pertussis vaccine, adsorbed; Translations: [Boostrix (Tdap)] HAYES CARTER MD [facility] 02-24-2021 COVID-Pfizer (30 MCG /0.3 ML) Magdy Alford MD Work Phone: [facility] [employer]; [facility] 02-03-2021 COVID-Pfizer (30 MCG /0.3 ML) Magdy Alford MD Work Phone: [facility] [employer]; [facility] [employer] 12-13-2019 Shingrix 50 MCG/0.5M L Intramuscular Suspension Reconstituted Magdy Alford MD Work Phone: [facility] [employer]; [employer] Comment on above: Repeat in 2-6 months 12-13-2019 tetanus toxoid, redu abe diphtheria toxoid, and acellular pertussis vaccine, adsorbed Magdy Alford MD Work Phone: [facility] [employer]; [employer]. Comment on above: Site: Left DeltoidVI S Given: * Tdap (Tetanus, Diphtheria, Pertussis) (07/19/14) 02-12-2019 influenza, injectabl e, quadrivalent, contains preservative Magdy Alford MD Work Phone: [facility] [employer]; [employer] Comment on above: Site: Right ArmVIS G iven: * Influenza - Inactivated (12/30/14) 03-26-2017 influenza, injectabl e, quadrivalent, contains preservative Magdy Alford MD Work Phone: [employer]; [employer] Comment on above: receoived vaccine at work. 08-20-2016 pneumococcal polysaccharide vaccine, 23 valent Magdy Alford MD [facility]; [employer] Comment on above: Site: Deltoid (Left) VIS Given: * Pneumococcal Polysaccharide (PPSV23) (09/16/14) 08-20-2016 pneumococcal Conjuga te, unspecified formulation Magdy Alford MD Work Phone: [employer]; [employer] 04-17-2016 influenza, seasonal, injectable Magdy Alford MD Work Phone: [employer]; [employer] Comment on above: Received at work 05-05-2012 influenza, seasonal, injectable Magdy Alford MD Work Phone: [employer]; [employer] Comment on above: Site: Deltoid (Left) VIS Given: * Inactivated Influenza Vaccine (01/03/09) * Inactivated Influenza Vaccine (12/18/10) * Influenza vaccine [id number], inactivated (11/25/2011) * VIS Given (Unspecified) 05-05-2012 IMMUNIZATION ADMIN ([id number]) Magdy Alford MD Work Phone: [employer]; [employer] Payers Date Payer Category Payer Self-pay [id number] 2013 Unknown [id number] 1955 Unknown [id number] 2.16.8 [id number] Unknown Unknown [id number] 2.16.8 [id number] Unknown [id number] 2.16.8 40.1.239626.3.579.2.462 Unknown [id number] 2.16.8 40.1.054192.3.579.2.462 Unknown [id number] 2.16.8 40.1.144788.3.579.2.462 Unknown [id number] 2.16.8 40.1.973210.3.579.2.462 Unknown [id number] 2.16.8 40.1.416545.3.579.2.462 Unknown [id number] 2.16.8 40.1.684471.3.579.2.462 Unknown [id number] 2.16.8 40.1.238365.3.579.2.462 Unknown [id number] 2.16.8 40.1.734395.3.579.2.462 Unknown [id number] 2.16.8 40.1.729545.3.579.2.462 Unknown [id number] 2.16.8 40.1.558345.3.579.2.462 Unknown [id number] 2.16.8 40.1.525982.3.579.2.462 Unknown [id number] 2.16.8 40.1.305665.3.579.2.462 Unknown [id number] 2.16.8 40.1.496171.3.579.2.462 Unknown [id number] 2.16.8 40.1.664027.3.579.2.462 Unknown [id number] 2.16.8 40.1.146505.3.579.2.462 Social History Date Type Detail Facility Never smoked tob acco (finding) [facility] At [facility] Start: 12-07-2019 [facility] Start: 1955 Sex Assigned At Male W [facility] Caffeine Use Caffeine Use [employer], [employer] Current Work/Study Status: Current Work/Study Status: ; Full-time. [email or web address] Tobacco Use: Tobacco Use: ; N ever smoker. [employer] Full-time [employer] Work Phone: Progress note 10-28-2024 Note Date & Type Note Facility 10-28-2024 Progress note [facility] Discharge instructions 04-14-2021 Note Date & [...] painful when eating. You may use an kvrr-plq-ycaogoe local numbing solution for pain relief. If [...] off before 7 days Wound edges re-open [id number] The [employer]. [address] [place] [address], [place] [address]. All rights reserved. This information is not intended as a substitute for professional medical care. Always follow your healthcare professional's instructions. Follow Up Care 04/14/2021 10:19:17 With:CLARISSE AMADORPATRICIA Address: When: Unknown Comments:10 days for suture removal. 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 engineer katiana Presence of implantable cardioverter-defibrillator (ICD) chronic Ventricular fibrillation res olved Atherosclerosis of coronary artery of [place] heart without angina pectoris chronic Essential hypertension chron ic H/O coronary artery bypass surgery December 26, 2007 chronic Hypercholesteremia chronic Ischemic cardiomyopathy methods engineer katiana On amiodarone therapy chroni c Paroxysmal ventricular tachycardia chronic Presence of implantable cardioverter-defibrillator (ICD) [facility] Work Phone: Evaluation note Note Date & Type Note Facility Evaluation note No assessment information availa ble [facility] Work Phone: Evaluation note Note Date & Type Note Facility Evaluation note Diagnosis Onset Date Resolution Bilateral lower extremity edema chronic October 28, 2024 12:41pm Coronary artery disease chronic October 28, 2024 12:41pm Diabetes mellitus chronic October 12:41pm H/O coronary artery bypass surgery December 26, 2007 chronic October 28, 2024 12:41pm Hypertension chronic October 28 12:41pm Ischemic cardiomyopathy chronic October 28, 2024 12:41pm On amiodarone therapy chronic October 28, 2024 12:41pm Presence of implantable cardioverter-defibri llator (ICD) chronic October 28, 2024 12:41pm Ventricular fibrillation resolved October 28, 2024 12:41pm [facility] Work Phone: Progress note Note Date & Type Note Facility Progress note Note Date/Time October 28, 2024 1:29pm [facility] [address] [place] [address] OFFICE VISIT Date of Service: 10/28/24 MR#: [id number] Acct: [id number] Name: CASSIA PERAZA Rep #: [id number] : 1955 Provider: Dr. Fadi Martel MD Age/Sex: 69/M Location: [facility] Status: Signed HPI HPI History of Present Illness Details: This gentleman has past medical history significant for coronary artery disease status post inferior [place], status post CABG in 2008, history of ischemic cardiomyopathy status post ICD, V-fib cardiac arrest in 2018 resulting in ICD shock, diabetes mellitus, hypertension and dyslipidemia. He is here for routinefollow-up visit. Patient complains of chest discomfort only when he is stressed emotionally. Denies any exertional chest discomfort. No shortness of breath. No palpitations. No orthopnea or PND. He has chronic lower extremity edema. Wears compression stockings for that. Last pharmacological stress test was in January of last year. This was negative for ischemia. EF 44% on gated images. Last echocardiogram in January 2024 as well. EF was noted to be 45-50%. 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 Accompanied by: Self Is patient in pain?: No Allergies iodine Allergy (Verified 10/28/24 12:59) Unknown latex Allergy (Verified 10/28/24 12:59) Unknown Medications ?Medication ?Instructions ?Recorded ?Confirmed ?Type cetirizine 10 mg capsule 10 mg PO DAILY 07/03/1610/17 History hydrochlorothiazide 25 mg tablet 25 mg PO DAILY 10/28/24 History lisinopril 20 mg tablet 20 mg PO BID 07/03/16 History multivitamin 1 ea PO DAILY 07/03/1610/28 History atorvastatin 40 mg tablet 40 mg PO DAILY 03/18/1810/17 History diphenhydramine HCl 25 mg capsule 25 mg PO QHS PRN Con gestion 03/18/18 10/28/24 History (Benadryl) potassium chloride 10 mEq 10 meq PO DAILY 03/18/1810/17 History capsule,extended release aspirin 81 mg chewable tablet 81 mg PO DAILY ##1 08/1010/28/24 Rx metoprolol tartrate 100 mg tablet 100 mg PO BID 10/28/24 History nitroglycerin 0.4 mg sublingual 0.4 mg sublingual Q5-1 5M PRN Chest 08/07/22 10/28/24 Rx tablet Pain #25 tabs clopidogrel 75 mg tablet 75 mg PO DAILY #90 TABLETS 1 10/28/24 Rx amiodarone 200 mg tablet (Pacerone) 200 mg PO BID #90 tabs 03/23/24 10/28/24 Rx tamsulosin 0.4 mg capsule 0.4 mg PO QDAY 10/28/2410/17 History Ejection fraction %: 45 Have you fallen in the past year?: No PFSH Medical History (Updated 10/28/24 @ 13:[address] Caleb Martel MD) Hypercholesteremia Sinus bradycardia Ventricular fibrillation On amiodarone therapy AICD discharge Syncope History of myocardial infarction Essential hypertension Carotid bruit Hyperlipemia Atherosclerosis of coronary artery of [place] heart without angina pectoris Paroxysmal ventricular tachycardia Ischemic cardiomyopathy Surgical History History of left heart catheterization (08/10/18) Postsurgical percutaneous transluminal coronary angioplasty (PTCA) status (~12/2007) History of tonsillectomy H/O coronary artery bypass surgery (12/26/07) Presence of implantable cardioverter-defibrillator (ICD) Social History alcohol intake: never substance use type: does not use ROS Const Const: Negative for fatigue, weakness, headache(s) or weight gain ENT ENT: Positive for dizziness; Negative for headache(s), Nosebleed/epistaxis or balance problems Cardio Chest Pain: Yes Frequency: other (with stress) Character: tightness Onset: at rest and other (stress) Location: mid sternal Duration: minutes (10-15mins) Exacerbation: other (stress) Relieving: other (relaxation) Palpitations: Yes (unchanged) Edema: Bilateral (wears compression stockings) Muscle aches with walking: None Resp Respiratory: Negative for SOB with activity, SOB at rest or SOB orthopneaundefinedSOB lying down GI GI: Negative nausea, vomiting or heartburn Musc Musc: Negative for muscle aches/ myalgia, muscle weakness, joint pain or balanceproblems Neuro Neuro: Positive for dizziness; Negative for lightheadedness, near syncope, syncope, headache(s) or weakness Endo Endo: Negative for fatigue Psych Psych: Positive for anxiety Cardiology Exam Const Appearance: comfortable and no acute distress Nutritional Appearance: well nourished Neck Neck: no JVD Carotids: Negative bruit Chest Auscultation: Bilateral: Clear to Auscultation Cardio Rate: regular rate Rhythm: regular rhythm Heart sounds: S1 normal and S2 normal Neuro General: patient alert, patient awake and patient oriented x3 Extremities Lower Extremity Edema: +2: Bilateral Supplemental Info Supplemental Information Echocardiogram 02/13/2024: Interpretation Summary The estimated ejection fraction is 45-50 %. Diastolic function is indeterminate. Posterior-Basal: Hypokinetic Trivial mitral valve insufficiency Stress Test 02/13/2024: Procedure: Pharmacologic stress nuclear imaging study Indications: CABG Consent: Per the patient Procedure: The patient underwent pharmacologic (Regadenoson) evaluation with a peak heart rate of 71 beats per minute (46%predicted maximal heart rate) and a peak blood pressure of 152/82 mmHg. The baseline ECG demonstrated normal sinus rhythm. EKG during lexiscan infusionrevealed no significant ischemic changes. EKG post infusion revealed no significant ischemic changes [There were no cardiac dysrhythmias pretest, during pharmacologic infusion, or recovery]. [There was no complaint of chest discomfort during pharmacologic infusion or recovery]. The examination was discontinued secondary to completion of protocol. Impression: 1. Lexiscan stress test test is negative for Lexiscan infusion induced EKG changes of ischemia. 2. Lexiscan stress test test is negative for Lexiscan infusion induced chest pain. 3. Results of the nuclear portion of the test is as below Myocardial perfusion imaging study: Technique: The patient was injected with 14.8 millicuries of technetium 99m Cardiolite and subsequently rest SPECT Cardiolite nuclear imaging was obtained in the horizontal long, vertical long, and short axis views. The patient underwent pharmacologic [Regadenoson 0.4mg] evaluation. Please see above for details. Thepatient was injected with 44.7 millicuries of technetium 99m Cardiolite and subsequently stress SPECT Cardiolite nuclear imaging was obtained in the horizontal long, vertical long, and short axis views. A gated Cardiolite study at peak stress was obtained. Interpretation: Rest and stress SPECT Cardiolite nuclear imaging status post realignment, normalization, and attenuation correction demonstrate fixed defect involving theinferior wall. There is no significant reversibility suggestive of significant ischemia. Gated images reveal hypokinesis of the septum and basal inferior wall. The reported LVEF is 44%. These findings are suggestive of prior inferior myocardial infarction with no evidence of ischemia. Impression: 1. There is no evidence of ischemia. Prior inferior myocardial infarction. 2. Estimated ejection fraction is 44% with wall motion abnormalities as described. This note was generated with [employer] software. It may contain incorrectwords, spelling, and punctuation that were not noted in checking the note beforesigning. Echocardiogram 08/08/2018: Interpretation Summary Moderately dilated left ventricle. The estimated ejection fraction is 45-50 %. Stage 1 diastolic dysfunction. Posterior-Basal: Akinetic. Moderately dilated right ventricle. Trivial tricuspid valve insufficiency. Right ventricular systolic pressure estimated to be 29 mmHg. Compared to echo report dated 06/06/2014, LV function and RVSP has remained the same. RV is now moderately enlarged. Heart catheterization 08/10/2018: CORONARY ANGIOGRAPHY DOMINANCE: Right Dominant LEFT HEART ASSESSMENT Left Ventricular Ejection Fraction: by LV Gram 55 % Inferior Basal Hypokinesis - Severe Depressed Left Ventricular systolic function LVEDP: 13 mmHg LEFT MAIN: Angiographically normal LEFT ANTERIOR DECENDING ARTERY: PROX LAD: Mild luminal irregularities less than 30% MID LAD: 75 % Stenosis CIRCUMFLEX ARTERY: is occluded RIGHT CORONARY ARTERY: is occluded GRAFTS: COLLADO graft to the LAD is patent Saphenous Vein graft to the 1st OM is patent Saphenous Vein graft to the RPDA is patent CABG 12/26/2007: [facility]: COLLADO to the LAD; SVG to the LCx; SVG to the PDA; repair coronary perforation; drainage of hemopericardium ICD: Press Setup Operator: [place] Name: Bob Sidhu Model #: [id number] Serial #: [id number] Date Implanted: 07/04/2016 Device Characteristics Device: Dual Chamber Type: Implantable defibrillator Remote:[employer] Patient Characteristics Underlying patient rhythm:Sinus rhythm Pacemaker Dependent: No Assessment and Plan Assessment and Plan (1) Coronary artery disease: Status: Chronic Comment: History of inferior STEMI. History of CABG. Plan: Continue aspirin and Plavix. Beta-blockers. Risk factor modification. (2) H/O coronary artery bypass surgery: Status: Chronic Comment: CABG x3- COLLADO to LAD, SVG to Lt CX, SVG to PDA Plan: See #1 above. (3) Ischemic cardiomyopathy: Status: Chronic Plan: Inferior posterior hypokinesis to akinesis on echocardiogram. EF 45-50%. Change metoprolol to metoprolol extended release 200 mg daily. Continue ACEI. Start on SGLT2 inhibitors. (4) Ventricular fibrillation: Status: Resolved Comment: History of presyncope, ventricular fibrillation status post ICD shock in 2019. On amiodarone. Plan: Continue amiodarone. Continue to monitor PFTs/LFTs/TSH periodically. (5) Presence of implantable cardioverter-defibrillator (ICD): Status: Chronic Comment: Implantation 02/2008; ICD gen change 07/04/16 Plan: Continue to follow at the pacemaker clinic. (6) Hypertension: Status: Chronic Plan: ACEI, beta-blockers, diuretics. (7) On amiodarone therapy: Status: Chronic Plan: Check PFTs, LFTs and TSH. (8) Bilateral lower extremity edema: Status: Chronic Plan: Chronic lower extremity edema. DC hydrochlorothiazide. Start on furosemide 40 mg daily. K-Dur 20 milliequivalent daily. Check basic metabolic panel in 1 week. (9) Diabetes mellitus: Status: Chronic Plan: As per PCP. Per patient, his diabetes is being managed with diet. Starting on Farxiga for LV systolic dysfunction. Orders: Orders 12 Lead EKG performed by [facility] Z79.899 - Other group home (current) drug therapy Plan Details Follow Up: 6 Months Coding Level of Care Code Off vis,est,level 4 Diagnoses Coronary artery disease I25.10 H/O coronary artery bypass surgery Z95.1 Ischemic cardiomyopathy I25.5 Ventricular fibrillation I49.01 Presence of implantable cardioverter-defibrillator (ICD) Z95.810 Hypertension I10 On amiodarone therapy Z79.899 Bilateral lower extremity edema R60.0 Diabetes mellitus E11.9 Coding Level of Care Code Off vis,est,level 4 Diagnoses Coronary artery disease I25.10 H/O coronary artery bypass surgery Z95.1 Ischemic cardiomyopathy I25.5 Ventricular fibrillation I49.01 Presence of implantable cardioverter-defibrillator (ICD) Z95.810 Hypertension I10 On amiodarone therapy Z79.899 Bilateral lower extremity edema R60.0 Diabetes mellitus E11.9 Clinical Quality Measures Falls Risk Screening/Assistive Devices Have you fallen in the past year?: No Cardiac Ejection fraction %: 45 10/28/24 1329 <Electronically signed by Caleb Martel MD> Date _ Caleb Martel MD Cosigner Signature: Date (if applicable) CC: Dr. Magdy Alford MD ~ [facility] Work Phone: Reason for referral (narrative) Note Date & Type Note Facility Reason for referral (narrative) No reason for referral information available [facility] Work Phone: Summary Purpose Family History Relationship Condition Age at Onset Recorded Date/T yrn Unknown Family History?Heart Disease Unknown August 09, 2018 10:00am Family History?Heart Disease Unknown August 09, 2018 10:00am Coronary Artery Disease Status:Active Comments :Mother. Father. [...] Brother. Osteoarthritis Status:Active Comments:Mother. grandparents Advance Directives Advance Directive Response Recorded Date/ Time Advance Directives No July 04, 2016 10:22am Living Will No August 08, 2018 5:24pm Power of Milk Tanker Driver No August 08 5:24pm Advance Directive Response Recorded Date/ Time Advance Directives No July 04, 2016 10:22am Chief Complaint and Reason for Visit Chief Complaint 3 mos remote ICD f/u 1 Y FU EORDER Reason for Visit Sinus bradycardia Ischemic cardiomyopathy Presence of implantable cardioverter-defibrillator (ICD) Ventricular fibrillation Atherosclerosis of coronary artery of [place] heart without angina pectoris Essential hypertension H/O coronary artery bypass surgery Hypercholesteremia Ischemic cardiomyopathy On amiodarone therapy Paroxysmal ventricular tachycardia Presence of implantable cardioverter-defibrillator (ICD) Chief Complaint Admit Date Pacer Check Remote June 30, 2024 4 :00am Pacer Check Remote September 29, 2024 4:00am Chief Complaint Admit Date Pacer Check Remote June 30, 2024 4 :00am Pacer Check Remote September 29, 2024 4:00am 9-12 M FU October 28, 2024 12:41 pm Reason for Visit Admit Date Bilateral lower extremity edema October 12:41pm Coronary artery disease October 28, 2024 1 2:41pm Diabetes mellitus October 28, 2024 12:41 pm H/O coronary artery bypass surgery October 28, 2024 12:41pm Hypertension October 28, 2024 12:41 pm Ischemic cardiomyopathy October 28, 2024 1 2:41pm On amiodarone therapy October 28, 2024 12: 41pm Presence of implantable cardioverter-def ibrillator (ICD) October 28, 2024 12:41pm Ventricular fibrillation October 28, 2024 12:41pm Additional Source Comments (unrecognized sect ion and content) No Status Records FoundNo Status Records FoundNo Status Records FoundNo Status Records Found INFORMATION SOURCE (unrecogn ized section and content) DATE CREATED AUTHOR 05/18/2020 [facility] DATE CREATED AUTHOR AUTHOR'S ORGANIZ ATION 09/04/2023 [facility] DATE CREATED AUTHOR AUTHOR'S ORGANIZ ATION 07/30/2024 [facility] DATE CREATED AUTHOR AUTHOR'S ORGANIZ ATION 10/29/20[facility] Care Teams (unrecognized sec tion and content) Team Status: Active Member Role Status Dates Dr. Magdy Alford MD Family Provider Active Dr. Magdy Alford MD Primary Care Provider Active Team Status: Inactive Member Role Status Dates Dr. Magdy Alford MD Primary Care Provider, Referring Provider Active Dr. Richard Barajas MD Attending Provider Active Team Status: Inactive Member Role Status Dates Dr. Magdy Alford MD Primary Care Provider, Referring Provider Active Danelle Khan Active Dr. Richard Barajas MD Attending Provider Active Team Status: Inactive Member Role Status Dates Dr. Magdy Alford MD Primary Care Provider Active Dr. Richard Barajas MD Attending Provider, Referring Provider Active Team Status: Inactive Member Role Status Dates Dr. Magdy Alford MD Primary Care Provider Active Start: June 30, 2024 End: June 30, 2024 Dr. Renato Jacques MD Attending Provider Active S tart: June 30, 2024 End: June 30, 2024 Team Status: Inactive Member Role Status Dates Dr. Magdy Alford MD Primary Care Provider Active Start: September 29, 2024 End: September 29, 2024 Dr. Renato Jacques MD Attending Provider Active S tart: September 29, 2024 End: September 29, 2024 Team Status: Inactive Member Role Status Dates Dr. Magdy Alford MD Primary Care Provider Active Start: October 28, 2024 End: October 28, 2024 Dr. Magdy Alford MD Referring Provider Active S tart: October 28, 2024 End: October 28, 2024 Dr. Caleb Martel MD Attending Provider Active Start: October 28, 2024 End: October 28, 2024 Goals (unrecognized section and content) Goals may be documented in a n alternate section FOR RECORDS PERTAINING TO PATIENTS WHO ARE [...] BE BASED ON THE PRIMARY CLINICAL RECORDS. Maintenance Assistant [facility]. provides no warranty or guarantee of the accuracy or completeness of information in this document.
[2024-11-05 06:44] LABS: Hematocrit 42.1 % (40-54); Hemoglobin 14.5 g/dL (13.0-16.5); Mean Corp Hgb Conc 34.4 g/dL (32-36); Mean Corpuscular Hgb 32.2 pg (27.0-32.0); Mean Corpuscular Volume 93.6 fL (80-94); Mean Platelet Vol. 11.6 fl (6.2-12.0); Platelet Count 205 K/mm3 (150-450); RBC Distribution Width CV 11.9 % (11.6-14.6); RBC Distribution Width SD 40.2 fl (35.1-43.9); White Blood Count 5.9 K/mm3 (4.4-11.0)
[2024-11-05 14:24] LABS: CPK Total, Creatine Kinase 109 U/L (24-195); Cholesterol 141 mg/dL (<=200); High Density Lipoprotein 48 mg/dL; Low Density Lipoprotein Calc. 75 mg/dL; Triglycerides 89 mg/dL; Very Low Density Lipoprotein 18 mg/dL (5-40); cholesterol:hdl ratio screen 2.95
[2024-11-05 14:46] LABS: ALB/GLOB Ratio 1.7 RATIO (0.9-2.4); AST(SGOT) 19 U/L (<=37); Alanine Aminotransfer ALT/SGPT 26 U/L (<=46); Albumin, Serum 4.2 g/dL (3.4-4.8); Alkaline Phosphatase 76 U/L (40-129); Anion Gap 11 (5-15); BUN 20 mg/dL (4-19); BUN/Creat Ratio 18.9 RATIO (10-20); Calcium,Total 8.9 mg/dL (7.6-11.0); Carbon Dioxide 25.6 mmol/L (21.0-32.0); Chloride 104 mmol/L (98-108); Creatinine, Serum 1.08 mg/dL (0.70-1.20); EST Glomerular Filtration Rate 75 (>60); Globulin 2.5 g/dL (2.2-4.2); Glucose 196 mg/dL (70-99); Potassium 3.7 mmol/L (3.3-5.1); Protein, Total 6.7 g/dL (5.9-8.4); Sodium Level 141 mmol/L (133-145); Total Bilirubin 0.32 mg/dL (0.00-1.30)
== END | disposition home or self-care (01) ==
LOC: LAB 06:16
PROVIDERS: PCP Family Medicine; Referring Provider Internal Medicine Cardiovascular Disease; Visit Provider Internal Medicine Cardiovascular Disease
DX: I10 Essential (primary) hypertension (principal); I47.20 Ventricular tachycardia, unspecified; I25.10 Atherosclerotic heart disease of native coronary artery without angina pectoris
CPT/HCPCS: 36415; 80053; 80061; 82550; 83735; 84443; 85027

== ENCOUNTER → 2024-11-12 | Outpatient (CLI) | payer OTHER, SELFPAY ==
--- OUTSIDE RECORDS SUMMARY | 2024-11-12 07:09 | XMS RPT_ITS | CCD ---
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 Magdy Mac Primary Care Provider Dr. Magdy Ward Referring Provider Dr. Richard Barajas Attending Provider Magdy Ward MD Unavailable ENT Provider Unavailable Unavailable Hans MADRID, Dr. Pulido Unavailable Vivian PHYSICIAN OFFICE ASSISTANT, Argenis Unavailable Uriah PHYSICIAN OFFICE ASSISTANT, Evita Kessler Unavailable Unavailable Luis MADRID, Todd Gonzalez Unavailable Waldo MILLS, Mecca Knight Unavailable Shun MILLS, Levi Kessler Unavailable Tmamie Hoffmann Unavailable Unavailable Joni CERVANTESN, Adali Unavailable Unavailable King NADIA-C, Shorty Zapata Unavailable Mecca Melton RN Unavailable Unavaila ble Nelli CARR, Viky Back Unavailable Unavailable Checo MILLS, Yue Cowan Unavailable Xochitl PHYSICIAN OFFICE ASSISTANT, Ashly Saunders Unavailable Unavailab eloise Rice LPN, Claire Woodall Unavailable Unavailab Adali Worthy MA Unavailable Unavailable Tonio Posadas MD Unavailable Vess PHYSICIAN OFFICE ASSISTANT, Mary Echols Unavailable Unavailable Kurtis PHYSICIAN OFFICE ASSISTANT, Sandy Unavailable Unavailkarsisa Ken PHYSICIAN OFFICE ASSISTANT, Vanessa Good Unavailable Unavaila ble Unavailable Unavailable ERIC DOUGHERTY Admitting Unavailable ERIC DOUGHERTY Primary Care Unavailable ERIC DOUGHERTY Attending Unavailable MAGDY WARD Consulting Unavailable PROVIDER, UNKNOWN Consulting Unavailable PROVIDER, UNKNOWN Consulting Unavailable PROVIDER, UNKNOWN Consulting Unavailable Arsenio MILLS, Yi Cowan Unavailable [phone] Prashanth MADRID, Dr. Curran Primary Care Provider Sawyer MADRID, Dr. Gross Attending Provider Prashanth MADRID, Dr. Curran Referring Provider Delonte MADRID, Dr. Ellis Attending Provider [facility] Prashanth MADRID, Dr. Curran Primary Care Provider Sawyer MADRID, Dr. Gross Attending Provider Delonte MADRID, Dr. Ellis Referring Provider Prashanth, Magdy Referring Unavailable [facility], Magdy Primary Care Unavailable Tsang NON LINEAR EDITOR, Anaya Attending Unavailable Delonte, Caleb Referring Unavailable Delonte, Caleb Attending Unavailable [facility] Primary Care Unavailable [facility] Primary Care Unavailable Sawyer, Renato Attending Unavailable [facility] Primary Care Unavailable Nagajothi, Nagapradee Attending Unavailabl e [facility] Primary Care Unavailable Sawyer, Gladstone Attending Unavailable [facility] Primary Care Unavailable Sawyer, Renato Attending Unavailable [facility] Primary Care Unavailable Sawyer, Gladstone Attending Unavailable [facility] Primary Care Unavailable Sawyer, Gladstone Attending Unavailable Delonte, Caleb Attending Unavailable [facility] Primary Care Unavailable [facility], Magdy Referring Unavailable [facility], [place] Primary Care Unavailable Tsang NON LINEAR EDITOR, Anaya Attending Unavailable [facility] Primary Care Unavailable Tsang NON LINEAR EDITOR, Anaya Referring Unavailable [facility], [place] Attending Unavailable [facility] Primary Care Unavailable Tsang NON LINEAR EDITOR, Anaya Consulting Unavailable Tsang NON LINEAR EDITOR, Anaya Referring Unavailable Nagajothi, Nagapradee Attending Unavailabl e Delonte, Caleb Referring Unavailable Delonte, Caleb Attending Unavailable [facility], Magdy Primary Care Unavailable [facility], Magdy Referring Unavailable [facility], [place] Primary Care Unavailable Sawyer, Renato Attending Unavailable [facility], Magdy Primary Care Unavailable Sawyer, Renato Attending Unavailable [facility] Primary Care Unavailable Tsang NON LINEAR EDITOR, Anaya Referring Unavailable Tsang NON LINEAR EDITOR, Anaya Attending Unavailable [facility] Magdy Primary Care Unavailable Tsang NON LINEAR EDITOR, Anaya Attending Unavailable Tsang NON LINEAR EDITOR, Anaya Referring Unavailable Tsang NON LINEAR EDITOR, Anaya Attending Unavailable Magdy Ward Primary Care Unavailable Tonio Zheng NP Referring Unavailable Tonio Zheng NP Attending Unavailable Allergies Allergy Classification Reported Allergen(s) Allergy Type Date of Onset Reaction(s) Facility (1 source) Contrast media; Translations: [iodinated radiocontrast agents] Drug allergy Latex allergy (disorder) [facility] (20 sources) Iodine Drug Allergy 3 Unknown, Hives [facility] (20 sources) Latex; Translations: [LATEX] Allergy to substance 3 Unknown, Rash [facility] (1 source) IODIDE Drug allergy (disorder) [facility] Repository (1 source) Iodine Drug Allergy 5 [facility] Repository (1 source) Latex Drug allergy (disorder) [address] [place] [address] Repository Medications Current Medications Medication Drug Class(es) Dates Sig (Normalized) Sig (Original) [id number] 200 actuat albuterol 0.09 mg/actuat metered dose inhaler (20 sources) beta2-Adrenergic Agonist Start: 06-21-2024 take 2 puff(s) by inhalation every four hours as needed albuterol sulfate HFA 90 mcg/actuation aerosol inhaler ; 2 (two) Puff every four hours, as needed for 0 days Quantity: 1 {Each} Refills: 3 Ordered: 21-Jun-2024 MD Magdy Ward Start: 21-Jun-2024 Comments: Medication taken as needed. Start: 05-05-2023 take 2 puff(s) by in halation every four hours as needed albuterol sulfate HFA 90 mcg/actuation aerosol inhaler ; 2 (two) Puff every four hours, as needed for 0 days Quantity: 1 {Each} Refills: 3 Ordered: 05-May-2023 MD Magdy Ward Start: 05-May-2023 Comments: Medication taken as needed. Comment on above: Medication taken as needed. amiodarone hydrochloride 200 mg oral tablet (20 sources) Antiarrhythmic Start: 11-02-19 take 1 tablet by mouth once daily Amiodarone (Pacerone) 200 mg tablet Active 200 mg PO daily November 01, 2024 9:48am BID for 2 weeks, than 200mg PO Daily Start: 03-23-2024 End: 11-01-2024 take 1 tablet by mouth twice daily Amiodarone (Pacerone) 200 mg tablet Discontinued 200 mg PO TWICE A DAY March 23, 2024 4:52pm November 01, 2024 9:49am BID for 2 weeks, than 200mg PO [...] tablet (20 sources) HMG-CoA Reductase Inhibitor Start: 11-08-2024 atorvastatin 40 mg tablet ; 1 (one) Tablet daily for 0 days Quantity: 30 {Tablet} Refills: 2 Ordered: 08-Nov-2024 LINA Cesar Start: 08-Nov-2024 Start: 10-12-2024 atorvastatin 4 0 mg tablet ; 1 (one) Tablet daily for 0 days Quantity: 30 {Tablet} Refills: 0 Ordered: 12-Oct-2024 MD Magdy Ward Start: 12-Oct-2024 Start: 09-16-2024 Lipitor 40 mg tablet ; 1 (one) Tablet daily for 0 days Quantity: 30 {Tablet} Refills: 0 Ordered: 16-Sep-2024 MD Magdy Ward Start: 16-Sep-2024 Start: 03-18-2018 take 1 tablet by igor th once daily Atorvastatin 40 mg tablet Active 40 mg PO DAILY March 18, 2018 12:00am take 1 tablet by igor th at [...] 0 Refill(s) Start Date: 06/05/14 Status: Ordered dapagliflozin 10 mg oral tablet (2 sources) Sodium-Glucose Cotransporter 2 Inhibitor Start: 10-29-2024 take 1 tablet by mouth once daily Dapagliflozin Propanediol (Farxiga) 10 mg tablet Active 10 mg PO daily October 29, 2024 12:00am diphenhydrAMINE hydrochloride 25 mg oral capsule (20 [...] Status: Ordered furosemide 40 mg oral tablet (11 sources) Loop Diuretic Start: 10-29-2024 take 1 tablet by mouth once daily Furosemide (Lasix) 40 mg tablet Active 40 mg PO daily 90 October 29, 2024 12:00am Comment on above: cardio hydroCHLOROthiazide 25 mg oral tablet (20 sources) Thiazide Diuretic Start: 12-24-2023 hydroCHLOROthiazide 25 mg tablet ; 1 (one) Tablet daily for 0 days Quantity: 30 {Tablet} Refills: 5 Ordered: 24-Dec-2023 MD Tonio Posadas Start: 24-Dec-2023 Start: 12-16-2023 hydroCHLOROthi azide 25 mg tablet ; 1 (one) Tablet daily for 0 days Quantity: 30 {Tablet} Refills: 5 Ordered: 16-Dec-2023 MD Magdy Ward Start: 16-Dec-2023 Start: 06-05-2014 End: 10-29-2024 take 1 tablet by mouth once daily Hydrochlorothiazide 25 MG tablet Discontinued 25 mg PO DAILY July 03, 2016 1:00am October 29, 2024 10:07am lisinopril 20 mg oral tablet (20 sources) Angiotensin Converting Enzyme Inhibitor Start: 11-08-2024 lisinopriL 20 mg tablet ; 1 Tablet two times daily for 0 days Quantity: 60 {Tablet} Refills: 2 Ordered: 08-Nov-2024 MD Magdy Ward Start: 08-Nov-2024 Comments: Start: 09-09-2024 lisinopriL 20 mg tablet ; 1 Tablet two times daily for 0 days Quantity: 60 {Tablet} Refills: 0 Ordered: 09-Sep-2024 MD Magdy Ward Start: 09-Sep-2024 Comments: Start: 08-13-2024 lisinopriL 20 mg tablet ; 1 Tablet two times daily for 0 days Quantity: 60 {Tablet} Refills: 0 Ordered: 13-Aug-2024 MD Magdy Ward Start: 13-Aug-2024 Comments: Start: 08-09-2024 lisinopriL 20 mg tablet ; 1 Tablet two times daily for 0 days Quantity: 60 {Tablet} Refills: 0 Ordered: 09-Aug-2024 MD Magdy Ward Start: 09-Aug-2024 Comments: Start: 06-05-2014 take 1 tablet by [facility] twice daily Lisinopril 20 MG tablet Active 20 mg PO TWICE A DAY July 03, 2016 1:00am Comment on above: wm 24 hr metoprolol succinate 100 mg extended release oral tablet (20 sources) beta-Adrenergic Janki Start: 11-02-2024 metoprolol succinate ER 100 mg tablet,extended release 24 hr ; 1 (one) tablet qd for 0 days Quantity: 90 {Tablet} Refills: 1 Ordered: 02-Nov-2024 MD Magdy Ward Start: 02-Nov-2024 Start: 10-29-2024 take 1 tablet by igor th once daily Metoprolol Succinate 200 mg tablet extended release 24 hr Active 200 mg PO daily 90 October 29, 2024 12:00am Start: 10-27-2024 End: 11-02-2024 metoprolol tartrate 50 mg ta blet ; 1 (one) Tablet two times daily for 0 days Quantity: 60 {Tablet} Refills: 5 Ordered: 02-Nov-2024 NATALIIA Quinones Start: 27-Oct-2024 End: 02-Nov-2024 Status: Discontinued Comments: Start: 04-26-2024 metoprolol tar trate 50 mg tablet ; 1 (one) Tablet two times daily for 0 days Quantity: 60 {Tablet} Refills: 5 Ordered: 26-Apr-2024 MD Magdy Ward Start: 26-Apr-2024 Comments: Start: 10-31-2023 metoprolol tar trate 50 mg tablet ; 1 (one) Tablet two times daily for 0 days Quantity: 60 {Tablet} Refills: 5 Ordered: 31-Oct-2023 LINA Hoffmann Start: 31-Oct-2023 Comments: Start: 05-05-2023 metoprolol tar trate 50 mg tablet ; 1 (one) Tablet two times daily for 0 days Quantity: 60 {Tablet} Refills: 5 Ordered: 05-May-2023 MD Magdy Ward Start: 05-May-2023 Comments: Start: 06-21-2021 End: 10-29-2024 take 1 tablet by mouth twice daily Metoprolol Tartrate 100 mg tablet Discontinued 100 mg PO TWICE A DAY June 21, 2021 4:20pm October 29, 2024 10:13am Start: 12-09-2018 End: 06-21-2021 Metoprolol Tartrate 100 [...] 03, 2016 1:00am December 09, 2018 12:02pm End: 11-08-2024 metoprolol succinate ER 200 mg tablet,extended release 24 hr ; 1 daily (200 mg) End: 08-Nov-2024 Status: Inactive Comments: cardio Comment on above: wm cardio Multivitamin 1 EACH tablet (4 sources) Start: 07-03-2016 Multivitamin 1 EACH tablet Active 1 NMA PO DAILY July 03, 2016 1:00am Multivitamin preparation (2 sources) Start: 07-03-2016 Multivitamin A ctive 1 EACH PO DAILY July 03, 2016 1:00am Start: 06-05-2014 take 1 tablet by igor th once daily at bedtime Multivitamin Dose = 1 tab(s), Oral, qHS, 0 Refill(s) Start Date: 06/05/14 Status: Ordered potassium chloride 20 meq extended release oral tablet (20 sources) Start: 10-29-2024 take 1 tablet by mouth once daily Potassium Chloride (K-Tab) 20 mEq tablet extended release Active 20 meq PO daily October 29, 2024 12:00am Start: 08-30-2024 End: 11-02-2024 potassium chloride ER [...] {Tablet} Refills: 5 Ordered: 26-Dec-2023 MD Magdy Ward Start: 26-Dec-2023 Start: 07-10-2023 potassium chlo ride ER 10 mEq tablet,extended release ; 1 (one) Tablet qd for 0 days Quantity: 30 {Tablet} Refills: 5 Ordered: 10-Jul-2023 MD Magdy Ward Start: 10-Jul-2023 Start: 11-18-2022 potassium chlo ride ER 10 mEq tablet,extended release ; 1 (one) Tablet qd for 0 days Quantity: 30 {Tablet} Refills: 5 Ordered: 18-Nov-2022 LINA Cesar Start: 18-Nov-2022 Start: 03-18-2018 End: 10-29-2024 take 1 capsule by mouth once daily Potassium Chloride 10 mEq capsule, extended release Discontinued 10 meq PO DAILY March 18, 2018 12:00am October 29, 2024 10:12am Comment on above: cardio sildenafil 50 mg oral tablet (20 sources) Phosphodiesterase 5 Inhibitor Start: 01-15-2024 sildenafiL 50 mg tablet ; 1-2 tablet take 60 minutes prior intercourse for 0 days Quantity: 20 {Tablet} Refills: 3 Ordered: 15-Jan-2024 MD Magdy Ward Start: 15-Jan-2024 Start: 07-29-2023 sildenafiL 50 mg tablet ; 1-2 tablet take 60 minutes prior intercourse for 0 days Quantity: 20 {Tablet} Refills: 3 Ordered: 29-Jul-2023 MD Magdy Ward Start: 29-Jul-2023 tamsulosin hydrochloride 0.4 mg oral capsule (20 sources) alpha-Adrenergic Janki Start: 09-15-2024 take 1 capsule by mouth once daily Tamsulosin 0.4 mg capsule Active 0.4 mg PO daily October 28, 2024 12:00am Start: 08-19-2024 tamsulosin 0.4 mg capsule ; 1 (one) capsule qd for 0 days Quantity: 30 {Capsule} Refills: 0 Ordered: 19-Aug-2024 MD Magdy Ward Start: 19-Aug-2024 Start: 07-20-2024 tamsulosin 0.4 mg capsule ; 1 (one) capsule qd for 0 days Quantity: 30 {Capsule} Refills: 0 Ordered: 20-Jul-2024 MD Magdy Ward Start: 20-Jul-2024 Start: 04-23-2024 tamsulosin 0.4 mg capsule ; 1 (one) capsule qd for 0 days Quantity: 90 {Capsule} Refills: 0 Ordered: 23-Apr-2024 MD Magdy Ward Start: 23-Apr-2024 Start: 01-27-2024 tamsulosin 0.4 mg capsule ; 1 (one) capsule qd for 0 days Quantity: 90 {Capsule} Refills: 0 Ordered: 27-Jan-2024 MD Magdy Ward Start: 27-Jan-2024 Start: 07-29-2023 tamsulosin 0.4 mg capsule ; 1 (one) capsule qd for 0 days Quantity: 90 {Capsule} Refills: 1 Ordered: 29-Jul-2023 MD Magdy Ward Start: 29-Jul-2023 Completed/Discontinued Medications Medication Drug Class(es) [...] {Tablet} Refills: 0 Ordered: 14-Feb-2021 MD Magdy Ward Start: 14-Feb-2021 End: 24-Feb-2021 Status: Inactive Comments: [...] {Tablet} Refills: 0 Ordered: 25-Nov-2022 MD Magdy Ward Start: 25-Nov-2022 End: 30-Nov-2022 Status: Inactive Start: [...] 30 {Capsule} Refills: 0 Ordered: 03-Aug-2024 NATALIIA Quinones Start: 14-Jun-2024 End: 03-Aug-2024 Status: Inactive Comments: [...] {Ounce} Refills: 0 Ordered: 31-Oct-2014 NATALIIA Garcia Start: 09-Jul-2014 End: 31-Oct-2014 Status: Inactive Comments: [...] cream (20 sources) Azole Antifungal Start: 05-02-20 End: 08-21-19 17 Ketoconazole 2 % External Cream ; 1 (one) application(s) application(s) Twice daily for 0 days Quantity: 60 {Gram} Refills: 2 Ordered: 20-Aug-2016 NATALIIA Rice Claire Woodall Start: 02-May-2015 End: 20-Aug-2016 Status: Inactive 24 hr niacin 1000 mg extended release oral tablet (6 sources) Nicotinic Acid Start: 07-03-19 End: 03-18-20 18 Niacin 1,000 MG tablet extended release [...] sublingual tablet (20 sources) Nitrate Vasodilator Start: 07-03-2016 End: 08-07-2022 Nitroglycerin 0.4 mg tablet, sublingual Discontinued 0.4 mg SL every 5 to 15 minutes as needed for Chest Pain August 07, 2022 3:41pm August 07, 2022 3:41pm predniSONE 20 mg oral tablet (20 sources) Start: 05-03-2022 End: 07-23-2022 take 1 tablet by mouth three times [...] tablet (20 sources) HMG-CoA Reductase Inhibitor Start: 07-03-2016 End: 03-18-2018 Simvastatin 80 MG tablet Discontinued 40 mg [...] {Tablet} Refills: 5 Ordered: 31-Oct-2014 MD Magdy Ward Start: 22-Feb-2014 End: 31-Oct-2014 Status: Inactive sulfacetamide [...] {Tablet} Refills: 0 Ordered: 10-Aug-2013 MD Magdy Ward Start: 10-Aug-2013 End: 24-Aug-2013 Status: Inactive triamcinolone [...] source) Myocardial infarction 06-05-2014 Chronic Adjustment disorders (20 sources) Stress; Translations: [Reaction to severe stress, unspecified] 11-02-2024 Chronic Asthma (20 sources) Asthma; Translations: [Unspecified asthma, uncomplicated] 01-21-2023 Chronic Cardiac arrest and ventricular fibrillation (10 sources) Ventricular fibrillation; Translations: [Ventricular fibrillation] Onset: 10-28-2024 12-07-2019 Chronic Comment on above: History of presyncop e, ventricular fibrillation status post ICD shock in 2019. On amiodarone. Cardiac dysrhythmias (9 sources) Paroxysmal ventricular tachycardia; Translations: [Paroxysmal ventricular tachycardia] Onset: 02-03-2024 08-09-2018 Chronic Cardiac dysrhythmias (7 sources) Sinus bradycardia; Translations: [Bradycardia, unspecified] Onset: 01-12-2024 10-15-2018 Episodic Chronic obstructive pulmonary disease and bronchiectasis (20 [...] initial encounter] Onset: 04-14-2021 Episodic Other aftercare (8 sources) Drug therapy finding; Translations: [Other predatory animal exterminator (current) drug therapy] 08-10-2018 Episodic Other aftercare (3 sources) Other predatory animal exterminator (current) drug therapy; Translations: [Long-term (current) use of other medications] Onset: 10-28-2024 08-07-2022 Episodic Other circulatory disease (5 sources) Carotid bruit; Translations: [Other specified symptoms and signs involving the circulatory and respiratory systems] 08-09-2018 Episodic Other lower respiratory disease (18 sources) Apnea; Translations: [Apnea, not elsewhere classified] [...] disorder; Translations: [Cardiomyopathy in diseases classified elsewhere] 08-29-2023 Chronic Pneumonia (except that caused by tuberculosis or sexually transmitted disease) (20 sources) Pneumonia; Translations: [Pneumonia, unspecified organism] 06-12-2021 Episodic Residual codes; unclassified (5 sources) Hypersomnia; Translations: [Hypersomnia, unspecified] 09-04-2018 Chronic Residual codes; unclassified (20 sources) Daytime somnolence; Translations: [Other hypersomnia] 01-21-2023 Chronic Residual codes; unclassified (20 sources) Non-smoker; Translations: [Other specified health status] 01-21-2023 Episodic Residual codes; unclassified (20 sources) Influenza vaccination declined; Translations: [Immunization not carried out because of patient refusal] 02-10-2024 Episodic Residual codes; unclassified (6 sources) Bilateral lower limb edema; Translations: [Localized edema] 10-28-2024 Episodic Residual codes; unclassified (1 source) Localized edema; Translations: [Localized edema] Onset: 10-28-2024 Episodic Syncope (11 sources) Syncope; Translations: [Syncope and collapse] Onset: 04-11-2024 10-15-2018 Episodic Unclassified (1 source) Automatic cardiac defibrillator [...] side effects noted (no refills needed today (inside barrel lathe operator decreased Metoprolol to 50mg two times [...] Multiple chronic conditions follow-up: Pt was at [facility] from Friday to Friday. His ICD had [...] that he had low potassium. reviewed by [facility] 01-16-2018 Unclassified (20 sources) Follow Up [...] those are improving as well. reviewed by [facility] 06-20-2017 Unclassified (20 sources) Follow Up [...] blood sugars or blood pressures. reviewed by [facility] 12-10-2016 Unclassified (20 sources) [ADDITIONAL REASON] [...] Note for Upper respiratory infection: Reviewed by BAYLEE. 09-20-2016 Unclassified (20 sources) Follow Up for [...] going on for about 6 months.reviewed by [facility] 05-24-2016 Unclassified (20 sources) Follow Up [...] BP's. He has eaten today. reviewed by [facility] 11-20-2015 Unclassified (20 sources) [ADDITIONAL REASON] Transition [...] red rash on right foot. reviewed by [facility] 05-02-2015 Unclassified (20 sources) Follow up [...] conditions follow-up: pt was to see the inside barrel lathe operator in July and he d/c'd his [...] for Multiple chronic conditions follow-up: reviewed by [facility] 09-24-2013 Unclassified (20 sources) Follow Up [...] doing well. Has not seen Dr. Triana- inside barrel lathe operator since 2010. Pt has not been fasting. reviewed by [facility] 02-08-2013 Unclassified (20 sources) [ADDITIONAL REASON] Leg Injury - Pt hit his right black in a freezer couple times about 6 weeks ago. Still has bump right above right ankle. Does have edema to BLE's. Says he always seems to have the ankle swelling. Does not always take his HCTZ faithfully due to not always having access to bathroom. reviewed by [facility] 02-08-2013 Unclassified (20 sources) Transition into care - The patient is transitioning into care from another physician (cardiology) and a summary of care was reviewed. 07-04-2020 Unclassified (11 sources) [ADDITIONAL REASON] Follow Up for Multiple [...] eaten today. reviewed by B 11-20-2015 Unclassified (13 sources) Leg Injury - Pt hit his right black in a freezer couple times about 6 weeks ago. Still has bump right above right ankle. Does have edema to BLE's. Says he always seems to have the ankle swelling. Does not always take his HCTZ faithfully due to not always having access to bathroom. reviewed by [facility] 02-08-2013 Unclassified (13 sources) [ADDITIONAL REASON] Follow Up for Multiple [...] doing well. Has not seen Dr. Triana- inside barrel lathe operator since 2010. Pt has not been fasting. reviewed by [facility] 02-08-2013 Unclassified (4 sources) Transition into [...] and headaches are rarely noted. 02-10-2024 Unclassified (9 sources) Follow up for multiple chronic conditions [...] meq and also switched his metoprolol 11-02-2024 Unclassified (1 source) Ventricular tachycardia, unspecified; Translations: [Ventricular tachycardia, unspecified] Onset: 03-09-2024 Past or Other Problems Problem Classification Problem Date Documented Date Episodic/Chronic Coronary atherosclerosis and other heart disease (20 sources) Coronary atherosclerosis and other heart disease 02-18-2012 Residual codes; unclassified (5 sources) History of cardiac catheterization; Translations: [Other specified postprocedural states] Onset: 08-10-2018 08-10-2018 Episodic Comment on above: Triple vessel CAD of the LCX, LAD and RCA. Segmented LV systolic dysfunction- Mild; Widely patent COLLADO to LAD. Widely patent SVG to OM. Widely patent SVG to PDA. per [facility] 08/10/18 Dr. Camarena @ [facility] Unclassified (20 sources) Cold Symptoms - Symptoms [...] Note for Well adult male: reviewed by B 07-23-2022 Unclassified (20 sources) Breathing trouble - [...] Note for Upper respiratory infection: reviewed by B 12-17-2021 Unclassified (20 sources) Cold Symptoms - [...] Note for Upper respiratory infection: reviewed by B 09-03-2021 Unclassified (20 sources) Cold Symptoms - [...] current symptoms two weeks later. reviewed by [facility] 06-12-2021 Unclassified (20 sources) Cold Symptoms [...] moderate). The cough occurs mostly in the water proofer. Associated symptoms include chest pain, dyspnea, headache, nasal congestion, sinus pressure, post-nasal drip, throat clearing and wheezing. Note for Cough: has a metallic taste when he coughs-also had a lump in his neck they noticed it a week ago - not tender to the touch-- getting bigger reviewed by [facility] 02-14-2021 Unclassified (20 sources) Well adult [...] sample today for P:C ratio. reviewed by [facility] 12-13-2019 Unclassified (20 sources) Mouth pain - Symptoms include dental pain in a single tooth (right lower tooth, about 2 weeks ago a piece of tooth chipped off), inflamed gums, bleeding gums and facial swelling (right cheek/jaw). Symptoms are located in the gums (right jaw). The pain radiates to the ear and the congregational (right). The patient describes the pain as [...] The patient has a Healthcare Power of Cane Splicer and a Living Will. 08-03-2024 Results Test Name Value Interpretation Reference Range Facility Anion gap in Serum or Plasma Ordered By: Caleb Martel on 11-05-2024 Anion gap [Moles/Vol] 11 mmol/L - [facility] BUN/creatinine ratioOrdered By: Caleb Martel on 11-05-2024 Urea nitrogen/Creatinine [Mass ratio] 18.9 mg/mg - [facility] Bilirubin, totalOrdered By: Caleb Martel on 11-05-2024 Bilirubin [Mass/Vol] 0.32 mg/dL 0.00-1.30 [facility] CBC-Complete Blood Cnt No Di ffon 11-05-2024 Erythrocyte distribution width (RBC) [Ratio] 11.9 % Normal 11.6-14.6 [facility] Comment on above: Performed By: #### L 501.9520, L500.4050, L501.3620, L501.5200, L500.4100, L100.0500 #### [facility] [address] [place], [address] Hematocrit (Bld) [Volume fraction] 42.1 % Normal 40-54 [facility] Comment on above: Performed By: #### L 501.9520, L500.4050, L501.3620, L501.5200, L500.4100, L100.0500 #### [facility] [address] [place], [address] Hemoglobin (Bld) [Mass/Vol] 14.5 g/dL Normal 13.0-16.5 [facility] Comment on above: Performed By: #### L 501.9520, L500.4050, L501.3620, L501.5200, L500.4100, L100.0500 #### [facility] [address] [place], [address] MCH (RBC) [Entitic mass] 32.2 pg High 27.0-32.0 [facility] Comment on above: Performed By: #### L 501.9520, L500.4050, L501.3620, L501.5200, L500.4100, L100.0500 #### [facility] [address] [place], [address] MCHC (RBC) [Mass/Vol] 34.4 g/dL Normal 32-36 [facility] Comment on above: Performed By: #### L 501.9520, L500.4050, L501.3620, L501.5200, L500.4100, L100.0500 #### [facility] [address] [place], [address] MCV (RBC) [Entitic vol] 93.6 fL Normal 80-94 [facility] Comment on above: Performed By: #### L 501.9520, L500.4050, L501.3620, L501.5200, L500.4100, L100.0500 #### [facility] [address] [place], [address] Platelet mean volume (Bld) [Entitic vol] 11.6 fL Normal 6.2-12.0 [facility] Comment on above: Performed By: #### L 501.9520, L500.4050, L501.3620, L501.5200, L500.4100, L100.0500 #### [facility] [address] [place], [address] Platelets (Bld) [#/Vol] 205 10*3/uL Normal 150-450 [facility] Comment on above: Performed By: #### L 501.9520, L500.4050, L501.3620, L501.5200, L500.4100, L100.0500 #### [facility] [address] [place], [address] RBC (Bld) [#/Vol] 4.50 10*6/uL Low 4.6-6.2 [facility] Comment on above: Performed By: #### L 501.9520, L500.4050, L501.3620, L501.5200, L500.4100, L100.0500 #### [facility] [address] [place], [address] RDW SD 40.2 fl Normal 35.1-43.9 [facility] Comment on above: Performed By: #### L 501.9520, L500.4050, L501.3620, L501.5200, L500.4100, L100.0500 #### [facility] [address] [place], [address] WBC (Bld) [#/Vol] 5.9 10*3/uL Normal 4.4-11.0 [facility] Comment on above: Performed By: #### L 501.9520, L500.4050, L501.3620, L501.5200, L500.4100, L100.0500 #### [facility] [address] [place], [address] CPK Total, Creatine Kinaseon 11-05-2024 CPK TOTAL 109 U/L Normal 24-195 [facility] Comment on above: Performed By: #### L 501.9520, L500.4050, L501.3620, L501.5200, L500.4100, L100.0500 ####[facility] [address] [place], [address] Calculated very low density lipoprotein (VLDL) cholesterol measurementOrdered By: Caleb Martel on 11-05-2024 Calculated very low density lipoprotein (VLDL) cholesterol measurement 18 mg/dL 5-40 [facility] Carbon dioxide, total [Moles /volume] in Central venous bloodOrdered By: Caleb Martel on 11-05-2024 CO2 [Moles/Vol] 25.6 mmol/L 21.0-32.0 [facility] Chloride assayOrdered By: Silviano Martel on 11-05-2024 Chloride [Moles/Vol] 104 mmol/L 98-108 [facility] Comprehensive Metabolic Prof ilon 11-05-2024 Albumin [Mass/Vol] 4.2 g/dL Normal 3.4-4.8 [facility] Comment on above: Performed By: #### L 501.9520, L500.4050, L501.3620, L501.5200, L500.4100, L100.0500 ####[facility] [address] [place], [address] Albumin/Globulin [Mass ratio] 1.7 {ratio} Normal 0.9-2.4 [facility] Comment on above: Performed By: #### L 501.9520, L500.4050, L501.3620, L501.5200, L500.4100, L100.0500 ####[facility] [address] [place], [address] ALK PHOS 76 U/L Normal 40-129 [facility] Comment on above: Performed By: #### L 501.9520, L500.4050, L501.3620, L501.5200, L500.4100, L100.0500 ####[facility] [address] [place], [address] ALT [Catalytic activity/Vol] 26 U/L Normal <=46 [facility] Comment on above: Performed By: #### L 501.9520, L500.4050, L501.3620, L501.5200, L500.4100, L100.0500 ####[facility] [address] [place], [address] AST [Catalytic activity/Vol] 19 U/L Normal <=37 [facility] Comment on above: Performed By: #### L 501.9520, L500.4050, L501.3620, L501.5200, L500.4100, L100.0500 ####[facility] [address] [place], [address] Bilirubin [Mass/Vol] 0.32 mg/dL Normal 0.00-1.30 [facility] Comment on above: Performed By: #### L 501.9520, L500.4050, L501.3620, L501.5200, L500.4100, L100.0500 ####[facility] [address] [place], [address] BUN/CRE 18.9 RATIO Normal 10-20 [facility] Comment on above: Performed By: #### L 501.9520, L500.4050, L501.3620, L501.5200, L500.4100, L100.0500 ####[facility] [address] [place], [address] Calcium [Mass/Vol] 8.9 mg/dL Normal 7.6-11.0 [facility] Comment on above: Performed By: #### L 501.9520, L500.4050, L501.3620, L501.5200, L500.4100, L100.0500 ####[facility] [address] [place], [address] Chloride [Moles/Vol] 104 mmol/L Normal 98-108 [facility] Comment on above: Performed By: #### L 501.9520, L500.4050, L501.3620, L501.5200, L500.4100, L100.0500 ####[facility] [address] [place], [address] CO2 [Moles/Vol] 25.6 mmol/L Normal 21.0-32.0 [facility] Comment on above: Performed By: #### L 501.9520, L500.4050, L501.3620, L501.5200, L500.4100, L100.0500 ####[facility] [address] [place], [address] Creatinine [Mass/Vol] 1.08 mg/dL Normal 0.70-1.20 [facility] Comment on above: Performed By: #### L 501.9520, L500.4050, L501.3620, L501.5200, L500.4100, L100.0500 ####[facility] [address] [place], [address] GAP 11 Normal 5-15 [facility] Comment on above: Performed By: #### L 501.9520, L500.4050, L501.3620, L501.5200, L500.4100, L100.0500 ####[facility] [address] [place], [address] GFR/1.73 sq M.predicted among non-blacks MDRD (S/P/Bld) [Vol rate/Area] 75 mL/min/{1.73_m2} Normal >60 [facility] Comment on above: Result Comment: mL/m in/1.73m2 CKD-EPI Creatinine Equation (2020) Performed By: #### L 501.9520, L500.4050, L501.3620, L501.5200, L500.4100, L100.0500 ####[facility] [address] [place], [address] Globulin (S) [Mass/Vol] 2.5 g/dL Normal 2.2-4.2 [facility] Comment on above: Performed By: #### L 501.9520, L500.4050, L501.3620, L501.5200, L500.4100, L100.0500 ####[facility] [address] [place], [address] Glucose [Mass/Vol] 196 mg/dL High 70-99 [facility] Comment on above: Performed By: #### L 501.9520, L500.4050, L501.3620, L501.5200, L500.4100, L100.0500 ####[facility] [address] [place], [address] Potassium [Moles/Vol] 3.7 mmol/L Normal 3.3-5.1 [facility] Comment on above: Performed By: #### L 501.9520, L500.4050, L501.3620, L501.5200, L500.4100, L100.0500 ####[facility] [address] [place], [address] Sodium [Moles/Vol] 141 mmol/L Normal 133-145 [facility] Comment on above: Performed By: #### L 501.9520, L500.4050, L501.3620, L501.5200, L500.4100, L100.0500 ####[facility] [address] [place], [address] T PROT 6.7 g/dL Normal 5.9-8.4 [facility] Comment on above: Performed By: #### L 501.9520, L500.4050, L501.3620, L501.5200, L500.4100, L100.0500 ####[facility] [address] [place], [address] Urea nitrogen [Mass/Vol] 20 mg/dL High 4- [facility] Comment on above: Performed By: #### L 501.9520, L500.4050, L501.3620, L501.5200, L500.4100, L100.0500 ####[facility] [address] [place], [address] Erythrocyte distribution wid th ratioOrdered By: Caleb Martel on 11-05-2024 Erythrocyte distribution width (RBC) [Ratio] 11.9 % 11.6-14.6 [facility] Erythrocyte distribution wid th standard deviationOrdered By: Caleb Martel on 11-05-2024 Erythrocyte distribution width (RBC) [Ratio] 40.2 fl 35.1-43.9 [facility] Glomerular filtration rate ( GFR) estimation/1.73 sq m using serum, plasma, or whole bOrdered By: Caleb Martel on 11-05-2024 GFR/1.73 sq M.predicted among non-blacks MDRD (S/P/Bld) [Vol rate/Area] 75 mL/min/{1.73_m2} >60 [facility] Comment on above: mL/min/1.73m2 CKD-EP I Creatinine Equation (2020) Hematocrit Auto (Bld) [Volum e fraction]Ordered By: Caleb Martel on 11-05-2024 Hematocrit (Bld) [Volume fraction] 42.1 % 40-54 [facility] Hemoglobin measurementOrdere d By: Caleb Martel on 11-05-2024 Hemoglobin (Bld) [Mass/Vol] 14.5 g/dL 13.0-16.5 [facility] LDL calc ser/plasOrdered By: Caleb Martel on 11-05-2024 Cholesterol in LDL [Mass/Vol] 75 mg/dL [facility] Comment on above: Pyufivekos=293-064 m g/dL & Higher Ndlz=833 mg/dL or greater Laboratory - Chemistry and C hemistry - challengeOrdered By: Caleb Martel on 11-05-2024 AST [Catalytic activity/Vol] 19 U/L <38 [facility] Lipid Profileon 11-05-2024 CHOL:HDL 2.95 Normal [facility] Comment on above: Performed By: #### L 501.9520, L500.4050, L501.3620, L501.5200, L500.4100, L100.0500 #### [facility] [address] [facility] [address] Cholesterol [Mass/Vol] 141 mg/dL Normal <=200 [facility] Comment on above: Result Comment: Chol esterol level, Desirable <200 mg/dL Borderline high cholesterol 200-239 mg/dL High cholesterol >=240 mg/dL Recommendations of the NCEP Adult Treatment Panel for the following risk-cutoff thresholds for the [place] population. Performed By: #### L 501.9520, L500.4050, L501.3620, L501.5200, L500.4100, L100.0500 #### [facility] [address] [facility] [address] Cholesterol in HDL [Mass/Vol] 48 mg/dL Normal [facility] Comment on above: Result Comment: Angelia onal Cholesterol Education Program (NCEP) guidelines: <40 mg/dL: Low HDL-cholesterol (major risk factor for CHD) >= 60 mg/dL: High HDL-cholesterol (negative risk factor for CHD) HDL-cholesterol is affected by a number of factors, e.g. smoking, exercise, hormones, sex and age. Performed By: #### L 501.9520, L500.4050, L501.3620, L501.5200, L500.4100, L100.0500 #### [facility] [address] [place], [address] Cholesterol in LDL [Mass/Vol] 75 mg/dL Normal [facility] Comment on above: Result Comment: Bord abffvk=784-238 mg/dL Higher Weuz=610 mg/dL or greater Performed By: #### L 501.9520, L500.4050, L501.3620, L501.5200, L500.4100, L100.0500 #### [facility] [address] [facility] [address] Cholesterol in VLDL [Mass/Vol] 18 mg/dL Normal 5-40 [facility] Comment on above: Performed By: #### L 501.9520, L500.4050, L501.3620, L501.5200, L500.4100, L100.0500 #### [facility] [address] [place], [address] Triglyceride [Mass/Vol] 89 mg/dL Normal [facility] Comment on above: Result Comment: The drugs N-Acetylcysteine and Metamizole may falsely depress this assay. Normal range: <150 mg/dL Borderline High: 150-199 mg/dL High: 200-499 mg/dL Very High: >500 mg/dL Performed By: #### L 501.9520, L500.4050, L501.3620, L501.5200, L500.4100, L100.0500 #### [facility] [address] [place], [address] MCV (mean corpuscular volume ) determinationOrdered By: Caleb Martel on 11-05-2024 MCV (RBC) [Entitic vol] 93.6 fL 80-94 [facility] Magnesiumon 11-05-2024 Magnesium [Mass/Vol] 2.0 mg/dL Normal 1.5-2.2 [facility] Comment on above: Performed By: #### L 501.9520, L500.4050, L501.3620, L501.5200, L500.4100, L100.0500 ####[facility] [address] [place], [place], [address] Magnesium measurement (mass/ volume)Ordered By: Caleb Martel on 11-05-2024 Magnesium (Unsp spec) [Mass/Vol] 2.0 mg/dL 1.5-2.2 [facility] Mean corpuscular hemoglobin (MCH) determinationOrdered By: Caleb Martel on 11-05-2024 MCH (RBC) [Entitic mass] 32.2 pg High 27.0-32.0 [facility] Mean corpuscular hemoglobin concentration (MCHC) determinationOrdered By: Caleb Martel on 11-05-2024 MCHC (RBC) [Mass/Vol] 34.4 g/dL 32-36 [facility] Mean platelet volume determi nationOrdered By: Caleb Martel on 11-05-2024 Platelet mean volume (Bld) [Entitic vol] 11.6 fL 6.2-12.0 [facility] Platelet countOrdered By: Silviano Martel on 11-05-2024 Platelets (Bld) [#/Vol] 205 10*3/uL 150-450 [facility] Potassium measurement (mass/ volume)Ordered By: Caleb Martel on 11-05-2024 Potassium (Unsp spec) [Mass/Vol] 3.7 mmol/L 3.3-5.1 [facility] RBC Auto (Bld) [#/Vol]Ordere d By: Caleb Martel on 11-05-2024 RBC (Bld) [#/Vol] 4.50 10*6/uL Low 4.6-6.2 [facility] Screening total cholesterol/ high density lipoprotein (HDL) cholesterol ratioOrdered By: Caleb Martel on 11-05-2024 Cholesterol.total/Choles terol in HDL [Mass ratio] 2.95 {ratio} [facility] Serum creatinine measurement (mass/volume)Ordered By: Caleb Martel on 11-05-2024 Creatinine [Mass/Vol] 1.08 mg/dL 0.70-1.20 [facility] Serum globulin measurementOr dered By: Caleb Martel on 11-05-2024 Globulin (S) [Mass/Vol] 2.5 g/dL 2.2-4.2 [facility] Serum glucose measurement (m ass/volume)Ordered By: Caleb Martel on 11-05-2024 Glucose [Mass/Vol] 196 mg/dL High 70-99 [facility] Serum or plasma alanine barahona otransferase (ALT) measurementOrdered By: Caleb Martel 11-05-2024 ALT [Catalytic activity/Vol] 26 U/L <47 [facility] Serum or plasma albumin dannielle urement (mass/volume)Ordered By: Caleb Martel on 11-05-2024 Albumin [Mass/Vol] 4.2 g/dL 3.4-4.8 [facility] Serum or plasma albumin/glob ulin mass ratioOrdered By: Caleb [facility] on 11-05-2024 Albumin/Globulin [Mass ratio] 1.7 {ratio} 0.9-2.4 [facility] Serum or plasma alkaline mitchell sphatase measurementOrdered By: Caleb Delonte 11-05-2024 ALP [Catalytic activity/Vol] 76 U/L 40-129 [facility] Serum or plasma calcium dannielle urement (mass/volume)Ordered By: Caleb Delonte 11-05-2024 Calcium [Mass/Vol] 8.9 mg/dL 7.6-11.0 [facility] Serum or plasma cholesterol in HDL measurement (mass/volume)Ordered By: Caleb Delonte 11-05-2024 Cholesterol in HDL [Mass/Vol] 48 mg/dL >40 [facility] Comment on above: National Cholesterol Education Program (NCEP) guidelines:<40 mg/dL: Low HDL-cholesterol (major risk factor for CHD)>= 60 mg/dL: High HDL-cholesterol (negative risk factor for CHD)HDL-cholesterol is affected by a number of factors, e.g. smoking, exercise, hormones, sex and age. Serum or plasma cholesterol measurement (mass/volume)Ordered By: Caleb Delonte 11-05-2024 Cholesterol [Mass/Vol] 141 mg/dL <201 [facility] Comment on above: Cholesterol level, D esirable <200 mg/dLBorderline high cholesterol 200-239 mg/dLHigh cholesterol >=240 mg/dLRecommendations of the NCEP Adult Treatment Panel for the following risk-cutoff thresholds for the [place] population. Serum or plasma creatine kin ase activityOrdered By: Caleb Martel 11-05-2024 CK [Catalytic activity/Vol] 109 U/L 24-195 [facility] Serum or plasma urea nitroge n measurement (mass/volume)Ordered By: Caleb Delonte 11-05-2024 Urea nitrogen [Mass/Vol] 20 mg/dL High 4-19 [facility] Sodium levelOrdered By: Fadi Martel on 11-05-2024 Sodium [Moles/Vol] 141 mmol/L 133-145 [facility] TSH DL <= 0.005 mIU/L QnOrde red By: Caleb Martel on 11-05-2024 TSH Qn 1.130 uIU/mL 0.300-4.200 [facility] Thyroid Stim Hormone (TSH)on 11-05-2024 TSH 1.130 uIU/mL Normal 0.300-4.200 [facility] Comment on above: Performed By: #### L 501.9520, L500.4050, L501.3620, L501.5200, L500.4100, L100.0500 ####[facility] [address] [place], [place], [address] Total proteinOrdered By: Padmaja Martel on 11-05-2024 Protein [Mass/Vol] 6.7 g/dL 5.9-8.4 [facility] Triglycerides measurementOrd ered By: Caleb Martel on 11-05-2024 Triglyceride [Mass/Vol] 89 mg/dL <199 [facility] Comment on above: The drugs N-Acetylcy steine and Metamizole may falsely depress this assay. Normal range: <150 mg/dLBorderline High: 150-199 mg/dLHigh: 200-499 mg/dLVery High: >500 mg/dL White blood cell (WBC) count Ordered By: Caleb Martel on 11-05-2024 WBC (Bld) [#/Vol] 5.9 10*3/uL 4.4-11.0 [facility] Laboratory - Hematology and Cell countson 11-02-2024 HbA1c (Bld) [Mass fraction] 8.7 % Abnormal 4.6 - 7.1 % [facility] Cardiology Visit Reporton Cardiology Visit Report [facility] [address] [place], [place] [id number] OFFICE VISIT Date of Service: 10/28/24 MR#: [id number] Acct: [id number] Name: CASSIA PERAZA Rep #: [id number] : 1955 Provider: Dr. 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 Normal [facility] COMPREHENSIVE METABOLIC PANE Diallo 07-28-2024 Albumin [Mass/Vol] 4.6 g/dL Normal 3.6-5.1 [facility] Comment on above: Performed By: #### 4 96, 5363, 7600, 44245 #### [facility] [place] [address] Casualty Claim Adjuster: Kennedy Garcia MD Albumin/Globulin [Mass ratio] 2.0 {ratio} Normal 1.0-2.5 [facility] Comment on above: Performed By: #### 4 96, 5363, 7600, 78278 #### [facility] [place] [address] Casualty Claim Adjuster: Kennedy Garcia MD ALP [Catalytic activity/Vol] 70 U/L Normal 35-144 [facility] Comment on above: Performed By: #### 4 96, 5363, 7600, 14335 #### [facility] [place] [address] Casualty Claim Adjuster: Kennedy Garcia MD ALT [Catalytic activity/Vol] 27 U/L Normal 9-46 [facility] Comment on above: Performed By: #### 4 96, 5363, 7600, 84478 #### [facility] [place] [address] Casualty Claim Adjuster: Kennedy Garcia MD AST [Catalytic activity/Vol] 21 U/L Normal 10-35 [facility] Comment on above: Performed By: #### 4 96, 5363, 7600, 13027 #### [facility] [place] [address] Casualty Claim Adjuster: Kennedy Garcia MD Bilirubin [Mass/Vol] 0.5 mg/dL Normal 0.2-1.2 [facility] Comment on above: Performed By: #### 4 96, 5363, 7600, 18989 #### [facility] [place] [address] Casualty Claim Adjuster: Kennedy Garcia MD BUN/CREATININE RATIO SEE NOTE: Normal 6-22 [facility] Comment on above: Result Comment: Not Reported: BUN and Creatinine are within reference range. Performed By: #### 4 96, 5363, 7600, 20173 #### [facility] [place] [address] Casualty Claim Adjuster: Kennedy Garcia MD Calcium [Mass/Vol] 9.3 mg/dL Normal 8.6-10.3 [facility] Comment on above: Performed By: #### 4 96, 5363, 7600, 54761 #### [facility] [place] [address] Casualty Claim Adjuster: Kennedy Garcia MD Chloride [Moles/Vol] 103 mmol/L Normal 98-110 [facility] Comment on above: Performed By: #### 4 96, 5363, 7600, 57837 #### [facility] [place] [address] Casualty Claim Adjuster: Kennedy Garcia MD CO2 [Moles/Vol] 29 mmol/L Normal 20-32 [facility] Comment on above: Performed By: #### 4 96, 5363, 7600, 13401 #### [facility] [place] [address] Casualty Claim Adjuster: Kennedy Garcia MD Creatinine [Mass/Vol] 1.01 mg/dL Normal 0.70-1.[address] [facility] Comment on above: Performed By: #### 4 96, 5363, 7600, 19172 #### [facility] [address], [address] [place] [address] Casualty Claim Adjuster: Kennedy Garcia MD GFR/1.73 sq M.predicted among non-blacks MDRD (S/P/Bld) [Vol rate/Area] 81 mL/min/{1.73_m2} Normal > OR = 60 [facility] Comment on above: Performed By: #### 4 96, 5363, 7600, 43741 #### [facility] [address], [address] [place] [address] Casualty Claim Adjuster: Kennedy Garcia MD Globulin (S) [Mass/Vol] 2.3 g/dL Normal 1.9-3.7 [facility] Comment on above: Performed By: #### 4 96, 5363, 7600, 94405 #### [facility] [address], [address] [place] [address] Casualty Claim Adjuster: Kennedy Garcia MD Glucose [Mass/Vol] 179 mg/dL High 65-99 [facility] Comment on above: Result Comment: Fasting reference interval For someone without known diabetes, a glucose value >125 mg/dL indicates that they may have diabetes and this should be confirmed with a follow-up test. Performed By: #### 4 96, 5363, 7600, 64519 #### [facility] [address], [address] [place] [address] Casualty Claim Adjuster: Kennedy Garcia MD Potassium [Moles/Vol] 4.0 mmol/L Normal 3.5-5.[address] [facility] Comment on above: Performed By: #### 4 96, 5363, 7600, 33129 #### [facility] [place] [address] Casualty Claim Adjuster: Kennedy Garcia MD Protein [Mass/Vol] 6.9 g/dL Normal 6.1-8.1 [facility] Comment on above: Performed By: #### 4 96, 5363, 7600, 73578 #### [facility] [address], [address] [place] [address] Casualty Claim Adjuster: Kennedy Garcia MD Sodium [Moles/Vol] 141 mmol/L Normal 135-146 [facility] Comment on above: Performed By: #### 4 96, 5363, 7600, 05065 #### [facility] [address], [address] [place] [address] Casualty Claim Adjuster: Kennedy Garcia MD Urea nitrogen [Mass/Vol] 21 mg/dL Normal 7-25 [facility] Comment on above: Performed By: #### 4 96, 5363, 7600, 77536 #### [facility] [place] [address] Casualty Claim Adjuster: Kennedy Garcia MD HEMOGLOBIN A1con 07-28-2024 HEMOGLOBIN A1c 9.6 % of total Hgb [...] Performed By: #### 4 96, 5363, 7600, 88714 #### [facility] [facility] [place] [address] Casualty Claim Adjuster: Kennedy Garcia MD LIPID PANEL, STANDARDon Cholesterol [Mass/Vol] 163 mg/dL Normal <200 Qu est [facility] Comment on above: Performed By: #### 4 96, 5363, 7600, 85306 #### [facility] [place] [address] Casualty Claim Adjuster: Kennedy Garcia MD Cholesterol in HDL [Mass/Vol] 54 mg/dL Normal > OR = 40 [facility] Comment on above: Performed By: #### 4 96, 5363, 7600, 70096 #### [facility] [address], [address] [place] [address] Casualty Claim Adjuster: Kennedy Garcia MD Cholesterol in LDL [Mass/Vol] [...] LDL-C. Heber ORTEGA et al. DYLAN. 2013;310(19): 6892-6448 (http://education.Marucci Sports.Appature/faq/GAI395) Performed By: #### 4 96, 5363, 7600, 27370 #### [facility] [address], [address] [place] [address] Casualty Claim Adjuster: Kennedy Garcia MD Cholesterol.total/Choles terol in HDL [Mass ratio] 3.0 {ratio} Normal <5.0 [facility] Comment on above: Performed By: #### 4 96, 5363, 7600, 23722 #### [facility] [place] [address] Casualty Claim Adjuster: Kennedy Garcia MD NON HDL CHOLESTEROL 109 mg/dL (calc) Normal <130 [facility] Comment on above: Result Comment: For patients with diabetes plus 1 major ASCVD risk factor, treating to a non-HDL-C goal of <100 mg/dL (LDL-C of <70 mg/dL) is considered a therapeutic option. Performed By: #### 4 96, 5363, 7600, 69246 #### [facility] [address], [address] [place] [address] Casualty Claim Adjuster: Kennedy Garcia MD Triglyceride [Mass/Vol] 94 mg/dL Normal <150 Q uest Diagnostics Comment on above: Performed By: #### 4 96, 5363, 7600, 02256 #### [facility] [address], [address] [place] [address] Casualty Claim Adjuster: Kennedy Garcia MD PSA, TOTALon 07-28-2024 PSA, TOTAL 1.36 ng/mL Normal < OR = 4.00 [facility] Comment on above: Result Comment: The total PSA value from this assay system is standardized against the WHO standard. The test result will be approximately 20% lower when compared to the equimolar-standardized total PSA ([facility] [place]). Comparison of serial PSA results should be interpreted with this fact in mind. This test was performed using the Siemens chemiluminescent method. Values obtained from different assay methods cannot be used interchangeably. PSA levels, regardless of value, should not be interpreted as absolute evidence of the presence or absence of disease. Performed By: #### 4 96, 5363, 2770, 62892 #### [facility] [place] [address] [facility], [address] [place] [address] Casualty Claim Adjuster: Kennedy Garcia MD Laboratory - Chemistry and C hemistry - challengeon 07-27-2024 Albumin [Mass/Vol] 4.6 g/dL Normal 3.6 - 5.1 g/dL [facility] [employer] [employer] Albumin/Globulin [Mass ratio] 2.0 {ratio} Normal 1.0 - 2.5 [facility] [employer] [employer] [employer] ALP [Catalytic activity/Vol] 70 U/L Normal 35 - 144 U/L [facility] [employer] [employer] [employer] ALT [Catalytic activity/Vol] 27 U/L Normal 9 - 46 U/L [employer] AST [Catalytic activity/Vol] 21 U/L Normal 10 - 35 U/L [employer] Bilirubin [Mass/Vol] 0.5 mg/dL Normal 0.2 - 1 .2 mg/dL [employer] Calcium [Mass/Vol] 9.3 mg/dL Normal 8.6 - 10. 3 mg/dL [facility] [employer] Chloride [Moles/Vol] 103 mmol/L Normal 98 - 11 0 mmol/L [employer] Cholesterol [Mass/Vol] 163 mg/dL Normal [facility].; [facility], [facility] Cholesterol in HDL [Mass/Vol] 54 mg/dL Normal [facility].; [facility], [facility] Cholesterol in LDL [Mass/Vol] 90 mg/dL Normal [facility], [facility].; [facility], [facility] CO2 [Moles/Vol] 29 mmol/L Normal 20 - 32 mmol/L [facility].; [facility], [facility] Creatinine [Mass/Vol] 1.01 mg/dL Normal 0.70 - 1.35 mg/dL [facility].; [facility], [facility] GFR/1.73 sq M.predicted among non-blacks MDRD (S/P/Bld) [Vol rate/Area] 81 mL/min/{1.73_m2} Normal [facility], [facility].; [facility], [facility] Glucose [Mass/Vol] 179 mg/dL Abnormal 65 - 99 mg/dL [facility].; [facility], [facility] Potassium [Moles/Vol] 4.0 mmol/L Normal 3.5 - 5.3 mmol/L [facility].; [facility], [facility] Protein [Mass/Vol] 6.9 g/dL Normal 6.1 - 8.1 g/dL [facility].; [facility], [facility]. Sodium [Moles/Vol] 141 mmol/L Normal 135 - 146 mmol/L [facility], [facility].; [facility], [facility]. Triglyceride [Mass/Vol] 94 mg/dL Normal [facility].; [facility], [facility] Urea nitrogen [Mass/Vol] 21 mg/dL Normal 7 - 25 mg/d L [facility]; [facility], [facility] Laboratory - Hematology and Cell countson 07-27-2024 HbA1c (Bld) [Mass fraction] 9.6 % Abnormal [facility], [facility].; [facility], [facility] No Panel Informationon 07-27 BUN/CREATININE RATIO SEE NOTE: Normal 6 - 22 [facility].; [facility] CHOL/HDLC RATIO 3.0 Normal [facility]; [facility] GLOBULIN 2.3 Normal 1.9 - 3.7 [facility]; [facility] NON HDL CHOLESTEROL 109 Normal [facility]; [facility] PSA, TOTAL 1.36 ng/mL Normal [facility]; [facility] Basic Metabolic Profile (BMP )on 03-22-2024 BUN/CRE 17.4 RATIO Normal - [facility] Comment on above: Order Comment: Reaso n for Exam: MVT with ICD tx Comments: MVT with ICD tx MVT with ICD tx Performed By: #### L 501.9520, L500.2500, L100.0500, L501.5200 #### [facility] [address] [place], [address] CA,Total 9.2 mg/dL Normal 8.5-10.1 [facility] Comment on above: Order Comment: Reaso n for Exam: MVT with ICD tx Comments: MVT with ICD tx MVT with ICD tx Performed By: #### L 501.9520, L500.2500, L100.0500, L501.5200 #### [facility] [address] [place], [address] Chloride [Moles/Vol] 102 mmol/L Normal 98-107 [facility] Comment on above: Order Comment: Reaso n for Exam: MVT with ICD tx Comments: MVT with ICD tx MVT with ICD tx Performed By: #### L 501.9520, L500.2500, L100.0500, L501.5200 #### [facility] [address] [place], [address] CO2 [Moles/Vol] 30.0 mmol/L Normal 21.0-32.0 [facility] Comment on above: Order Comment: Reaso n for Exam: MVT with ICD tx Comments: MVT with ICD tx MVT with ICD tx Performed By: #### L 501.9520, L500.2500, L100.0500, L501.5200 #### [facility] [address] [place], [address] Creatinine [Mass/Vol] 1.15 mg/dL Normal 0.70-1.30 [facility] Comment on above: Order Comment: Reaso n for Exam: MVT with ICD tx Comments: MVT with ICD tx MVT with ICD tx Result Comment: The validity of the calculated GFR GFRAA in patients over 70 years has not been determined. Clinical correlation is essential. Performed By: #### L 501.9520, L500.2500, L100.0500, L501.5200 #### [facility] [address] [place], [address] EST GFR - AA 81 mL/min Normal >60 [facility] Comment on above: Order Comment: Reaso n for Exam: MVT with ICD tx Comments: MVT with ICD tx MVT with ICD tx Result Comment: Afri can Afghan GFR Calc Performed By: #### L 501.9520, L500.2500, L100.0500, L501.5200 #### [facility] [address] [place], [address] GAP 3 Low 5-15 [facility] Comment on above: Order Comment: Reaso n for Exam: MVT with ICD tx Comments: MVT with ICD tx MVT with ICD tx Performed By: #### L 501.9520, L500.2500, L100.0500, L501.5200 #### [facility] [address] [place], [address] GFR/1.73 sq M.predicted among non-blacks MDRD (S/P/Bld) [Vol rate/Area] 67 mL/min/{1.73_m2} Normal >60 [facility] Comment on above: Order Comment: Reaso n for Exam: MVT with ICD tx Comments: MVT with ICD tx MVT with ICD tx Result Comment: Non- GFR Calc Performed By: #### L 501.9520, L500.2500, L100.0500, L501.5200 #### [facility] [address] [place], [address] Glucose [Mass/Vol] 203 mg/dL High 74-106 [facility] Comment on above: Order Comment: Reaso n for Exam: MVT with ICD tx Comments: MVT with ICD tx MVT with ICD tx Result Comment: Gluc ose result greater than or equal to 200 mg/dL suggests DIABETES MELLITUS per A.D.A. criteria. Performed By: #### L 501.9520, L500.2500, L100.0500, L501.5200 #### [facility] [address] [place], [address] Potassium [Moles/Vol] 4.1 mmol/L Normal 3.5-5.1 [facility] Comment on above: Order Comment: Reaso n for Exam: MVT with ICD tx Comments: MVT with ICD tx MVT with ICD tx Performed By: #### L 501.9520, L500.2500, L100.0500, L501.5200 #### [facility] [address] [place], [address] Sodium [Moles/Vol] 136 mmol/L Normal 136-145 [facility] Comment on above: Order Comment: Reaso n for Exam: MVT with ICD tx Comments: MVT with ICD tx MVT with ICD tx Performed By: #### L 501.9520, L500.2500, L100.0500, L501.5200 #### [facility] [address] [place], [address] Urea nitrogen [Mass/Vol] 20 mg/dL High 7-18 [facility] Comment on above: Order Comment: Reaso n for Exam: MVT with ICD tx Comments: MVT with ICD tx MVT with ICD tx Performed By: #### L 501.9520, L500.2500, L100.0500, L501.5200 #### [facility] [address] [place], [address] CBC-Complete Blood Cnt No Di ffon 03-22-2024 Erythrocyte distribution width (RBC) [Ratio] 11.9 % Normal 11.6-14.6 [facility] Comment on above: Order Comment: Comme nts: MVT with ICD tx Performed By: #### L 501.9520, L500.2500, L100.0500, L501.5200 #### [facility] [address] [place], [address] Hematocrit (Bld) [Volume fraction] 40.7 % Normal 40-54 [facility] Comment on above: Order Comment: Comme nts: MVT with ICD tx Performed By: #### L 501.9520, L500.2500, L100.0500, L501.5200 #### [facility] [address] [facility] [place], [address] Hemoglobin (Bld) [Mass/Vol] 13.9 g/dL Normal 13.0-16.5 [facility] Comment on above: Order Comment: Comme nts: MVT with ICD tx Performed By: #### L 501.9520, L500.2500, L100.0500, L501.5200 #### [facility] [address] [facility] [place], [address] MCH (RBC) [Entitic mass] 32.0 pg Normal 27.0-32.0 [facility] Comment on above: Order Comment: Comme nts: MVT with ICD tx Performed By: #### L 501.9520, L500.2500, L100.0500, L501.5200 #### [facility] [address] [facility] [place], [address] MCHC (RBC) [Mass/Vol] 34.2 g/dL Normal 32-36 [facility] Comment on above: Order Comment: Comme nts: MVT with ICD tx Performed By: #### L 501.9520, L500.2500, L100.0500, L501.5200 #### [facility] [address] [place], [address] MCV (RBC) [Entitic vol] 93.6 fL Normal 80-94 [facility] Comment on above: Order Comment: Comme nts: MVT with ICD tx Performed By: #### L 501.9520, L500.2500, L100.0500, L501.5200 #### [facility] [address] [place], [address] Platelet mean volume (Bld) [Entitic vol] 12.1 fL High 6.2-12.0 [facility] Comment on above: Order Comment: Comme nts: MVT with ICD tx Performed By: #### L 501.9520, L500.2500, L100.0500, L501.5200 #### [facility] [address] [place], [address] Platelets (Bld) [#/Vol] 206 10*3/uL Normal 150-450 [facility] Comment on above: Order Comment: Comme nts: MVT with ICD tx Performed By: #### L 501.9520, L500.2500, L100.0500, L501.5200 #### [facility] [address] [place], [address] RBC (Bld) [#/Vol] 4.35 10*6/uL Low 4.6-6.2 [facility] Comment on above: Order Comment: Comme nts: MVT with ICD tx Performed By: #### L 501.9520, L500.2500, L100.0500, L501.5200 #### [facility] [address] [place], [address] RDW SD 40.7 fl Normal 35.1-43.9 [facility] Comment on above: Order Comment: Comme nts: MVT with ICD tx Performed By: #### L 501.9520, L500.2500, L100.0500, L501.5200 #### [facility] [address] [place], [address] WBC (Bld) [#/Vol] 6.2 10*3/uL Normal 4.4-11.0 [facility] Comment on above: Order Comment: Comme nts: MVT with ICD tx Performed By: #### L 501.9520, L500.2500, L100.0500, L501.5200 #### [facility] [address] [facility] [place], [address] Magnesiumon 03-22-2024 Magnesium [Mass/Vol] 2.0 mg/dL Normal 1.6-2.6 [facility] Comment on above: Order Comment: Reaso n for Exam: MVT with ICD tx Comments: MVT with ICD tx MVT with ICD tx Performed By: #### L 501.9520, L500.2500, L100.0500, L501.5200 #### [facility] [address] [facility] [place], [address] Thyroid Stim Hormone (TSH)on 03-22-2024 TSH 0.797 uIU/mL Normal 0.358-3.740 [facility] Comment on above: Order Comment: Reaso n for Exam: MVT with ICD tx Comments: MVT with ICD tx MVT with ICD tx Performed By: #### L 501.9520, L500.2500, L100.0500, L501.5200 #### [facility] [address] [facility] [place], [address] Stress Reporton 02-16-2024 Stress Report [facility] [address] [place] [address] MR#: [id number] Acct: [id number] Name: CASSIA PERAZA Rep #: [id number] : 1955 68 From: Madelaine Chen MD Primary Care: Dr. Magdy Ward MD Status: REG CLI Referring Dr: Anaya Tsang NP NON LINEAR EDITOR-C Sex: M C Stress Test Report Date: [...] as described. This note was generated with [employer]ation software. It may contain incorrect words, spelling, and punctuation that were not noted in checking the note before signing. 02/16/24 1113 Date Madelaine Chen MD CC: NON LINEAR EDITOR-C Anaya Tsang; Dr. Magdy Ward MD Date Dictated: 02/16/241108 Date Transcribed: 02/16/241108 Physiognomist: NN Signed Normal [facility] Echo Complete W/ Contraston 02-13-2024 Echo Complete W/ Contrast [facility] [address] [place] [address] Echo Complete W/ Contrast 02/13/24 0739 MR#: [id number] Acct: [id number] Name: CASSIA PERAZA Rep #: [id number] : 1955 68 From: Madelaine Chen MD Attending Dr: GLORIA Villalta Status: REG C Ordering Dr: Anaya Tsang NP NON LINEAR EDITOR-C Date: 02/13/24 Location: [facility] Sex: M C Admitted: Reason For Study: [...] cm RVDd: 3.5 cm FS: 19.3 % LAV(MOD-bp): 70.8 ml LVAd ap4: 42.1 cm2 [...] % EF(MOD-sp2): 49.2 % EF(sp4-el): 45.4 % SV(MOD-sp4): 66.0 ml SV(MOD-sp2): 47.9 ml SV(sp4-el): 72.5 ml LA A4 area: 23.8 cm2 LA dimension(2D): 5.1 cm TAPSE: 2.1 cm Time Measurements MV dec time: 0.21 sec Doppler Measurements Calculations MV E max mode: 53.7 cm/sec Lat Peak E' Mode: 7.2 cm/sec MV V2 max: 74.0 cm/sec MV A max moed: 59.4 cm/sec E/E' lat: 7.5 MV max P.2 mmHg MV E/A: 0.90 MV V2 mean: 36.9 cm/sec MV mean P.63 mmHg MV V2 VTI: 20.5 cm Ao V2 max: 114.6 cm/sec LV V1 max: 73.8 cm/sec MV dec slope: 177.4 cm/sec2 Ao max P.3 mmHg LV V1 max P.2 mmHg Ao V2 mean: 81.3 cm/sec LV V1 mean P.3 mmHg Ao mean P.0 mmHg LV V1 mean: 54.9 cm/sec Ao V2 VTI: 28.8 cm LV V1 VTI: 18.9 cm AV (velocity ratio): 0.66 PA V2 max: 106.7 cm/sec TR max mode: 231.0 cm/sec PA V2 mean: 74.3 cm/sec TR max P.4 mmHg ECHO/Echo Complete W/ Contrast Interpretation Summary The estimated ejection fraction is 45-50 %. Diastolic function is indeterminate. Posterior-Basal: Hypokinetic Trivial mitral valve insufficiency. __ Ordering Physician: Anaya Tsang Referring Physician: Magdy Ward Performed By: Maria Antonia Hobson, RDOLGA, RVT 02/16/24 1230 Date Madelaine Chen MD CC: NON LINEAR EDITOR-C Anaya Tsang; Dr. Magdy Ward MD Date Dictated: 02/13/24 0739 Date Transcribed: 02/16/24 1230 Physiognomist: Signed Normal [facility] Laboratory - Hematology and Cell countson 02-10-2024 HbA1c (Bld) [Mass fraction] 8.6 % Abnormal 4.6 - 7.1 % [facility] 12 Lead EKG performed by [facility] on 02-03-2024 12 Lead EKG performed by [place] [address] [place] [address] 12 Lead EKG performed by [facility] 02/03/24 0809 MR#: [id number] Acct: [id number] Name: CASSIA PERAZA Rep #: [id number] : 1955 68 From: Anaya Tsang NP NON LINEAR EDITOR-C Attending Dr: Anaya Tsang NP-C Status: DEP A Ordering Dr: Anaya Tsang NP NON LINEAR EDITOR-C Date: 02/03/24 Location: [facility] Sex: M C Admitted: [facility]/12 Lead EKG performed by [facility] ECG Report Interpretation -------Sinus Rhythm -Nonspecific QRS widening. -Old inferior infarct. ABNORMAL Electronically signed on 02/05/2024 at 15:54 by Renato Jacques Software Version [id number] 02/05/24 1557 Date Anaya CASTRO CC: Dr. Magdy Ward MD Date Dictated: 02/03/24808 Date Transcribed: 02/03/24808 Physiognomist: KARLA Signed Normal [facility] Cardiology Visit Reporton Cardiology Visit Report [facility] 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 Is patient in pain?: No [...] bruit Hyperlipemia Atherosclerosis of coronary artery of minto heart without angina pectoris Paroxysmal ventricular tachycardia Ischemic cardiomyopathy Surgical History History of left heart catheterization (08/10/18) Postsurgical percutaneous transluminal coronary angioplasty (PTCA) status ( 12/2007) History of tonsillectomy H/O coronary artery bypass surgery (12/26/07) Presence of implantable cardioverter-defibr illator (ICD) Social History alcohol intake: never substance use type: does not use ROS Const Const: Positive for fatigue; Negative for weakness, fever(s), headache(s), chills, frequent falls, weight gain or weight loss Eyes Eyes: Negative for blind spots, loss of peripheral vision, transient loss of vision, blurry vision, change in vision, double vision, floaters or tunnel vision ENT ENT: Negative for headache(s), dizziness, Nosebleed/epistaxis , balance problems or neck pain Cardio Chest Pain: No Palpitations: Yes (occasional) Edema: Bilateral (wears compression stockings) Muscle aches with walking: None Resp Respiratory: Positive for SOB with activity (climbing stairs-nothing new or worsening); (more content not included)... Normal [facility] Chest PA and Lateralon 02-02 Chest PA and Lateral [facility] [address] [place], [place] [address] Chest PA and Lateral MR#: [id number] Acct: [id number] Name: CASSIA PERAZA Rep #: [id number] : 1955 M 68 From: Ben Chadwick MD PCP: Dr. Magdy Ward MD Status: REG CLI Study: Chest PA and Lateral Date of Exam: 02/03/24 Exam# [id number] Ordering Dr: Anaya Tsang NP NON LINEAR EDITOR- C -[id number] STUDY: X-RAY CHEST REASON FOR EXAM: Male, [...] Signed: Ben Chadwick MD at 11:08 EDT , CC: GLORIA Tsang; Dr. Magdy Ward MD Physiognomist: Signed Normal [facility] Pacemaker Checkon 12-30-2023 Pacemaker Check [facility] [address] [place] [address]. [address] [place] [address] Pacemaker Check Date of Service: 12/30/23 1710 MR#: [id number] Acct: [id number] Name: STUCASSIA Luana Rep #: [id number] : 1955 From: Danelle Khan Age/Sex: 68/M Location: [facility] Status: Signed Billing Codes ICD Device Billing: ICD Dev Prog Eval, Dual Assessment and Plan Assessment and Plan (1) Sinus bradycardia: Status: Acute (2) Ventricular fibrillation: Status: Resolved (3) Paroxysmal ventricular tachycardia: Status: Chronic (4) Ischemic cardiomyopathy: Status: Chronic (5) Presence of implantable cardioverter-defibr illator (ICD): Status: Chronic Comment: Implantation 02/2008; ICD gen change 07/04/16 12/30/23 1711 Date Danelle Simons Signature: Date (if applicable) CC: Normal [facility] Laboratory - Chemistry and C hemistry - challengeon 07-22-2023 Albumin [Mass/Vol] 4.7 g/dL Normal 3.6 - 5.1 g/dL [facility], [facility].; [facility], [facility]. Albumin/Globulin [Mass ratio] 2.0 {ratio} Normal 1.0 - 2.5 [facility].; [facility] [employer] ALP [Catalytic activity/Vol] 74 U/L Normal 35 - 144 U/L [facility], [facility].; [facility] [employer] [facility] ALT [Catalytic activity/Vol] 25 U/L Normal 9 - 46 U/L [facility], [facility].; [facility] [employer] AST [Catalytic activity/Vol] 16 U/L Normal 10 - 35 U/L [facility], [facility].; [facility] [employer], [facility]. Bilirubin [Mass/Vol] 0.6 mg/dL Normal 0.2 - 1 .2 mg/dL [facility] [employer], [facility].; [facility] [employer], [facility]. Calcium [Mass/Vol] 9.6 mg/dL Normal 8.6 - 10. 3 mg/dL [facility] [employer], [facility].; [employer] Chloride [Moles/Vol] 101 mmol/L Normal 98 - 11 0 mmol/L [facility], [facility].; [employer] Cholesterol [Mass/Vol] 168 mg/dL Normal [facility], [facility].; [facility] [employer] Cholesterol in HDL [Mass/Vol] 52 mg/dL Normal [facility], [facility].; [facility], [facility]. Cholesterol in LDL [Mass/Vol] 91 mg/dL Normal [facility], [facility].; [facility], [facility]. CO2 [Moles/Vol] 28 mmol/L Normal 20 - 32 mmol/L [facility], [facility].; [facility], [facility]. Creatinine [Mass/Vol] 1.04 mg/dL Normal 0.70 - 1.35 mg/dL [facility], [facility].; [facility], [facility]. GFR/1.73 sq M.predicted among non-blacks MDRD (S/P/Bld) [Vol rate/Area] 79 mL/min/{1.73_m2} Normal [facility], [facility]. Glucose [Mass/Vol] 180 mg/dL Abnormal 65 - 99 mg/dL [facility].; [facility], [facility] [facility]. Potassium [Moles/Vol] 4.2 mmol/L Normal 3.5 - 5.3 mmol/L [facility], [facility].; [facility], [facility]. Protein [Mass/Vol] 7.1 g/dL Normal 6.1 - 8.1 g/dL [facility], [facility].; [facility], [facility]. Sodium [Moles/Vol] 141 mmol/L Normal 135 - 146 mmol/L [facility], [facility].; [facility] Triglyceride [Mass/Vol] 155 mg/dL Abnormal H [facility].; [facility], [facility] Urea nitrogen [Mass/Vol] 19 mg/dL Normal 7 - 25 mg/d L [facility], [facility].; [facility], [facility]. Laboratory - Hematology and Cell countson 07-22-2023 HbA1c (Bld) [Mass fraction] 8.5 % Abnormal [facility], [facility].; [facility], [facility]. No Panel Informationon 07-22 BUN/CREATININE RATIO SEE NOTE: Normal 6 - 22 [facility], [facility].; [employer] [facility] CHOL/HDLC RATIO 3.2 Normal [facility], [facility].; [facility] GLOBULIN 2.4 Normal 1.9 - 3.7 [facility].; [facility]. NON HDL CHOLESTEROL 116 Normal [facility].; [facility] PSA, TOTAL 1.35 ng/mL Normal [facility]; [facility] Laboratory - Hematology and Cell countson 01-21-2023 HbA1c (Bld) [Mass fraction] 8.2 % Abnormal 4.6 - 7.1 % [facility]; [facility] Laboratory - Chemistry and C hemistry - challengeon 07-15-2022 Albumin [Mass/Vol] 4.4 g/dL Normal 3.6 - 5.1 g/dL [facility]; [facility], [facility] Albumin/Globulin [Mass ratio] 1.7 {ratio} Normal 1.0 - 2.5 [facility]; [facility], [facility] ALP [Catalytic activity/Vol] 70 U/L Normal 35 - 144 U/L [facility].; [facility], [facility]. ALT [Catalytic activity/Vol] 24 U/L Normal 9 - 46 U/L [facility].; [facility]. AST [Catalytic activity/Vol] 18 U/L Normal 10 - 35 U/L [facility].; [facility], [facility]. Bilirubin [Mass/Vol] 0.4 mg/dL Normal 0.2 - 1 .2 mg/dL [facility].; [facility], [facility]. Calcium [Mass/Vol] 9.4 mg/dL Normal 8.6 - 10. 3 mg/dL [facility].; [facility], [facility]. Chloride [Moles/Vol] 102 mmol/L Normal 98 - 11 0 mmol/L [facility].; [facility], [facility]. Cholesterol [Mass/Vol] 174 mg/dL Normal [facility]; [facility], [facility] Cholesterol in HDL [Mass/Vol] 58 mg/dL Normal [facility], [facility].; [facility], [facility]. Cholesterol in LDL [Mass/Vol] 95 mg/dL Normal [facility].; [facility], [facility]. CO2 [Moles/Vol] 26 mmol/L Normal 20 - 32 mmol/L [facility].; [facility]. Creatinine [Mass/Vol] 0.96 mg/dL Normal 0.70 - 1.35 mg/dL [facility].; [facility], [facility]. GFR/1.73 sq M.predicted among non-blacks MDRD (S/P/Bld) [Vol rate/Area] 87 mL/min/{1.73_m2} Normal [facility], [facility] Glucose [Mass/Vol] 177 mg/dL Abnormal 65 - 99 mg/dL [facility].; [facility], [facility]. Potassium [Moles/Vol] 4.0 mmol/L Normal 3.5 - 5.3 mmol/L [facility]; [facility], [facility]. Protein [Mass/Vol] 7.0 g/dL Normal 6.1 - 8.1 g/dL [facility], [facility].; [facility], [facility]. Sodium [Moles/Vol] 142 mmol/L Normal 135 - 146 mmol/L [facility].; [facility], [facility]. Triglyceride [Mass/Vol] 117 mg/dL Normal H [facility]; [facility], [facility] Urea nitrogen [Mass/Vol] 20 mg/dL Normal 7 - 25 mg/d L [facility].; [facility], [facility]. Laboratory - Hematology and Cell countson 07-15-2022 HbA1c (Bld) [Mass fraction] 8.4 % Abnormal [facility].; [facility], [facility] No Panel Informationon 07-15 BUN/CREATININE RATIO NOT APPLICABLE Normal 6 - 22 [facility].; [facility], [facility]. CHOL/HDLC RATIO 3.0 Normal [facility].; [facility], [facility]. GLOBULIN 2.6 Normal 1.9 - 3.7 [facility].; [facility], [facility]. NON HDL CHOLESTEROL 116 Normal [facility].; [facility], [facility] PSA, TOTAL 1.80 ng/mL Normal [facility].; [facility] Laboratory - Hematology and Cell countson 02-01-2022 Basophils (Bld) [#/Vol] 0.079 10*3/uL Normal 0 - 200 {cells/uL} [facility].; [facility] Basophils/100 WBC (Bld) 1.2 % Normal H [facility].; [facility], [facility] Eosinophils (Bld) [#/Vol] 0.238 10*3/uL Normal 15 - 500 {cells/uL} [facility].; [facility], [facility] Eosinophils/100 WBC (Bld) 3.6 % Normal [facility].; [facility], [facility] Erythrocyte distribution width (RBC) [Ratio] 11.9 % Normal 11.0 - 15.0 % [facility].; [facility] [facility], [facility] Hematocrit (Bld) [Volume fraction] 41.4 % Normal 38.5 - 50.0 % [facility], [facility].; [facility], [facility] Hemoglobin (Bld) [Mass/Vol] 14.2 g/dL Normal 13.2 - 17.1 g/dL [facility].; [facility], [facility]. Lymphocytes (Bld) [#/Vol] 1.683 10*3/uL Normal 850 - 3900 {cells/uL} [facility].; [facility], [facility]. Lymphocytes/100 WBC (Bld) 25.5 % Normal [facility].; [facility], [facility]. MCH (RBC) [Entitic mass] 31.1 pg Normal 27. 0 - 33.0 pg [facility].; [facility], [facility]. MCHC (RBC) [Mass/Vol] 34.3 g/dL Normal 32.0 - 36.0 g/dL [facility], [facility].; [facility], [facility]. MCV (RBC) [Entitic vol] 90.6 fL Normal 80.0 - 100.0 fL [facility], [facility].; [facility], [facility]. Monocytes (Bld) [#/Vol] 0.759 10*3/uL Normal 200 - 950 {cells/uL} [facility].; [facility], [facility]. Monocytes/100 WBC (Bld) 11.5 % Normal H [facility].; [facility] Neutrophils (Bld) [#/Vol] 3.841 10*3/uL Normal 1500 - 7800 {cells/uL} [facility].; [facility] Neutrophils/100 WBC (Bld) 58.2 % Normal [facility]; [facility] Platelet mean volume (Bld) [Entitic vol] 11.5 fL Normal 7.5 - 12.5 fL [facility].; [facility] Platelets (Bld) [#/Vol] 224 10*3/uL Normal 140 - 400 [facility]; [facility] RBC (Bld) [#/Vol] 4.57 10*6/uL Normal 4.20 - 5.8 0 {Million/uL} [facility]; [facility] WBC (Bld) [#/Vol] 6.6 10*3/uL Normal 3.8 - 10.8 [facility]; [facility] Laboratory - Hematology and Cell countson 01-08-2022 HbA1c (Bld) [Mass fraction] 6.7 % Normal 4.6 - 7.1 % [facility]; [facility] Laboratory - Microbiology an d Antimicrobial susceptibilityon 12-17-2021 SARS-CoV-2 (COVID-19) RNA ARVIND+probe Ql (Unsp spec) Detected Abnormal [facility]; [facility] Laboratory - Hematology and Cell countson 07-16-2021 HbA1c (Bld) [Mass fraction] 7.4 % Abnormal 4.6 - 7.1 % [facility]; [facility] Laboratory - Hematology and Cell countson 01-22-2021 HbA1c (Bld) [Mass fraction] 7.2 % Abnormal 4.6 - 7.1 % [facility].; [place] [facility]. Laboratory - Chemistry and C hemistry - challengeon 01-08-2021 Albumin [Mass/Vol] 4.5 g/dL Normal 3.6 - 5.1 g/dL [facility], [facility].; [facility], [facility]. Albumin/Globulin [Mass ratio] 1.6 {ratio} Normal 1.0 - 2.5 [facility].; [facility], [facility]. ALP [Catalytic activity/Vol] 70 U/L Normal 35 - 144 U/L [facility], [facility].; [facility], [facility]. ALT [Catalytic activity/Vol] 20 U/L Normal 9 - 46 U/L [facility], [facility].; [facility], [facility]. AST [Catalytic activity/Vol] 16 U/L Normal 10 - 35 U/L [facility], [facility].; [facility], [facility]. Bilirubin [Mass/Vol] 0.4 mg/dL Normal 0.2 - 1 .2 mg/dL [facility], [facility].; [facility], [facility]. Calcium [Mass/Vol] 9.5 mg/dL Normal 8.6 - 10. 3 mg/dL [facility], [facility].; [facility], [facility]. Chloride [Moles/Vol] 103 mmol/L Normal 98 - 11 0 mmol/L [facility], [facility].; [facility], [facility]. Cholesterol [Mass/Vol] 160 mg/dL Normal [facility]; [facility], [facility]. Cholesterol in HDL [Mass/Vol] 54 mg/dL Normal [facility], [facility].; [facility], [facility]. Cholesterol in LDL [Mass/Vol] 86 mg/dL Normal [facility], [facility].; [facility], [facility]. CO2 [Moles/Vol] 28 mmol/L Normal 20 - 32 mmol/L [facility], [facility].; [facility], [facility]. Creatinine [Mass/Vol] 1.07 mg/dL Normal 0.70 - 1.25 mg/dL [facility], [facility].; [facility] [employer] [facility], [facility]. GFR/1.73 sq M.predicted among blacks MDRD (S/P/Bld) [Vol rate/Area] 85 mL/min/{1.73_m2} Normal [facility], [facility].; [facility] [employer] [facility] Glucose [Mass/Vol] 142 mg/dL Abnormal 65 - 99 mg/dL [facility].; [facility] Potassium [Moles/Vol] 3.9 mmol/L Normal 3.5 - 5.3 mmol/L [facility]; [facility] Protein [Mass/Vol] 7.3 g/dL Normal 6.1 - 8.1 g/dL [facility]; [facility] Sodium [Moles/Vol] 140 mmol/L Normal 135 - 146 mmol/L [facility]; [facility] Triglyceride [Mass/Vol] 102 mg/dL Normal H [facility]; [facility] Urea nitrogen [Mass/Vol] 20 mg/dL Normal 7 - 25 mg/d L [facility]; [facility] No Panel Informationon 01-08 BUN/CREATININE RATIO NOT APPLICABLE Normal 6 - 22 [facility]; [facility] CHOL/HDLC RATIO 3.0 Normal [facility]; [facility] eGFR NON-AFR. KITTITIAN 73 Normal [facility]; [facility] GLOBULIN 2.8 Normal 1.9 - 3.7 [facility]; [facility] NON HDL CHOLESTEROL 106 Normal [facility]; [facility] Laboratory - Chemistry and C hemistry - challengeon 07-04-2020 Albumin/Creatinine DL <= 20 mg/L (U) [Mass ratio] mg/g Normal [facility]; [facility] Creatinine (U) [Mass/Vol] 200 mg/dL Normal [facility]; [facility] Laboratory - Hematology and Cell countson 07-04-2020 HbA1c (Bld) [Mass fraction] 6.8 % Normal 4.6 - 7.1 % [facility]; [facility] Laboratory - Urinalysison Protein Ql (U) Negative Normal [facility]; [facility] Coronavirus 2019on COVID 19 Result NON LINEAR EDITOR Abnormal Negative for COVID19 (SARS CoV2) by PCR. [facility] Reference Lab Comment on above: Result Comment: Posi tive for This test was developed and its performance characteristics determined by [facility] and [facility] [place]. This test has been authorized by FDA [...] developed and its performance characteristics determined by [facility]'s [facility] and [facility] [place]. This test has been authorized by FDA [...] developed and its performance characteristics determined by [facility]'s [facility] and [facility] [place]. This test has been authorized by FDA [...] developed and its performance characteristics determined by [facility] and [facility] [place]. This test has been authorized by FDA [...] 2019. Performed By: #### C OVID #### [facility] Laboratories Routine Lab [address], [place] [address] COVID 19 Source NON LINEAR EDITOR Normal [facility] Comment on above: Result Comment: Naso pharyngeal Corrected on 05/18 AT 0028: Previously reported as NASOPHARYNGEAL Swab Corrected on 05/18 AT 0028: Previously reported as NASOPHARYNGEAL Performed By: #### C OVID #### [facility] Laboratories Routine Lab [address] [place], [place] [address] Laboratory - Chemistry and C hemistry - challengeon 12-06-2019 Albumin [Mass/Vol] 4.4 g/dL Normal 3.6 - 5.1 g/dL [facility], [facility].; [facility] [employer] [facility], [facility]. Albumin/Globulin [Mass ratio] 2.0 {ratio} Normal 1.0 - 2.5 [facility], [facility].; [facility] [employer] [facility], [facility]. ALP [Catalytic activity/Vol] 69 U/L Normal 35 - 144 U/L [facility].; [employer] [facility] ALT [Catalytic activity/Vol] 22 U/L Normal 9 - 46 U/L [facility], [facility].; [place] [employer] [facility], [employer]. AST [Catalytic activity/Vol] 19 U/L Normal 10 - 35 U/L [facility], [facility].; [place]. Bilirubin [Mass/Vol] 0.4 mg/dL Normal 0.2 - 1 .2 mg/dL [facility], [facility].; [place] [employer], [employer]. Calcium [Mass/Vol] 9.7 mg/dL Normal 8.6 - 10. 3 mg/dL [facility], [facility].; [place] [employer] [facility] Chloride [Moles/Vol] 102 mmol/L Normal 98 - 11 0 mmol/L [facility], [facility].; [employer] Cholesterol [Mass/Vol] 152 mg/dL Normal [facility], [facility].; [employer] Cholesterol in HDL [Mass/Vol] 48 mg/dL Normal [facility] [employer] [facility], [facility].; [employer] Cholesterol in LDL [Mass/Vol] 83 mg/dL Normal [facility] [employer] [facility], [facility].; [employer] CO2 [Moles/Vol] 27 mmol/L Normal 20 - 32 mmol/L [facility] [employer] Creatinine [Mass/Vol] 1.15 mg/dL Normal 0.70 - 1.25 mg/dL [facility].; [facility], [facility]. GFR/1.73 sq M.predicted among blacks MDRD (S/P/Bld) [Vol rate/Area] 78 mL/min/{1.73_m2} Normal [facility]; [facility], [facility] Glucose [Mass/Vol] 136 mg/dL Abnormal 65 - 99 mg/dL [facility].; [facility], [facility] Potassium [Moles/Vol] 3.9 mmol/L Normal 3.5 - 5.3 mmol/L [facility]; [facility], [facility] Protein [Mass/Vol] 6.6 g/dL Normal 6.1 - 8.1 g/dL [facility]; [facility], [facility] Sodium [Moles/Vol] 139 mmol/L Normal 135 - 146 mmol/L [facility], [facility]; [facility], [facility] Triglyceride [Mass/Vol] 118 mg/dL Normal [facility]; [facility], [facility] Urea nitrogen [Mass/Vol] 17 mg/dL Normal 7 - 25 mg/d L [facility]; [facility], [facility] Laboratory - Hematology and Cell countson 12-06-2019 HbA1c (Bld) [Mass fraction] 7.4 % Abnormal [facility]; [facility], [facility] No Panel Informationon 12-05 BUN/CREATININE RATIO NOT APPLICABLE Normal 6 - 22 [facility]; [facility], [facility] CHOL/HDLC RATIO 3.2 Normal [facility]; [facility], [facility] eGFR NON-AFR. KITTITIAN 67 Normal [facility]; [facility], [facility] GLOBULIN 2.2 Normal 1.9 - 3.7 [facility]; [facility], [facility] NON HDL CHOLESTEROL 104 Normal [facility].; [facility], [facility] PSA, TOTAL 1.7 ng/mL Normal [facility].; [facility], [facility] Laboratory - Hematology and Cell countson 02-12-2019 HbA1c (Bld) [Mass fraction] 6.8 % Normal 4.6 - 7.1 % [facility].; [place] [employer] [facility], [facility]. Laboratory - Chemistry and C hemistry - challengeon 08-07-2018 Prostate specific Ag [Mass/Vol] 4.5 ng/mL Abnormal [facility].; [place] [employer] [facility], [employer]. Laboratory - Hematology and Cell countson 08-07-2018 HbA1c (Bld) [Mass fraction] 7.5 % Abnormal 0 - 5.6 % [facility], [facility].; [place] [employer], [employer]. Laboratory - Chemistry and C hemistry - challengeon 01-05-2018 Albumin [Mass/Vol] 4.4 g/dL Normal 3.4 - 4.8 g/dL [facility], [facility].; [place] [employer] [facility], [facility]. Albumin [Mass/Vol] 1.6 g/dL Normal 0.9 - 1.6 [facility], [facility].; [place] [employer] [facility], [employer]. ALP [Catalytic activity/Vol] 64 U/L Normal 38 - 126 U/L [facility], [facility].; [employer] ALT [Catalytic activity/Vol] 20 U/L Normal 10 - 40 U/L [facility], [facility].; [place] [employer], [employer]. ALT No additional P-5'-P [Catalytic activity/Vol] 20 U/L Normal 10 - 40 U/L [facility], [facility].; [employer] [facility] Anion gap [Moles/Vol] 12 mmol/L Normal 10 - 2 0 mmol/L [facility], [facility].; [employer] AST [Catalytic activity/Vol] 17 U/L Normal 13 - 39 U/L [facility], [facility].; [employer] Bilirubin [Mass/Vol] 0.6 mg/dL Normal 0.0 - 1 .5 mg/dL [facility], [facility].; [employer] Calcium [Mass/Vol] 9.5 mg/dL Normal 8.6 - 10. 2 mg/dL [facility], [facility].; [employer] Chloride [Moles/Vol] 102 mmol/L Normal 98 - 10 7 mmol/L [facility], [facility].; [employer] Cholesterol [Mass/Vol] 126 mg/dL Normal 0 - 200 mg/dL [facility] Cholesterol in HDL [Mass or moles/Vol] 37 mg/dL Abnormal 40 - 60 mg/dL [facility]; [facility] Cholesterol in LDL [Mass/Vol] 72 mg/dL Normal 0 - 129 mg/dL [facility].; [facility], [facility] Cholesterol.total/Choles terol in HDL [Mass ratio] 3.4 {ratio} Normal 0.0 - 5.0 [facility]; [facility], [facility] CO2 [Moles/Vol] 28.4 mmol/L Normal 21.0 - 31.0 mmol/L [facility]; [facility], [facility] Comprehensive metabolic 2000 panel CMP with eGFR Normal [facility]; [facility], [facility] Creatinine [Mass/Vol] 1.0 mg/dL Normal 0.7 - 1.3 mg/dL [facility]; [facility], [facility]. GFR/1.73 sq M.predicted among blacks MDRD (S/P/Bld) [Vol rate/Area] mL/min/{1.73_m2} Normal 60 - 999 {ML/MINUTE} [facility].; [facility], [facility]. GFR/1.73 sq M.predicted MDRD (S/P/Bld) [Vol rate/Area] mL/min/{1.73_m2} Normal 60 - 999 {ML/MINUTE} [facility], [facility].; [facility], [facility]. Globulin (S) [Mass/Vol] 2.7 g/dL Normal 1.5 - 3.8 g/dL [facility].; [facility], [facility]. Glucose [Mass/Vol] 118 mg/dL Abnormal 74 - 106 mg/dL [facility].; [facility], [facility] Lipid 1996 panel LIPID PROFILE Normal [facility]; [facility], [facility] Potassium [Moles/Vol] 3.6 mmol/L Normal 3.5 - 5.1 mmol/L [facility]; [facility], [facility] Protein [Mass/Vol] 7.1 g/dL Normal 6.4 - 8.3 g/dL [facility].; [employer]. Sodium [Moles/Vol] 139 mmol/L Normal 136 - 145 mmol/L [facility].; [place] [employer]. Triglyceride [Mass/Vol] 87 mg/dL Normal 0 - 150 mg/d L [facility].; [place] [employer]. Urea nitrogen [Mass/Vol] 18 mg/dL Normal 6 - 20 mg/d L [facility].; [place] [employer]. Urea nitrogen/Creatinine [Mass ratio] 18 {ratio} Normal 0 - 30 {ratio} [place] [employer].; [employer]. Laboratory - Hematology and Cell countson 01-05-2018 HbA1c (Bld) [Mass fraction] 7.0 % Abnormal 4.4 - 6.4 % [facility].; [employer] Work Phone: No Panel Informationon 01-05 AGE 62 {years} Normal [facility].; [employer]. Laboratory - Hematology and Cell countson 06-20-2017 HbA1c (Bld) [Mass fraction] 7.5 % Abnormal 4.6 - 7.1 % [place] [employer].; [employer]. Laboratory - Chemistry and C hemistry - challengeon 12-10-2016 Albumin/Creatinine DL <= 20 mg/L (U) [Mass ratio] mg/g Normal [facility].; [employer]. Creatinine (U) [Mass/Vol] 50 mg/dL Normal [place] [employer] [facility].; [employer]. Laboratory - Hematology and Cell countson 12-10-2016 HbA1c (Bld) [Mass fraction] 7.5 % Abnormal 4.6 - 7.1 % [place] [employer].; [employer]. Laboratory - Urinalysison Protein Ql (U) 10 mg/dL Normal [facility].; [employer]. Laboratory - Hematology and Cell countson 08-20-2016 HbA1c (Bld) [Mass fraction] 8.4 % Abnormal 4.6 - 7.1 % [facility].; [place] [employer]. Laboratory - Chemistry and C hemistry - challengeon 05-21-2016 Albumin [Mass/Vol] 4.0 g/dL Normal 3.6 - 5.1 g/dL [facility].; [place] [employer] [facility], [facility]. Albumin/Globulin [Mass ratio] 1.7 {ratio} Normal 1.0 - 2.5 [facility].; [facility], [facility]. ALP [Catalytic activity/Vol] 88 U/L Normal 40 - 115 U/L [facility].; [place] [employer] [facility], [facility]. ALT [Catalytic activity/Vol] 48 U/L Abnormal 9 - 46 U/L [facility].; [place] [employer] [facility], [employer]. AST [Catalytic activity/Vol] 27 U/L Normal 10 - 35 U/L [facility].; [place] [employer], [employer]. Bilirubin [Mass/Vol] 0.5 mg/dL Normal 0.2 - 1 .2 mg/dL [facility].; [place] [employer] [facility]. Calcium [Mass/Vol] 9.1 mg/dL Normal 8.6 - 10. 3 mg/dL [facility].; [employer], [employer]. Chloride [Moles/Vol] 101 mmol/L Normal 98 - 11 0 mmol/L [facility].; [place] [employer], [employer]. Cholesterol [Mass/Vol] 162 mg/dL Normal 125 - 200 mg/dL [facility], [facility].; [place] [employer], [facility]. Cholesterol in HDL [Mass/Vol] 38 mg/dL Abnormal [facility].; [place] [employer] [facility], [facility]. Cholesterol in LDL [Mass/Vol] 86 mg/dL Normal [place] [employer] [facility].; [place] [employer], [employer]. Cholesterol non HDL [Mass/Vol] 123 mg/dL Normal [place] [employer] [facility].; [place] [employer], [employer]. Cholesterol.total/Choles terol in HDL [Mass ratio] 4.3 {ratio} Normal [facility], [facility].; [employer], [employer]. CO2 [Moles/Vol] 26 mmol/L Normal 20 - 31 mmol/L [facility].; [place] [employer], [employer]. Creatinine [Mass/Vol] 0.99 mg/dL Normal 0.70 - 1.33 mg/dL [facility].; [facility], [facility]. GFR/1.73 sq M.predicted among blacks MDRD (S/P/Bld) [Vol rate/Area] 96 {ML/MIN/1.73M2} Normal [facility].; [facility], [facility]. GFR/1.73 sq M.predicted MDRD (S/P/Bld) [Vol rate/Area] 83 {ML/MIN/1.73M2} Normal [facility].; [facility], [facility] Globulin (S) [Mass/Vol] 2.3 g/dL Normal 1.9 - 3.7 g/dL [facility].; [facility], [facility]. Glucose [Mass/Vol] 302 mg/dL Abnormal 65 - 99 mg/dL [facility].; [facility], [facility]. Potassium [Moles/Vol] 3.7 mmol/L Normal 3.5 - 5.3 mmol/L [facility].; [facility], [facility]. Protein [Mass/Vol] 6.3 g/dL Normal 6.1 - 8.1 g/dL [facility], [facility].; [facility], [facility]. Sodium [Moles/Vol] 137 mmol/L Normal 135 - 146 mmol/L [facility], [facility].; [facility], [facility]. Triglyceride [Mass/Vol] 189 mg/dL Abnormal H [facility].; [facility], [facility] Urea nitrogen [Mass/Vol] 18 mg/dL Normal 7 - 25 mg/d L [facility].; [facility], [facility]. Urea nitrogen/Creatinine [Mass ratio] 18.3 mg/mg Normal 6 - 22 [facility]; [facility], [facility]. Laboratory - Chemistry and C hemistry - challengeon 05-02-2015 Albumin [Mass/Vol] 4.5 g/dL Normal 3.6 - 5.1 g/dL [facility], [facility].; [facility], [facility]. Albumin/Globulin [Mass ratio] 1.9 {ratio} Normal 1.0 - 2.5 [facility]; [facility]. ALP [Catalytic activity/Vol] 94 U/L Normal 40 - 115 U/L [facility].; [facility], [facility]. ALT [Catalytic activity/Vol] 44 U/L Normal 9 - 46 U/L [facility].; [facility], [facility]. AST [Catalytic activity/Vol] 27 U/L Normal 10 - 35 U/L [facility].; [place] [employer] [facility]. Bilirubin [Mass/Vol] 0.4 mg/dL Normal 0.2 - 1 .2 mg/dL [facility].; [facility], [facility]. Calcium [Mass/Vol] 9.2 mg/dL Normal 8.6 - 10. 3 mg/dL [facility].; [place] [employer] [facility], [facility]. Chloride [Moles/Vol] 102 mmol/L Normal 98 - 11 0 mmol/L [facility].; [place] [employer] [facility], [facility]. Cholesterol [Mass/Vol] 164 mg/dL Normal 125 - 200 mg/dL [facility].; [place] [employer] [facility]. Cholesterol in HDL [Mass/Vol] 40 mg/dL Normal [facility].; [place] [employer]. Cholesterol in LDL [Mass/Vol] 84 mg/dL Normal [facility].; [place] [employer] [facility], [employer]. Cholesterol non HDL [Mass/Vol] 124 mg/dL Normal [facility].; [place] [employer], [facility]. Cholesterol.total/Choles terol in HDL [Mass ratio] 4.1 {ratio} Normal [facility].; [place] [employer]. CO2 [Moles/Vol] 24 mmol/L Normal 19 - 30 mmol/L [facility].; [place] [employer] [facility]. Creatinine [Mass/Vol] 1.01 mg/dL Normal 0.70 - 1.33 mg/dL [facility].; [place] [employer] [facility], [facility]. GFR/1.73 sq M.predicted among blacks MDRD (S/P/Bld) [Vol rate/Area] 95 {ML/MIN/1.73M2} Normal [facility].; [place] [employer], [facility]. GFR/1.73 sq M.predicted MDRD (S/P/Bld) [Vol rate/Area] 82 {ML/MIN/1.73M2} Normal [facility]; [facility] Globulin (S) [Mass/Vol] 2.4 g/dL Normal 1.9 - 3.7 g/dL [facility]; [facility], [facility] Glucose [Mass/Vol] 249 mg/dL Abnormal 65 - 99 mg/dL [facility]; [facility], [facility] Potassium [Moles/Vol] 3.6 mmol/L Normal 3.5 - 5.3 mmol/L [facility]; [facility], [facility] Protein [Mass/Vol] 6.9 g/dL Normal 6.1 - 8.1 g/dL [facility]; [facility], [facility] Sodium [Moles/Vol] 139 mmol/L Normal 135 - 146 mmol/L [facility]; [facility], [facility] Triglyceride [Mass/Vol] 199 mg/dL Abnormal H [facility]; [facility], [facility] Urea nitrogen [Mass/Vol] 19 mg/dL Normal 7 - 25 mg/d L [facility]; [facility], [facility] Urea nitrogen/Creatinine [Mass ratio] 18.7 mg/mg Normal 6 - 22 [facility]; [facility], [facility] Laboratory - Chemistry and C hemistry - challengeon 09-16-2013 ALT [Catalytic activity/Vol] 30 U/L Normal 9 - 46 U/L [facility]; [facility], [facility] Cholesterol [Mass/Vol] 163 mg/dL Normal 125 - 200 mg/dL [facility]; [facility], [facility]. Cholesterol in HDL [Mass/Vol] 49 mg/dL Normal [facility]; [facility], [facility]. Cholesterol in LDL [Mass/Vol] 85 mg/dL Normal [facility].; [facility], [facility]. Cholesterol non HDL [Mass/Vol] 114 mg/dL Normal [facility].; [facility], [facility]. Cholesterol.total/Choles terol in HDL [Mass ratio] 3.3 {ratio} Normal [facility].; [place] [employer]. Triglyceride [Mass/Vol] 144 mg/dL Normal H [facility].; [employer]. Laboratory - Chemistry and C hemistry - challengeon 02-18-2012 Albumin [Mass/Vol] 4.4 g/dL Normal 3.6 - 5.1 g/dL [facility].; [place] [employer], [employer]. Albumin/Globulin [Mass ratio] 1.7 {ratio} Normal 1.0 - 2.1 [facility].; [place] [employer]. ALP [Catalytic activity/Vol] 74 U/L Normal 40 - 115 U/L [facility].; [place] [employer], [employer]. ALT [Catalytic activity/Vol] 24 U/L Normal 9 - 60 U/L [facility].; [place] [employer], [employer]. AST [Catalytic activity/Vol] 20 U/L Normal 10 - 35 U/L [place] [employer] [facility] [employer].; [employer]. Bilirubin [Mass/Vol] 0.3 mg/dL Normal 0.2 - 1 .2 mg/dL [place] [employer].; [employer], [employer]. Calcium [Mass/Vol] 9.5 mg/dL Normal 8.6 - 10. 3 mg/dL [place] [employer] [facility].; [employer], [employer]. Chloride [Moles/Vol] 106 mmol/L Normal 98 - 11 0 mmol/L [place] [employer] [facility].; [employer], [employer]. Cholesterol [Mass/Vol] 206 mg/dL Abnormal 125 - 200 mg/dL [place] [employer] [facility].; [employer], [employer]. Cholesterol in HDL [Mass/Vol] 41 mg/dL Normal [place] [employer] [facility].; [employer], [employer]. Cholesterol in LDL [Mass/Vol] 131 mg/dL Abnormal [place] [employer].; [employer], [employer]. Cholesterol non HDL [Mass/Vol] 165 mg/dL Normal [place] [employer] [facility], [facility].; [employer], [employer]. Cholesterol.total/Choles terol in HDL [Mass ratio] 5.0 {ratio} Normal [place] [employer].; [employer]. CO2 [Moles/Vol] 24 mmol/L Normal 21 - 33 mmol/L [facility], [facility].; [facility], [facility]. Creatinine [Mass/Vol] 0.92 mg/dL Normal 0.70 - 1.33 mg/dL [facility], [facility].; [facility], [facility]. GFR/1.73 sq M.predicted among blacks MDRD (S/P/Bld) [Vol rate/Area] 108 {ML/MIN/1.73M2} Normal [facility], [facility].; [place] [employer] [facility], [facility]. GFR/1.73 sq M.predicted MDRD (S/P/Bld) [Vol rate/Area] 93 {ML/MIN/1.73M2} Normal [facility], [facility].; [facility], [facility]. Globulin (S) [Mass/Vol] 2.5 g/dL Normal 2.1 - 3.7 g/dL [facility], [facility].; [facility], [facility]. Glucose [Mass/Vol] 136 mg/dL Abnormal 65 - 99 mg/dL [facility].; [place] [employer] [facility], [facility]. Potassium [Moles/Vol] 4.1 mmol/L Normal 3.5 - 5.3 mmol/L [facility], [facility].; [facility], [facility]. Protein [Mass/Vol] 6.9 g/dL Normal 6.2 - 8.3 g/dL [facility], [facility].; [place] [employer] [facility], [facility]. Sodium [Moles/Vol] 141 mmol/L Normal 135 - 146 mmol/L [facility], [facility].; [place] [employer] Triglyceride [Mass/Vol] 171 mg/dL Abnormal H [facility].; [place] [employer] [facility], [facility]. Urea nitrogen [Mass/Vol] 14 mg/dL Normal 7 - 25 mg/d L [facility], [facility].; [place] [employer] [facility], [facility]. Urea nitrogen/Creatinine [Mass ratio] 14.9 mg/mg Normal 6 - 22 [facility].; [place] [employer], [facility]. Vital Signs Date Time Vital Sign Value Performing Clinician Facility 11-02-2024 15:48-0400 Body height 180.34 cm Adali Quinones LPN [facility].; [facility], [facility] 11-02-2024 15:48-0400 Body mass index (BMI) [Ratio] 34.03 kg/m2 Adali Quinones LPN [facility]. 11-02-2024 15:48-0400 Body surface area Derived from formula 2.3 m2 Adali Quinones LPN [facility], [facility].; [facility], [facility]. 11-02-2024 15:48-0400 Body weight 110.68 kg [facility].; [place] [employer] [facility], [facility]. 11-02-2024 15:48-0400 Diastolic blood pressure 74 mm[Hg] Adali Quinones LPN [facility].; [facility], [facility]. Comment on above: Patient Position: Sitting; Cuff Location : Left Arm; Cuff Size: Standard 11-02-2024 15:48-0400 Heart rate 63 /min Adali Quinones LPN [facility].; [place] [employer] [facility], [facility]. Comment on above: Pattern: Regular 11-02-2024 15:48-0400 Systolic blood pressure 136 mm[Hg] Adali Quinones LPN [facility].; [facility], [facility]. Comment on above: Patient Position: Sitting; Cuff Location : Left Arm; Cuff Size: Standard 10-28-2024 11:57-0400 Body height 180.[address] Magdy Ward MD Work Phone: [facility] 10-28-2024 11:57-0400 Body mass index (BMI) [Ratio] 34.2 kg/m2 Dr. Magdy Ward MD Work Phone: [facility] 10-28-2024 11:57-0400 Body weight 111.[address] Magdy Ward MD Work Phone: [facility] 10-28-2024 11:57-0400 Diastolic blood pressure 68 mm[Hg] Dr. Magdy Ward MD Work Phone: [facility] 10-28-2024 11:57-0400 Heart rate 59 /min Dr. Magdy Ward MD Work Phone: [facility] 10-28-2024 11:57-0400 Respiratory rate 16 /min Dr. Magdy Ward MD Work Phone: [facility] 10-28-2024 11:57-0400 Systolic blood pressure 117 mm[Hg] Dr. Magdy Ward MD Work Phone: [facility] 08-03-2024 16:05-0400 Body height 180.34 cm Magdy Ward MD Work Phone: [employer].; [employer] 08-03-2024 16:05-0400 Body mass index (BMI) [Ratio] 34.45 kg/m2 Magdy Ward MD Work Phone: [employer].; [employer]. 08-03-2024 16:05-0400 Body surface area Derived from formula 2.31 m2 Magdy Ward MD Work Phone: [employer].; [employer]. 08-03-2024 16:05-0400 Body weight 112.04 kg Magdy Ward MD Work Phone: [employer].; [employer]. 08-03-2024 16:05-0400 Diastolic blood pressure 66 mm[Hg] Magdy Ward MD Work Phone: [employer].; [employer]. Comment on above: Patient Position: Sitting; Cuff Location : Left Arm; Cuff Size: Standard 08-03-2024 16:05-0400 Diastolic blood pressure 73 mm[Hg] Adali Quinones LPN [employer].; [employer]. Comment on above: Patient Position: Sitting; Cuff Location : Left Arm; Cuff Size: Standard 08-03-2024 16:05-0400 Heart rate 59 /min Magdy Ward MD Work Phone: [employer].; [employer]. Comment on above: Pattern: Regular 08-03-2024 16:05-0400 Systolic blood pressure 126 mm[Hg] Magdy Ward MD Work Phone: [employer].; [employer]. Comment on above: Patient Position: Sitting; Cuff Location : Left Arm; Cuff Size: Standard 08-03-2024 16:05-0400 Systolic blood pressure 146 mm[Hg] Adali Quinones LPN [facility].; [employer]. Comment on above: Patient Position: Sitting; Cuff Location : Left Arm; Cuff Size: Standard 06-14-2024 08:54-0500 Body height 180.34 cm Mecca Melton RN [facility] [employer]. 06-14-2024 08:54-0500 Body mass index (BMI) [Ratio] 34.17 kg/m2 Magdy Ward MD Work Phone: [place] [employer]; [employer]. 06-14-2024 08:54-0500 Body surface area Derived from formula 2.3 m2 Magdy Ward MD Work Phone: [place] [employer]; [employer]. 06-14-2024 08:54-0500 Body temperature 97.3 [degF] Magdy Ward MD Work Phone: [place] [employer]; [employer]. Comment on above: Method: Tympanic 06-14-2024 08:54-0500 Body weight 111.13 kg Magdy Ward MD Work Phone: [place] [employer].; [employer]. 06-14-2024 08:54-0500 Diastolic blood pressure 71 mm[Hg] Magdy Ward MD Work Phone: [place] [employer].; [employer]. Comment on above: Patient Position: Sitting; Cuff Location : Left Arm; Cuff Size: Standard 06-14-2024 08:54-0500 Heart rate 50 /min aMgdy Ward MD Work Phone: [place] [employer].; [employer]. Comment on above: Pattern: Regular 06-14-2024 08:54-0500 Inhaled oxygen concentration 21 % Magdy Ward MD Work Phone: [facility].; [employer] [facility]. Comment on above: Room air 06-14-2024 08:54-0500 SaO2% (BldA) [Mass fraction] 96 % Magdy Ward MD Work Phone: [facility].; [employer]. 06-14-2024 08:54-0500 Systolic blood pressure 137 mm[Hg] Magdy Ward MD Work Phone: [facility].; [employer]. Comment on above: Patient Position: Sitting; Cuff Location : Left Arm; Cuff Size: Standard 02-10-2024 11:14-0400 Body height 180.34 cm Claire Rice PHYSICIAN OFFICE ASSISTANT [facility], [employer] 02-10-2024 11:14-0400 Body mass index (BMI) [Ratio] 33.61 kg/m2 Claire Rice PHYSICIAN OFFICE ASSISTANT [facility], [employer] [facility], [employer]. 02-10-2024 11:14-0400 Body surface area Derived from formula 2.28 m2 Mandy Stuckey PHYSICIAN OFFICE ASSISTANT [facility], [employer], [employer]. 02-10-2024 11:14-0400 Body weight 109.32 kg Claire Rice PHYSICIAN OFFICE ASSISTANT [facility], [employer] 02-10-2024 11:14-0400 Diastolic blood pressure 75 mm[Hg] Claire Rice PHYSICIAN OFFICE ASSISTANT [facility], [employer]. Comment on above: Patient Position: Sitting; Cuff Location : Left Arm; Cuff Size: Large 02-10-2024 11:14-0400 Heart rate 64 /min MandyTalisha Rice PHYSICIAN OFFICE ASSISTANT [facility], [employer]. Comment on above: Pattern: Regular 02-10-2024 11:14-0400 Systolic blood pressure 136 mm[Hg] Claire Rice PHYSICIAN OFFICE ASSISTANT [facility], [employer]. Comment on above: Patient Position: Sitting; Cuff Location : Left Arm; Cuff Size: Large 07-29-2023 15:40-0500 Body height 180.34 cm Magdy Ward MD Work Phone: [employer].; [employer]. 07-29-2023 15:40-0500 Body mass index (BMI) [Ratio] 33.47 kg/m2 Magdy Ward MD Work Phone: [employer].; [employer]. 07-29-2023 15:40-0500 Body surface area Derived from formula 2.28 m2 Magdy Ward MD Work Phone: [employer].; [employer] 07-29-2023 15:40-0500 Body weight 108.86 kg Magdy Ward MD Work Phone: [employer].; [employer]. 07-29-2023 15:40-0500 Diastolic blood pressure 76 mm[Hg] Magdy Ward MD Work Phone: [employer].; [employer]. Comment on above: Patient Position: Sitting; Cuff Location : Left Arm; Cuff Size: Large 07-29-2023 15:40-0500 Heart rate 73 /min Magdy Ward MD Work Phone: [employer]; [employer]. Comment on above: Pattern: Regular 07-29-2023 15:40-0500 Systolic blood pressure 126 mm[Hg] Magdy Ward MD Work Phone: [employer].; [employer]. Comment on above: Patient Position: Sitting; Cuff Location : Left Arm; Cuff Size: Large 01-21-2023 15:14-0400 Body height 180.34 cm Magdy Ward MD Work Phone: [employer] 01-21-2023 15:14-0400 Body mass index (BMI) [Ratio] 34.17 kg/m2 Magdy Ward MD Work Phone: [employer] 01-21-2023 15:14-0400 Body surface area Derived from formula 2.3 m2 Magdy Ward MD Work Phone: [facility].; [employer]. 01-21-2023 15:14-0400 Body weight 111.13 kg Magdy Ward MD Work Phone: [facility].; [employer]. 01-21-2023 15:14-0400 Diastolic blood pressure 68 mm[Hg] Magdy Ward MD Work Phone: [facility].; [employer]. Comment on above: Patient Position: Sitting; Cuff Location : Left Arm; Cuff Size: Large 01-21-2023 15:14-0400 Heart rate 61 /min Magdy Ward MD Work Phone: [facility] [facility].; [employer]. Comment on above: Pattern: Regular 01-21-2023 15:14-0400 Systolic blood pressure 132 mm[Hg] Magdy Ward MD Work Phone: [facility] [employer]. Comment on above: Patient Position: Sitting; Cuff Location : Left Arm; Cuff Size: Large 11-25-2022 09:49-0400 Body height 180.34 cm Claire Rice [facility], [facility].; [employer]. 11-25-2022 09:49-0400 Body mass index (BMI) [Ratio] 33.61 kg/m2 [facility].; [employer], [employer]. 11-25-2022 09:49-0400 Body surface area Derived from formula 2.28 m2 [facility], [facility].; [employer], [employer]. 11-25-2022 09:49-0400 Body temperature 97.2 [degF] [facility].; [employer]. Comment on above: Method: Tympanic 11-25-2022 09:49-0400 Body weight 109.32 kg [facility] Dwayne [facility], [employer].; [facility]. 11-25-2022 09:49-0400 Diastolic blood pressure 72 mm[Hg] Claire Rice [facility].; [facility]. Comment on above: Patient Position: Sitting; Cuff Location : Left Arm; Cuff Size: Large 11-25-2022 09:49-0400 Heart rate 67 /min Claire Rice [facility], [facility].; [place] [employer] [facility]. Comment on above: Pattern: Regular 11-25-2022 09:49-0400 Inhaled oxygen concentration 20 % Mandy Stuckey [facility], [facility].; [place] [employer] [facility]. Comment on above: Room air 11-25-2022 09:49-0400 Inhaled oxygen concentration 21 % Mandy Stuckey [facility], [facility].; [place] [employer], [employer]. Comment on above: Room air 11-25-2022 09:49-0400 SaO2% (BldA) [Mass fraction] 90 % Mandy Stuckey [facility], [facility].; [place] [employer] [facility]. 11-25-2022 09:49-0400 Systolic blood pressure 143 mm[Hg] Claire Rice [facility], [facility].; [place] [employer] [facility], [employer]. Comment on above: Patient Position: Sitting; Cuff Location : Left Arm; Cuff Size: Large 08-07-2022 15:39-0400 Body height 180.[address] Magdy Ward Work Phone: [facility] 08-07-2022 15:39-0400 Body mass index (BMI) [Ratio] 34 kg/m2 Dr. Magdy Ward Work Phone: [facility] 08-07-2022 15:39-0400 Body weight 110.[address] Magdy Ward Work Phone: [facility] 08-07-2022 15:39-0400 Diastolic blood pressure 80 mm[Hg] Dr. Magdy Ward Work Phone: [facility] 08-07-2022 15:39-0400 Heart rate 64 /min Dr. Magdy Ward Work Phone: [facility] 08-07-2022 15:39-0400 Respiratory rate 16 /min Dr. Magdy Ward Work Phone: [facility] 08-07-2022 15:39-0400 Systolic blood pressure 126 mm[Hg] Dr. Magdy Ward Work Phone: [facility] 07-23-2022 15:55-0500 Body height 180.34 cm Adali Gates MA [facility], [facility].; [employer] [facility]. 07-23-2022 15:55-0500 Body mass index (BMI) [Ratio] 34.03 kg/m2 Adali Gates MA [facility], [facility].; [employer] [facility] [employer] [facility]. 07-23-2022 15:55-0500 Body surface area Derived from formula 2.3 m2 Adali Gates MA [facility], [facility].; [employer] [facility]. 07-23-2022 15:55-0500 Body weight 110.68 kg Adali Gates MA [facility], [facility].; [employer]. 07-23-2022 15:55-0500 Diastolic blood pressure 73 mm[Hg] Adali Gates MA [facility], [facility].; [employer]. Comment on above: Patient Position: Sitting; Cuff Location : Left Arm; Cuff Size: Standard 07-23-2022 15:55-0500 Heart rate 61 /min Adali Gates MA [facility], [facility].; [employer]. Comment on above: Pattern: Regular 07-23-2022 15:55-0500 Systolic blood pressure 128 mm[Hg] Adali Gates MA [facility], [facility].; [employer]. Comment on above: Patient Position: Sitting; Cuff Location : Left Arm; Cuff Size: Standard 05-03-2022 15:29-0500 Body height 180.34 cm Adali Quinones LPN [facility], [facility].; [employer] 05-03-2022 15:29-0500 Body mass index (BMI) [Ratio] 35.01 kg/m2 Adali Quinones LPN [facility].; [employer]. 05-03-2022 15:29-0500 Body surface area Derived from formula 2.32 m2 Adali Quinones LPN [facility].; [employer] [facility]. 05-03-2022 15:29-0500 Body weight 113.85 kg Adali Quinones LPN [facility], [facility].; [employer]. 05-03-2022 15:29-0500 Diastolic blood pressure 62 mm[Hg] Adali Quinones LPN [facility].; [employer]. Comment on above: Patient Position: Sitting; Cuff Location : Left Arm; Cuff Size: Standard 05-03-2022 15:29-0500 Heart rate 64 /min Adali Quinones LPN [facility], [facility].; Neil [employer], [employer]. Comment on above: Pattern: Regular 05-03-2022 15:29-0500 Inhaled oxygen concentration 20 % Adali Quinones LPN [facility], [facility].; [employer], [employer]. Comment on above: Room air 05-03-2022 15:29-0500 Inhaled oxygen concentration 21 % Adali Quinones LPN [facility], [facility].; [employer], [employer]. Comment on above: Room air 05-03-2022 15:29-0500 SaO2% (BldA) [Mass fraction] 93 % Adali Quinones LPN [facility], [facility].; [employer]. 05-03-2022 15:29-0500 Systolic blood pressure 123 mm[Hg] Adali Quinones LPN [facility].; [employer]. Comment on above: Patient Position: Sitting; Cuff Location : Left Arm; Cuff Size: Standard 02-01-2022 10:45-0400 Body height 180.34 cm Ashly Leung LPN [facility], [facility].; [employer], [facility]. 02-01-2022 10:45-0400 Body mass index (BMI) [Ratio] 33.61 kg/m2 Ashly Leung LPN [facility], [facility].; [employer]. 02-01-2022 10:45-0400 Body surface area Derived from formula 2.28 m2 Ashly M Xochitl [facility], [facility].; [employer] [facility], [facility]. 02-01-2022 10:45-0400 Body weight 109.32 kg Ashly Leung [facility] [employer].; [employer] [facility]. 02-01-2022 10:45-0400 Diastolic blood pressure 80 mm[Hg] Ashly Leung [facility], [facility].; [employer]. Comment on above: Patient Position: Sitting; Cuff Location : Left Arm; Cuff Size: Standard 02-01-2022 10:45-0400 Heart rate 49 /min Ashly Leung [facility], [facility].; [employer], [employer]. Comment on above: Pattern: Regular 02-01-2022 10:45-0400 Systolic blood pressure 147 mm[Hg] Ashly Leung [facility], [facility].; [employer]. Comment on above: Patient Position: Sitting; Cuff Location : Left Arm; Cuff Size: Standard 01-08-2022 15:04-0400 Body height 180.34 cm Magdy Ward MD Work Phone: [employer].; [employer]. 01-08-2022 15:04-0400 Body mass index (BMI) [Ratio] 33.33 kg/m2 Magdy Ward MD Work Phone: [employer].; [employer]. 01-08-2022 15:04-0400 Body surface area Derived from formula 2.27 m2 Magdy Ward MD Work Phone: [employer].; [employer]. 01-08-2022 15:04-0400 Body weight 108.41 kg Magdy Ward MD Work Phone: [employer].; [employer]. 01-08-2022 15:04-0400 Diastolic blood pressure 78 mm[Hg] Magdy Ward MD Work Phone: [employer].; [employer]. Comment on above: Patient Position: Sitting; Cuff Location : Left Arm; Cuff Size: Large 01-08-2022 15:04-0400 Heart rate 64 /min Magdy Ward MD Work Phone: [facility].; [place] [employer]. Comment on above: Pattern: Regular 01-08-2022 15:04-0400 Systolic blood pressure 138 mm[Hg] Magdy Ward MD Work Phone: [facility].; [employer]. Comment on above: Patient Position: Sitting; Cuff Location : Left Arm; Cuff Size: Large 12-17-2021 11:35-0400 Body height 180.34 cm Adali Quinones LPN [facility].; [facility]. 12-17-2021 11:35-0400 Body mass index (BMI) [Ratio] 32.36 kg/m2 Adali Quinones LPN [facility].; [place] [employer] [facility], [employer]. 12-17-2021 11:35-0400 Body surface area Derived from formula 2.25 m2 Adali Quinones LPN [facility].; [employer], [employer]. 12-17-2021 11:35-0400 Body temperature 96.8 [degF] [facility].; [employer]. Comment on above: Method: Tympanic 12-17-2021 11:35-0400 Body weight 105.24 kg Adali Quinones LPN [facility].; [place] [employer] 12-17-2021 11:35-0400 Diastolic blood pressure 67 mm[Hg] Adali Quinones LPN [facility].; [employer]. Comment on above: Patient Position: Sitting; Cuff Location : Left Arm; Cuff Size: Standard 12-17-2021 11:35-0400 Heart rate 63 /min Adali Quinones LPN [facility].; [employer]. Comment on above: Pattern: Regular 12-17-2021 11:35-0400 Inhaled oxygen concentration 20 % Adali Quinones LPN [facility].; [employer]. Comment on above: Room air 12-17-2021 11:35-0400 Inhaled oxygen concentration 21 % Adali Joni PHYSICIAN OFFICE ASSISTANT [facility], [facility].; [place] [employer] [facility], [employer]. Comment on above: Room air 12-17-2021 11:35-0400 SaO2% (BldA) [Mass fraction] 97 % Adali Joni PHYSICIAN OFFICE ASSISTANT [facility], [facility].; [place] [employer] [facility], [employer]. 12-17-2021 11:35-0400 Systolic blood pressure 134 mm[Hg] Adali Quinones [facility], [facility].; [place] [employer], [employer]. Comment on above: Patient Position: Sitting; Cuff Location : Left Arm; Cuff Size: Standard 09-03-2021 15:22-0400 Body height 180.34 cm Claire Rice [facility], [facility].; [place] [employer] [facility], [employer]. 09-03-2021 15:22-0400 Body mass index (BMI) [Ratio] 33.47 kg/m2 MandyTalisha Rice [facility], Inc.; [place] [employer] [facility], Inc[employer] 09-03-2021 15:22-0400 Body surface area Derived from formula 2.28 m2 Mandy Dwayne [facility], [facility].; [place] [employer] [facility], [employer]. 09-03-2021 15:22-0400 Body temperature 97.2 [degF] Claire Rice [facility], [facility].; [employer], [employer]. Comment on above: Method: Tympanic 09-03-2021 15:22-0400 Body weight 108.86 kg Claire Rice [facility], [facility].; [place] [employer] [facility], [employer]. 09-03-2021 15:22-0400 Diastolic blood pressure 80 mm[Hg] MandyTalisha Rice [facility], Inc.; [employer], [employer]. Comment on above: Patient Position: Sitting; Cuff Location : Left Arm; Cuff Size: Large 09-03-2021 15:22-0400 Heart rate 56 /min Claire Rice [facility], Inc.; [employer], [employer]. Comment on above: Pattern: Regular 09-03-2021 15:22-0400 Inhaled oxygen concentration 20 % Claire Rice [facility], [employer].; [employer]. Comment on above: Room air 09-03-2021 15:22-0400 Inhaled oxygen concentration 21 % Claire Rice [facility], Inc.; [employer]. Comment on above: Room air 09-03-2021 15:22-0400 SaO2% (BldA) [Mass fraction] 95 % [facility].; [employer]. 09-03-2021 15:22-0400 Systolic blood pressure 150 mm[Hg] Mandy Dwayne [facility] [employer] [facility], [employer].; [employer]. Comment on above: Patient Position: Sitting; Cuff Location : Left Arm; Cuff Size: Large 07-16-2021 13:24-0500 Body height 180.34 cm Magdy Ward MD Work Phone: [employer].; [employer]. 07-16-2021 13:24-0500 Body mass index (BMI) [Ratio] 33.61 kg/m2 Magdy Ward MD Work Phone: [employer].; [employer]. 07-16-2021 13:24-0500 Body surface area Derived from formula 2.28 m2 Magdy Ward MD Work Phone: [employer].; [employer]. 07-16-2021 13:24-0500 Body weight 109.32 kg Magdy Ward MD Work Phone: [employer].; [employer]. 07-16-2021 13:24-0500 Diastolic blood pressure 76 mm[Hg] Magdy Ward MD Work Phone: [employer].; [employer]. Comment on above: Patient Position: Sitting; Cuff Location : Left Arm; Cuff Size: Large 07-16-2021 13:24-0500 Heart rate 56 /min Magdy Ward MD Work Phone: [employer].; [employer] [facility]. Comment on above: Pattern: Regular 07-16-2021 13:24-0500 Systolic blood pressure 132 mm[Hg] Magdy Ward MD Work Phone: [facility].; [facility]. Comment on above: Patient Position: Sitting; Cuff Location : Left Arm; Cuff Size: Large 06-12-2021 16:19-0500 Body height 180.34 cm Claire Rice [facility], [facility].; [place] [employer] [facility]. 06-12-2021 16:19-0500 Body mass index (BMI) [Ratio] 32.78 kg/m2 [facility] Dwayne [facility].; [place] [employer] [facility], [employer]. 06-12-2021 16:19-0500 Body surface area Derived from formula 2.26 m2 [facility] [place] [facility].; [place] [employer] [facility] [employer]. 06-12-2021 16:19-0500 Body temperature 97 [degF] [facility] Dwayne [facility].; [place] [employer] [facility] [employer]. Comment on above: Method: Tympanic 06-12-2021 16:19-0500 Body weight 106.6 kg Mandy Dwayne [facility], [facility].; [place] [employer] [facility], [employer]. 06-12-2021 16:19-0500 Diastolic blood pressure 78 mm[Hg] [facility] Dwayne [facility], [facility].; [place] [employer] [facility] [employer]. Comment on above: Patient Position: Sitting; Cuff Location : Left Arm; Cuff Size: Large 06-12-2021 16:19-0500 Heart rate 64 /min [facility] Dwayne [facility].; [employer] [facility]. Comment on above: Pattern: Regular 06-12-2021 16:19-0500 Inhaled oxygen concentration 20 % Mandy Stuckey [facility], [facility].; Neil [employer]. Comment on above: Room air 06-12-2021 16:19-0500 Inhaled oxygen concentration 21 % Mandy Stuckey [facility].; [employer] [facility]. Comment on above: Room air 06-12-2021 16:19-0500 SaO2% (BldA) [Mass fraction] 93 % Claire Rice [facility].; [place] [employer] [facility]. 06-12-2021 16:19-0500 Systolic blood pressure 162 mm[Hg] Claire Rice [facility].; [place] [employer] [facility]. Comment on above: Patient Position: Sitting; Cuff Location : Left Arm; Cuff Size: Large 04-14-2021 10:30-0500 Body temperature 98.42 [degF] HAYES CARTER MD [facility] 04-14-2021 10:30-0500 Diastolic blood pressure 75 mm[Hg] HAYES CARTER MD [facility] 04-14-2021 10:30-0500 Heart rate 55 /min HAYES CARTER MD [facility] 04-14-2021 10:30-0500 Respiratory rate 18 /min HAYES CARTER MD [facility] 04-14-2021 10:30-0500 Systolic blood pressure 145 mm[Hg] HAYES CARTER MD [facility] 03-12-2021 10:18-0400 Body height 180.34 cm Magdy Ward MD Work Phone: [facility].; [employer]. 03-12-2021 10:18-0400 Body mass index (BMI) [Ratio] 33.89 kg/m2 Magdy Ward MD Work Phone: [employer].; [employer]. 03-12-2021 10:18-0400 Body surface area Derived from formula 2.29 m2 Magdy Ward MD Work Phone: [employer]; [employer]. 03-12-2021 10:180400 Body temperature 97.1 [degF] Magdy Ward MD Work Phone: [employer]; [employer]. Comment on above: Method: Tympanic 03-12-2021 10:18040 Body weight 110.22 kg Magdy Ward MD Work Phone: [employer]; [employer]. 03-12-2021 10:18040 Diastolic blood pressure 70 mm[Hg] Magdy Ward MD Work Phone: [employer]; [employer]. Comment on above: Patient Position: Sitting; Cuff Location : Left Arm; Cuff Size: Standard 03-12-2021 10:18040 Heart rate 51 /min Magdy Ward MD Work Phone: [employer]; [employer]. Comment on above: Pattern: Regular 03-12-2021 10:18-0400 Inhaled oxygen concentration 20 % Magdy Ward MD Work Phone: [employer]; [employer]. Comment on above: Room air 03-12-2021 10:180400 Inhaled oxygen concentration 21 % Magdy Ward MD Work Phone: [employer]; [employer]. Comment on above: Room air 03-12-2021 10:18-0400 SaO2% (BldA) [Mass fraction] 95 % Magdy Ward MD Work Phone: [employer]; [employer]. 03-12-2021 10:18-0400 Systolic blood pressure 140 mm[Hg] Magdy Ward MD Work Phone: [employer]; [employer] Comment on above: Patient Position: Sitting; Cuff Location : Left Arm; Cuff Size: Standard 02-14-2021 14:30-0400 Body height 180.34 cm Adali Quinones LPN [facility].; [facility]. 02-14-2021 14:30-0400 Body mass index (BMI) [Ratio] 33.61 kg/m2 Adali Quinones LPN [facility].; [place] [employer] [facility], [employer] 02-14-2021 14:30-0400 Body surface area Derived from formula 2.28 m2 Adali Quinones LPN [facility].; [place] [employer] [facility], [facility]. 02-14-2021 14:30-0400 Body temperature 97.1 [degF] [facility]ones [facility].; [place] [employer] [facility], [employer]. Comment on above: Method: Tympanic 02-14-2021 14:30-0400 Body weight 109.32 kg Adali Quinones LPN [facility].; [place] [employer] [facility], [employer]. 02-14-2021 14:30-0400 Diastolic blood pressure 71 mm[Hg] Adali Quinones LPN [facility].; [employer], [employer]. Comment on above: Patient Position: Sitting; Cuff Location : Left Arm; Cuff Size: Standard 02-14-2021 14:30-0400 Heart rate 61 /min Adali Quinones LPN [facility].; [employer], [employer]. Comment on above: Pattern: Regular 02-14-2021 14:30-0400 Inhaled oxygen concentration 20 % Adali Quinones LPN [facility].; [place] [employer], [employer]. Comment on above: Room air 02-14-2021 14:30-0400 Inhaled oxygen concentration 21 % Adali Quinones LPN [facility].; [employer], [employer]. Comment on above: Room air 02-14-2021 14:30-0400 SaO2% (BldA) [Mass fraction] 96 % Adali Quinones LPN [facility].; [employer] 02-14-2021 14:30-0400 Systolic blood pressure 119 mm[Hg] Adali Quinones LPN [facility].; [employer], [employer]. Comment on above: Patient Position: Sitting; Cuff Location : Left Arm; Cuff Size: Standard 01-22-2021 15:54-0400 Body height 180.34 cm Claire Rice LPN [facility].; [facility]. 01-22-2021 15:54-0400 Body mass index (BMI) [Ratio] 33.19 kg/m2 Claire Rice [facility], [facility].; [place] [employer] [facility], [facility]. 01-22-2021 15:54-0400 Body surface area Derived from formula 2.27 m2 Claire Rice PHYSICIAN OFFICE ASSISTANT [facility].; [place] [employer] [facility], [employer]. 01-22-2021 15:54-0400 Body weight 107.96 kg Claire Rice [facility], [facility].; [place] [employer], [employer]. 01-22-2021 15:54-0400 Diastolic blood pressure 75 mm[Hg] Claire Rice [facility].; Neil [employer] [facility], [employer]. Comment on above: Patient Position: Sitting; Cuff Location : Left Arm; Cuff Size: Large 01-22-2021 15:54-0400 Heart rate 61 /min Claire Rice [facility].; [employer] [facility], [employer]. Comment on above: Pattern: Regular 01-22-2021 15:54-0400 Systolic blood pressure 139 mm[Hg] Claire Rice PHYSICIAN OFFICE ASSISTANT [facility].; [employer] [facility], [employer]. Comment on above: Patient Position: Sitting; Cuff Location : Left Arm; Cuff Size: Large 07-04-2020 11:41-0500 Body height 180.34 cm Magdy Ward MD Work Phone: [facility], [employer].; [employer], [employer]. 07-04-2020 11:41-0500 Body mass index (BMI) [Ratio] 33.05 kg/m2 Magdy Ward MD Work Phone: [facility], [employer].; [employer], [employer]. 07-04-2020 11:41-0500 Body surface area Derived from formula 2.27 m2 Magdy Ward MD Work Phone: [place] [employer].; [employer]. 07-04-2020 11:41-0500 Body weight 107.5 kg Magdy Ward MD Work Phone: [place] [employer].; [employer]. 07-04-2020 11:41-0500 Diastolic blood pressure 74 mm[Hg] Magdy Ward MD Work Phone: [place] [employer].; [employer]. Comment on above: Patient Position: Sitting; Cuff Location : Left Arm; Cuff Size: Large 07-04-2020 11:41-0500 Heart rate 60 /min Magdy Ward MD Work Phone: [employer].; [employer]. Comment on above: Pattern: Regular 07-04-2020 11:41-0500 Systolic blood pressure 130 mm[Hg] Magdy Ward MD Work Phone: [employer].; [employer]. Comment on above: Patient Position: Sitting; Cuff Location : Left Arm; Cuff Size: Large 12-13-2019 12:11-0400 Body height 180.34 cm Mecca Melton RN [place] [employer].; [employer]. 12-13-2019 12:11-0400 Body mass index (BMI) [Ratio] 33.19 kg/m2 Mecca Melton RN [employer].; [employer]. 12-13-2019 12:11-0400 Body surface area Derived from formula 2.27 m2 Mecca Melton RN [employer].; [employer]. 12-13-2019 12:11-0400 Body weight 107.96 kg Mecca Melton RN [employer].; [employer]. 12-13-2019 12:11-0400 Diastolic blood pressure 54 mm[Hg] Mecca Melton RN [place] [employer].; [employer]. Comment on above: Patient Position: Sitting; Cuff Location : Left Arm; Cuff Size: Large 12-13-2019 12:11-0400 Heart rate 54 /min Mecca Melton RN [employer].; [employer]. Comment on above: Pattern: Regular 12-13-2019 12:11-0400 Systolic blood pressure 111 mm[Hg] Mecca Melton RN [employer].; [employer]. Comment on above: Patient Position: Sitting; Cuff Location : Left Arm; Cuff Size: Large 05-06-2019 14:34-0500 Body height 180.34 cm Mecca Melton RN [employer].; [employer]. 05-06-2019 14:34-0500 Body mass index (BMI) [Ratio] 32.78 kg/m2 Mecca Melton RN [employer].; [employer]. 05-06-2019 14:34-0500 Body surface area Derived from formula 2.26 m2 Mecca Melton RN [employer].; [employer]. 05-06-2019 14:34-0500 Body temperature 98.1 [degF] Mecca Melton RN [employer].; [employer]. Comment on above: Method: Tympanic 05-06-2019 14:34-0500 Body weight 106.6 kg Mecca Melton RN [employer].; [employer]. 05-06-2019 14:34-0500 Diastolic blood pressure 66 mm[Hg] Mecca Melton RN [employer].; [employer]. Comment on above: Patient Position: Sitting; Cuff Location : Left Arm; Cuff Size: Standard 05-06-2019 14:34-0500 Heart rate 58 /min Mecca Melton RN [employer].; [employer]. Comment on above: Pattern: Regular 05-06-2019 14:34-0500 Systolic blood pressure 130 mm[Hg] Mecca Melton RN [employer]. Comment on above: Patient Position: Sitting; Cuff Location : Left Arm; Cuff Size: Standard 02-12-2019 14:17-0400 Body height 180.34 cm Mecca Melton RN [employer]. 02-12-2019 14:17-0400 Body mass index (BMI) [Ratio] 33.19 kg/m2 Mecca Melton RN [employer].; [employer]. 02-12-2019 14:17-0400 Body surface area Derived from formula 2.27 m2 Mecca Melton RN [employer].; [employer]. 02-12-2019 14:17-0400 Body temperature 98.9 [degF] Mecca Melton RN [employer].; [employer]. Comment on above: Method: Tympanic 02-12-2019 14:17040 Body weight 107.96 kg Mecca Melton RN [employer].; [employer]. 02-12-2019 14:17-0400 Diastolic blood pressure 57 mm[Hg] Mecca Melton RN [employer].; [employer]. Comment on above: Patient Position: Sitting; Cuff Location : Right Arm; Cuff Size: Standard 02-12-2019 14:17-0400 Heart rate 62 /min Mecca Melton RN [employer]. Comment on above: Pattern: Regular 02-12-2019 14:17-0400 Inhaled oxygen concentration 20 % Mecca Melton RN [employer]. Comment on above: Room air 02-12-2019 14:17-0400 Inhaled oxygen concentration 21 % Mecca Melton RN [employer].; [employer]. Comment on above: Room air 02-12-2019 14:17-0400 SaO2% (BldA) [Mass fraction] 95 % Mecca Melton RN [employer].; [employer]. 02-12-2019 14:17-0400 Systolic blood pressure 108 mm[Hg] Mecca Melton RN [employer]. Comment on above: Patient Position: Sitting; Cuff Location : Right Arm; Cuff Size: Standard 11-02-2018 08:10-0400 Body height 180.34 cm Argenis Park PHYSICIAN OFFICE ASSISTANT Work Phone: [employer]. 11-02-2018 08:10-0400 Body mass index (BMI) [Ratio] 33.19 kg/m2 Aregnis Mitchelly PHYSICIAN OFFICE ASSISTANT Work Phone: [employer]. 11-02-2018 08:10-0400 Body surface area Derived from formula 2.27 m2 Argenis Mitchelly PHYSICIAN OFFICE ASSISTANT Work Phone: [employer]; [employer]. 11-02-2018 08:10-0400 Body temperature 98.3 [degF] Argenis Mitchelly PHYSICIAN OFFICE ASSISTANT Work Phone: [employer]; [employer]. Comment on above: Method: Tympanic 11-02-2018 08:10-0400 Body weight 107.96 kg Argenis Mitchelly PHYSICIAN OFFICE ASSISTANT Work Phone: [employer]; [employer]. 11-02-2018 08:10-0400 Diastolic blood pressure 61 mm[Hg] Argenis Mitchelly PHYSICIAN OFFICE ASSISTANT Work Phone: [employer]; [employer]. Comment on above: Patient Position: Sitting; Cuff Location : Left Arm; Cuff Size: Standard 11-02-2018 08:10-0400 Heart rate 58 /min Argenis Mitchelly PHYSICIAN OFFICE ASSISTANT Work Phone: [employer]; [employer]. Comment on above: Pattern: Regular 11-02-2018 08:10-0400 Systolic blood pressure 130 mm[Hg] Argenis Vivian PHYSICIAN OFFICE ASSISTANT Work Phone: [employer].; [employer]. Comment on above: Patient Position: Sitting; Cuff Location : Left Arm; Cuff Size: Standard 09-24-2018 08:29-0400 Body height 180.34 cm Sandy Wedonnie WILLIAM Neil [employer]. 09-24-2018 08:29-0400 Body mass index (BMI) [Ratio] 33.19 kg/m2 [facility] [employer] [employer] [facility] 09-24-2018 08:290400 Body surface area Derived from formula 2.27 m2 Sandypratik Hull LPN [place] [employer]. 09-24-2018 08:290400 Body temperature 97.8 [degF] [facility], [employer]. Comment on above: Method: Tympanic 09-24-2018 08:290400 Body weight 107.96 kg Sandy Ridgedonnie WILLIAM Neil [employer]. 09-24-2018 08:290400 Diastolic blood pressure 82 mm[Hg] Sandypratik Hull LPN [employer]. Comment on above: Patient Position: Sitting; Cuff Location : Left Arm; Cuff Size: Standard 09-24-2018 08:29-0400 Heart rate 53 /min Sandy Ridgedonnie WILLIAM Neil [employer] [facility] [employer] Comment on above: Pattern: Regular 09-24-2018 08:290400 Inhaled oxygen concentration 20 % Sandy Hull LPN Neil [employer]. Comment on above: Room air 09-24-2018 08:290400 Inhaled oxygen concentration 21 % Sandy Hull LPN [employer]. Comment on above: Room air 09-24-2018 08:29-0400 SaO2% (BldA) [Mass fraction] 96 % Sandy Hull LPN [employer], [employer].; [employer] 09-24-2018 08:29-0400 Systolic blood pressure 152 mm[Hg] Sandy Hull LPN [employer]. Comment on above: Patient Position: Sitting; Cuff Location : Left Arm; Cuff Size: Standard 08-14-2018 16:10-0400 Body height 180.34 cm Magdy Ward MD Work Phone: [employer]. 08-14-2018 16:10-0400 Body mass index (BMI) [Ratio] 32.36 kg/m2 Magdy Ward MD Work Phone: [employer]. 08-14-2018 16:10-0400 Body surface area Derived from formula 2.25 m2 Magdy Ward MD Work Phone: [employer]. 08-14-2018 16:10-0400 Body weight 105.24 kg Magdy Ward MD Work Phone: [employer]. 08-14-2018 16:10-0400 Diastolic blood pressure 76 mm[Hg] Magdy Ward MD Work Phone: [employer]. Comment on above: Patient Position: Sitting; Cuff Location : Left Arm; Cuff Size: Standard 08-14-2018 16:10-0400 Heart rate 54 /min Magdy Ward MD Work Phone: [employer]. Comment on above: Pattern: Regular 08-14-2018 16:10-0400 Systolic blood pressure 136 mm[Hg] Magdy Ward MD Work Phone: [employer]. Comment on above: Patient Position: Sitting; Cuff Location : Left Arm; Cuff Size: Standard 07-03-2018 15:23-0500 Body height 180.34 cm [facility] Work Phone: [employer]. 07-03-2018 15:23-0500 Body mass index (BMI) [Ratio] 33.47 kg/m2 [facility] Work Phone: [employer]; [employer]. 07-03-2018 15:23-0500 Body surface area Derived from formula 2.28 m2 Argenis Park LPN Work Phone: [employer]. 07-03-2018 15:23-0500 Body temperature 98.5 [degF] Argenis Park LPN Work Phone: [employer]; [employer]. Comment on above: Method: Tympanic 07-03-2018 15:23-0500 Body weight 108.86 kg Argenis Park LPN Work Phone: [employer]; [employer]. 07-03-2018 15:23-0500 Diastolic blood pressure 66 mm[Hg] Argenis Park LPN Work Phone: [employer]; [employer]. Comment on above: Patient Position: Sitting; Cuff Location : Left Arm; Cuff Size: Large 07-03-2018 15:23-0500 Heart rate 65 /min Argenis Park LPN Work Phone: [employer]; [employer]. Comment on above: Pattern: Regular 07-03-2018 15:23-0500 Systolic blood pressure 131 mm[Hg] Argenis Park LPN Work Phone: [employer]; [employer]. Comment on above: Patient Position: Sitting; Cuff Location : Left Arm; Cuff Size: Large 01-16-2018 15:36-0400 Body height 180.34 cm Mecca Melton RN [employer].; [employer]. 01-16-2018 15:36-0400 Body mass index (BMI) [Ratio] 31.66 kg/m2 Mecca Melton RN [employer].; [employer]. 01-16-2018 15:36-0400 Body surface area Derived from formula 2.23 m2 Mecca Melton RN [employer], [employer].; [employer]. 01-16-2018 15:36-0400 Body weight 102.97 kg Mecca Melton RN [employer].; [employer] 01-16-2018 15:36-0400 Diastolic blood pressure 66 mm[Hg] Mecca Melton RN [employer].; [employer]. Comment on above: Patient Position: Sitting; Cuff Location : Left Arm; Cuff Size: Standard 01-16-2018 15:36-0400 Heart rate 59 /min Mecca Melton RN [employer].; [employer]. Comment on above: Pattern: Regular 01-16-2018 15:36-0400 Systolic blood pressure 109 mm[Hg] Mecca Melton RN [employer], [employer].; [employer]. Comment on above: Patient Position: Sitting; Cuff Location : Left Arm; Cuff Size: Standard 06-20-2017 16:06-0500 Body height 180.34 cm Evita Kruse LPN Neil [facility], Inc.; [facility] [employer] 06-20-2017 16:06-0500 Body mass index (BMI) [Ratio] 33.19 kg/m2 Evita Kruse LPN [facility], [employer], Inc.; [facility] [employer] 06-20-2017 16:06-0500 Body surface area Derived from formula 2.27 m2 Evita Kruse LPN [facility], [employer], Inc.; [facility], [employer] 06-20-2017 16:06-0500 Body weight 107.96 kg Evita Kruse LPN [employer]. 06-20-2017 16:06-0500 Diastolic blood pressure 57 mm[Hg] Evita Kruse LPN [employer], [employer].; [employer]. Comment on above: Patient Position: Sitting; Cuff Location : Left Arm; Cuff Size: Standard 06-20-2017 16:06-0500 Heart rate 62 /min Evita Kruse LPN [employer]. Comment on above: Pattern: Regular 06-20-2017 16:06-0500 Systolic blood pressure 104 mm[Hg] Evita Kruse PHYSICIAN OFFICE ASSISTANT [employer].; [employer]. Comment on above: Patient Position: Sitting; Cuff Location : Left Arm; Cuff Size: Standard 06-11-2017 16:24-0500 Body height 180.34 cm Argenis Park PHYSICIAN OFFICE ASSISTANT Work Phone: [employer].; [employer]. 06-11-2017 16:24-0500 Body mass index (BMI) [Ratio] 33.75 kg/m2 Argenis Vivian PHYSICIAN OFFICE ASSISTANT Work Phone: [employer].; [employer]. 06-11-2017 16:24-0500 Body surface area Derived from formula 2.29 m2 Argenis Vivian PHYSICIAN OFFICE ASSISTANT Work Phone: [employer].; [employer]. 06-11-2017 16:24-0500 Body weight 109.77 kg Argenis Vivian PHYSICIAN OFFICE ASSISTANT Work Phone: [employer].; [employer]. 06-11-2017 16:24-0500 Diastolic blood pressure 69 mm[Hg] Argenis Park PHYSICIAN OFFICE ASSISTANT Work Phone: [employer].; [employer]. Comment on above: Patient Position: Sitting; Cuff Location : Left Arm; Cuff Size: Standard 06-11-2017 16:24-0500 Heart rate 58 /min Argenis Park PHYSICIAN OFFICE ASSISTANT Work Phone: [employer].; [employer]. Comment on above: Pattern: Regular 06-11-2017 16:24-0500 Systolic blood pressure 130 mm[Hg] Argenis Mitchelly PHYSICIAN OFFICE ASSISTANT Work Phone: [employer].; [employer]. Comment on above: Patient Position: Sitting; Cuff Location : Left Arm; Cuff Size: Standard 05-13-2017 15:16-0500 Body height 180.34 cm Claire Rice PHYSICIAN OFFICE ASSISTANT [employer].; [employer]. 05-13-2017 15:16-0500 Body mass index (BMI) [Ratio] 33.75 kg/m2 Claire Rice [facility] [employer] [facility], [facility] [employer] 05-13-2017 15:16-0500 Body surface area Derived from formula 2.29 m2 Claire Rice PHYSICIAN OFFICE ASSISTANT Neil [facility], Inc.; [facility], [employer] 05-13-2017 15:16-0500 Body weight 109.77 kg Claire [facility], [facility].; [facility], [employer] 05-13-2017 15:16-0500 Diastolic blood pressure 70 mm[Hg] Claire [facility], [facility], [employer] Comment on above: Patient Position: Sitting; Cuff Location : Left Arm; Cuff Size: Large 05-13-2017 15:16-0500 Heart rate 74 /min Claire Rice [facility] [employer] [facility], [facility].; [facility], [employer] Comment on above: Pattern: Regular 05-13-2017 15:16-0500 Systolic blood pressure 160 mm[Hg] Claire [facility] [employer] Comment on above: Patient Position: Sitting; Cuff Location : Left Arm; Cuff Size: Large 12-10-2016 16:07-0400 Body height 180.34 cm Evita Kruse LPN [facility], [facility] [employer] 12-10-2016 16:07-0400 Body mass index (BMI) [Ratio] 33.19 kg/m2 Evita Kruse LPN [employer], [employer] [facility] [employer] 12-10-2016 16:07-0400 Body surface area Derived from formula 2.27 m2 Evita Kruse LPN [facility] [employer], Inc.; [facility] [employer] 12-10-2016 16:07-0400 Body weight 107.96 kg Evita Kruse LPN [employer], [employer] [facility] [employer] 12-10-2016 16:07-0400 Diastolic blood pressure 66 mm[Hg] Evita Kruse LPN [employer], [employer]. Comment on above: Patient Position: Sitting; Cuff Location : Left Arm; Cuff Size: Standard 12-10-2016 16:07-0400 Heart rate 69 /min Evita Kruse LPN [facility], [facility] [employer]. Comment on above: Pattern: Regular 12-10-2016 16:07-0400 Systolic blood pressure 120 mm[Hg] Evita Kruse LPN [employer].; [employer]. Comment on above: Patient Position: Sitting; Cuff Location : Left Arm; Cuff Size: Standard 09-20-2016 08:23-0400 Body height 180.34 cm Mecca Melton RN [employer].; [employer]. 09-20-2016 08:23-0400 Body mass index (BMI) [Ratio] 32.78 kg/m2 Mecca Melton RN [employer].; [employer] 09-20-2016 08:23-0400 Body surface area Derived from formula 2.26 m2 Mecca Melton RN [employer].; [employer] 09-20-2016 08:23-0400 Body temperature 97.9 [degF] Mecca Melton RN [employer].; [employer]. Comment on above: Method: Tympanic 09-20-2016 08:23-0400 Body weight 106.6 kg Mecca Melton RN [employer].; [employer] 09-20-2016 08:23-0400 Diastolic blood pressure 64 mm[Hg] Mecca Melton RN [employer].; [employer]. Comment on above: Patient Position: Sitting; Cuff Location : Left Arm; Cuff Size: Standard 09-20-2016 08:23-0400 Heart rate 56 /min Mecca Melton RN [employer].; [employer]. Comment on above: Pattern: Regular 09-20-2016 08:23-0400 Inhaled oxygen concentration 20 % Mecca Melton RN [employer].; [employer]. Comment on above: Room air 09-20-2016 08:23-0400 Inhaled oxygen concentration 21 % Mecca Melton RN [facility], [facility].; [employer]. Comment on above: Room air 09-20-2016 08:23-0400 SaO2% (BldA) [Mass fraction] 94 % Mecca Melton RN [facility], [facility] [employer] 09-20-2016 08:23-0400 Systolic blood pressure 111 mm[Hg] Mecca Melton RN [facility], [facility], [employer]. Comment on above: Patient Position: Sitting; Cuff Location : Left Arm; Cuff Size: Standard 08-20-2016 15:53-0400 Body height 180.34 cm Claire Rice LPN [facility], [facility] [employer] 08-20-2016 15:53-0400 Body mass index (BMI) [Ratio] 32.5 kg/m2 Claire Rice LPN [facility], Inc.; [facility] [employer] 08-20-2016 15:53-0400 Body surface area Derived from formula 2.25 m2 MandyTalisha Rice LPN [facility], Inc.; [facility], [employer]. 08-20-2016 15:53-0400 Body weight 105.69 kg Claire Rice LPN [facility], [facility].; [facility] [employer] 08-20-2016 15:53-0400 Diastolic blood pressure 76 mm[Hg] Claire Rice LPN [facility], [facility].; [employer] Comment on above: Patient Position: Sitting; Cuff Location : Left Arm; Cuff Size: Large 08-20-2016 15:53-0400 Heart rate 63 /min Claire Rice LPN [facility], [facility] [employer]. Comment on above: Pattern: Regular 08-20-2016 15:53-0400 Systolic blood pressure 118 mm[Hg] Claire Rice LPN Neil [facility], [employer] [employer]. Comment on above: Patient Position: Sitting; Cuff Location : Left Arm; Cuff Size: Large 05-24-2016 09:03-0500 Body weight 110.68 kg Evita Kruse NATALIIA Neil [facility], [employer] [employer]. 05-24-2016 09:03-0500 Diastolic blood pressure 64 mm[Hg] Evita Kruse PHYSICIAN OFFICE ASSISTANT [facility], [facility].; [employer]. Comment on above: Patient Position: Sitting; Cuff Location : Left Arm; Cuff Size: Standard 05-24-2016 09:03-0500 Heart rate 65 /min Evita Kruse NATALIIA Neil [facility], [employer] [employer]. Comment on above: Pattern: Regular 05-24-2016 09:03-0500 Systolic blood pressure 108 mm[Hg] Evita Kruse PHYSICIAN OFFICE ASSISTANT [employer], [employer].; [employer]. Comment on above: Patient Position: Sitting; Cuff Location : Left Arm; Cuff Size: Standard 11-20-2015 15:26-0400 Body weight 114.31 kg Evita Kruse NATALIIA [place] [employer], Inc.; [employer] 11-20-2015 15:26-0400 Diastolic blood pressure 67 mm[Hg] Evita Kruse NATALIIA Neil [facility], [employer].; [employer]. Comment on above: Patient Position: Sitting; Cuff Location : Left Arm; Cuff Size: Standard 11-20-2015 15:26-0400 Heart rate 76 /min Evita Krues NATALIIA [place] [employer] [facility], [employer].; [employer]. Comment on above: Pattern: Regular 11-20-2015 15:26-0400 Systolic blood pressure 117 mm[Hg] Evitabetsy Kruse NATALIIA [place] [employer] [facility], [employer].; [employer]. Comment on above: Patient Position: Sitting; Cuff Location : Left Arm; Cuff Size: Standard 11-04-2015 10:37-0400 Body height 180.34 cm Viky Aiken RN [place] [employer].; [employer]. 11-04-2015 10:37-0400 Body mass index (BMI) [Ratio] 35.4 kg/m2 Viky Aiken RN [place] [employer]. 11-04-2015 10:37-0400 Body surface area Derived from formula 2.33 m2 Viky Aiken RN Neil [employer].; [employer]. 11-04-2015 10:37-0400 Body temperature 98 [degF] Viky Aiken RN [place] [employer].; [employer]. Comment on above: Method: Tympanic 11-04-2015 10:37-0400 Body weight 115.12 kg Viky Aiken RN [place] [employer].; [employer]. 11-04-2015 10:37-0400 Diastolic blood pressure 72 mm[Hg] Viky Aiken RN Neil [employer].; [employer]. Comment on above: Patient Position: Sitting; Cuff Location : Left Arm; Cuff Size: Standard 11-04-2015 10:37-0400 Heart rate 53 /min Viky Aiken RN Neil [employer].; [employer]. Comment on above: Pattern: Regular 11-04-2015 10:37-0400 Inhaled oxygen concentration 20 % Viky Aiken RN [place] [employer].; [employer]. Comment on above: Room air 11-04-2015 10:37-0400 Inhaled oxygen concentration 21 % Viky Aiken RN [employer].; [employer]. Comment on above: Room air 11-04-2015 10:37-0400 SaO2% (BldA) [Mass fraction] 93 % Viky Aiken RN [employer].; [employer]. 11-04-2015 10:37-0400 Systolic blood pressure 106 mm[Hg] Viky Aiken RN [employer].; [employer]. Comment on above: Patient Position: Sitting; Cuff Location : Left Arm; Cuff Size: Standard 07-31-2015 08:10-0500 Body height 180.34 cm Viky Aiken RN [employer].; [employer]. 07-31-2015 08:10-0500 Body mass index (BMI) [Ratio] 36.12 kg/m2 Viky Aiken RN Neil [employer].; [employer]. 07-31-2015 08:10-0500 Body surface area Derived from formula 2.35 m2 Viky Aiken RN [employer].; [employer]. 07-31-2015 08:10-0500 Body temperature 98.2 [degF] Viky Aiken RN [employer].; [employer]. Comment on above: Method: Tympanic 07-31-2015 08:10-0500 Body weight 117.48 kg Viky Aiken RN [place] [employer]. 07-31-2015 08:10-0500 Diastolic blood pressure 72 mm[Hg] Viky Aiken RN [employer].; [employer]. Comment on above: Patient Position: Sitting; Cuff Location : Left Arm; Cuff Size: Standard 07-31-2015 08:10-0500 Heart rate 65 /min Viky Aiken RN [employer].; [employer]. Comment on above: Pattern: Regular 07-31-2015 08:10-0500 Systolic blood pressure 126 mm[Hg] Viky Aiken RN [employer].; [employer]. Comment on above: Patient Position: Sitting; Cuff Location : Left Arm; Cuff Size: Standard 05-02-2015 15:28-0500 Body height 180.34 cm Magdy Ward MD Work Phone: [employer].; [employer]. 05-02-2015 15:28-0500 Body mass index (BMI) [Ratio] 35.15 kg/m2 Magdy Ward MD Work Phone: [employer].; [employer]. 05-02-2015 15:28-0500 Body surface area Derived from formula 2.33 m2 Magdy Ward MD Work Phone: [employer].; [employer]. 05-02-2015 15:28-0500 Body weight 114.31 kg Magdy Ward MD Work Phone: [employer].; [employer]. 05-02-2015 15:28-0500 Diastolic blood pressure 84 mm[Hg] Magdy Ward MD Work Phone: [place] [employer].; [employer]. Comment on above: Patient Position: Sitting; Cuff Location : Left Arm; Cuff Size: Large 05-02-2015 15:28-0500 Heart rate 92 /min Magdy Ward MD Work Phone: [place] [employer].; [employer]. Comment on above: Pattern: Regular 05-02-2015 15:28-0500 Systolic blood pressure 132 mm[Hg] Magdy Ward MD Work Phone: [place] [employer].; [employer]. Comment on above: Patient Position: Sitting; Cuff Location : Left Arm; Cuff Size: Large 10-31-2014 15:31-0400 Body weight 115.21 kg Magdy Ward MD Work Phone: [place] [employer].; [employer]. 10-31-2014 15:31-0400 Diastolic blood pressure 65 mm[Hg] Magdy Ward MD Work Phone: [place] [employer]. Comment on above: Patient Position: Sitting; Cuff Location : Right Arm; Cuff Size: Standard 10-31-2014 15:31-0400 Heart rate 70 /min Magdy Ward MD Work Phone: [place] [employer].; [employer]. Comment on above: Pattern: Regular 10-31-2014 15:31-0400 Systolic blood pressure 130 mm[Hg] Magdy Ward MD Work Phone: [place] [employer].; [employer]. Comment on above: Patient Position: Sitting; Cuff Location : Right Arm; Cuff Size: Standard 07-09-2014 09:03-0500 Body height 180.34 cm [facility] Dwayne [facility] [employer]. 07-09-2014 09:03-0500 Body mass index (BMI) [Ratio] 34.31 kg/m2 [facility] [employer].; [employer]. 07-09-2014 09:03-0500 Body surface area Derived from formula 2.3 m2 Claire Rice PHYSICIAN OFFICE ASSISTANT [facility], Inc.; [employer] [facility], Inc[facility] 07-09-2014 09:03-0500 Body temperature 98.8 [degF] lCaire Rice [facility], Inc.; [facility] [employer] Comment on above: Method: Tympanic 07-09-2014 09:03-0500 Body weight 111.59 kg Claire Rice [facility], [facility] [employer] 07-09-2014 09:03-0500 Diastolic blood pressure 74 mm[Hg] Claire Rice [facility], [facility] [employer] Comment on above: Patient Position: Sitting; Cuff Location : Left Arm; Cuff Size: Large 07-09-2014 09:03-0500 Heart rate 77 /min Claire Rice [facility], [facility] [employer] Comment on above: Pattern: Regular 07-09-2014 09:03-0500 Inhaled oxygen concentration 20 % Claire Rice [facility], [facility] [employer] Comment on above: Room air 07-09-2014 09:03-0500 Inhaled oxygen concentration 21 % Claire Rice [facility], [facility] [employer] Comment on above: Room air 07-09-2014 09:03-0500 SaO2% (BldA) [Mass fraction] 93 % Claire Rice [facility], [facility] [employer] 07-09-2014 09:03-0500 Systolic blood pressure 139 mm[Hg] Claire Rice [facility], [facility], [employer]. Comment on above: Patient Position: Sitting; Cuff Location : Left Arm; Cuff Size: Large 05-02-2014 15:45-0500 Body temperature 97.3 [degF] Evita Kruse PHYSICIAN OFFICE ASSISTANT [facility], [facility].; [facility] [employer] 05-02-2014 15:45-0500 Body weight 111.59 kg Evita Kruse [facility], Inc.; [employer]. 05-02-2014 15:45-0500 Diastolic blood pressure 67 mm[Hg] Evita Kruse LPN [facility], Inc.; [employer]. Comment on above: Patient Position: Sitting; Cuff Location : Left Arm; Cuff Size: Standard 05-02-2014 15:45-0500 Heart rate 65 /min Evita Kruse LPN [facility], [facility].; [employer]. Comment on above: Pattern: Regular 05-02-2014 15:45-0500 Inhaled oxygen concentration 20 % Evita Kruse LPN [facility], [facility] [employer]. Comment on above: Room air 05-02-2014 15:45-0500 Inhaled oxygen concentration 21 % Evita Kruse LPN [facility], [facility] [employer]. Comment on above: Room air 05-02-2014 15:45-0500 SaO2% (BldA) [Mass fraction] 93 % Evita Kruse LPN [facility], [facility].; [employer]. 05-02-2014 15:45-0500 Systolic blood pressure 122 mm[Hg] Evita Kruse LPN [place] [employer], [employer].; [employer]. Comment on above: Patient Position: Sitting; Cuff Location : Left Arm; Cuff Size: Standard 10-04-2013 08:140400 Body height 180.34 cm Ashly Leung LPN [place] [employer], Inc.; [employer]. 10-04-2013 08:140400 Body mass index (BMI) [Ratio] 34.03 kg/m2 Ashly Leung [facility] [employer] [facility], [facility].; [employer]. 10-04-2013 08:140400 Body surface area Derived from formula 2.3 m2 Ashly Leung PHYSICIAN OFFICE ASSISTANT [place] [employer], [facility].; [employer]. 10-04-2013 08:140400 Body temperature 98.3 [degF] Ashly Leung [facility] [employer] [facility], [facility].; [employer]. Comment on above: Method: Tympanic 10-04-2013 08:140400 Body weight 110.68 kg Ashly Leung NATALIIA [facility], Inc.; [facility] [employer] 10-04-2013 08:14-0400 Diastolic blood pressure 87 mm[Hg] Ashly Leung [facility], Inc.; [facility] [employer] Comment on above: Patient Position: Sitting; Cuff Location : Left Arm; Cuff Size: Standard 10-04-2013 08:14-0400 Heart rate 71 /min Ashly Leung [facility], Inc[facility] [employer] Comment on above: Pattern: Regular 10-04-2013 08:14-0400 Systolic blood pressure 144 mm[Hg] Ashly Leung [facility], Inc[facility] [employer] Comment on above: Patient Position: Sitting; Cuff Location : Left Arm; Cuff Size: Standard 09-24-2013 07:18-0400 Body height 180.34 cm Claire Rice [facility], Inc.; [employer], [employer] 09-24-2013 07:18-0400 Body mass index (BMI) [Ratio] 33.19 kg/m2 Claire Rice [facility] [employer] 09-24-2013 07:18-0400 Body surface area Derived from formula 2.27 m2 Claire Rice PHYSICIAN OFFICE ASSISTANT [facility], [facility].; [facility] [employer] 09-24-2013 07:18-0400 Body weight 107.96 kg Claire Rice PHYSICIAN OFFICE ASSISTANT [facility].; [employer] 09-24-2013 07:18-0400 Diastolic blood pressure 74 mm[Hg] Claire Rice [facility], [employer]. Comment on above: Patient Position: Sitting; Cuff Location : Left Arm; Cuff Size: Large 09-24-2013 07:18-0400 Heart rate 65 /min Claire Rice PHYSICIAN OFFICE ASSISTANT [facility] [employer] Comment on above: Pattern: Regular 09-24-2013 07:18-0400 Systolic blood pressure 134 mm[Hg] Claire Rice [facility] [employer] [facility], [employer]. Comment on above: Patient Position: Sitting; Cuff Location : Left Arm; Cuff Size: Large 08-10-2013 15:38-0400 Body height 180.34 cm Claire Rice PHYSICIAN OFFICE ASSISTANT [facility], [facility].; [employer] [facility] 08-10-2013 15:38-0400 Body mass index (BMI) [Ratio] 33.33 kg/m2 Claire Rice [facility] [employer] [facility] 08-10-2013 15:38-0400 Body surface area Derived from formula 2.27 m2 Claire Rice [facility] [employer] [facility], [employer]. 08-10-2013 15:38-0400 Body temperature 98.6 [degF] Claire Rice [facility], [employer]. Comment on above: Method: Tympanic 08-10-2013 15:38-0400 Body weight 108.41 kg Claire Rice [facility] [employer] 08-10-2013 15:38-0400 Diastolic blood pressure 80 mm[Hg] Claire Rice [facility], [employer]. Comment on above: Patient Position: Sitting; Cuff Location : Left Arm; Cuff Size: Large 08-10-2013 15:38-0400 Heart rate 62 /min Claire Rice [facility] [employer], [employer]. Comment on above: Pattern: Regular 08-10-2013 15:38-0400 Systolic blood pressure 139 mm[Hg] Claire Rice [facility], [employer]. Comment on above: Patient Position: Sitting; Cuff Location : Left Arm; Cuff Size: Large 07-29-2013 08:13-0500 Body height 180.34 cm Sandy Hull PHYSICIAN OFFICE ASSISTANT [facility], [employer]. 07-29-2013 08:13-0500 Body mass index (BMI) [Ratio] 33.4 kg/m2 Sandy Wengerd PHYSICIAN OFFICE ASSISTANT [facility], [facility].; [employer] [facility], [facility]. 07-29-2013 08:13-0500 Body surface area Derived from formula 2.28 m2 Sandy Hull LPN [facility], [facility].; [place] [facility] 07-29-2013 08:13-0500 Body temperature 97.6 [degF] Sandy Hull LPN [facility], [facility].; [employer], [employer]. Comment on above: Method: Tympanic 07-29-2013 08:13-0500 Body weight 108.64 kg Sandy Hull LPN [facility], [facility].; [employer] [facility], [employer]. 07-29-2013 08:13-0500 Diastolic blood pressure 72 mm[Hg] Sandy Hull LPN [facility], [facility].; [employer], [employer]. Comment on above: Patient Position: Sitting; Cuff Location : Left Arm; Cuff Size: Standard 07-29-2013 08:13-0500 Heart rate 55 /min Sandy Hull LPN [facility], [facility].; [employer]. Comment on above: Pattern: Regular 07-29-2013 08:13-0500 Systolic blood pressure 127 mm[Hg] Sandy Kurtis WILLIAM [facility], [facility].; [employer], [employer]. Comment on above: Patient Position: Sitting; Cuff Location : Left Arm; Cuff Size: Standard 02-24-2013 08:17-0400 Body height 180.34 cm Ashly Leung LPN [facility], [facility].; [place] [employer] [facility]. 02-24-2013 08:17-0400 Body mass index (BMI) [Ratio] 33.61 kg/m2 Ashly Leung LPN [facility], [facility].; [place] [employer] [facility], [employer]. 02-24-2013 08:17-0400 Body surface area Derived from formula 2.28 m2 Ashly Leung LPN [facility], [facility].; [employer], [employer]. 02-24-2013 08:17-0400 Body temperature 97.2 [degF] Ashly [facility]ung LPN [facility] [employer].; [employer]. Comment on above: Method: Tympanic 02-24-2013 08:17-0400 Body weight 109.32 kg Ashly Saunders Xoch[employer]l PHYSICIAN OFFICE ASSISTANT [facility], [employer].; [employer]. 02-24-2013 08:17-0400 Diastolic blood pressure 77 mm[Hg] Ashly Saunders [employer] WILLIAM [facility] [employer]. Comment on above: Patient Position: Sitting; Cuff Location : Left Arm; Cuff Size: Standard 02-24-2013 08:17-0400 Heart rate 71 /min Ashly Saunders [employer] WILLIAM [facility] [employer]. Comment on above: Pattern: Regular 02-24-2013 08:17-0400 Systolic blood pressure 144 mm[Hg] Ashly Saunders [facility] [facility] [employer]. Comment on above: Patient Position: Sitting; Cuff Location : Left Arm; Cuff Size: Standard 02-08-2013 17:19-0400 Body weight 108.41 kg Magdy Ward MD Work Phone: [place] [employer] [facility] [employer]. 02-08-2013 17:19-0400 Diastolic blood pressure 76 mm[Hg] Magdy Ward MD Work Phone: [place] [employer] [facility] [employer]. Comment on above: Patient Position: Sitting; Cuff Location : Left Arm; Cuff Size: Standard 02-08-2013 17:19-0400 Heart rate 58 /min Magdy Ward MD Work Phone: [place] [employer] [facility] [employer]. Comment on above: Pattern: Regular 02-08-2013 17:19-0400 Systolic blood pressure 144 mm[Hg] Magdy Ward MD Work Phone: [place] [employer] [facility].; [employer]. Comment on above: Patient Position: Sitting; Cuff Location : Left Arm; Cuff Size: Standard 06-22-2012 08:20-0500 Body height 180.34 cm Viky Aiken RN [place] [employer] [facility].; [employer]. 06-22-2012 08:20-0500 Body mass index (BMI) [Ratio] 35.12 kg/m2 Viky Aiken RN [place] [employer]. 06-22-2012 08:20-0500 Body surface area Derived from formula 2.33 m2 Viky Aiken RN [place] [employer] [facility] [employer]. 06-22-2012 08:20-0500 Body temperature 98 [degF] Viky Aiken RN [place] [employer]. Comment on above: Method: Tympanic 06-22-2012 08:20-0500 Body weight 114.22 kg Viky Aiken RN [employer].; [employer] 06-22-2012 08:20-0500 Diastolic blood pressure 84 mm[Hg] Viky Aiken RN [place] [employer]. Comment on above: Patient Position: Sitting; Cuff Location : Left Arm; Cuff Size: Standard 06-22-2012 08:20-0500 Heart rate 63 /min Viky Aiken RN [employer]. Comment on above: Pattern: Regular 06-22-2012 08:20-0500 Inhaled oxygen concentration 20 % Viky Aiken RN [employer].; [employer]. Comment on above: Room air 06-22-2012 08:20-0500 Inhaled oxygen concentration 21 % Viky Aiken RN [employer].; [employer]. Comment on above: Room air 06-22-2012 08:20-0500 SaO2% (BldA) [Mass fraction] 97 % Viky Aiken RN [employer].; [employer]. 06-22-2012 08:20-0500 Systolic blood pressure 142 mm[Hg] Viky Aiken RN [employer].; [employer]. Comment on above: Patient Position: Sitting; Cuff Location : Left Arm; Cuff Size: Standard 02-18-2012 08:32-0400 Body height 180.34 cm Magdy Ward MD Work Phone: [employer]; [employer]. 02-18-2012 08:32-0400 Body mass index (BMI) [Ratio] 34.03 kg/m2 Magdy Ward MD Work Phone: [employer]; [employer]. 02-18-2012 08:32-0400 Body surface area Derived from formula 2.3 m2 Magdy Ward MD Work Phone: [employer]; [employer]. 02-18-2012 08:32-0400 Body weight 110.68 kg Magdy Ward MD Work Phone: [employer] 02-18-2012 08:32-0400 Diastolic blood pressure 88 mm[Hg] Magdy Ward MD Work Phone: [employer]. Comment on above: Patient Position: Sitting; Cuff Location : Left Arm; Cuff Size: Large 02-18-2012 08:32-0400 Heart rate 56 /min Magdy Ward MD Work Phone: [employer]; [employer]. Comment on above: Pattern: Regular 02-18-2012 08:32-0400 Systolic blood pressure 142 mm[Hg] Magdy Ward MD Work Phone: [employer]; [employer]. Comment on above: Patient Position: Sitting; Cuff Location : Left Arm; Cuff Size: Large Encounters Encounter Date Encounter Type Care Provider Facility Start: 11-12-2024 ambulatory [facility] Facility:[facility] Start: 11-05-2024 End: 11-05-[address] Caleb Martel MD -Laboratory Work Phone: Start: 11-05-2024 End: 11-05-2024 ambulatory [facility] Facility:[facility] Start: 11-03-2024 Review Magdy Ward MD Work Phone: [employer]. Start: 11-03-2024 End: 11-03-2024 Orders [facility] Start: 11-02-2024 End: 11-02-2024 Office outpatient visit 25 minutes Magdy Ward MD [facility] Start: 10-30-2024 End: 10-30-[address] Magdy Ward MD Work Phone: [facility] Work Phone: Start: 10-30-2024 End: 10-30-[address] Renato Jacques MD -[facility] Work Phone: Start: 10-28-2024 End: 10-28-[address] Caleb Martel MD -[facility] Work Phone: Start: 10-28-2024 End: 10-28-[address] Magdy Ward MD Work Phone: [facility] Work Phone: Start: 10-22-2024 End: 10-22-2024 Historical Summary Magdy Ward MD [facility] Start: 10-21-2024 End: 10-21-2024 Historical Summary Magdy Ward MD [facility] Start: 09-29-2024 End: 09-29-[address] Magdy Ward MD Work Phone: [facility] Work Phone: Start: 09-29-2024 End: 09-29-[address] Renato Jacques MD -[facility] Work Phone: Start: 08-03-2024 End: 08-03-2024 Patient encounter procedure Magdy Ward MD Work [facility]: [facility]; [facility] Start: 08-03-2024 End: 08-03-2024 Periodic preventive med est patient 65yrs& older Magdy Ward MD Work Phone: [employer] Start: 08-03-2024 Patient encounter procedure Adali Quinones LPN [employer]. Start: 07-27-2024 End: 07-27-2024 Mickie Ward MD Work Phone: [employer] Start: 06-30-2024 End: 06-30-2024 ambulatory Magdy Brown Facility:[facility] Start: 06-30-2024 End: 06-30-[address] Renato Jacques MD -[facility] Work Phone: Start: 06-14-2024 End: 06-14-2024 Office outpatient visit 15 minutes Magdy Ward MD Work Phone: [employer]. Start: 06-14-2024 Review Magdy Ward MD Work Phone: [employer] Start: 03-31-2024 End: 03-31-2024 ambulatory Magdy Brown Facility:[facility] Start: 03-22-2024 End: 03-22-2024 ambulatory [facility] Facility:[facility] Start: 03-20-2024 End: 03-20-2024 ambulatory Magdy Brown Facility:[facility] Start: 02-16-2024 ambulatory Magdy Brown Facility:[facility] Start: 02-16-2024 ambulatory Magdy Brown [facility] Start: 02-13-2024 ambulatory Magdy Brown [facility] Start: 02-13-2024 End: 02-13-2024 ambulatory [facility] Facility:[facility] Start: 02-12-2024 End: 02-12-2024 ambulatory Magdy Brown Facility:[facility] Start: 02-10-2024 End: 02-10-2024 Office outpatient visit 15 minutes Magdy Ward MD Work Phone: [employer] Start: 02-10-2024 Follow-up encounter Magdy good MD Work Phone: [employer] Start: 02-03-2024 End: 02-03-2024 ambulatory Magdy Brown Facility:[facility] Start: 02-03-2024 End: 02-03-2024 ambulatory [facility] Facility:[facility] Start: 12-30-2023 End: 12-30-2023 ambulatory Magdy Ward Facility:[facility] Start: 09-03-2023 ambulatory ERIC DOUGHERTY [facility] Start: 07-29-2023 End: 07-29-2023 Patient encounter status Magdy Ward MD Work Phone: [employer]; [employer] Start: 07-29-2023 End: 07-29-2023 Periodic preventive med est patient 65yrs& older Magdy Ward MD Work Phone: [employer]. Start: 07-16-2023 End: 07-16-2023 Orders Magdy Ward MD Work Phone: [employer]. Start: 01-21-2023 End: 01-21-2023 Office outpatient visit 25 minutes Magdy Ward MD Work Phone: [employer]. Start: 11-25-2022 End: 11-25-2022 Office outpatient visit 15 minutes Magdy Ward MD Work Phone: [employer]. Start: 08-07-2022 End: 08-07-[address] Magdy Ward Work Phone: [facility] Work Phone: Start: 08-07-2022 End: 08-07-[address] Magdy Ward Work Phone: [facility] Start: 08-07-2022 End: 08-07-[address] Magdy Ward Work Phone: [facility] Start: 07-23-2022 End: 07-23-2022 Patient encounter status Adali Gates MA [employer] Start: 07-23-2022 End: 07-23-2022 Periodic preventive med est patient 65yrs& older Magdy Ward MD Work Phone: [employer]. Start: 07-15-2022 End: 07-22-2022 Orders Magdy Ward MD Work Phone: [employer] Start: 06-24-2022 End: 06-24-2022 Orders Magdy Ward MD Work Phone: [employer]. Start: 05-29-2022 End: 05-29-[address] Magdy Ward Work Phone: [facility] Start: 05-03-2022 End: 05-03-2022 Office outpatient visit 15 minutes Magdy Ward MD Work Phone: [employer] Start: 02-01-2022 End: 02-01-2022 Patient encounter procedure Magdy Ward MD Work Phone: [employer] Start: 01-08-2022 End: 01-08-2022 Office outpatient visit 15 minutes Magdy Ward MD Work Phone: [employer] Start: 12-17-2021 End: 12-17-2021 Office outpatient visit 15 minutes Magdy Ward MD Work Phone: [employer] Start: 09-03-2021 End: 09-03-2021 Office outpatient visit 15 minutes Magdy Ward MD Work Phone: [employer] Start: 07-26-2021 End: 07-26-2021 Historical Summary Magdy Ward MD Work Phone: [employer] Start: 07-16-2021 End: 07-16-2021 Office outpatient visit 25 minutes Magdy Ward MD Work Phone: [employer] Start: 06-12-2021 End: 06-12-2021 Office outpatient visit 15 minutes Magdy Ward MD Work Phone: [employer] Start: 04-20-2021 End: 04-20-2021 Telephone follow-up Magdy Ward MD Work Phone: [employer] Start: 04-14-2021 End: 04-14-2021 Emergency department patient visit HAYES CARTER [facility] Start: 03-12-2021 End: 03-12-2021 Patient encounter procedure Magdy Ward MD Work Phone: [employer]. Start: 02-14-2021 End: 02-14-2021 Office outpatient visit 15 minutes Magdy Ward MD Work Phone: [employer]. Start: 01-22-2021 End: 01-22-2021 Patient encounter status Magdy Ward MD Work Phone: [employer] Start: 01-22-2021 End: 01-22-2021 Periodic preventive med est patient 40-64yrs Magdy Ward MD Work Phone: [employer]. Start: 01-08-2021 End: 01-15-2021 Orders Magdy Ward MD Work Phone: [employer]. Start: 11-30-2020 End: 11-30-2020 Patient encounter procedure Magdy Ward MD Work Phone: [employer]. Start: 07-04-2020 End: 07-04-2020 Office outpatient visit 25 minutes Magdy Ward MD Work Phone: [employer] Start: 01-01-2020 End: 01-01-2020 Historical Summary Magdy Ward MD Work Phone: [employer]. Start: 12-31-2019 End: 01-10-2020 Orders Magdy Ward MD Work Phone: [employer]. Start: 12-13-2019 End: 12-13-2019 Patient encounter status Magdy Ward MD Work Phone: [employer] Start: 12-13-2019 End: 12-13-2019 Periodic preventive med est patient 40-64yrs Magdy Ward MD Work Phone: [employer]. Start: 12-06-2019 End: 12-06-2019 Orders Magdy Ward MD Work Phone: [employer]. Start: 06-21-2019 End: 06-21-2019 Orders Magdy Ward MD Work Phone: [employer]. Start: 06-01-2019 End: 06-01-2019 Telephone follow-up Magdy Ward MD Work Phone: [employer]. Start: 05-06-2019 End: 05-09-2019 Office outpatient visit 15 minutes Magdy Ward MD Work Phone: [employer]. Start: 04-27-2019 End: 04-29-2019 Medication Magdy Ward MD Work Phone: [employer]. Start: 02-12-2019 End: 02-12-2019 Office outpatient visit 25 minutes Magdy Ward MD Work Phone: [employer]. Start: 11-02-2018 End: 11-02-2018 Patient encounter procedure Magdy Ward MD Work Phone: [employer]. Start: 10-26-2018 End: 10-26-2018 Follow-up encounter Magdy Ward MD Work Phone: [employer]. Start: 09-24-2018 End: 09-24-2018 Office outpatient visit 15 minutes Magdy Ward MD Work Phone: [employer]. Start: 08-14-2018 End: 08-14-2018 Office outpatient visit 25 minutes Magdy Ward MD Work Phone: [employer]. Start: 08-07-2018 End: 08-07-2018 Orders Magdy Ward MD Work Phone: [employer]. Start: 07-03-2018 End: 07-03-2018 Patient encounter procedure Magdy Ward MD Work Phone: [employer]. Start: 01-30-2018 End: 01-30-2018 Medication Magdy Ward MD Work Phone: [employer]. Start: 01-16-2018 End: 01-16-2018 Office outpatient visit 25 minutes Magdy Ward MD Work Phone: [employer]. Start: 12-17-2017 End: 12-17-2017 Historical Summary Magdy Ward MD Work Phone: [employer]. Start: 06-20-2017 End: 06-20-2017 Office outpatient visit 25 minutes Magdy Ward MD Work Phone: [employer]. Start: 06-11-2017 End: 06-24-2017 Patient encounter procedure Magdy Ward MD Work Phone: [employer]. Start: 05-13-2017 End: 05-13-2017 Office outpatient visit 15 minutes Magdy Ward MD Work Phone: [employer]. Start: 12-10-2016 End: 12-10-2016 Patient encounter procedure Magdy Ward MD Work Phone: [employer]. Start: 12-09-2016 End: 12-09-2016 Historical Summary Magdy Ward MD Work Phone: [employer]. Start: 09-20-2016 End: 09-20-2016 Office outpatient visit 15 minutes Magdy Ward MD Work Phone: [employer]. Start: 08-20-2016 End: 08-20-2016 Office outpatient visit 15 minutes Magdy Ward MD Work Phone: [employer]. Start: 05-24-2016 End: 05-24-2016 Patient encounter procedure Magdy Ward MD Work Phone: [employer]. Start: 05-21-2016 End: 05-21-2016 Orders Magdy Ward MD Work Phone: [employer]. Start: 11-20-2015 End: 11-20-2015 Office outpatient visit 15 minutes Magdy Ward MD Work Phone: [employer]. Start: 11-04-2015 End: 11-04-2015 Office outpatient visit 15 minutes Magdy Ward MD Work Phone: [employer]. Start: 07-31-2015 End: 07-31-2015 Medication Magdy Ward MD Work Phone: [employer]. Start: 07-31-2015 End: 07-31-2015 Patient encounter procedure Magdy Ward MD Work Phone: [employer]. Start: 05-02-2015 End: 05-02-2015 Office outpatient visit 25 minutes Magdy Ward MD Work Phone: [employer]. Start: 10-31-2014 End: 10-31-2014 Office outpatient visit 15 minutes Magdy Ward MD Work Phone: [employer]. Start: 07-09-2014 End: 07-09-2014 Office outpatient visit 15 minutes Magdy Ward MD Work Phone: [employer]. Start: 05-02-2014 End: 05-02-2014 Patient encounter procedure Magdy Ward MD Work Phone: [employer]. Start: 02-22-2014 End: 02-22-2014 Medication Magdy Ward MD Work Phone: [employer]. Start: 10-04-2013 End: 10-04-2013 Patient encounter procedure Magdy Ward MD Work Phone: [employer]. Start: 09-24-2013 End: 09-24-2013 Patient encounter procedure Magdy Ward MD Work Phone: [employer]. Start: 09-20-2013 End: 09-20-2013 Historical Summary Magdy Ward MD Work Phone: [employer]. Start: 09-20-2013 End: 09-20-2013 Medication Magdy Ward MD Work Phone: [employer]. Start: 09-16-2013 End: 09-17-2013 Orders Magdy Ward MD Work Phone: [employer]. Start: 08-30-2013 End: 08-30-2013 Medication Magdy Ward MD Work Phone: [employer]. Start: 08-20-2013 End: 08-20-2013 Medication Magdy Ward MD Work Phone: [employer]. Start: 08-10-2013 End: 08-10-2013 Patient encounter procedure Magdy Ward MD Work Phone: [employer] [facility] Start: 07-29-2013 End: 07-29-2013 Patient encounter procedure Magdy Ward MD Work Phone: [employer]. Start: 02-24-2013 End: 02-24-2013 Patient encounter procedure Magdy Ward MD Work Phone: [employer]. Start: 02-08-2013 End: 02-08-2013 Patient encounter procedure Magdy Ward MD Work Phone: [employer]. Start: 01-20-2013 End: 01-20-2013 Medication Magdy Ward MD Work Phone: [employer]. Start: 01-05-2013 End: 01-05-2013 Medication Magdy Ward MD Work Phone: [employer]. Start: 12-18-2012 End: 12-18-2012 Medication Magdy Ward MD Work Phone: [employer]. Start: 07-02-2012 End: 07-02-2012 Medication Magdy Ward MD Work Phone: [employer]. Start: 06-22-2012 End: 06-22-2012 Patient encounter procedure Magdy Ward MD Work Phone: [employer]. Start: 05-05-2012 End: 05-05-2012 Nursing evaluation of patient and report Magdy Ward MD Work Phone: [employer]. Start: 02-18-2012 End: 02-18-2012 Patient encounter procedure Magdy Ward MD Work Phone: [facility] [employer] [facility]. Patient encounter status Claire Rice LPN [facility], [facility].; [employer] [facility] [employer]. Patient encounter status Claire Rice LPN [facility], [facility].; [employer] [facility] [employer] [facility]. Patient encounter status Claire Rice LPN [facility], [facility].; [employer] [facility] [employer] [facility]. Patient encounter status Mecca Melton RN [facility] Procedures Date Procedure Procedure Detail Performing Clinician Start: 10-28-2024 End: 10-28-2024 Most Recent Cardio Report Adali Quinones LPN Start: 10-21-2024 End: 10-21-2024 Most Recent Endo Report Adali Echols PN Comment on above: no records Start: 08-03-2024 End: 08-03-2024 Adv care pln/ no alt dcsn mkr docd or refusal Magdy Ward MD Work Phone: Start: 08-03-2024 End: 08-03-2024 Depression screening Magdy Ward MD Work Phone: Start: 08-03-2024 End: 08-03-2024 Falls risk assessment documented Magdy Ward MD Work Phone: Start: 08-03-2024 End: 08-03-2024 Pos clin depres scrn f/u doc Magdy Ward MD Work Phone: Start: 08-03-2024 End: 08-03-2024 PPPS, subseq visit Magdy Ward MD Work Phone: Start: 08-03-2024 End: 08-03-2024 Pt falls assess docd w/o fall/injury past year Magdy Ward MD Work Phone: Start: 08-03-2024 End: 08-03-2024 Scr dep neg, no plan reqd Magdy Ward MD Work Phone: Start: 07-27-2024 End: 07-27-2024 Hemoglobin A1c/Hemoglobin.total in Blood Adali Quinones LPN Comment on above: 9.6 Start: 07-27-2024 End: 07-27-2024 Lab findings surveillance Adali Quinones LPN Comment on above: 179 Start: 07-27-2024 End: 07-27-2024 Lipid panel results documented & reviewed Adali Quinones LPN Comment on above: TC 163 HDL 54 LDL 90 TRI 94 Start: 07-27-2024 End: 07-27-2024 Prostate specific antigen measurement Adali Quinones LPN Comment on above: Results:. 1.36 Start: 03-22-2024 End: 03-22-2024 Most Recent Cardio Labs Adali Echols PN Start: 02-10-2024 End: 02-10-2024 Flu imm no admin doc maria elena Magdy Knight Work Phone: Start: 02-10-2024 End: 02-10-2024 Hemoglobin A1c/Hemoglobin.total in Blood Claire Rice PHYSICIAN OFFICE ASSISTANT Comment on above: 8.6 Start: 02-03-2024 End: 02-03-2024 Most Recent Cardio Report Magdy Ward MD Work Phone: Start: 07-29-2023 End: 07-29-2023 Depression screening Magdy Ward MD Work Phone: Start: 07-29-2023 End: 07-29-2023 Scr dep neg, no plan reqd Magdy Ward MD Work Phone: Start: 07-22-2023 End: 07-22-2023 Hemoglobin A1c/Hemoglobin.total in Blood Claire Rice PHYSICIAN OFFICE ASSISTANT Comment on above: 8.5 Start: 07-22-2023 End: 07-22-2023 Lipid panel results documented & reviewed Claire Rice PHYSICIAN OFFICE ASSISTANT Start: 07-22-2023 End: 07-22-2023 Prostate specific antigen measurement Claire Rice PHYSICIAN OFFICE ASSISTANT Comment on above: Results:. 1.35 Start: 08-07-2022 Plain chest X-ray Dr. Luana Ward Work Phone: Start: 07-23-2022 End: 07-23-2022 Depression screening Magdy Ward MD Work Phone: Start: 07-23-2022 End: 07-23-2022 Scr dep neg, no plan reqd Magdy Ward MD Work Phone: Start: 07-15-2022 End: 07-15-2022 Hemoglobin A1c/Hemoglobin.total in Blood Claire Rice PHYSICIAN OFFICE ASSISTANT Comment on above: 8.4 Start: 07-15-2022 End: 07-15-2022 Lab findings surveillance Claire riddle PHYSICIAN OFFICE ASSISTANT Comment on above: 177 Start: 07-15-2022 End: 07-15-2022 Lipid panel results documented & reviewed Claire Rice LPN Comment on above: TC 174, HDL 58, LDL 95, Trig 117 Start: 07-15-2022 End: 07-15-2022 Prostate specific antigen measurement Claire Rice LPN Comment on above: Results:. 1.8 Start: 03-12-2021 End: 07-22-2023 Pressurized/nonpressurize d inhalation treatment Levi Hoffmann PA-C Work Phone: Start: 01-22-2021 End: 01-22-2021 Depression screening Magdy Ward MD Work Phone: Start: 01-22-2021 End: 01-22-2021 Scr dep neg, no plan reqd Magdy Ward MD Work Phone: Start: 01-02-2021 End: 01-02-2021 [...] colorectal screening kelsea 10 dna markrs Magdy Ward MD Work Phone: Start: 12-30-2019 End: 12-30-2019 Cologuard Claire Rice LP N Comment on above: Normal Start: 12-13-2019 End: 12-13-2019 Depression screening Magdy Ward MD Work Phone: Start: 12-13-2019 End: 12-13-2019 Most recent hg a1c>equal to 7.0%&<8.0% Magdy Ward MD Work Phone: Start: 12-13-2019 End: 12-13-2019 Scr dep neg, no plan reqd Magdy Ward MD Work Phone: Start: 02-12-2019 End: 02-12-2019 Flu immunize order/admin Magdy Knight Work Phone: Start: 02-12-2019 End: 02-12-2019 Most recent hemoglobin a1c level < 7.0% Magdy Ward MD Work Phone: Start: 01-16-2018 End: 01-16-2018 Depression screen annual Magdy Knight Work Phone: Start: 01-16-2018 End: 01-16-2018 Most recent hemoglobin a1c level gt 7.0-9.0 % Magdy Ward MD Work Phone: Start: 01-16-2018 End: 01-16-2018 Scr dep neg, no plan reqd Magdy Ward MD Work Phone: Start: 06-20-2017 End: 06-20-2017 Most recent diastolic blood pressure < 80 mm hg Magdy Ward MD Work Phone: Start: 06-20-2017 End: 06-20-2017 Most recent hemoglobin a1c level gt 7.0-9.0 % Magdy Ward MD Work Phone: Start: 06-20-2017 End: 06-20-2017 Most recent systolic blood pressure <130 mm hg Magdy Ward MD Work Phone: Start: 06-11-2017 End: 06-11-2017 Body mass index documented Tonio Posadas MD Work Phone: Start: 05-13-2017 End: 05-13-2017 Body mass index documented Magdy Ward MD Work Phone: Start: 06-26-2016 End: 06-26-2016 ICD placement [place] [facility] N Start: 12-26-2007 History of coronary artery [...] bypass of three coronary arteries Claire Rice NATALIIA Comment on above: 2007 Aortocoronary bypass of three coronary arteries Mecca Melton RN Comment on above: 2007 Plan of Treatment Date Care Activity Detail Author Start: 03-29-2025 Patient encounter procedure Medical; RTN OFFICE VISIT - 6 MO RTN [facility] Start: 29-Mar-2025 15:50-05:00 MD Magdy Ward Appointment Request [employer]. Start: 11-12-2024 Measurement of respiratory function [facility] Start: 11-02-2024 Patient encounter procedure Medical; RTN OFFICE VISIT - 4 mo rtn [facility] Start: 02-Nov-2024 15:50-04:00 MD Magdy Ward Appointment Request [facility] Start: 11-02-2024 Oncology colorectal screening kelsea 10 dna markrs COLOGUARD COLON CANCER SCREENING USING STOOL DNA AT POINT OF CARE (37116) Start: 02-Nov-2024 Intent [facility] Start: 11-02-2024 End: 11-03-2024 Polysom 6/>yrs sleep 4/> addl julia attnd [employer] Start: 10-28-2024 Evaluation of diagnostic study results [facility] Start: 08-03-2024 Patient encounter procedure Medical; PHYSICAL - physical [facility] Start: 03-Aug-2024 15:50-04:00 MD Magdy Ward Appointment Request [facility] Start: 08-03-2024 Oncology colorectal screening kelsea 10 dna markrs COLOGUARD COLON CANCER SCREENING USING STOOL DNA AT POINT OF CARE (76174) Start: 03-Aug-2024 Intent [facility] Start: 07-27-2024 Comprehensive metabolic panel CMP w/ GFR* (59458) Start: 27-Jul-2024 Request [facility] Start: 07-27-2024 Hemoglobin glycosylated a1c HEMOGLOBIN A1C* (01614) Start: 27-Jul-2024 Request [employer] Start: 07-27-2024 Assay of prostate specific antigen total [employer] [facility] Start: 07-27-2024 Lipid panel [employer] Start: 07-27-2024 Nursing evaluation of patient and report [employer]. Start: 02-10-2024 Patient encounter procedure Medical; RTN OFFICE VISIT - 6 mo rtn [employer]. Start: 10-Feb-2024 15:50-04:00 MD Magdy Ward Appointment Request [employer] Start: 02-10-2024 Hemoglobin glycosylated a1c Hgb A1c (fingerstick)(07764) Start: 10-Feb-2024 11:14-04:00 Request [employer] Start: 07-29-2023 Patient encounter procedure Medical; PHYSICAL - PHYSICAL [employer]. Start: 29-Jul-2023 15:50 MD Magdy Ward Appointment Request [facility]. Start: 07-29-2023 Oncology colorectal screening kelsea 10 dna markrs COLOGUARD COLON CANCER SCREENING USING STOOL DNA AT POINT OF CARE (35866) Start: 29-Jul-2023 Intent [employer] Start: 07-22-2023 Nursing evaluation of patient and report Medical; Nurse visit - fasting labs-SFB [facility] Start: 22-Jul-2023 8:00 ROOM, PROCEDURE (DRAW) Appointment Request [facility] Start: 07-16-2023 Assay of prostate specific antigen total PSA TOTAL (PROSTATE SPECIFIC ANTIGEN) (07087) Start: 16-Jul-2023 14:49 Request [employer] Start: 07-16-2023 Lipid panel LIPID PANEL (59434) Start: 16-Jul-2023 14:49 Request [facility] [employer] Start: 07-16-2023 Hemoglobin glycosylated a1c HEMOGLOBIN A1C* (93910) Start: 16-Jul-2023 14:49 Request [facility] [employer]; [employer] Start: 07-16-2023 Comprehensive metabolic panel CMP w/ GFR* (80574) Start: 16-Jul-2023 14:49 Request [employer] [facility]; [employer] Start: 01-21-2023 End: 01-22-2023 Polysom 6/>yrs sleep 4/> addl julia attnd Sleep Study (90845) Date: [facility] Start: 03-12-2021 Pressurized/nonpressurize d inhalation treatment Aerosol Treatment (39500) Start: 12-Mar-2021 Intent [employer]; [employer] Work Phone: Immunizations Immunization Date Immunization Notes Care Provider [facility] 02-06-2024 zoster vaccine recombinant Magdy Ward MD Work Phone: [facility] [employer]; [employer]. Comment on above: [facility] 11-13-2023 zoster vaccine recombinant Magdy Ward MD Work Phone: [facility]; [employer]. Comment on above: [facility] 07-23-2022 pneumococcal conjuga te vaccine, 13 valent Magdy Ward MD Work Phone: [facility]; [employer]. Comment on above: Site: Left DeltoidVI S Given: * PCV13 (12/29/20) 04-14-2021 tetanus toxoid, redu abe diphtheria toxoid, and acellular pertussis vaccine, adsorbed; Translations: [Boostrix (Tdap)] HAYES CARTER MD [facility] 02-24-2021 COVID-Pfizer (30 MCG /0.3 ML) Magdy Ward MD Work Phone[facility]; [facility] 02-03-2021 COVID-Pfizer (30 MCG /0.3 ML) Magdy Ward MD Work Phone: [facility]; [facility] 12-13-2019 Shingrix 50 MCG/0.5M L Intramuscular Suspension Reconstituted Magdy Ward MD Work Phone: [facility] [employer]; [employer] Comment on above: Repeat in 2-6 months 12-13-2019 tetanus toxoid, redu abe diphtheria toxoid, and acellular pertussis vaccine, adsorbed Magdy Ward MD Work Phone: [facility] [employer]; [employer] Comment on above: Site: Left DeltoidVI S Given: * Tdap (Tetanus, Diphtheria, Pertussis) (07/19/14) 02-12-2019 influenza, injectabl e, quadrivalent, contains preservative Magdy Ward MD Work Phone: [facility] [employer]; [employer] Comment on above: Site: Right ArmVIS G iven: * Influenza - Inactivated (12/30/14) 03-26-2017 influenza, injectabl e, quadrivalent, contains preservative Magdy Ward MD Work Phone: [facility]; [employer] Comment on above: receoived vaccine at work. 08-20-2016 pneumococcal polysaccharide vaccine, 23 valent Magdy Ward MD Work Phone: [facility]; [employer]. Comment on above: Site: Deltoid (Left) VIS Given: * Pneumococcal Polysaccharide (PPSV23) (09/16/14) 08-20-2016 pneumococcal Conjuga te, unspecified formulation Magdy Ward MD Work Phone: [facility] [employer]; [employer] 04-17-2016 influenza, seasonal, injectable Magdy Ward MD Work Phone: [employer]; [employer] Comment on above: Received at work 05-05-2012 influenza, seasonal, injectable Magdy Ward MD Work Phone: [employer]; [employer] Comment on above: Site: Deltoid (Left) VIS Given: * Inactivated Influenza Vaccine (01/03/09) * Inactivated Influenza Vaccine (12/18/10) * Influenza vaccine [id number], inactivated (11/25/2011) * VIS Given (Unspecified) 05-05-2012 IMMUNIZATION ADMIN ([id number]) Magdy Ward MD Work Phone: [employer]; [employer] Payers Date Payer Category Payer Self-pay [id number] 2013 Unknown [id number] 1955 Unknown [id number] 2.16.8 [id number] Unknown Unknown [id number] 2.16.8 40.1.686678.3.579.2.462 Unknown [id number] 2.16.8 40.1.209193.3.579.2.462 Unknown [id number] 2.16.8 40.1.814857.3.579.2.462 Unknown [id number] 2.16.8 40.1.974491.3.579.2.462 Unknown [id number] 2.16.8 40.1.178988.3.579.2.462 Unknown [id number] 2.16.8 40.1.914745.3.579.2.462 Unknown [id number] 2.16.8 40.1.724221.3.579.2.462 Unknown [id number] 2.16.8 40.1.273891.3.579.2.462 Unknown [id number] 2.16.8 40.1.661473.3.579.2.462 Unknown [id number] 2.16.8 40.1.528590.3.579.2.462 Unknown [id number] 2.16.8 40.1.700169.3.579.2.462 Unknown [id number] 2.16.8 40.1.406164.3.579.2.462 Unknown [id number] 2.16.8 40.1.284374.3.579.2.462 Unknown [id number] 2.16.8 40.1.163220.3.579.2.462 Unknown [id number] 2.16.8 40.1.118552.3.579.2.462 Unknown [id number] 2.16.8 40.1.068742.3.579.2.462 Unknown [id number] 2.16.8 40.1.173816.3.579.2.462 Unknown [id number] 2.16.8 40.1.429325.3.579.2.462 Unknown [id number] 2.16.8 40.1.344737.3.579.2.462 Social History Date Type Detail Facility Never smoked tob acco (finding) [facility] Assigned At [facility] Start: 12-07-2019 Tobacco smoking stat [facility] Unknown if ever smoked [facility] Start: 1955 Sex Assigned At Male [facility] Caffeine Use Caffeine Use [employer]. Current Work/Study Status: Current Work/Study Status: ; Full-time. [employer] Tobacco Use: Tobacco Use: ; N ever smoker. [employer]. Full-time [employer]; [employer] Work Phone: Evaluation note 10-28-2024 Note Date & Type Note Facility 10-28-2024 Evaluation note Diagnosis Onset Date Resolution Bilateral [...] Ventricular fibrillation resolved October 28, 2024 12:41pm [facility] Work Phone: Progress note 10-28-2024 Note Date & Type Note Facility 10-28-2024 Progress note [facility] Hospital Discharge instructions 04-14-2021 Note Date & [...] painful when eating. You may use an brzv-jnh-[id number] local numbing solution for pain relief. If [...] off before 7 days Wound edges re-open [phone] [employer]. [address] [place] [address]. All rights reserved. This information is not intended as a substitute for professional medical care. Always follow your healthcare professional's instructions. Follow Up Care 04/14/2021 10:19:17 With:PERRY AMADOR Address: When: Unknown Comments:10 days for suture removal. 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 Presence of implantable cardioverter-defibrillator (ICD) chronic Ventricular fibrillation res olved Atherosclerosis of coronary artery of minto heart without angina pectoris chronic Essential hypertension chron ic H/O coronary artery bypass surgery December 26, 2007 chronic Hypercholesteremia chronic 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 On amiodarone therapy chroni c Paroxysmal ventricular tachycardia chronic Presence of implantable cardioverter-defibrillator (ICD) [facility] Work Phone: Evaluation note Note Date & Type Note Facility Evaluation note [facility] Work Phone: Evaluation note Note Date [...] Ventricular fibrillation resolved October 28, 2024 12:41pm [facility] Work Phone: Progress note Note Date & Type Note Facility Progress note Note Date/Time October 28, 2024 1:29pm [facility] [address] [place] [address] OFFICE VISIT Date of Service: 10/28/24 MR#: [id number] Acct: [id number] Name: CASSIA PERAZA Rep #: [id number] : 1955 Provider: Dr. 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 Caleb Martel MD) Hypercholesteremia Sinus bradycardia Ventricular fibrillation On amiodarone therapy AICD discharge Syncope History of myocardial infarction Essential hypertension Carotid bruit Hyperlipemia Atherosclerosis of coronary artery of minto heart without angina pectoris Paroxysmal ventricular tachycardia [...] as described. This note was generated with [employer]ation software. 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 Name: Bob Sidhu Model #: [id number] Serial #: [id number] Date Implanted: 07/04/2016 Device Characteristics Device: Dual Chamber Type: Implantable defibrillator Remote:[place] Patient Characteristics Underlying patient rhythm:Sinus rhythm Pacemaker [...] performed by [facility] Z79.899 - Other fdc (current) drug therapy Plan Details Follow Up: [...] Signature: Date (if applicable) CC: Dr. Magdy Ward MD ~ [facility] Work Phone: Reason for referral (narrative) Note Date & Type Note Facility Reason for referral (narrative) No reason for referral information available [facility] Work Phone: Summary Purpose Family History [...] No August 08, 2018 5:24pm Power of Cane Splicer No August 08 5:24pm Advance Directive Response Recorded Date/ Time Advance Directives No July 04, 2016 10:22am Chief Complaint and Reason for Visit Chief Complaint 3 mos remote ICD f/u 1 Y FU EORDER Reason for Visit Sinus bradycardia Ischemic cardiomyopathy Presence of implantable cardioverter-defibrillator (ICD) Ventricular fibrillation Atherosclerosis of coronary artery of minto heart without angina pectoris Essential hypertension H/O [...] 12:41pm Ventricular fibrillation October 28, 2024 12:41pm Chief Complaint Admit Date Pacer Check Remote September 29, 2024 4:00am 9-12 M FU October 28, 2024 12:41 pm Pacer Check Remote October 30, 2024 2:00a m E ORDERS November 05, 2024 6:15 am Additional Source Comments (unrecognized sect ion and content) No Status Records FoundNo Status Records FoundNo Status Records FoundNo Status Records Found INFORMATION SOURCE (unrecogn ized section and content) DATE CREATED AUTHOR 05/18/2020 [facility] DATE CREATED AUTHOR AUTHOR'S ORGANIZ ATION 09/04/2023 [facility] DATE CREATED AUTHOR AUTHOR'S ORGANIZ ATION 07/30/2024 [facility] DATE CREATED AUTHOR AUTHOR'S ORGANIZ ATION 11/10/2024 [facility] Care Teams (unrecognized sec tion and content) Team Status: Active Member Role Status Dates Dr. Magdy Ward MD Family Provider Active Dr. Magdy Ward MD Primary Care Provider Active Team Status: Inactive Member Role Status Dates Dr. Magdy Ward MD Primary Care Provider, Referring Provider Active Dr. Richard Barajas MD Attending Provider Active Team Status: Inactive Member Role Status Dates Dr. Magdy Ward MD Primary Care Provider, Referring Provider Active Danelle Khan Active Dr. Richard Barajas MD Attending Provider Active Team Status: Inactive Member Role Status Dates Dr. Magdy Ward MD Primary Care Provider Active Dr. Richard Barajas MD Attending Provider, Referring Provider Active Team Status: Inactive Member Role Status Dates Dr. Magdy Ward MD Primary Care Provider Active Start: June 30, 2024 End: June 30, 2024 Dr. Renato Jacques MD Attending Provider Active S tart: June 30, 2024 End: June 30, 2024 Team Status: Inactive Member Role Status Dates Dr. Magdy Ward MD Primary Care Provider Active Start: September 29, 2024 End: September 29, 2024 Dr. Renato Jacques MD Attending Provider Active S tart: September 29, 2024 End: September 29, 2024 Team Status: Inactive Member Role Status Dates Dr. Magdy Ward MD Primary Care Provider Active Start: October 28, 2024 End: October 28, 2024 Dr. Magdy Ward MD Referring Provider Active S tart: October 28, 2024 End: October 28, 2024 Dr. Caleb Martel MD Attending Provider Active Start: October 28, 2024 End: October 28, 2024 Team Status: Active Member Role Status Dates Dr. Magdy Ward MD Primary Care Provider Active Team Status: Inactive Member Role Status Dates Dr. Magdy Ward MD Primary Care Provider Active Start: October 30, 2024 End: October 30, 2024 Dr. Renato Jacques MD Attending Provider Active S tart: October 30, 2024 End: October 30, 2024 Team Status: Active Member Role Status Dates Dr. Magdy Ward MD Primary Care Provider Active Start: November 05, 2024 Dr. Caleb Martel MD Attending Provider Active Start: November 05, 2024 Dr. Caleb Martel MD Referring Provider Active Start: November 05, 2024 Team Status: Inactive Member Role Status Dates Dr. Magdy Ward MD Primary Care Provider Active Start: November 05, 2024 End: November 05, 2024 Dr. Calbe Martel MD Attending Provider Active Start: November 05, 2024 End: November 05, 2024 Dr. Caleb Martel MD Referring Provider Active Start: November 05, 2024 End: November 05, 2024 Goals (unrecognized section and content) Goals [...] BE BASED ON THE PRIMARY CLINICAL RECORDS. [employer] provides no warranty or guarantee of the accuracy or completeness of information in this document.
== END | disposition home or self-care (01) ==
PROVIDERS: PCP Family Medicine; Referring Provider Internal Medicine Cardiovascular Disease; Visit Provider Internal Medicine Cardiovascular Disease
DX: Z79.899 Other long term (current) drug therapy (principal)
CPT/HCPCS: 94060; 94726; 94729